=== PATIENT | male | born 1960 | race Caucasian/White ===

== ENCOUNTER 2016-12-05 11:38 | Inpatient (IN) | payer MEDICARE, OTHER ==
[~2016-12-05] VITALS: Ht 165.1 cm; Wt 48.1 kg
[~2016-12-05 11:38] MED LIST: ACET160E5 PO; ACET160S PEG; ACET500L17 PEG; ACET500T68 PEG; ACIDOPHILUS PEG; ACIDOPHILUS100 MG PO; AMOX1TAB61 PO; AMOX400S PO; BISA10SU13 RC; CALC PEG; CALC200T23 PO; CALC500O PEG; CALC500O PO; CALCIUM CARB PEG; CARB100O2 PEG; CEFP200T PEG; CEFP200T PO; CHOL400D2 PEG; CHOL400D2 PO; CLIN300C3 PO; CLON1PAT TD; CLOT15CR TP; CLOT15CR4 TP; CRAN1POW PEG; CRAN250C PEG; CRAN300T PO; DIAZ5SOL2 PEG; DIAZ5TAB4 PEG; DIAZ5TAB4 PO; DOCU-27 PO; DOXA2TAB2 PEG; DOXY100T PO; ECON15CR TP; ENOX30DI SQ; ESCI10TA PEG; ESOM40SU PEG; FLUT100D IH; FLUT16SP NS; FLUT16SP2 NS; FLUT9.9S NS; LACT1CAP PEG; LACT1CAP2 PEG; LACT1CAP2 PO; LEVO500T38 PO; LEVO750T31 PO; LIDO700A4 TP; LOPE2CAP PEG; LOPE2CAP PO; LORA-434 PEG; LORA1TAB PO; LORA5SOL4 PEG; MAGN400O4 PO; MAGN400T22 PEG; METH-37 PEG; METH-37 PO; METR500T PEG; MIRT15TA3 PEG; NEXIUM PEG; OXYC5CAP3 PO; PECTIN PEG; PEG4000S3 PO; PIPE2.255 MC; POLY17PO3 PEG; POLY255P PO; QUET50TA PEG; SIME100L MC; SIME100L PEG; SIME80TA14 PEG; SULF1TAB24 PO; TAMS0.4C2 PO; TAMS0.4C97 PEG; TERB12CR TP; TERB12GE; TERB15CR2 TP; TERB30CR TP; TRAZ100T12 PEG; TRAZ150T55 PEG; VITAMIN A; VITS56.7 TP; ZINC30OI TP; ZIPR20CA2 PEG; ZIPR40CA3 PEG; ZIPR80CA2 PEG; [UNRECOGNIZED DRUG - CODE] PEG; [UNRECOGNIZED DRUG - CODE] PEG; [UNRECOGNIZED DRUG - CODE] PEG; [UNRECOGNIZED DRUG - CODE] PEG; [UNRECOGNIZED DRUG - CODE] PEG; [UNRECOGNIZED DRUG - CODE] PO; [UNRECOGNIZED DRUG - CODE] PO; [UNRECOGNIZED DRUG - CODE] PO; [UNRECOGNIZED DRUG - OTHER]; cranberry PEG; phenylephrine PEG
[2016-12-05] MEDS ORDERED: TERBINAFINE 1% TOPICAL CREAM 30GM TUBE. TP PRN (11:45)
[2016-12-05] MEDS ORDERED: VITS A & D/LANOLIN TOPICAL OINTMENT 56GM TUBE. TP PRN (11:45)
[2016-12-05] MEDS ORDERED: BISACODYL 10 MG SUPP.RECT RC PRN (11:45)
[2016-12-05] MEDS ORDERED: PIPERACILLIN/TAZOBACTAM 2.25 GM VIAL IV SCH (12:00)
[2016-12-05] MEDS ORDERED: SENNOSIDES 8.6 MG TABLET PO PRN (12:45)
[2016-12-05] MEDS ORDERED: NUTRITIONAL SUPPLEMENT PEG SCH (13:00)
[2016-12-05 13:09] VITALS: BP 147/80
[2016-12-05] MEDS: PIPERACILLIN/TAZOBACTAM 4.5 GM in IV NORMAL SALINE 50ML 50 ML IV SCH ×2 (13:47→17:18)
[2016-12-05] MEDS: CALCIUM CARBONATE 500 MG TAB.CHEW PEG SCH ×2 (13:47→21:15)
[2016-12-05] MEDS: ACETAMINOPHEN 650 MG/20.3 ML SOLUTION. PEG SCH ×2 (13:47→21:13)
[2016-12-05] MEDS: ZIPRASIDONE 20 MG CAPSULE. PO SCH ×2 (13:47→21:16)
[2016-12-05] MEDS: DOCUSATE 100 MG/10 ML SOLUTION. PO SCH ×2 (13:48→21:13)
[2016-12-05] MEDS: CARBAMAZEPINE 100 MG/5 ML PO SCH (13:49)
--- NOTE | 2016-12-05 14:18 | HP ---
ADMIT DATE: 12/05/2016 This is the swing bed history and physical Date of admission to swing bed 12/05/2016. REASON FOR ADMISSION TO SWING BED: Continue the antibiotic treatment for multidrug-resistant pseudomonas aeruginosa urinary tract infection. PAST MEDICAL HISTORY: Intellectual disability, chronic small bowel obstructions, chronic aspiration pneumonia, chronic feeding tubes status, chronic n.p.o. status, dysphagia, frequent falls, fall risk, seizure disorder, incontinence, reflux, BPH, anxiety, and depression. PAST SURGICAL HISTORY: Multiple gastrostomy tube placements. Finally, he is on the Carson button, exploratory lap for multiple bowel obstructions and multiple abdominal surgeries. ALLERGIES: None. MEDICATIONS: Reviewed and reconciled for the swing bed status. SOCIAL HISTORY: Father recently . Brother is now his DPOA. Does not smoke, drink alcohol or use drugs. He resides in a senior living with Laramie Mingxieku. REVIEW OF SYSTEMS: The patient states he wants to go home. He has no specific complaints. OBJECTIVE: VITAL SIGNS: Stable, not yet recorded. GENERAL: He is alert. He is in a good mood today. NECK: Supple. LUNGS: Clear. CARDIOVASCULAR: Regular rhythm and rate. ABDOMEN: Soft, nontender. EXTREMITIES: Without edema. PLAN: Continue with IV antibiotics, PT and OT. BRISSA MOREIRA DO DR: MAHNAZ/dominick JOB#: [id number] / [id number]
[2016-12-05 15:14] VITALS: BP 126/69
[2016-12-05 15:29] VITALS: BP 126/69
--- NOTE | 2016-12-05 16:20 | NUR ---
Swing Bed Nursing Note Patient Handbook for [facility] given to patient. Nursing Problem: PT ADMITTED TO SWING BED FOR PT/OT TREATMENT AND CONTINUED ANTIBIOTIC THERAPY FOR UTI.
[2016-12-05 19:44] VITALS: BP 157/82
[2016-12-05] MEDS: ECONAZOLE 1% TP SCH (21:00)
[2016-12-05] MEDS: CARBAMAZEPINE 100 MG/5 ML PEG SCH (21:00)
[2016-12-05] MEDS: PANTOPRAZOLE 40 MG PACKET. PEG SCH (21:15)
[2016-12-05] MEDS: LORAZEPAM 1 MG TABLET. PEG PRN (21:16)
[2016-12-05] MEDS: ZINC OXIDE 20% TOPICAL OINTMENT 28GM TUBE. TP SCH (21:17)
[2016-12-06] MEDS: PIPERACILLIN/TAZOBACTAM 4.5 GM in IV NORMAL SALINE 50ML 50 ML IV SCH ×5 (00:09→23:38)
--- NOTE | 2016-12-06 04:00 | NUR ---
Swing Bed Nursing Note Patient Handbook for [facility] given to patient. Nursing Problem: UTI which is being treated with antibiotic. PT/OT treatment. Cognitive/Behavioral: Patient has MR and is difficult to understand at times. Alert & oriented. Cooperative and follows commands. Pain: No complaints of pain. Respiratory Status: Patient has a coarse cough. Skin: Dry, flaky and oral cavity is very dry. Bowel/Bladder Continence: Patient calls to get help to go to the bathroom. Patient wearing a brief in case of an accident. ADL Functional Status: Patient independently turns self in bed. Moderate assistance x1 helping patient with ADL activities. Peg tube in place for medications and feedings. Patient is strict NPO.
[2016-12-06 05:02] VITALS: BP 154/80
[2016-12-06] MEDS ORDERED: FLUTICASONE 50MCG/NASAL SPRAY 16GM BOTTLE. NS SCH (09:00)
[2016-12-06] MEDS: LIDOCAINE (700MG/PATCH) PATCH. TP SCH (09:00)
[2016-12-06] MEDS ORDERED: CRANBERRY 250 MG PEG SCH (09:00)
[2016-12-06] MEDS: DOCUSATE 100 MG/10 ML SOLUTION. PO SCH ×2 (09:00→20:57)
[2016-12-06] MEDS: POLYETHYLENE GLYCOL 3350 17 GM PACKET. PO SCH (09:00)
[2016-12-06] MEDS: MAGNESIUM OXIDE 400 MG TABLET PEG SCH (09:24)
[2016-12-06] MEDS: ENOXAPARIN 40 MG/0.4 ML DISP.SYRIN. SQ SCH (09:25)
[2016-12-06] MEDS: CARBAMAZEPINE 100 MG/5 ML PO SCH ×2 (09:26→15:05)
[2016-12-06] MEDS: ZIPRASIDONE 20 MG CAPSULE. PO SCH ×3 (09:26→20:58)
[2016-12-06] MEDS: CALCIUM CARBONATE 500 MG TAB.CHEW PEG SCH ×3 (09:26→20:57)
[2016-12-06] MEDS: LACTOBACILLUS ACIDOPH & BULGAR 1 TABLET. PO SCH (09:26)
[2016-12-06] MEDS: SIMETHICONE 80 MG TAB.CHEW PEG SCH (09:26)
[2016-12-06] MEDS: PANTOPRAZOLE 40 MG PACKET. PEG SCH ×2 (09:26→20:57)
[2016-12-06] MEDS: ACETAMINOPHEN 650 MG/20.3 ML SOLUTION. PEG SCH ×3 (09:28→20:57)
[2016-12-06] MEDS: ZINC OXIDE 20% TOPICAL OINTMENT 28GM TUBE. TP SCH ×2 (09:28→20:56)
--- NOTE | 2016-12-06 11:00 | NUR ---
Swing Bed Nursing Note Patient Handbook for [facility] given to patient. Nursing Problem: Pseudomonas UTI which is being treated with IV Zosyn antibiotic. PT/OT treatment for strength training. Cognitive/Behavioral: Pt is sitting up in bed watching a movie, big smile when staff enters room. Pt has MR which makes him difficult to understand at times. Alert & oriented x3 with occasional forgetfulness. Pt is pleasant, cooperative and able to follow commands. Pain: No complaints of pain. Respiratory Status: Patient has a dry, non-productive cough. Pt is on room air. Skin: Dry & flaky but no wounds noted. Bowel/Bladder Continence: Pt with stress incont., wears a brief. LBM=12/06 ADL Functional Status: Pt independently turns self in bed. Moderate assistance x1 helping patient with ADL activities. Ash-orozco tube in place for medications and feedings QID. Patient is strict NPO. Patient reluctant to work with PT/OT today, required explanation/redirection to participate. Patient did participate and then apologize to staff for being difficult.
[2016-12-06 19:25] VITALS: BP 146/86
[2016-12-06] MEDS: LORAZEPAM 1 MG TABLET. PEG PRN (20:57)
[2016-12-06] MEDS: ECONAZOLE 1% TP SCH (20:57)
[2016-12-06] MEDS: DOXAZOSIN MESYLATE 1 MG TABLET PEG SCH (20:57)
[2016-12-06] MEDS: CARBAMAZEPINE 100 MG/5 ML PEG SCH (20:58)
--- NOTE | 2016-12-06 23:15 | NUR ---
Swing Bed Nursing Note Patient Handbook for [facility] given to patient. Nursing Problem: Pseudomonas UTI which is being treated with IV Zosyn antibiotic. PT/OT treatment for strength training. Cognitive/Behavioral: Pt is sitting up in bed watching a movie at change of shift, big smile when staff enters room. Pt has MR which males him difficult to understand at times. Alert & oriented x3 with occasional forgetfulness. Pt is pleasant, cooperative and able to follow commands. Pain: No complaints of pain. Respiratory Status: Patient has a dry, non-productive cough. Pt is on room air. Skin: Dry & flaky but no wounds noted. Bowel/Bladder Continence: Pt with stress incont., wears a brief. LBM=12/06 ADL Functional Status: Pt independently turns self in bed. Moderate assistance x1 helping patient with ADL activities. Ash-orozco tube in place for medications and feedings QID. Patient is strict NPO. Pt had shower tonight.
[2016-12-07] MEDS: PIPERACILLIN/TAZOBACTAM 4.5 GM in IV NORMAL SALINE 50ML 50 ML IV SCH ×3 (05:04→17:53)
[2016-12-07 05:06] VITALS: BP 165/82
[2016-12-07] MEDS: POLYETHYLENE GLYCOL 3350 17 GM PACKET. PO SCH (08:10)
[2016-12-07] MEDS: DOCUSATE 100 MG/10 ML SOLUTION. PO SCH ×2 (08:10→21:05)
[2016-12-07] MEDS: ZINC OXIDE 20% TOPICAL OINTMENT 28GM TUBE. TP SCH ×2 (09:00→21:05)
[2016-12-07] MEDS: PANTOPRAZOLE 40 MG PACKET. PEG SCH ×2 (09:34→21:04)
[2016-12-07] MEDS: LACTOBACILLUS ACIDOPH & BULGAR 1 TABLET. PO SCH (09:34)
[2016-12-07] MEDS: MAGNESIUM OXIDE 400 MG TABLET PEG SCH (09:34)
[2016-12-07] MEDS: CALCIUM CARBONATE 500 MG TAB.CHEW PEG SCH ×3 (09:34→21:04)
[2016-12-07] MEDS: SIMETHICONE 80 MG TAB.CHEW PEG SCH (09:34)
[2016-12-07] MEDS: ACETAMINOPHEN 650 MG/20.3 ML SOLUTION. PEG SCH ×3 (09:35→21:05)
[2016-12-07] MEDS: CARBAMAZEPINE 100 MG/5 ML PEG SCH (09:35)
[2016-12-07] MEDS: LIDOCAINE (700MG/PATCH) PATCH. TP SCH (09:37)
[2016-12-07] MEDS: ZIPRASIDONE 20 MG CAPSULE. PO SCH ×3 (09:37→21:04)
[2016-12-07] MEDS: CARBAMAZEPINE 100 MG/5 ML PO SCH ×2 (09:38→13:58)
[2016-12-07] MEDS: FLUTICASONE 50MCG/NASAL SPRAY 16GM BOTTLE. NS SCH (09:39)
[2016-12-07] MEDS: ENOXAPARIN 40 MG/0.4 ML DISP.SYRIN. SQ SCH (10:00)
--- NOTE | 2016-12-07 12:00 | NUR ---
Swing Bed: Nursing Problem: Pseudomonas UTI which is being treated with IV Zosyn. PT/OT treatment for strength training. Cognitive/Behavioral: Restless, tearful at times. Alert & oriented with occasional forgetfulness. Hx: MR Pain: No complaints of pain. Respiratory Status: Patient has a dry, non-productive cough. Pt is on room air. Skin: Dry. Bowel/Bladder Continence: Pt with stress inconstance, wears a brief. LBM=3/14 ADL Functional Status: Pt independently turns self in bed. Stand by assistance x1 helping patient with ADL activities. Ash-orozco tube in place for medications and feedings QID. Patient is strict NPO.
[2016-12-07] MEDS: LORAZEPAM 1 MG TABLET. PEG PRN (19:28)
[2016-12-07] MEDS: DOXAZOSIN MESYLATE 1 MG TABLET PEG SCH (21:04)
[2016-12-07] MEDS: ECONAZOLE 1% TP SCH (21:06)
[2016-12-08] MEDS ORDERED: IV NORMAL SALINE 250ML 250 ML ONE (04:52)
[2016-12-08 05:11] VITALS: BP 162/84
--- NOTE | 2016-12-08 05:24 | NUR ---
Swing Bed Nursing Note Patient Handbook for [facility] given to patient. Nursing Problem: Pseudomonas UTI which is being treated with IV Zosyn antibiotic. PT/OT treatment for strength training. Cognitive/Behavioral: Pt is been restless, tearful, will not easily complete tasks. Pt has MR which males him difficult to understand at times. Alert & oriented x3 with occasional forgetfulness. Pt has been demanding certain staff to take care of him. Pain: No complaints of pain. Respiratory Status: Patient has a dry, non-productive cough. Pt is on room air. Skin: Dry & flaky but no wounds noted. Bowel/Bladder Continence: Pt with stress incont., wears a brief. LBM=314 ADL Functional Status: Pt independently turns self in bed. Moderate assistance x1 helping patient with ADL activities. Ash-orozco tube in place for medications and feedings QID. Patient is strict NPO.
[2016-12-08] MEDS: PIPERACILLIN/TAZOBACTAM 4.5 GM in IV NORMAL SALINE 50ML 50 ML IV SCH ×6 (05:41→23:43)
[2016-12-08] MEDS: LIDOCAINE (700MG/PATCH) PATCH. TP SCH (09:00)
[2016-12-08] MEDS: DOCUSATE 100 MG/10 ML SOLUTION. PO SCH ×2 (09:00→21:01)
[2016-12-08] MEDS: POLYETHYLENE GLYCOL 3350 17 GM PACKET. PO SCH (09:00)
[2016-12-08] MEDS: ZINC OXIDE 20% TOPICAL OINTMENT 28GM TUBE. TP SCH ×2 (09:00→21:00)
[2016-12-08] MEDS: ENOXAPARIN 40 MG/0.4 ML DISP.SYRIN. SQ SCH (09:17)
[2016-12-08] MEDS: ZIPRASIDONE 20 MG CAPSULE. PO SCH ×3 (09:24→21:01)
[2016-12-08] MEDS: SIMETHICONE 80 MG TAB.CHEW PEG SCH (09:24)
[2016-12-08] MEDS: FLUTICASONE 50MCG/NASAL SPRAY 16GM BOTTLE. NS SCH (09:24)
[2016-12-08] MEDS: CALCIUM CARBONATE 500 MG TAB.CHEW PEG SCH ×3 (09:24→20:59)
[2016-12-08] MEDS: CARBAMAZEPINE 100 MG/5 ML PO SCH ×2 (09:24→13:58)
[2016-12-08] MEDS: PANTOPRAZOLE 40 MG PACKET. PEG SCH ×2 (09:24→20:59)
[2016-12-08] MEDS: LACTOBACILLUS ACIDOPH & BULGAR 1 TABLET. PO SCH (09:24)
[2016-12-08] MEDS: LORAZEPAM 1 MG TABLET. PEG PRN ×2 (09:24→13:59)
[2016-12-08] MEDS: ACETAMINOPHEN 650 MG/20.3 ML SOLUTION. PEG SCH ×3 (09:24→21:01)
[2016-12-08] MEDS: MAGNESIUM OXIDE 400 MG TABLET PEG SCH (09:24)
[2016-12-08] MEDS: METHOCARBAMOL 500 MG TABLET PEG PRN (09:24)
[2016-12-08 11:34] VITALS: BP 132/84
--- NOTE | 2016-12-08 12:18 | NUR ---
Attempted to restart patients IV x 3. Each attempt unsuccessful. Patient unwilling to allow more attempts. Current IV site to right AC is intact, no s/s of infection, flushes well, good blood return. Dated 12/02. Will monitor.
--- NOTE | 2016-12-08 12:20 | NUR ---
Swing Bed Nursing Note Patient Handbook for [facility] given to patient. Nursing Problem: Pseudomonas UTI which is being treated with IV Zosyn antibiotic. PT/OT treatment for strength training. Cognitive/Behavioral: Pt has been restless, tearful, will not easily complete tasks. Pt has MR which makes him difficult to understand at times. Alert & oriented x3 with occasional forgetfulness. Pt states he wants to go home, cooperative with cares with anne redirection. Pain: No complaints of pain. Respiratory Status: Patient has a dry, non-productive cough. Pt is on room air. Skin: Dry & flaky but no wounds noted. Bowel/Bladder Continence: Pt with stress incont., wears a brief. LBM=3/15 ADL Functional Status: Pt independently turns self in bed. Moderate assistance x1 helping patient with ADL activities. Ash-orozco tube in place for medications and feedings QID. Patient is strict NPO. Patient allowed DSP ENGINEER to assist him with showering today. Dressed and sat up in chair. Patient combed his own hair.
[2016-12-08] MEDS: DOXAZOSIN MESYLATE 1 MG TABLET PEG SCH (20:59)
[2016-12-08] MEDS: ECONAZOLE 1% TP SCH (21:00)
[2016-12-08] MEDS: CARBAMAZEPINE 100 MG/5 ML PEG SCH (21:01)
[2016-12-08 21:20] VITALS: BP 147/81
--- NOTE | 2016-12-08 22:30 | NUR ---
Swing Bed Nursing Note Patient Handbook for [facility] given to patient. Nursing Problem: Pseudomonas UTI which is being treated with IV Zosyn antibiotic. PT/OT treatment for strength training. Cognitive/Behavioral: Pt has been calm, and cooperative. Pt has MR which makes him difficult to understand at times, w/ garbled speech. Alert & oriented x3 with occasional forgetfulness. Pt states he wants to go home, cooperative with cares with anne redirection. Pain: No complaints of pain. Respiratory Status: Patient has a dry, non-productive cough. Pt is on room air. Skin: Dry & flaky but no wounds noted. Bowel/Bladder Continence: Pt with stress incont., wears a brief. LBM=3/15 ADL Functional Status: Pt independently turns self in bed. Moderate assistance x1 helping patient with ADL activities. Ash-orozco tube in place for medications and feedings QID. Patient is strict NPO.
[2016-12-09] MEDS: PIPERACILLIN/TAZOBACTAM 4.5 GM in IV NORMAL SALINE 50ML 50 ML IV SCH ×4 (06:12→23:39)
[2016-12-09] MEDS ORDERED: IV NORMAL SALINE 250ML 250 ML ONE (06:20)
[2016-12-09] MEDS: DOCUSATE 100 MG/10 ML SOLUTION. PO SCH ×2 (08:40→20:26)
[2016-12-09] MEDS: LIDOCAINE (700MG/PATCH) PATCH. TP SCH (08:40)
[2016-12-09] MEDS: POLYETHYLENE GLYCOL 3350 17 GM PACKET. PO SCH (08:40)
[2016-12-09] MEDS: FLUTICASONE 50MCG/NASAL SPRAY 16GM BOTTLE. NS SCH (08:40)
[2016-12-09] MEDS: ENOXAPARIN 40 MG/0.4 ML DISP.SYRIN. SQ SCH (08:41)
[2016-12-09] MEDS: ZIPRASIDONE 20 MG CAPSULE. PO SCH ×3 (08:45→20:25)
[2016-12-09] MEDS: CARBAMAZEPINE 100 MG/5 ML PO SCH ×2 (08:45→13:31)
[2016-12-09] MEDS: LORAZEPAM 1 MG TABLET. PEG PRN ×2 (08:45→13:31)
[2016-12-09] MEDS: ZINC OXIDE 20% TOPICAL OINTMENT 28GM TUBE. TP SCH ×2 (08:45→20:27)
[2016-12-09] MEDS: CALCIUM CARBONATE 500 MG TAB.CHEW PEG SCH ×3 (08:45→20:26)
[2016-12-09] MEDS: ACETAMINOPHEN 650 MG/20.3 ML SOLUTION. PEG SCH ×3 (08:45→20:25)
[2016-12-09] MEDS: LACTOBACILLUS ACIDOPH & BULGAR 1 TABLET. PO SCH (08:45)
[2016-12-09] MEDS: PANTOPRAZOLE 40 MG PACKET. PEG SCH ×2 (08:45→20:26)
[2016-12-09] MEDS: SIMETHICONE 80 MG TAB.CHEW PEG SCH (08:45)
[2016-12-09] MEDS: MAGNESIUM OXIDE 400 MG TABLET PEG SCH (08:45)
[2016-12-09] MEDS: METHOCARBAMOL 500 MG TABLET PEG PRN (08:45)
[2016-12-09 10:47] VITALS: BP 154/79
[2016-12-09 19:44] VITALS: BP 126/71
[2016-12-09] MEDS: CARBAMAZEPINE 100 MG/5 ML PEG SCH (20:25)
[2016-12-09] MEDS: DOXAZOSIN MESYLATE 1 MG TABLET PEG SCH (20:26)
[2016-12-09] MEDS: ECONAZOLE 1% TP SCH (20:27)
--- NOTE | 2016-12-09 22:46 | PN ---
DATE: 12/09/2016 SUBJECTIVE: The patient was admitted for inpatient treatment of his urinary tract infection as he grew Pseudomonas aeruginosa. He grew between 50,000 to 100,000 colony forming unit per mL of bacteria identified as Pseudomonas aeruginosa that is sensitive to amikacin, cefepime, ceftazidime and piperacillin/tazobactam as well as tobramycin and ticarcillin. It is resistant to ciprofloxacin and levofloxacin. The patient has been stable throughout his stay here. He is afebrile. His family states that he has moist cough, but does not expectorate any sputum. OBJECTIVE: GENERAL: When I examined him this afternoon, he looked well and was clearly in no apparent respiratory distress. He was pale, but no jaundice, cyanosis, or thyromegaly. No jugular venous distention. No limb edema. VITAL SIGNS: His heart rate was 91, blood pressure 154/79, temperature was 97.5, respiratory rate was 18 and oxygen saturation was 97%. HEAD, EYES, EARS, NOSE AND THROAT: Normocephalic, atraumatic. NECK: Supple. HEART: Normal first and second heart sounds with no gallop, rub or murmur. CHEST: Clear to auscultation. No crepitation or rhonchi. ABDOMEN: Slightly distended, soft, with gastrostomy tube in place. There is no guarding or rigidity. No organomegaly. All hernial orifices intact. Bowel sounds normal. NEUROLOGIC: He is awake, alert, responds appropriately at times. All his cranial nerves are intact. He moves extremities without difficulty. He is able to ambulate without assistance or assistive devices. LABORATORY DATA: Most recent lab work showed white cell count of 3500, hemoglobin 12, hematocrit 36, MCV 86 and platelet count of 304,000. His most recent chemistry showed serum sodium of 132, potassium 4.7, chloride 94, bicarbonate 33, anion gap of 5, BUN 11, creatinine 0.8. PLAN: My plan is to arrange for him to have a chest x-ray, repeat his labs tomorrow and hopefully discharge him back to his [facility] tomorrow as probably by that time by tomorrow he would have received 8 day's worth of IV antibiotic. SHYANNE ELLIS MD DR: APARNA/dominick JOB#: [id number] / [id number]
--- NOTE | 2016-12-10 03:04 | NUR ---
Swing Bed Nursing Note Patient Handbook for [facility] given to patient. Nursing Problem: Pseudomonas UTI which is being treated with IV Zosyn antibiotic. PT/OT treatment for strength training. Cognitive/Behavioral: Pt has been calm, and cooperative. Pt has MR which makes him difficult to understand at times, w/ garbled speech. Alert & oriented x3 with occasional forgetfulness. Pt states he wants to go home, cooperative with cares with anne redirection. Pain: No complaints of pain. Respiratory Status: Patient has a dry, non-productive cough. Pt is on room air. Skin: Dry & flaky but no wounds noted. Bowel/Bladder Continence: Pt with stress incont. and some bowel incontinence. LBM = 3 (loose) ADL Functional Status: Pt independently turns self in bed. Moderate assistance x1 helping patient with ADL activities. Ash-orozco tube in place for medications and feedings QID. Patient is strict NPO.
[2016-12-10] MEDS: PIPERACILLIN/TAZOBACTAM 4.5 GM in IV NORMAL SALINE 50ML 50 ML IV SCH ×2 (05:54→10:44)
[2016-12-10 06:27] LABS: BASO % 1 % (0-3); EOS # 0.1 x10^3/uL (0.0-0.7); EOS % 2 % (0-3); HEMATOCRIT 39.1 % (39.0-53.0); HEMOGLOBIN 12.7 g/dL (13.0-17.5); LYMPH # 1.6 x10^3/uL (1.0-4.8); LYMPH % 39 % (24-48); MEAN CORPUSCULAR HEMOGLOBIN 28 pg (25-35); MEAN CORPUSCULAR HGB CONC 32 g/dL (31-37); MEAN CORPUSCULAR VOLUME 87 fL (79-100); MONO # 0.3 x10^3/uL (0.0-1.1); MONO % 7 % (0-9); NEUT # 2.1 x10^3uL (1.8-7.7); NEUT % 52 % (31-73); PLATELET COUNT 273 x10^3/uL (140-400); RED BLOOD COUNT 4.52 x10^6/uL (4.30-5.70); RED CELL DISTRIBUTION WIDTH 17.1 % (11.5-14.5); WHITE BLOOD COUNT 4.1 x10^3/uL (4.0-11.0)
[2016-12-10 06:41] LABS: ALBUMIN 3.5 g/dL (3.4-5.0); ALBUMIN/GLOBULIN RATIO 0.8 (1.0-1.7); CALCIUM 9.1 mg/dL (8.5-10.1); CREATININE 0.6 mg/dL (0.7-1.3); GFR 138.4; POTASSIUM 4.4 mmol/L (3.5-5.1); TOTAL BILIRUBIN 0.2 mg/dL (0.2-1.0)
--- NOTE | 2016-12-10 07:38 | RAD ---
Portable chest, 12/10/2016: History: Cough and congestion Comparison is made to a study from 11/29/2016. The heart size and pulmonary vascularity are within normal limits. There is a calcified granuloma in the left upper lobe. No acute infiltrates are seen. There is no evidence of pleural fluid. Old healed rib fractures are present bilaterally. Postsurgical changes are noted in the cervical spine. IMPRESSION: No acute cardiopulmonary abnormality is detected.
[2016-12-10] MEDS: MAGNESIUM OXIDE 400 MG TABLET PEG SCH (08:32)
[2016-12-10] MEDS: FLUTICASONE 50MCG/NASAL SPRAY 16GM BOTTLE. NS SCH (08:32)
[2016-12-10] MEDS: SIMETHICONE 80 MG TAB.CHEW PEG SCH (08:32)
[2016-12-10] MEDS: LACTOBACILLUS ACIDOPH & BULGAR 1 TABLET. PO SCH (08:33)
[2016-12-10] MEDS: PANTOPRAZOLE 40 MG PACKET. PEG SCH (08:33)
[2016-12-10] MEDS: CALCIUM CARBONATE 500 MG TAB.CHEW PEG SCH (08:33)
[2016-12-10] MEDS: CARBAMAZEPINE 100 MG/5 ML PO SCH (08:33)
[2016-12-10] MEDS: ZIPRASIDONE 20 MG CAPSULE. PO SCH (08:33)
[2016-12-10] MEDS: LIDOCAINE (700MG/PATCH) PATCH. TP SCH (08:34)
[2016-12-10] MEDS: DOCUSATE 100 MG/10 ML SOLUTION. PO SCH (08:36)
[2016-12-10] MEDS: POLYETHYLENE GLYCOL 3350 17 GM PACKET. PO SCH (08:36)
[2016-12-10] MEDS: ACETAMINOPHEN 650 MG/20.3 ML SOLUTION. PEG SCH (08:36)
[2016-12-10] MEDS: ZINC OXIDE 20% TOPICAL OINTMENT 28GM TUBE. TP SCH (09:00)
[2016-12-10 10:36] VITALS: BP 161/75
[2016-12-10] MEDS: ENOXAPARIN 40 MG/0.4 ML DISP.SYRIN. SQ SCH (10:44)
--- NOTE | 2016-12-10 11:00 | NUR ---
Swing Bed Nursing Note Patient Handbook for [facility] given to patient. Nursing Problem: Swing Bed Nursing Note Nursing Problem: Pseudomonas UTI which is being treated with IV Zosyn antibiotic. PT/OT treatment for strength training. Cognitive/Behavioral: Pt has been restless, will not easily complete tasks. Pt has MR which makes him difficult to understand at times. Alert & oriented x3 with occasional forgetfulness. Pt states he wants to go home, cooperative with cares with anne redirection. Pain: No complaints of pain. Respiratory Status: Patient has a dry, non-productive cough. Pt is on room air. Skin: Dry & flaky but no wounds noted. Bowel/Bladder Continence: Pt with stress incont., wears a brief. LBM=15 ADL Functional Status: Pt independently turns self in bed. Moderate assistance x1 helping patient with ADL activities. Ash-orozco tube in place for medications and feedings QID. Patient is strict NPO. Patient allowed CHANGE LEAD to assist him with showering today. Dressed and sat up in chair. Patient combed his own hair. Addendum: 12/10/16 at 1108 by ROMEO BRENNAN RN correction: Last BM 12/10
--- NOTE | 2016-12-10 11:30 | NUR ---
Notified Dr. Mtz of sodium 135, confirmed d/c today for this pt- no new orders
--- NOTE | 2016-12-10 13:37 | NUR ---
Pt given d/c teaching with MARQUES Hernandez present, pt ambulated with walker off the unit accompanied by MAK Askew Betty and [facility] Para Educator, Blanca, Report called to Christi at [facility] who requested medication list be faxed to [facility], Theresa at [facility] confirmed receipt of updated medication list which indicated that lovenox and zosyn have been discontinued.
--- NOTE | 2016-12-10 21:14 | DS ---
DATE OF DISCHARGE: 12/10/2016 The patient was resting slightly propped up in bed, in no apparent respiratory distress. He was admitted to swing bed to continue inpatient treatment with IV antibiotic for his multidrug resistant Pseudomonas aeruginosa. He was continued on his piperacillin/tazobactam 4.5 mg IV q. 6 hourly and to complete the course of about 8 days. PHYSICAL EXAMINATION: GENERAL: When I saw him today, he looked well and was clearly in no apparent respiratory distress, pale, but no jaundice, cyanosis or thyromegaly. No jugular venous distension. No limb edema. VITAL SIGNS: His heart rate was 88, blood pressure 161/75, temperature was 97.6, respiratory rate 22, and oxygen saturation was 98%. HEAD, EYES, EARS, NOSE AND THROAT: Showed normocephalic, atraumatic. NECK: Supple. HEART: Showed normal first and second heart sounds with no gallop, rub or murmur. CHEST: Clear to auscultation. No crepitation or rhonchi. ABDOMEN: Distended, soft with gastrostomy tube in place. There is no guarding or rigidity. No organomegaly. All hernial orifices intact. Bowel sounds normal. NEUROLOGIC: He has some mild cognitive impairment, but otherwise he is awake, alert, responding appropriately. Cranial nerves intact. He moves extremities without difficulty, ambulates without assistance. His intake over the last 24 hours and output are incompletely recorded. LABORATORY DATA: His lab work this morning showed a white cell count of 4100, hemoglobin 12.7, hematocrit 39, MCV 87, and platelet count 273,000. Serum sodium was 135, potassium 4.4, chloride 98, bicarbonate 30, anion gap of 7, BUN 13, creatinine 0.6, estimated GFR was 138 mL per minute. His glucose was 86, calcium was 9.1, magnesium 2. Total bilirubin, AST, ALT, alkaline phosphatase were normal. His total protein was 8, albumin was 3.5. DISCHARGE MEDICATIONS: [facility] acetaminophen 160 mg, he takes 5 mL, he takes 650 per feeding tube 3 times a day, bisacodyl/Dulcolax suppositories 20 mg rectally daily p.r.n. for constipation, carbamazepine 200 mg per feeding tube twice a day, carbamazepine 300 mg at bedtime, clonidine TTS 1 patch topically once a week, docusate sodium 100 mg capsule per feeding tube b.i.d., doxazosin 2 mg per feeding tube at bedtime, econazole nitrate 15 g applied topically as needed for toenail fungus, Lovenox 30 mg subQ daily, fluticasone propionate for Flonase 2 sprays to each nostril daily, Lidoderm patches 1 patch topically on for 12 hours and off for 12 hours, lorazepam 1 mg 3 times a day, magnesium oxide 400 mg daily, methocarbamol for Robaxin 500 mg per feeding tube 3 times a day, nutritional supplement Nutren 250 mL per feeding tube q.i.d., polyethylene glycol 17 g once a day, Senna-S 4 teaspoons daily p.r.n. for constipation, simethicone 80 mg chewable tablet daily, terbinafine 15 g topically, vitamin A and D, zinc oxide applied topically, ziprasidone 20 mg capsule 3 times a day, acidophilus 1 capsule per feeding tube daily, calcium carbonate 6 mL per feeding tube 3 times a day, cranberry 250 mg per feeding tube daily and Nexium powder 40 mg per feeding tube b.i.d. FINAL DIAGNOSES: Urinary tract infection growing multidrug resistant Pseudomonas aeruginosa requiring treatment with IV antibiotic, chronic abdominal pain, cognitive impairment, a seizure disorder, dysphagia, incontinence of urine, small bowel obstruction, hyponatremia, aspiration pneumonia, benign prostatic hypertrophy. SHYANNE ELLIS MD DR: APARNA/dominick JOB#: [id number] / [id number]
[2016-12-12] MEDS ORDERED: CLONIDINE TTS-1 PATCH TD SCH (09:00)
== END 2016-12-10 13:30 | disposition home or self-care (01) | DRG 388 ==
LOC: 1 SOUTH 11:38
PROVIDERS: ADMIT Family Medicine; ATTEND Family Medicine
DX: K56.60 Unspecified intestinal obstruction (principal); J69.0 Pneumonitis due to inhalation of food and vomit; N39.0 Urinary tract infection, site not specified; E87.1 Hypo-osmolality and hyponatremia; K21.9 Gastro-esophageal reflux disease without esophagitis; G40.909 Epilepsy, unspecified, not intractable, without status epilepticus; F79 Unspecified intellectual disabilities; G89.29 Other chronic pain; N40.0 Benign prostatic hyperplasia without lower urinary tract symptoms; R13.10 Dysphagia, unspecified; R32 Unspecified urinary incontinence; Z16.23 Resistance to quinolones and fluoroquinolones; Z16.24 Resistance to multiple antibiotics; G31.84 Mild cognitive impairment of uncertain or unknown etiology; F32.9 Major depressive disorder, single episode, unspecified; F41.9 Anxiety disorder, unspecified; R29.6 Repeated falls; B96.5 Pseudomonas (aeruginosa) (mallei) (pseudomallei) as the cause of diseases classified elsewhere
CPT/HCPCS: 36415; 71010; 80053; 83735; 85027; J1650; J2543; J7050; 97110; 97530

== ENCOUNTER → 2016-12-16 | Outpatient (CLI) | payer MEDICARE, OTHER ==
[2016-12-10 10:36] VITALS: BP 161/75
--- NOTE | 2016-12-17 08:44 | RAD ---
Abdomen, 2 views, 12/16/2016: History: Generalized abdominal pain Comparison is made to a study from 11/29/2016. There is increased gas in the GI tract extending down through the level of the rectum. A few small scattered air-fluid levels are noted. No free air is evident in the abdomen. There is no evidence of organomegaly or abnormal abdominal calcification. Degenerative changes are evident in the spine. IMPRESSION: Increased gas in the GI tract extending down through the level of the rectum in a pattern suggesting an ileus or atonic colon.
== END | disposition home or self-care (01) ==
LOC: RAD 16:44
PROVIDERS: ATTEND Family Medicine
DX: R10.84 Generalized abdominal pain (principal)
CPT/HCPCS: 74020

== ENCOUNTER 2017-03-18 19:46 | Emergency (ER) | payer MEDICARE, OTHER ==
[~2017-03-18] VITALS: Ht 165.1 cm; Wt 51.8 kg
[~2017-03-18 19:46] MED LIST changes: -BACI3.5O8 OS
[2017-03-18 20:03] VITALS: BP 164/86
[2017-03-18] MEDS ORDERED: BACI3.5O8 OS (20:09)
--- NOTE | 2017-03-18 20:09 | PHYS DOC ---
Past History Past Medical History: Anemia, Anxiety, Constipation, Depression, GERD, Pneumonia, Seizure, UTI, Other Past Surgical History: Other Smoking: Non-smoker Alcohol Use: None Drug Use: None Adult General Chief Complaint Chief Complaint: TOE PROBLEM HPI HPI This is a pleasant 56-year-old male who is in assisted living secondary to significant cognitive or difficulties presents with acute injury to these second toe on his right foot. He was walking in his room attempting to change closed before taking a shower when he stubbed his toe on a device in his room. There is some immediate bleeding coming from the distal portion of the toe and the staff directly apply pressure to stop the wound from stopping bleeding. At this point in time they came in for an evaluation to make sure that there was a laceration that needed to repair. This point patient is walking comfortably using his walker. Patient feels pain is worse with movement ablation of the toe and walking patient was not able to provide a pain level. At this point given injury location x-rays were completed of the toe to ensure that there is no open tuft fracture. Review of Systems Review of Systems Constitutional: Denies fever or chills [] Eyes: Denies change in visual acuity, redness, or eye pain [] HENT: Denies nasal congestion or sore throat [] Respiratory: Denies cough or shortness of breath [] Cardiovascular: No additional information not addressed in HPI [] GI: Denies abdominal pain, nausea, vomiting, bloody stools or diarrhea [] : Denies dysuria or hematuria [] Musculoskeletal: Only complaint is of toe pain. Integument: Denies rash or skin lesions [] Neurologic: Denies headache, focal weakness or sensory changes [] Endocrine: Denies polyuria or polydipsia [] U systems provided by staff accompanying patient. Allergies Allergies Allergies Coded Allergies Type Severity Reaction Last Updated Verified NKMA Allergy Unknown 05/04/16 Yes Physical Exam Physical Exam Constitutional: Well developed, well nourished, no acute distress, non-toxic appearance. [] Cardiovascular:Heart rate regular rhythm, no murmur [] Lungs & Thorax: Bilateral breath sounds clear to auscultation [] Skin: Warm, dry, no erythema, no rash. Impression suffers from onychomycosis significant at the second and fourth toenails. There is an elevation of the toenail itself from the nailbed is still attached with no obvious significant laceration to repair. There is a skin tear along the epionychium. Active bleeding at this time. Extremities: Or numbness noted distal second toe no obvious deformities. No cyanosis, there is significant decreased range of motion at the distal portion of the second toe. Neurologic: Patient able ambulate within normal limits. Psychologic: This patient does have significant cognitive dysfunction but is able to interact appropriately and is nontoxic in appearance. EKG EKG [] Radiology/Procedures Radiology/Procedures [] 3 view x-ray of the right foot taken at 2018 03/18/2017 demonstrates no occult fracture of the second toe does show lifting of the toenail itself which is evidence on physical exam there is no subcutaneous tenderness air or obvious bony deformity and no foreign body noted. X-ray read by Dr. Luz. Course & Med Decision Making Course & Med Decision Making Pertinent Labs and Imaging studies reviewed. (See chart for details) Reviewed vital signs, nursing notes and having a discussion with the caretakers. We will believe it best to leave the toenail intact in place there is no toenail laceration to repair in fact at this point patient would not allow a repair of a laceration in his present state even the fact that the nailbed is intact and the eponychia may still in place we filled felt to do better plan to splint the toenail in place refer the patient to podiatry. Impression: Toenail elevation partial skin tear injury to the eponychia. Disposition: PCP follow-up with podiatry referral for definitive elevation and removal of the toenail if required and treatment of the onychomycosis [] Dragon Disclaimer Dragon Disclaimer This chart was dictated in whole or in part using Voice Recognition software in a busy, high-work load, and often noisy Emergency Department environment. It may contain unintended and wholly unrecognized errors or omissions. Departure Departure: Impression: Primary Impression: Onychomycosis Additional Impression: Injury of toenail of left foot Disposition: HOME, SELF-CARE Condition: IMPROVED Referrals: TOM TRAMMELL MD (PCP) Patient Instructions: Fingernail or Toenail Loss, Wound Care, [id number] Additional Instructions: Please attempt to keep toenails that he take together in order to allow them to heal and the toenail to remain in place. If the toenail needs to be removed we recommended follow to podiatry to the oncyhomycosis noted significant underneath the toenail. His watch for signs of infection return for any questions or concerns or might have. Scripts Bacitracin (BACITRACIN) 3.5 Gm Oint...g. 1 MERRILL OS TID, #3.5 GM Prov: LAWSON LUZ MD 03/18/17 Problem Qualifiers LAWSON LUZ MD Mar 18, 2017 20:09
[2017-03-18] MEDS ORDERED: BACITRACIN ZINC TOPICAL OINT PACKET. TP SCH (21:00)
--- NOTE | 2017-03-19 08:50 | RAD ---
Right FOOT AP LATERAL OBLIQUE Clinical Indication: Right foot, 2nd toe injury, nail lifted and pain Comparison: None. Findings: Slight cortical irregularity dorsal surface of the distal phalanx of the second toe. Overlying deformity of the nail. Incomplete or nondisplaced fracture cannot be excluded. Narrowed appearance of the fifth metatarsal head may be congenital or postsurgical. Mineralization is normal. No bony erosion. There is no soft tissue abnormality. IMPRESSION: Cannot exclude incomplete or nondisplaced fracture along the dorsal surface of the second toe distal phalanx.
== END 2017-03-18 20:43 | disposition home or self-care (01) ==
LOC: ER 19:46
DX: S99.922A Unspecified injury of left foot, initial encounter (principal); B35.1 Tinea unguium; K21.9 Gastro-esophageal reflux disease without esophagitis; Z86.2 Personal history of diseases of the blood and blood-forming organs and certain disorders involving the immune mechanism; Z87.440 Personal history of urinary (tract) infections; W22.8XXA Striking against or struck by other objects, initial encounter; Y93.01 Activity, walking, marching and hiking; Y99.8 Other external cause status; Y92.89 Other specified places as the place of occurrence of the external cause
CPT/HCPCS: 73630; 99284

== ENCOUNTER → 2017-03-18 | Outpatient (CLI) | payer MEDICARE, OTHER ==
[~2017-03-18] MED LIST changes: +BACI3.5O8 OS; +DOCU-109 PO; -DOCU-27 PO; -ESCI10TA PEG; +ESCITALOPRAM OX10 MG PEG; -FLUT16SP NS; +FLUT16SP21 NS; -LEVO500T38 PO; +LEVO500T59 PO; -MAGN400O4 PO; +MAGN400O7 PO; +OXYC5CAP PO; -OXYC5CAP3 PO; +TERB15CR12 TP; -TERB15CR2 TP; +TRAZ-90 PEG; -TRAZ100T12 PEG; +TRAZ150T49 PEG; -TRAZ150T55 PEG
--- NOTE | 2017-03-18 10:37 | RAD ---
Acute abdomen series with chest, 3 views, 03/18/2017: History: Left-sided tenderness and pain Comparison is made to a study from 12/16/2016. There is a moderate amount of gas in large and small bowel in a nonspecific pattern. No free air is seen in the abdomen. There is no evidence of organomegaly. There are mild scattered degenerative changes in the spine. The heart size is normal. There is a calcified granuloma in the left upper lobe. There are mild scattered parenchymal scars. No acute infiltrate is seen. There is no evidence of pleural fluid. IMPRESSION: No acute abdominal abnormality is detected.
== END | disposition home or self-care (01) ==
LOC: RAD 09:56
PROVIDERS: ATTEND Nurse Practitioner Family
DX: R10.814 Left lower quadrant abdominal tenderness (principal); J84.10 Pulmonary fibrosis, unspecified
CPT/HCPCS: 74022

== ENCOUNTER 2018-01-11 17:02 | Emergency (ER) | payer MEDICARE, OTHER ==
[~2018-01-11 17:02] MED LIST changes: +BACI3.5O8 OS; +CARB100O7 PEG; +CARB200O5 PEG; -CHOL400D2 PEG; -CHOL400D2 PO; +CHOL400D6 PEG; +CHOL400D6 PO; -[UNRECOGNIZED DRUG - CODE] PEG; -[UNRECOGNIZED DRUG - CODE] PEG
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
[2018-01-11] MEDS ORDERED: HYDROcodon/APAP 7.5/325MG ORAL 15 ML SOLUTION GT ONE (17:15)
[2018-01-11] MEDS ORDERED: DIPHTH,PERTUSS(ACELL),TET TOX 0.5 ML DISP.SYRIN. VAX IM ONE (17:30)
--- NOTE | 2018-01-11 17:53 | RAD ---
PQRS Compliance Statement: One or more of the following individualized dose reduction techniques were utilized for this examination: 1. Automated exposure control 2. Adjustment of the mA and/or kV according to patient size 3. Use of iterative reconstruction technique CT HEAD AND CERVICAL SPINE WITHOUT CONTRAST History: FALL TODAY Comparison: None. Procedure: Axial images are obtained of the head from the skull base through the vertex without IV contrast. Noncontrast helical CT of the cervical spine was performed. Axial, sagittal, and coronal reconstructions were obtained. Findings: The ventricles and sulci are prominent compatible with cerebral atrophy. No mass-effect, midline shift, hemorrhage or obvious acute infarction is identified. Basilar cisterns are patent. Bone windows demonstrate no significant calvarial abnormality. Minimal left frontal scalp hematoma. The visualized paranasal sinuses are clear. Mastoid air cells are well aerated. There is no evidence of acute fracture or acute malalignment of the cervical spine. There is posterior fusion hardware of C3-C6. There are screws on the left at each level and on the right at each level except C4. There is posterior decompression at the levels of fusion. Multilevel neural foraminal narrowing. Straightening of normal cervical lordosis. No significant spondylolisthesis. There is disc space narrowing and degenerative endplate spurring throughout the cervical spine. Visualized soft tissues of the neck demonstrate no significant abnormalities. The visualized lung apices are clear. IMPRESSION: 1. No acute intracranial abnormality. 2. No acute fracture of the cervical spine. 3. Minimal left frontal scalp hematoma. Electronically signed by: Yadiel Lezama MD (01/11/2018 5:49 PM) [facility]
[2018-01-11 18:35] VITALS: BP 114/65
--- NOTE | 2018-01-11 18:42 | RAD ---
3 view study of the left shoulder Clinical indications: Left shoulder pain after a fall today. FINDINGS: No acute fracture or dislocation or osteolytic process is evident. No AC joint separation is seen. Deformities of the lower left lateral rib cage are seen consistent with rib fractures. IMPRESSION: No acute osseous abnormality of the left shoulder. Left rib cage fractures. Some of these appear subacute. Clinical correlation is recommended. Electronically signed by: Pascual Loja MD (01/11/2018 6:38 PM) [facility]
--- NOTE | 2018-01-12 08:01 | RAD ---
Indication: Fall today. Pain. Technique: Upright portable chest radiograph was obtained. No comparison is available. Findings: There is left basilar opacity. The lungs otherwise are clear. There is no pneumothorax or pleural effusion. Cardiomediastinal silhouette is within normal limits. There is bone demineralization. There is a fracture of the left eighth and ninth ribs, acuity of which is not clear. Please correlate with symptoms and consider dedicated rib imaging if further workup is required. Impression: Left rib fractures, the acuity of which are not clear. Please correlate with symptoms and consider dedicated rib imaging if further workup is required.
[2018-01-12] MEDS ORDERED: Bactrim PEG (17:16)
== END 2018-01-11 18:45 | disposition home or self-care (01) ==
LOC: ER 17:02
DX: S00.03XA Contusion of scalp, initial encounter (principal); S22.42XA Multiple fractures of ribs, left side, initial encounter for closed fracture; M25.512 Pain in left shoulder; F41.9 Anxiety disorder, unspecified; F32.9 Major depressive disorder, single episode, unspecified; K21.9 Gastro-esophageal reflux disease without esophagitis; Z87.440 Personal history of urinary (tract) infections; Z86.2 Personal history of diseases of the blood and blood-forming organs and certain disorders involving the immune mechanism; Y04.0XXA Assault by unarmed brawl or fight, initial encounter; Y93.89 Activity, other specified; Y99.8 Other external cause status; Y92.89 Other specified places as the place of occurrence of the external cause
CPT/HCPCS: 70450; 71045; 72125; 73030; 90471; 90715; 99284-25

== ENCOUNTER 2018-01-12 13:45 | Emergency (ER) | payer MEDICARE, OTHER ==
[~2018-01-12] VITALS: Ht 165.1 cm; Wt 51.8 kg
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
[2018-01-12 14:48] LABS: BASO % 0 % (0-3); EOS % 0 % (0-3); HEMATOCRIT 38.1 % (39.0-53.0); LYMPH # 1.1 x10^3/uL (1.0-4.8); LYMPH % 9 % (24-48); MEAN CORPUSCULAR HEMOGLOBIN 32 pg (25-35); MEAN CORPUSCULAR HGB CONC 34 g/dL (31-37); MEAN CORPUSCULAR VOLUME 93 fL (79-100); MONO # 0.5 x10^3/uL (0.0-1.1); MONO % 4 % (0-9); NEUT % 86 % (31-73); PLATELET COUNT 257 x10^3/uL (140-400); RED BLOOD COUNT 4.12 x10^6/uL (4.30-5.70); RED CELL DISTRIBUTION WIDTH 15.4 % (11.5-14.5); WHITE BLOOD COUNT 11.6 x10^3/uL (4.0-11.0)
[2018-01-12 15:01] LABS: ALBUMIN 3.4 g/dL (3.4-5.0); ALBUMIN/GLOBULIN RATIO 0.8 (1.0-1.7); CALCIUM 9.1 mg/dL (8.5-10.1); CREATININE 0.7 mg/dL (0.7-1.3); GFR 115.4; POTASSIUM 3.8 mmol/L (3.5-5.1); TOTAL BILIRUBIN 0.3 mg/dL (0.2-1.0); TOTAL PROTEIN 7.7 g/dL (6.4-8.2)
[2018-01-12] MEDS ORDERED: LIDOCAINE 2% TOPICAL JELLY 30GM TUBE. TP ONE (15:20)
[2018-01-12] MEDS ORDERED: IV NORMAL SALINE 500ML 500 ML IV ONE (15:45)
--- NOTE | 2018-01-12 15:56 | RAD ---
EXAM: Head CT without contrast. HISTORY: Fall. Confusion. TECHNIQUE: Computed tomographic images of the head were obtained without contrast. *One or more of the following individualized dose reduction techniques were utilized for this examination: 1. Automated exposure control. 2. Adjustment of the mA and/or kV according to patient size. 3. Use of iterative reconstruction technique. COMPARISON: 01/11/2018. FINDINGS: There is no acute or subacute extra-axial or intraparenchymal hemorrhage. There is no mass effect or midline shift. There is no hydrocephalus. There is stable decreased attenuation within the bilateral parietal lobes likely due to areas of chronic infarction. This is superimposed on areas of hypodensity throughout the white matter likely due to chronic small vessel disease. There is a suspected chronic lacunar infarct within the left caudate nucleus. There is cerebral volume loss. The visualized portions of the orbits, paranasal sinuses and mastoid air cells are unremarkable. No suspicious calvarial lesion is seen. There is a minimal left frontal scalp hematoma. IMPRESSION: 1. No acute intracranial finding. 2. Stable encephalomalacia within the parietal lobes likely due to areas of chronic infarction. 3. Chronic small vessel disease. This is advanced for patient age. 3. Minimal left frontal scalp hematoma. Electronically signed by: Sallie Lanier MD (01/12/2018 3:53 PM) [id number]
[2018-01-12 16:00] LABS: AMPHETAMINE/METHAMPHETAMINE NEG (NEG); BARBITURATES NEG (NEG); BENZODIAZEPINES NEG (NEG); CANNABINOIDS NEG (NEG); COCAINE NEG (NEG); METHADONE NEG (NEG); OPIATES NEG (NEG); PHENCYCLIDINE NEG (NEG)
[2018-01-12 16:14] LABS: BILIRUBIN,URINE NEG (NEG); CLARITY,URINE HAZY; COLOR,URINE YELLOW; GLUCOSE,URINE NEG (NEG); NITRITE,URINE POS (NEG); UROBILINOGEN,URINE 0.2 mg/dL (0.2 mg/dL)
[2018-01-12 16:15] LABS: BACTERIA,URINE MOD /HPF (0-FEW); SQUAMOUS EPITHELIAL CELL,UR FEW /LPF
[2018-01-12] MEDS ORDERED: Bactrim PEG (17:16)
[2018-01-12 17:50] VITALS: BP 142/80
[2018-01-13 14:58] LABS: CARBAM 19.3 mcg/mL (4.0-12.0)
== END 2018-01-12 17:51 | disposition home or self-care (01) ==
LOC: ER 13:45
DX: S06.0X0A Concussion without loss of consciousness, initial encounter (principal); N39.0 Urinary tract infection, site not specified; E87.1 Hypo-osmolality and hyponatremia; G31.84 Mild cognitive impairment of uncertain or unknown etiology; F41.9 Anxiety disorder, unspecified; K21.9 Gastro-esophageal reflux disease without esophagitis; Y08.89XA Assault by other specified means, initial encounter; Y93.89 Activity, other specified; Y99.8 Other external cause status; Y92.89 Other specified places as the place of occurrence of the external cause
CPT/HCPCS: 36415; 51701; 70450; 80053; 80156; 80307; 81001; 85025; 87086; 96360; 99285; J7040; G0479

== ENCOUNTER 2018-02-17 10:20 | Inpatient (IN) | payer MEDICARE, OTHER ==
[~2018-02-17] VITALS: Ht 182.9 cm; Wt 54.0 kg
[~2018-02-17 10:20] MED LIST changes: +Bactrim PEG
[2018-02-17] MEDS ORDERED: IOHEXOL 300 MG/ML 75 ML VIAL. IV ONE (10:45)
[2018-02-17] MEDS ORDERED: IOHEXOL 240 MG/ML 50ML VIAL. PO ONE (10:45)
[2018-02-17] MEDS ORDERED: IV NORMAL SALINE 1,000ML 1,000 ML IV SCH (10:45)
--- NOTE | 2018-02-17 10:48 | PHYS DOC ---
Past History Past Medical History: Anxiety, Hypertension, Seizure Past Surgical History: No Surgical History Smoking: Non-smoker Alcohol Use: None Drug Use: None Adult General Chief Complaint Chief Complaint: ABDOMINAL PAIN HPI HPI 57-year-old male with diminished mental capacity presents from a [facility] with possible fever and abdominal pain. The patient was seen by his PCP today in the office they found him to have a fever of 101. He was also complaining of abdominal pain worse on the left. His PCP was concerned and advised the patient go to the ED. I was called and notified by his PCP. The patient has not had a bowel movement at least 5 days. he also complains dysuria and increased urinary frequency. He has a history of bowel obstructions and aspiration pneumonia. He is nothing by mouth and fed by feeding tube. On arrival to the ED, the patient did not have a fever. Review of Systems Review of Systems Constitutional: Denies fever or chills [] Eyes: Denies change in visual acuity, redness, or eye pain [] HENT: Denies nasal congestion or sore throat [] Respiratory: Denies cough or shortness of breath [] Cardiovascular: No additional information not addressed in HPI [] GI: abdominal pain [] : dysuria and increased frequency [] Musculoskeletal: Denies back pain or joint pain [] Integument: Denies rash or skin lesions [] Neurologic: Denies headache, focal weakness or sensory changes [] Endocrine: Denies polyuria or polydipsia [] All other systems were reviewed and found to be within normal limits, except as documented in this note. Current Medications Current Medications Current Medications Medications (Trade) Dose Ordered Sig/Juanito Start Time Stop Time Status Last Admin Dose Admin Iohexol (Omnipaque 240 Mg/ml) 50 ml 1X ONCE 02/17/18 10:45 02/17/18 10:46 Iohexol (Omnipaque 300 Mg/ml) 75 ml 1X ONCE 02/17/18 10:45 02/17/18 10:46 Sodium Chloride 1,000 ml @ 1,000 mls/hr Q1H 02/17/18 10:45 02/17/18 11:44 Allergies Allergies Allergies Coded Allergies Type Severity Reaction Last Updated Verified NKMA Allergy Unknown 05/04/16 Yes Physical Exam Physical Exam Constitutional: Well developed, well nourished, no acute distress, non-toxic appearance. [] HENT: Normocephalic, atraumatic, bilateral external ears normal, oropharynx moist, no oral exudates, nose normal. [] Eyes: PERRLA, EOMI, conjunctiva normal, no discharge. [] Neck: Normal range of motion, no tenderness, supple, no stridor. [] Cardiovascular:Heart rate regular rhythm, no murmur [] Lungs & Thorax: diminished breath sounds in right base [] Abdomen: LLQ abdominal pain, mild distension, hyperactive bowel sounds. [] Skin: Warm, dry, no erythema, no rash. [] Back: No tenderness, no CVA tenderness. [] Extremities: No tenderness, no cyanosis, no clubbing, ROM intact, no edema. [] Neurologic: Alert and oriented X 3, normal motor function, normal sensory function, no focal deficits noted. [] Psychologic: Affect normal, judgement normal, mood normal. [] EKG EKG [] Radiology/Procedures Radiology/Procedures PROCEDURE: CT ABD PELV W/ IV CONTRST ONLY PQRS Compliance Statement: One or more of the following individualized dose reduction techniques were utilized for this examination: 1. Automated exposure control 2. Adjustment of the mA and/or kV according to patient size 3. Use of iterative reconstruction technique CT ABD PELV W/ IV CONTRST ONLY Clinical Indication: ABDOMINAL PAIN, CONCERN FOR SMALL BOWEL OBSTRUCTION, Comparison: CT chest abdomen and pelvis with contrast, May 11, 2016. Technique: Helical CT imaging of the abdomen and pelvis is performed after 75 cc Omnipaque 300 IV contrast. Oral contrast not given. Findings: Exam is limited due to respiratory motion artifact. There are groundglass opacities and peribronchial thickening in the basilar right lower lobe and right middle lobe. There may also be mild groundglass opacities in the left lower lobe. Coronary artery disease. Cardiac size normal. 2 cm hypodensity in segment 6 of the liver. Finding is stable and is probably a hemangioma. Liver otherwise homogeneous. The gallbladder, spleen, pancreas, adrenal glands, abdominal aorta, and kidneys are normal. Gastrostomy tube is in appropriate position. There is no inner balloon in the stomach. Some small bowel loops are fluid-filled. The proximal colon is fluid-filled. Distal colon contains stool. No colon wall thickening is seen. No dilated small bowel loops are seen. No abdominal adenopathy or free fluid. The urinary bladder is moderately distended, otherwise normal. Prominent prostatic urethra appearance can be seen secondary to TURP, correlate to surgical history. No pelvic free fluid. No acute bone abnormality. IMPRESSION: 1. Groundglass opacities and peribronchial thickening in the basilar right lower lobe and right middle lobe, minimal involvement in the left lower lobe. Findings probably infectious/inflammatory. 2. Small bowel loops and proximal colon are fluid-filled. Ileus or nonspecific enteritis are considerations. 3. Urinary bladder is moderately distended. Electronically signed by: Yadiel Lezama MD (02/17/2018 11:53 AM) [id number] Exam: AP portable chest History: Weakness. Comparison: January 11, 2018. Findings: The heart and mediastinal structures are within normal limits for size. Mild interstitial densities are seen at both lung bases; improved aeration left lung base. No pleural effusion or pneumothorax is identified. Impression: 1. Mild interstitial densities at both lung bases. Findings could represent fibrotic change versus developing airspace disease. Electronically signed by: Anurag Lenz MD (02/17/2018 11:45 AM) [facility] [] Course & Med Decision Making Course & Med Decision Making Pertinent Labs and Imaging studies reviewed. (See chart for details) The patient has UTI. He also has chest x-ray and CT results that suggest developing pneumonia in the right lung. CT also shows small bowel loops and proximal colon are fluid-filled. Ileus is suspected. Blood cultures were ordered. I will treat him with azithromycin and Rocephin. I discussed the patient with Dr. Mtz and he has accepted the patient for admission. [] Dragon Disclaimer Dragon Disclaimer This electronic medical record was generated, in whole or in part, using a voice recognition dictation system. Departure Departure: Referrals: TOM TRAMMELL MD (PCP) LEYLA OLIVAS DO February 17, 2018 10:48
[2018-02-17 11:04] LABS: BASO # 0.1 x10^3/uL (0.0-0.2); BASO % 1 % (0-3); EOS % 0 % (0-3); HEMATOCRIT 40.6 % (39.0-53.0); HEMOGLOBIN 13.9 g/dL (13.0-17.5); LYMPH # 0.3 x10^3/uL (1.0-4.8); LYMPH % 2 % (24-48); MEAN CORPUSCULAR HEMOGLOBIN 31 pg (25-35); MEAN CORPUSCULAR HGB CONC 34 g/dL (31-37); MEAN CORPUSCULAR VOLUME 91 fL (79-100); MONO # 0.5 x10^3/uL (0.0-1.1); MONO % 4 % (0-9); NEUT # 11.6 x10^3uL (1.8-7.7); NEUT % 93 % (31-73); PLATELET COUNT 308 x10^3/uL (140-400); RED BLOOD COUNT 4.46 x10^6/uL (4.30-5.70); RED CELL DISTRIBUTION WIDTH 14.9 % (11.5-14.5); WHITE BLOOD COUNT 12.5 x10^3/uL (4.0-11.0)
[2018-02-17 11:13] LABS: ALBUMIN 3.6 g/dL (3.4-5.0); ALBUMIN/GLOBULIN RATIO 0.8 (1.0-1.7); CALCIUM 8.7 mg/dL (8.5-10.1); CREATININE 0.7 mg/dL (0.7-1.3); GFR 115.4; POTASSIUM 4.4 mmol/L (3.5-5.1); TOTAL BILIRUBIN 0.2 mg/dL (0.2-1.0); TOTAL PROTEIN 7.9 g/dL (6.4-8.2)
--- NOTE | 2018-02-17 11:48 | RAD ---
Exam: AP portable chest History: Weakness. Comparison: January 11, 2018. Findings: The heart and mediastinal structures are within normal limits for size. Mild interstitial densities are seen at both lung bases; improved aeration left lung base. No pleural effusion or pneumothorax is identified. Impression: 1. Mild interstitial densities at both lung bases. Findings could represent fibrotic change versus developing airspace disease. Electronically signed by: Anurag Lenz MD (02/17/2018 11:45 AM) [facility]
--- NOTE | 2018-02-17 11:57 | RAD ---
PQRS Compliance Statement: One or more of the following individualized dose reduction techniques were utilized for this examination: 1. Automated exposure control 2. Adjustment of the mA and/or kV according to patient size 3. Use of iterative reconstruction technique CT ABD PELV W/ IV CONTRST ONLY Clinical Indication: ABDOMINAL PAIN, CONCERN FOR SMALL BOWEL OBSTRUCTION, Comparison: CT chest abdomen and pelvis with contrast, May 11, 2016. Technique: Helical CT imaging of the abdomen and pelvis is performed after 75 cc Omnipaque 300 IV contrast. Oral contrast not given. Findings: Exam is limited due to respiratory motion artifact. There are groundglass opacities and peribronchial thickening in the basilar right lower lobe and right middle lobe. There may also be mild groundglass opacities in the left lower lobe. Coronary artery disease. Cardiac size normal. 2 cm hypodensity in segment 6 of the liver. Finding is stable and is probably a hemangioma. Liver otherwise homogeneous. The gallbladder, spleen, pancreas, adrenal glands, abdominal aorta, and kidneys are normal. Gastrostomy tube is in appropriate position. There is no inner balloon in the stomach. Some small bowel loops are fluid-filled. The proximal colon is fluid-filled. Distal colon contains stool. No colon wall thickening is seen. No dilated small bowel loops are seen. No abdominal adenopathy or free fluid. The urinary bladder is moderately distended, otherwise normal. Prominent prostatic urethra appearance can be seen secondary to TURP, correlate to surgical history. No pelvic free fluid. No acute bone abnormality. IMPRESSION: 1. Groundglass opacities and peribronchial thickening in the basilar right lower lobe and right middle lobe, minimal involvement in the left lower lobe. Findings probably infectious/inflammatory. 2. Small bowel loops and proximal colon are fluid-filled. Ileus or nonspecific enteritis are considerations. 3. Urinary bladder is moderately distended. Electronically signed by: Yadiel Lezama MD (02/17/2018 11:53 AM) [id number]
[2018-02-17 12:00] LABS: BACTERIA,URINE MANY /HPF (0-FEW); BILIRUBIN,URINE NEG (NEG); CLARITY,URINE HAZY; COLOR,URINE YELLOW; GLUCOSE,URINE NEG (NEG); NITRITE,URINE POS (NEG); RBC,URINE OCC /HPF (0-2); SQUAMOUS EPITHELIAL CELL,UR MOD /LPF; UROBILINOGEN,URINE 0.2 mg/dL (0.2 mg/dL)
[2018-02-17] MEDS ORDERED: IV NORMAL SALINE 250ML 250 ML ONE (12:24)
[2018-02-17] MEDS ORDERED: AZITHROMYCIN 500 MG VIAL. IV ONE (12:25)
[2018-02-17] MEDS ORDERED: AZITHROMYCIN 500 MG in IV NORMAL SALINE 250ML 250 ML IV ONE (12:30)
[2018-02-17] MEDS ORDERED: cefTRIAXone IV Push 2 GM VIAL. IVP ONE (12:30)
[2018-02-17] MEDS ORDERED: MORPHINE SULFATE 4 MG/ML DISP.SYRIN. IV PRN (12:45)
[2018-02-17] MEDS ORDERED: ONDANSETRON ODT 4 MG TAB.RAPDIS PO PRN (12:45)
[2018-02-17] MEDS ORDERED: ONDANSETRON PF 4 MG/2 ML VIAL. IV PRN (12:45)
[2018-02-17 13:34] VITALS: BP 126/71
[2018-02-17] MEDS ORDERED: MAGN400O7 PEG (14:31)
[2018-02-17] MEDS ORDERED: MONT10TA6 PEG (15:08)
[2018-02-17] MEDS ORDERED: SENN8.8S5 PEG ×2 (15:08)
[2018-02-17] MEDS ORDERED: POLY17PO5 PEG (15:08)
[2018-02-17] MEDS ORDERED: LORA5SOL70 PEG (15:08)
[2018-02-17] MEDS ORDERED: DOCU50LI PEG (15:08)
[2018-02-17] MEDS ORDERED: CLON1PAT9 TD (15:08)
[2018-02-17] MEDS: VANCOMYCIN PER PHARMACY MC PRN (15:31)
[2018-02-17] MEDS: PIPERACILLIN/TAZOBACTAM 3.375 GM in IV NORMAL SALINE 50ML 50 ML IV SCH ×2 (15:34→22:37)
[2018-02-17] MEDS: IV NORMAL SALINE 1,000ML 1,000 ML IV SCH ×2 (15:34→22:38)
--- NOTE | 2018-02-17 15:59 | HP ---
ADMIT DATE: 02/17/2018 HISTORY OF PRESENT ILLNESS: The patient is a 57-year-old male patient who lives in a [facility]p and who was brought to the Emergency Room as a referral from his primary care physician as he was seen in the office and found to be afebrile, was also complaining of abdominal pain, worsened on left side and his primary care physician was concerned and advised the patient to go to the Emergency Department. It transpired that the patient has not had any bowel movement for the last 5 days. He was also complaining of dysuria and decreased urinary frequency. He is known to have recurrent episodes of bowel obstruction and aspiration pneumonia, and he is normally nil by mouth and he gets his nutrition through a feeding tube. He was extensively investigated in the Emergency Room. His temperature was slightly elevated at 99.8. LABORATORY DATA: Showed a white cell count of 12,500. His chemistry demonstrated hyponatremia and hypochloremia. Urinalysis was positive for nitrite and has 11-20 wbc's per high power field and many bacteria, and the patient was admitted with possible urinary tract infection, aspiration pneumonia, and paralytic ileus. PAST MEDICAL HISTORY: Significant for intellectual disability, chronic small-bowel obstruction, chronic aspiration pneumonia, dysphagia, status post gastrostomy tube, frequent falls, seizure disorder, incontinence, gastroesophageal reflux disease, benign prostatic hypertrophy, anxiety, and depression. PAST SURGICAL HISTORY: Significant for multiple gastrostomy tube placements. Finally, he is on a VERO-FENG button, has had exploratory laparotomy, multiple times of bowel obstruction, multiple abdominal surgeries. FAMILY HISTORY: Unremarkable. SOCIAL HISTORY: His father has recently . His brother is now the [facility]. He does not smoke, drink alcohol or use any recreational drugs. He resides in a usp with [facility] [facility]. ALLERGIES: He apparently has no known drug allergies. MEDICATIONS: He is currently on the following medications: methocarbamol 500 mg 3 times a day, Lovenox 30 mg subcutaneously once a day, clonidine TTS 1 patch transdermal weekly, doxazosin mesylate 2 mg per feeding tube at bedtime, Tylenol 650 mg 3 times a day, carbamazepine 200 mg per feeding tube twice a day, carbamazepine 300 mg at bedtime. He is on ziprasidone for Geodon 20 mg per feeding tube 3 times a day, lorazepam 1 mg 3 times a day. He is on Nutren 2.0 250 mL per feeding tube 4 times a day. He is also on bacitracin 3.5 grams ointment applied topically 3 times a day, Flonase 2 sprays to each nostril once a day, magnesium oxide 400 mg per feeding tube daily, simethicone 80 mg per feeding tube 4 times a day, bisacodyl 10 mg suppositories rectally as needed, Colace 150 mg twice a day, polyethylene glycol 17 grams p.o. daily, senna ____ teaspoon p.o. daily p.r.n. for constipation. He is on terbinafine hydrochloride 15 gram cream applied topically 4 times a day for his nails. He is also on Lidoderm patch applied topically once on for 12 hours and off for 12 hours, zinc oxide 30 grams p.o. topically b.i.d. and acidophilus 1 capsule per feeding tube daily. He is also on Nexium powder 40 mg per feeding tube twice a day, and cranberry tablets 250 mg daily. PHYSICAL EXAMINATION: GENERAL: When I examined him this afternoon, he was resting slightly, propped up in bed, in no apparent respiratory distress, slightly pale, no jaundice, cyanosis, or thyromegaly. No jugular venous distension. No limb edema. VITAL SIGNS: His heart rate was 95, blood pressure was 139/75, temperature was 98.9, respiratory rate 20, and oxygen saturation was 97%. HEAD, EYES, EARS, NOSE AND THROAT: Showed normocephalic, atraumatic. NECK: Supple. HEART: Showed normal first and second heart sounds with no gallop, rub or murmur. CHEST: Clear to auscultation. No crepitation or rhonchi. ABDOMEN: Distended with gastrostomy tube in place. Some tenderness mostly in the right lower quadrant. There is no guarding or rigidity and bowel sounds are normal. NEUROLOGIC: He obviously has some mental disability. Otherwise, all his cranial nerves are intact. He moves extremities without difficulty. He actually ambulates without assistance or assistive devices. LABORATORY AND DIAGNOSTIC DATA: His lab work this morning showed a white cell count 12,500, hemoglobin 14, hematocrit 41, MCV 91, and platelet count of 308,000. His chemistry showed a serum sodium of 130, potassium 4.4, chloride 93, bicarbonate 30, anion gap of 7, BUN 16, creatinine was 0.7, estimated GFR was 115 mL per minute. His glucose 94, lactic acid was only 1.1, calcium was 8.7. Total bilirubin, AST, ALT, alkaline phosphatase were normal. Total protein was 7.9, albumin was 3.6. Urinalysis showed the urine was yellow, hazy with a pH of more than 8.5, specific gravity of 1.015. The urine was negative for protein, glucose, and ketones. There was trace of blood, positive for nitrite. There was a small amount of leukocyte esterase, occasional rbc's, 11-20 wbc's, and many bacteria. His CT scan of the abdomen and pelvis with IV contrast only showed that there is ground glass opacities and peribronchial thickening in the basilar right lower lobe, right middle lobe; minimal involvement in the left lower lobe, the finding probably infectious, inflammatory. He has small bowel loops and proximal colon fluid filled ileus or nonspecific enteritis or consideration. His urinary bladder is moderately distended. ASSESSMENT AND PLAN: The patient will be admitted, kept n.p.o., start him on IV fluid. I will switch him to Keppra IV 500 mg twice a day. I will switch his antibiotic for healthcare-associated pneumonia and repeat his lab work tomorrow. SHYANNE ELLIS MD DR: APARNA/dominick JOB#: [id number] / [id number]
[2018-02-17] MEDS ORDERED: VANCOMYCIN 1.25 GM in IV NORMAL SALINE 250ML 250 ML IV ONE (17:00)
[2018-02-17] MEDS: LACTOBACILLUS RHAMNOSUS GG 1 CAPSULE. PO SCH (17:34)
[2018-02-17 19:40] VITALS: BP 137/65
[2018-02-17 23:00] VITALS: BP 118/58
[2018-02-18] MEDS: VANCOMYCIN 1 GM in IV NORMAL SALINE 250ML 250 ML IV SCH ×2 (04:40→17:57)
[2018-02-18 05:30] VITALS: BP 133/71
[2018-02-18 05:47] LABS: HEMATOCRIT 36.4 % (39.0-53.0); HEMOGLOBIN 12.3 g/dL (13.0-17.5); RED BLOOD COUNT 3.88 x10^6/uL (4.30-5.70); RED CELL DISTRIBUTION WIDTH 14.9 % (11.5-14.5); WHITE BLOOD COUNT 4.3 x10^3/uL (4.0-11.0)
[2018-02-18 06:14] LABS: ALBUMIN 2.7 g/dL (3.4-5.0); ALBUMIN/GLOBULIN RATIO 0.7 (1.0-1.7); CREATININE 0.6 mg/dL (0.7-1.3); GFR 137.9; TOTAL BILIRUBIN 0.3 mg/dL (0.2-1.0); TOTAL PROTEIN 6.5 g/dL (6.4-8.2)
[2018-02-18] MEDS: PIPERACILLIN/TAZOBACTAM 3.375 GM in IV NORMAL SALINE 50ML 50 ML IV SCH ×2 (06:32→15:51)
[2018-02-18] MEDS: LACTOBACILLUS RHAMNOSUS GG 1 CAPSULE. PO SCH ×2 (09:00→21:40)
[2018-02-18 11:00] VITALS: BP 158/74
--- NOTE | 2018-02-18 13:50 | RAD ---
KUB (AP supine) INDICATION: Abdominal pain COMPARISON: CT abdomen and pelvis dated 02/17/2018. FINDINGS: No obvious free air. Air-filled loops of small and large bowel in a nonobstructive pattern. Mild colonic stool. Large amount of stool at the rectal vault. No abnormal calcifications. No acute osseous abnormality. IMPRESSION: Air-filled loops of small and large bowel in a nonobstructive pattern. Mild colonic stool. Large amount of stool at the rectal vault. Electronically signed by: Milind Albright MD (02/18/2018 1:47 PM) [facility] [place]
[2018-02-18 15:00] VITALS: BP 152/76
[2018-02-18] MEDS: IV NORMAL SALINE 1,000ML 1,000 ML IV SCH ×2 (15:51→21:00)
[2018-02-18] MEDS ORDERED: TERBINAFINE 1% TOPICAL CREAM 30GM TUBE. TP PRN (16:00)
[2018-02-18] MEDS ORDERED: VITS A & D/LANOLIN TOPICAL OINTMENT 56GM TUBE. TP PRN (16:00)
[2018-02-18] MEDS ORDERED: MAGNESIUM HYDROXIDE 2,400 MG/30 ML ORAL.SUSP. PEG PRN (16:00)
[2018-02-18] MEDS ORDERED: SIMETHICONE 80 MG TAB.CHEW PEG PRN (16:00)
[2018-02-18] MEDS ORDERED: POLYETHYLENE GLYCOL 3350 17 GM PACKET. PEG PRN (16:16)
[2018-02-18] MEDS ORDERED: SENNOSIDES 8.6 MG TABLET PEG PRN (16:45)
[2018-02-18] MEDS: NUTRITIONAL SUPPLEMENT PEG SCH ×2 (17:00→21:00)
[2018-02-18 19:35] VITALS: BP 136/62
[2018-02-18] MEDS ORDERED: NEXIUM 40 MG PEG SCH (21:00)
[2018-02-18] MEDS: DOXAZOSIN MESYLATE 4 MG TABLET PEG SCH (21:35)
[2018-02-18] MEDS: PANTOPRAZOLE 40 MG PACKET. PEG SCH (21:36)
[2018-02-18] MEDS: CALCIUM CARBONATE 500 MG TAB.CHEW PEG SCH (21:38)
[2018-02-18] MEDS: carBAMazepine 200 MG/10 ML ORAL.SUSP PEG SCH (21:38)
[2018-02-18] MEDS: ACETAMINOPHEN 650 MG/20.3 ML SOLUTION. PEG SCH (21:39)
[2018-02-18] MEDS: ZIPRASIDONE 20 MG CAPSULE. PO SCH (21:40)
[2018-02-18] MEDS: MONTELUKAST 10 MG TABLET. PO SCH (21:40)
[2018-02-18] MEDS: ZINC OXIDE 20% TOPICAL OINTMENT 28GM TUBE. TP SCH (21:42)
[2018-02-19] MEDS: PIPERACILLIN/TAZOBACTAM 3.375 GM in IV NORMAL SALINE 50ML 50 ML IV SCH ×4 (00:24→22:32)
[2018-02-19 00:28] VITALS: BP 118/67
[2018-02-19 04:46] LABS: HEMATOCRIT 35.8 % (39.0-53.0); HEMOGLOBIN 12.2 g/dL (13.0-17.5); RED BLOOD COUNT 3.85 x10^6/uL (4.30-5.70); WHITE BLOOD COUNT 2.7 x10^3/uL (4.0-11.0)
[2018-02-19] MEDS: VANCOMYCIN 1 GM in IV NORMAL SALINE 250ML 250 ML IV SCH (04:53)
[2018-02-19 05:06] LABS: CREATININE 0.6 mg/dL (0.7-1.3); GFR 137.9; POTASSIUM 4.1 mmol/L (3.5-5.1)
[2018-02-19 05:55] VITALS: BP 154/76
[2018-02-19] MEDS: IV NORMAL SALINE 1,000ML 1,000 ML IV SCH ×2 (06:33→19:03)
[2018-02-19] MEDS: VANCOMYCIN PER PHARMACY MC PRN (08:11)
[2018-02-19] MEDS: ACETAMINOPHEN 650 MG/20.3 ML SOLUTION. PEG SCH ×3 (08:28→20:45)
[2018-02-19] MEDS: SENNOSIDES 8.6 MG TABLET PEG SCH (08:29)
[2018-02-19] MEDS: CETIRIZINE HCL 10 MG TABLET PO SCH (08:29)
[2018-02-19] MEDS: DOCUSATE 100 MG/10 ML SOLUTION. PEG SCH (08:29)
[2018-02-19] MEDS: CALCIUM CARBONATE 500 MG TAB.CHEW PEG SCH ×3 (08:29→20:43)
[2018-02-19] MEDS: MAGNESIUM OXIDE 400 MG TABLET PEG SCH (08:29)
[2018-02-19] MEDS: PANTOPRAZOLE 40 MG PACKET. PEG SCH ×2 (08:30→20:43)
[2018-02-19] MEDS: ZIPRASIDONE 20 MG CAPSULE. PO SCH ×3 (08:42→20:42)
[2018-02-19] MEDS: carBAMazepine 200 MG/10 ML ORAL.SUSP PEG SCH ×3 (08:42→20:43)
[2018-02-19] MEDS: POLYETHYLENE GLYCOL 3350 17 GM PACKET. PEG SCH (08:55)
[2018-02-19] MEDS: ZINC OXIDE 20% TOPICAL OINTMENT 28GM TUBE. TP SCH ×2 (09:00→20:47)
[2018-02-19] MEDS: NUTRITIONAL SUPPLEMENT PEG SCH ×4 (09:00→20:41)
[2018-02-19] MEDS ORDERED: CRANBERRY 250 MG PEG SCH (09:00)
[2018-02-19] MEDS ORDERED: LORATADINE PEG SCH (09:00)
--- NOTE | 2018-02-19 10:09 | PN ---
DATE: 02/18/2018 SUBJECTIVE: The patient is resting, slightly propped up in bed, no apparent distress. Continued to have productive cough. Denied any nausea, vomiting, no abdominal pain. PHYSICAL EXAMINATION: GENERAL: When I examined him, he looked pale, but no jaundice, cyanosis, or thyromegaly. No jugular venous distension. No limb edema. VITAL SIGNS: Her heart rate was 72, blood pressure 158/74, temperature was 97.9, respiratory rate was 18, and oxygen saturation 100% on room air. HEAD, EYES, EARS, NOSE AND THROAT: Normocephalic, atraumatic. NECK: Supple. HEART: Normal first and second heart sounds. No gallop, rub or murmur. CHEST: Clear to auscultation. No crepitation or rhonchi. ABDOMEN: Distended, soft with a gastrostomy tube in place. There is no tenderness. No guarding or rigidity. No organomegaly. All hernial orifices intact. Bowel sounds normal. NEUROLOGIC: He is awake, alert, responding appropriately at times. All his cranial nerves are intact. He moves extremities without difficulty. He does have mental disability low. His intake was 1586, output was 1575. LABORATORY DATA: His lab work this morning showed his white cell count is down to 4300, hemoglobin 12, hematocrit 36, MCV 94, platelet count 233,000. His chemistry showed sodium is up to 137, potassium 4, chloride 103, bicarbonate 25, anion gap of 9, BUN 11, creatinine 0.6, estimated GFR was 137 mL per minute, his glucose 91, calcium was 8. Total bilirubin, AST, ALT, alkaline phosphatase were normal. Total protein was 6.5, albumin 2.7. Urinalysis showed the urine was yellow, hazy with a pH of 8.5, specific gravity of 1.015. The urine was positive for nitrite. There was 11-20 wbc's, many bacteria. His nasal screen for MRSA by PCR was negative. ASSESSMENT: 1. Urinalysis is probably consistent with urinary tract infection. 2. Bilateral lung infiltrate consistent with healthcare-associated pneumonia. 3. Probably paralytic ileus. PLAN: My plan is to arrange for him to have the KUB and if there is improvement in his bowel distention we will start him back on his . Meanwhile, we will continue the IV fluid, IV antibiotic. Await the result of the culture and sensitivity. Continue with Keppra for now and once we can use his feeding tube we can switch him back to his carbamazepine. SHYANNE ELLIS MD DR: APARNA/dominick JOB#: [id number] / [id number]
[2018-02-19 11:00] VITALS: BP 177/81
[2018-02-19 11:36] VITALS: BP 177/81
[2018-02-19 15:23] VITALS: BP 152/76
[2018-02-19 19:44] VITALS: BP 147/76
[2018-02-19] MEDS: MONTELUKAST 10 MG TABLET. PO SCH (20:45)
[2018-02-19] MEDS: DOXAZOSIN MESYLATE 4 MG TABLET PEG SCH (20:50)
[2018-02-20] MEDS: IV NORMAL SALINE 1,000ML 1,000 ML IV SCH ×2 (05:08→12:42)
[2018-02-20 06:09] VITALS: BP 190/87
[2018-02-20 07:00] VITALS: BP 186/82
[2018-02-20 07:08] LABS: BASO % 1 % (0-3); EOS % 2 % (0-3); HEMATOCRIT 44.2 % (39.0-53.0); LYMPH # 1.3 x10^3/uL (1.0-4.8); LYMPH % 45 % (24-48); MEAN CORPUSCULAR HEMOGLOBIN 32 pg (25-35); MEAN CORPUSCULAR HGB CONC 34 g/dL (31-37); MEAN CORPUSCULAR VOLUME 94 fL (79-100); MONO # 0.2 x10^3/uL (0.0-1.1); MONO % 8 % (0-9); NEUT # 1.3 x10^3uL (1.8-7.7); NEUT % 44 % (31-73); PLATELET COUNT 293 x10^3/uL (140-400); RED BLOOD COUNT 4.72 x10^6/uL (4.30-5.70); RED CELL DISTRIBUTION WIDTH 15.4 % (11.5-14.5); WHITE BLOOD COUNT 2.9 x10^3/uL (4.0-11.0)
[2018-02-20 07:40] LABS: ALBUMIN 3.4 g/dL (3.4-5.0); ALBUMIN/GLOBULIN RATIO 0.7 (1.0-1.7); CREATININE 0.7 mg/dL (0.7-1.3); GFR 115.4; POTASSIUM 4.1 mmol/L (3.5-5.1); TOTAL BILIRUBIN 0.3 mg/dL (0.2-1.0); TOTAL PROTEIN 8.1 g/dL (6.4-8.2)
[2018-02-20] MEDS: NUTRITIONAL SUPPLEMENT PEG SCH ×4 (07:44→21:25)
[2018-02-20] MEDS: PANTOPRAZOLE 40 MG PACKET. PEG SCH ×2 (08:09→21:25)
[2018-02-20] MEDS: CETIRIZINE HCL 10 MG TABLET PO SCH (08:10)
[2018-02-20] MEDS: SENNOSIDES 8.6 MG TABLET PEG SCH (08:10)
[2018-02-20] MEDS: amLODIPine BESYLATE 5 MG TABLET PEG SCH (08:10)
[2018-02-20] MEDS: MAGNESIUM OXIDE 400 MG TABLET PEG SCH (08:10)
[2018-02-20] MEDS: DOCUSATE 100 MG/10 ML SOLUTION. PEG SCH (08:10)
[2018-02-20] MEDS: POLYETHYLENE GLYCOL 3350 17 GM PACKET. PEG SCH (08:11)
[2018-02-20] MEDS: carBAMazepine 200 MG/10 ML ORAL.SUSP PEG SCH ×3 (08:11→21:25)
[2018-02-20] MEDS: CALCIUM CARBONATE 500 MG TAB.CHEW PEG SCH ×3 (08:12→21:26)
[2018-02-20] MEDS: PIPERACILLIN/TAZOBACTAM 3.375 GM in IV NORMAL SALINE 50ML 50 ML IV SCH ×3 (08:13→23:32)
[2018-02-20] MEDS: ZIPRASIDONE 20 MG CAPSULE. PO SCH ×3 (08:14→21:26)
[2018-02-20] MEDS: ACETAMINOPHEN 650 MG/20.3 ML SOLUTION. PEG SCH ×3 (08:14→21:26)
[2018-02-20] MEDS: ZINC OXIDE 20% TOPICAL OINTMENT 28GM TUBE. TP SCH ×2 (08:14→21:00)
[2018-02-20 12:07] VITALS: BP 159/90
[2018-02-20 16:13] VITALS: BP 138/81
[2018-02-20 20:00] VITALS: BP 155/79
[2018-02-20] MEDS: DOXAZOSIN MESYLATE 4 MG TABLET PEG SCH (21:25)
[2018-02-20] MEDS: MONTELUKAST 10 MG TABLET. PO SCH (21:26)
--- NOTE | 2018-02-20 21:39 | PN ---
DATE: 02/19/2018 SUBJECTIVE: The patient is resting slightly propped up in bed, no apparent distress. He denied any complaint. Only complaint has that he wants to go back home. OBJECTIVE: GENERAL: On examining him, he looked well and was clearly in no apparent respiratory distress, slightly pale, but no jaundice, cyanosis, or thyromegaly. No jugular venous distension. No limb edema. VITAL SIGNS: His heart rate was 50, blood pressure was 177/81, temperature was 97.6, respiratory rate was 16, and oxygen saturation was 99%. HEAD, EYES, EARS, NOSE, AND THROAT: Normocephalic, atraumatic. NECK: Supple. HEART: Showed normal first and second heart sounds. No gallop, rub, or murmur. CHEST: Shows central trachea, equal, bilateral chest expansion, air entry, vesicular sounds. I could not appreciate any crepitation or rhonchi. ABDOMEN: Scaphoid, soft, nontender. No tenderness. No guarding or rigidity. No organomegaly and bowel sounds are normal. NEUROLOGIC: He is awake, alert, responding appropriately. All cranial nerves intact. He moves extremities without difficulty. His intake was 1586, output was 1575. LABORATORY DATA: Showed a white cell count down to 2700, hemoglobin 12.2, hematocrit 35.8, MCV 93, and platelet count 241,000. His chemistry showed a serum sodium 138, potassium 4.1, chloride 103, bicarbonate 25, anion gap of 9, BUN 10, creatinine 0.6, estimated GFR was 137 mL per minute. His glucose was 91, calcium was 8, magnesium 2. Urinalysis showed that the urine was positive for nitrite, small amount of leukocyte esterase with 11-20 wbc's and many bacteria. His urine culture showed growth of more than 100,000 colony forming units per mL of Pseudomonas aeruginosa that is sensitive to cefepime, ceftazidime, Cipro, imipenem, meropenem, piperacillin, ticarcillin, and tobramycin. Both blood cultures were negative with no growth after more than 2 days. ASSESSMENT: Urinary tract infection with growth of Pseudomonas aeruginosa, to continue IV piperacillin and tazobactam. His blood cultures are negative, so I discontinued his vancomycin. His white cell count is dropped down to 2700. We will check his labs again tomorrow and decide on further management. SHYANNE ELLIS MD DR: Hany JOB#: [id number] / [id number]
[2018-02-20 23:30] VITALS: BP 149/83
[2018-02-21] MEDS: PIPERACILLIN/TAZOBACTAM 3.375 GM in IV NORMAL SALINE 50ML 50 ML IV SCH ×2 (08:08→14:21)
[2018-02-21] MEDS: carBAMazepine 200 MG/10 ML ORAL.SUSP PEG SCH ×2 (08:34→14:19)
[2018-02-21] MEDS: POLYETHYLENE GLYCOL 3350 17 GM PACKET. PEG SCH (08:35)
[2018-02-21] MEDS: DOCUSATE 100 MG/10 ML SOLUTION. PEG SCH (08:35)
[2018-02-21] MEDS: MAGNESIUM OXIDE 400 MG TABLET PEG SCH (08:35)
[2018-02-21] MEDS: PANTOPRAZOLE 40 MG PACKET. PEG SCH (08:36)
[2018-02-21] MEDS: amLODIPine BESYLATE 5 MG TABLET PEG SCH (08:36)
[2018-02-21] MEDS: SENNOSIDES 8.6 MG TABLET PEG SCH (08:36)
[2018-02-21] MEDS: CALCIUM CARBONATE 500 MG TAB.CHEW PEG SCH ×2 (08:36→14:19)
[2018-02-21] MEDS: ACETAMINOPHEN 650 MG/20.3 ML SOLUTION. PEG SCH ×2 (08:37→14:19)
[2018-02-21] MEDS: CETIRIZINE HCL 10 MG TABLET PO SCH (08:37)
[2018-02-21] MEDS: ZIPRASIDONE 20 MG CAPSULE. PO SCH ×2 (08:37→14:20)
[2018-02-21] MEDS: ZINC OXIDE 20% TOPICAL OINTMENT 28GM TUBE. TP SCH (09:00)
[2018-02-21] MEDS: NUTRITIONAL SUPPLEMENT PEG SCH ×2 (09:00→13:00)
[2018-02-21 11:25] VITALS: BP 178/81
[2018-02-21 15:10] VITALS: BP 147/83
--- NOTE | 2018-02-21 20:40 | PN ---
DATE: 02/20/2018 SUBJECTIVE: The patient is doing very well and in no apparent distress; however, he is restless, agitated. He wants to go back to the shelter. His urine culture has grown Pseudomonas aeruginosa sensitive to cefepime, ceftazidime. We contacted the product safety administrator of this shelter and they adamantly refused to take him with an IV line. As I plan to bring him once a day here to finish the course of treatment and the option available is for him to stay here in the hospital. PHYSICAL EXAMINATION: GENERAL: When I saw him this afternoon, he looked well and was clearly in no apparent respiratory distress, pale. No jaundice, cyanosis, or thyromegaly. No jugular venous distention. No limb edema. VITAL SIGNS: His heart rate was 74, blood pressure was 138/81, temperature was 97.5, respiratory rate was 18, and oxygen saturation was 96%. HEAD, EYES, EARS, NOSE, AND THROAT: Showed normocephalic, atraumatic. NECK: Supple. HEART: Showed normal first and second heart sounds with no gallop, rub, or murmur. CHEST: Clear to auscultation. No crepitation or rhonchi. ABDOMEN: Distended, soft, nontender. NEUROLOGIC: He was awake, alert, responding appropriately. Cranial nerves intact. He moves extremities without difficulty. LABORATORY DATA: His lab work this morning showed a white cell count 2900, hemoglobin 15, hematocrit 44, MCV 94, and platelet count of 293,000. His chemistry showed a serum sodium 140, potassium 4.1, chloride 101, bicarbonate 31, anion gap of 8, BUN 7, creatinine 0.7. Estimated GFR was 150 mL per minute. His glucose was 93, calcium was 9. Total bilirubin, AST, ALT, alkaline phosphatase were normal. Total protein was 8.1 and albumin was 3.4. ASSESSMENT: In summary, this is: 1. Urinary tract infection with growth of Pseudomonas aeruginosa. 2. Bilateral lung infiltrate indicating either scarring of bilateral healthcare-associated pneumonia. 3. Paralytic ileus that has resolved. PLAN: To continue with IV antibiotic in the form of Zosyn. Continue with nutritional support. SHYANNE ELLIS MD DR: APARNA/dominick JOB#: [id number] / [id number]
--- NOTE | 2018-02-21 23:51 | DS ---
DATE OF DISCHARGE: 02/21/2018 HOSPITAL COURSE: The patient is a 57-year-old male patient, resident at [facility], who was admitted originally, he was found to be febrile, complaining of abdominal pain, worse in the left side. In the Emergency Room, he was found to have paralytic ileus. He did also complain of dysuria and was found to have urinary tract infection. He has bilateral pulmonary infiltrate and was admitted with a diagnosis of urinary tract infection, healthcare-associated pneumonia, and paralytic ileus. Initially was kept n.p.o., started on IV fluid, started also on IV antibiotic for healthcare-associated pneumonia. His paralytic ileus resolved. The patient has multiple bowel movements and we did start him on his . His urine culture has grown more than 100,000 colony forming units per mL of Pseudomonas aeruginosa sensitive to piperacillin and cefepime, ceftazidime as well as ticarcillin and tobramycin. His blood cultures remained negative. The patient has been afebrile and we actually attempted to discharge him back to the [facility] with a peripheral IV line to come here daily to get his IV antibiotic. However, the company that runs the [facility] were adamant that they were not take him home even with the ordinary IV line and therefore, a decision was made to discharge him to a swing bed to complete the course of treatment for at least another 5 days. PHYSICAL EXAMINATION: GENERAL: On examining him today, he looked well and was clearly in no apparent respiratory distress. There is no pallor, jaundice, or cyanosis. No lymphadenopathy, no thyromegaly. No jugular venous distension. No lower limb edema. VITAL SIGNS: His heart rate was 78, blood pressure 149/83, temperature was 97.7, respiratory rate was 18, and oxygen saturation was 97% on room air. HEAD, EYES, EARS, NOSE, AND THROAT: Showed normocephalic, atraumatic. NECK: Supple. HEART: Showed normal first and second heart sounds. No gallop, rub, or murmur. CHEST: Clear to auscultation. No crepitation or rhonchi. ABDOMEN: Distended, soft, nontender with gastrostomy tube in place. There is no guarding or rigidity. No organomegaly. All hernial orifices intact. Bowel sounds normal. NEUROLOGIC: He obviously has some mental disability; however, all his cranial nerves are intact. He moves extremities without difficulty. His intake over the last 24 hours was 4226, no output was recorded. His lab work as of yesterday showed a white cell count of 2900, hemoglobin 15, hematocrit 44, MCV 94, platelet count 293,000. His chemistry showed a serum sodium 140, potassium 4.1, chloride 101, bicarbonate 31, anion gap of 8, BUN 7, creatinine 0.7, estimated GFR was 115 mL per minute, his glucose was 93, calcium was 9. Total bilirubin, AST, ALT, alkaline phosphatase were normal. Total protein was 8.1. Albumin was 3.4. His urinalysis showed that was positive for nitrite and small leukocyte esterase with 11-20 wbc's and too many bacteria. His urine culture has grown more than 100,000 colony forming units per mL of Pseudomonas aeruginosa. However, two sets of blood cultures are so far negative. I discontinued his vancomycin, continued piperacillin, tazobactam. FINAL DISCHARGE DIAGNOSES: Paralytic ileus, resolved. Urinary tract infection with growth of more than 100,000 colony forming units per mL of Pseudomonas aeruginosa and healthcare-associated pneumonia. Other medical problems include; 1. Mental disability. 2. Dysphagia. 3. Recurrent episode of bowel obstruction. SHYANNE ELLIS MD DR: APARNA/dominick JOB#: [id number] / [id number]
[2018-02-25] MEDS ORDERED: cloNIDine TTS-1 1 PATCH PATCH TD SCH (09:00)
== END 2018-02-21 16:37 | disposition swing bed (61) | DRG 871 ==
LOC: ER 10:20 → ICU 12:40 → 1 SOUTH 02-19 06:25
PROVIDERS: ADMIT Internal Medicine; ATTEND Internal Medicine
DX: A41.9 Sepsis, unspecified organism (principal); J18.9 Pneumonia, unspecified organism; K56.0 Paralytic ileus; N39.0 Urinary tract infection, site not specified; R13.10 Dysphagia, unspecified; Z93.1 Gastrostomy status; F79 Unspecified intellectual disabilities; G40.909 Epilepsy, unspecified, not intractable, without status epilepticus; K21.9 Gastro-esophageal reflux disease without esophagitis; N40.0 Benign prostatic hyperplasia without lower urinary tract symptoms; I10 Essential (primary) hypertension; Y95 Nosocomial condition; B96.5 Pseudomonas (aeruginosa) (mallei) (pseudomallei) as the cause of diseases classified elsewhere; F32.9 Major depressive disorder, single episode, unspecified; F41.9 Anxiety disorder, unspecified; Z87.01 Personal history of pneumonia (recurrent)
CPT/HCPCS: 36415; 71045; 74018; 74177; 80048; 80053; 80202; 81001; 83605; 83735; 85025; 85027; 87040; 87086; 87186; 87641; 96365; 96375; J0456; J0696; J1953; J2543; J3370; J7050; 99285-25; J7030

== ENCOUNTER 2018-02-21 16:50 | Inpatient (IN) | payer MEDICARE, OTHER ==
[~2018-02-21] VITALS: Ht 175.3 cm; Wt 52.2 kg
[~2018-02-21 16:50] MED LIST changes: +CLON1PAT9 TD; +DOCU50LI PEG; +LORA5SOL70 PEG; +MAGN400O7 PEG; +MONT10TA6 PEG; +POLY17PO5 PEG; +SENN8.8S5 PEG
[2018-02-21] MEDS ORDERED: TERBINAFINE 1% TOPICAL CREAM 30GM TUBE. TP PRN (18:30)
[2018-02-21] MEDS ORDERED: SIMETHICONE 80 MG TAB.CHEW PEG PRN ×2 (18:30→19:30)
[2018-02-21] MEDS ORDERED: SENNOSIDES 8.6 MG TABLET PEG PRN (19:00)
[2018-02-21 19:07] VITALS: BP 155/74
[2018-02-21] MEDS: NUTRITIONAL SUPPLEMENT PEG SCH (20:46)
[2018-02-21] MEDS: DOXAZOSIN MESYLATE 4 MG TABLET PEG SCH (20:47)
[2018-02-21] MEDS: ZIPRASIDONE 20 MG CAPSULE. PO SCH (20:48)
[2018-02-21] MEDS: MONTELUKAST 10 MG TABLET. PO SCH (20:48)
[2018-02-21] MEDS: carBAMazepine 200 MG/10 ML ORAL.SUSP PEG SCH (20:53)
[2018-02-21] MEDS: ACETAMINOPHEN 650 MG/20.3 ML SOLUTION. PEG SCH (20:56)
[2018-02-21] MEDS: ZINC OXIDE 20% TOPICAL OINTMENT 28GM TUBE. TP SCH ×2 (20:57→21:00)
[2018-02-21] MEDS: PIPERACILLIN/TAZOBACTAM 3.375 GM in IV NORMAL SALINE 50ML 50 ML IV SCH (22:05)
[2018-02-22 05:00] VITALS: BP 162/81
[2018-02-22] MEDS: VITS A & D/LANOLIN TOPICAL OINTMENT 56GM TUBE. TP PRN ×2 (05:18→21:29)
[2018-02-22] MEDS: ZINC OXIDE 20% TOPICAL OINTMENT 28GM TUBE. TP SCH ×3 (05:18→21:30)
[2018-02-22] MEDS: PIPERACILLIN/TAZOBACTAM 3.375 GM in IV NORMAL SALINE 50ML 50 ML IV SCH ×3 (06:05→22:25)
[2018-02-22] MEDS: carBAMazepine 200 MG/10 ML ORAL.SUSP PEG SCH ×3 (08:50→21:29)
[2018-02-22] MEDS: DOCUSATE 100 MG/10 ML SOLUTION. PEG SCH (08:52)
[2018-02-22] MEDS: amLODIPine BESYLATE 5 MG TABLET PEG SCH (08:53)
[2018-02-22] MEDS: MAGNESIUM OXIDE 400 MG TABLET PEG SCH (08:53)
[2018-02-22] MEDS: PANTOPRAZOLE 40 MG PACKET. PEG SCH ×2 (08:54→21:28)
[2018-02-22] MEDS: SENNOSIDES 8.6 MG TABLET PEG SCH (08:54)
[2018-02-22] MEDS: ACETAMINOPHEN 650 MG/20.3 ML SOLUTION. PEG SCH ×3 (08:54→21:28)
[2018-02-22] MEDS: ZIPRASIDONE 20 MG CAPSULE. PO SCH ×3 (08:55→21:29)
[2018-02-22] MEDS: CETIRIZINE HCL 10 MG TABLET PEG SCH (08:55)
[2018-02-22] MEDS: POLYETHYLENE GLYCOL 3350 17 GM PACKET. PO SCH (08:57)
[2018-02-22] MEDS ORDERED: POLYETHYLENE GLYCOL 3350 17 GM PACKET. PEG PRN (09:00)
[2018-02-22] MEDS ORDERED: MAGNESIUM HYDROXIDE 2,400 MG/30 ML ORAL.SUSP. PEG PRN (09:00)
[2018-02-22] MEDS: NUTRITIONAL SUPPLEMENT PEG SCH ×4 (09:00→21:31)
[2018-02-22] MEDS ORDERED: MAGNESIUM HYDROXIDE 2,400 MG/30 ML ORAL.SUSP. PEG SCH (09:00)
[2018-02-22 11:11] VITALS: BP 198/119
[2018-02-22] MEDS ORDERED: cloNIDine TTS-1 1 PATCH PATCH TD SCH (12:00)
[2018-02-22] MEDS ORDERED: cloNIDine TTS-2 1 PATCH PATCH TD SCH (12:30)
[2018-02-22] MEDS ORDERED: amLODIPine BESYLATE 5 MG TABLET PO ONE (12:30)
[2018-02-22 20:16] VITALS: BP 158/82
[2018-02-22] MEDS: DOXAZOSIN MESYLATE 4 MG TABLET PEG SCH (21:28)
[2018-02-22] MEDS: MONTELUKAST 10 MG TABLET. PO SCH (21:28)
[2018-02-23] MEDS: PIPERACILLIN/TAZOBACTAM 3.375 GM in IV NORMAL SALINE 50ML 50 ML IV SCH ×3 (05:53→22:10)
[2018-02-23 07:03] LABS: ALBUMIN 3.5 g/dL (3.4-5.0); ALBUMIN/GLOBULIN RATIO 0.8 (1.0-1.7); BASO % 1 % (0-3); CREATININE 0.7 mg/dL (0.7-1.3); EOS # 0.1 x10^3/uL (0.0-0.7); EOS % 2 % (0-3); GFR 115.4; HEMATOCRIT 43.2 % (39.0-53.0); HEMOGLOBIN 14.8 g/dL (13.0-17.5); LYMPH # 1.2 x10^3/uL (1.0-4.8); LYMPH % 31 % (24-48); MEAN CORPUSCULAR HEMOGLOBIN 32 pg (25-35); MEAN CORPUSCULAR HGB CONC 34 g/dL (31-37); MEAN CORPUSCULAR VOLUME 93 fL (79-100); MONO # 0.2 x10^3/uL (0.0-1.1); MONO % 6 % (0-9); NEUT # 2.3 x10^3uL (1.8-7.7); NEUT % 60 % (31-73); PLATELET COUNT 309 x10^3/uL (140-400); POTASSIUM 4.3 mmol/L (3.5-5.1); RED BLOOD COUNT 4.67 x10^6/uL (4.30-5.70); RED CELL DISTRIBUTION WIDTH 14.7 % (11.5-14.5); TOTAL BILIRUBIN 0.3 mg/dL (0.2-1.0); WHITE BLOOD COUNT 3.8 x10^3/uL (4.0-11.0)
[2018-02-23] MEDS: PANTOPRAZOLE 40 MG PACKET. PEG SCH ×2 (07:47→21:08)
[2018-02-23] MEDS: SENNOSIDES 8.6 MG TABLET PEG SCH (07:47)
[2018-02-23] MEDS: MAGNESIUM OXIDE 400 MG TABLET PEG SCH (07:47)
[2018-02-23] MEDS: ACETAMINOPHEN 650 MG/20.3 ML SOLUTION. PEG SCH ×3 (07:47→21:08)
[2018-02-23] MEDS: amLODIPine BESYLATE 5 MG TABLET PEG SCH (07:48)
[2018-02-23] MEDS: carBAMazepine 200 MG/10 ML ORAL.SUSP PEG SCH ×3 (07:48→21:10)
[2018-02-23] MEDS: POLYETHYLENE GLYCOL 3350 17 GM PACKET. PO SCH (07:48)
[2018-02-23] MEDS: CETIRIZINE HCL 10 MG TABLET PEG SCH (07:48)
[2018-02-23] MEDS: DOCUSATE 100 MG/10 ML SOLUTION. PEG SCH (07:49)
[2018-02-23] MEDS: NUTRITIONAL SUPPLEMENT PEG SCH ×4 (07:49→21:00)
[2018-02-23] MEDS: ZIPRASIDONE 20 MG CAPSULE. PO SCH ×3 (07:49→21:08)
[2018-02-23] MEDS: ZINC OXIDE 20% TOPICAL OINTMENT 28GM TUBE. TP SCH ×2 (07:50→21:00)
[2018-02-23 14:46] VITALS: BP 132/72
[2018-02-23 19:10] VITALS: BP 153/82
[2018-02-23] MEDS: MONTELUKAST 10 MG TABLET. PO SCH (21:06)
[2018-02-23] MEDS: DOXAZOSIN MESYLATE 4 MG TABLET PEG SCH (21:10)
[2018-02-24] MEDS: PIPERACILLIN/TAZOBACTAM 3.375 GM in IV NORMAL SALINE 50ML 50 ML IV SCH ×3 (05:44→21:28)
[2018-02-24 05:56] VITALS: BP 162/85
[2018-02-24] MEDS: PANTOPRAZOLE 40 MG PACKET. PEG SCH ×2 (07:19→20:09)
[2018-02-24] MEDS: CETIRIZINE HCL 10 MG TABLET PEG SCH (07:19)
[2018-02-24] MEDS: ZIPRASIDONE 20 MG CAPSULE. PO SCH ×3 (07:19→20:10)
[2018-02-24] MEDS: MAGNESIUM OXIDE 400 MG TABLET PEG SCH (07:19)
[2018-02-24] MEDS: POLYETHYLENE GLYCOL 3350 17 GM PACKET. PO SCH (07:20)
[2018-02-24] MEDS: DOCUSATE 100 MG/10 ML SOLUTION. PEG SCH (07:20)
[2018-02-24] MEDS: carBAMazepine 200 MG/10 ML ORAL.SUSP PEG SCH ×3 (07:20→20:10)
[2018-02-24] MEDS: ACETAMINOPHEN 650 MG/20.3 ML SOLUTION. PEG SCH ×3 (07:21→20:09)
[2018-02-24] MEDS: ZINC OXIDE 20% TOPICAL OINTMENT 28GM TUBE. TP SCH ×2 (07:34→20:10)
[2018-02-24] MEDS: amLODIPine BESYLATE 10 MG TABLET PEG SCH (07:34)
[2018-02-24] MEDS: SENNOSIDES 8.6 MG TABLET PEG SCH (07:34)
[2018-02-24] MEDS: NUTRITIONAL SUPPLEMENT PEG SCH ×4 (07:34→20:10)
[2018-02-24 18:32] VITALS: BP 124/76
[2018-02-24] MEDS: DOXAZOSIN MESYLATE 4 MG TABLET PEG SCH (20:09)
[2018-02-24] MEDS: MONTELUKAST 10 MG TABLET. PO SCH (20:10)
[2018-02-25] MEDS: PIPERACILLIN/TAZOBACTAM 3.375 GM in IV NORMAL SALINE 50ML 50 ML IV SCH ×3 (05:37→22:24)
[2018-02-25 05:59] VITALS: BP 164/87
[2018-02-25] MEDS: carBAMazepine 200 MG/10 ML ORAL.SUSP PEG SCH ×3 (07:56→20:33)
[2018-02-25] MEDS: ACETAMINOPHEN 650 MG/20.3 ML SOLUTION. PEG SCH ×3 (07:57→20:30)
[2018-02-25] MEDS: PANTOPRAZOLE 40 MG PACKET. PEG SCH ×2 (07:57→20:28)
[2018-02-25] MEDS: amLODIPine BESYLATE 10 MG TABLET PEG SCH (07:58)
[2018-02-25] MEDS: CETIRIZINE HCL 10 MG TABLET PEG SCH (07:58)
[2018-02-25] MEDS: MAGNESIUM OXIDE 400 MG TABLET PEG SCH (07:58)
[2018-02-25] MEDS: ZIPRASIDONE 20 MG CAPSULE. PO SCH ×3 (07:59→20:35)
[2018-02-25 08:00] VITALS: BP 150/83
[2018-02-25] MEDS: SENNOSIDES 8.6 MG TABLET PEG SCH (08:02)
[2018-02-25] MEDS: POLYETHYLENE GLYCOL 3350 17 GM PACKET. PO SCH (08:02)
[2018-02-25] MEDS: ZINC OXIDE 20% TOPICAL OINTMENT 28GM TUBE. TP SCH ×2 (08:02→20:31)
[2018-02-25] MEDS: DOCUSATE 100 MG/10 ML SOLUTION. PEG SCH (08:03)
[2018-02-25] MEDS: NUTRITIONAL SUPPLEMENT PEG SCH ×4 (08:03→20:40)
[2018-02-25] MEDS: DOXAZOSIN MESYLATE 4 MG TABLET PEG SCH (20:29)
[2018-02-25] MEDS: MONTELUKAST 10 MG TABLET. PO SCH (20:29)
[2018-02-25 23:30] VITALS: BP 110/66
[2018-02-26] MEDS: PIPERACILLIN/TAZOBACTAM 3.375 GM in IV NORMAL SALINE 50ML 50 ML IV SCH ×2 (05:32→13:22)
[2018-02-26 07:00] LABS: BASO % 1 % (0-3); EOS # 0.1 x10^3/uL (0.0-0.7); EOS % 3 % (0-3); HEMATOCRIT 41.3 % (39.0-53.0); HEMOGLOBIN 14.2 g/dL (13.0-17.5); LYMPH # 1.2 x10^3/uL (1.0-4.8); LYMPH % 29 % (24-48); MEAN CORPUSCULAR HEMOGLOBIN 32 pg (25-35); MEAN CORPUSCULAR HGB CONC 35 g/dL (31-37); MEAN CORPUSCULAR VOLUME 92 fL (79-100); MONO # 0.2 x10^3/uL (0.0-1.1); MONO % 5 % (0-9); NEUT # 2.6 x10^3uL (1.8-7.7); NEUT % 63 % (31-73); PLATELET COUNT 306 x10^3/uL (140-400); RED BLOOD COUNT 4.49 x10^6/uL (4.30-5.70); RED CELL DISTRIBUTION WIDTH 14.9 % (11.5-14.5); WHITE BLOOD COUNT 4.1 x10^3/uL (4.0-11.0)
[2018-02-26 07:11] LABS: ALBUMIN 3.5 g/dL (3.4-5.0); ALBUMIN/GLOBULIN RATIO 0.8 (1.0-1.7); CALCIUM 8.8 mg/dL (8.5-10.1); CREATININE 0.7 mg/dL (0.7-1.3); GFR 115.4; POTASSIUM 4.2 mmol/L (3.5-5.1); TOTAL BILIRUBIN 0.2 mg/dL (0.2-1.0)
[2018-02-26] MEDS: ZIPRASIDONE 20 MG CAPSULE. PO SCH ×2 (08:04→13:21)
[2018-02-26] MEDS: ACETAMINOPHEN 650 MG/20.3 ML SOLUTION. PEG SCH ×2 (08:05→13:21)
[2018-02-26] MEDS: carBAMazepine 200 MG/10 ML ORAL.SUSP PEG SCH ×2 (08:05→12:19)
[2018-02-26] MEDS: CETIRIZINE HCL 10 MG TABLET PEG SCH (08:06)
[2018-02-26] MEDS: MAGNESIUM OXIDE 400 MG TABLET PEG SCH (08:06)
[2018-02-26] MEDS: PANTOPRAZOLE 40 MG PACKET. PEG SCH (08:07)
[2018-02-26 08:12] VITALS: BP 165/85
[2018-02-26] MEDS: amLODIPine BESYLATE 10 MG TABLET PEG SCH (08:12)
[2018-02-26] MEDS: NUTRITIONAL SUPPLEMENT PEG SCH ×2 (09:00→13:00)
[2018-02-26] MEDS: POLYETHYLENE GLYCOL 3350 17 GM PACKET. PO SCH (09:00)
[2018-02-26] MEDS: ZINC OXIDE 20% TOPICAL OINTMENT 28GM TUBE. TP SCH (09:00)
[2018-02-26] MEDS: SENNOSIDES 8.6 MG TABLET PEG SCH (09:00)
[2018-02-26] MEDS: DOCUSATE 100 MG/10 ML SOLUTION. PEG SCH (09:00)
--- NOTE | 2018-02-26 20:29 | DS ---
DATE OF DISCHARGE: 02/26/2018 HOSPITAL COURSE: The patient was admitted originally with fever on 02/17/2018. At that time, the patient was found to have urinary tract infection, bilateral lung infiltrate and also paralytic ileus, initially we kept him n.p.o., started him on IV fluid and switched him to IV Keppra; however, his bowel started working and we put him back on his tube feeds and all his other medications, back on his carbamazepine. His blood cultures were negative; however, his urine culture grew Pseudomonas aeruginosa sensitive to piperacillin and tazobactam. [facility] for IV antibiotic, but the company who owns the prison adamantly refused to take him there with an IV line and therefore the patient was continued further for 5 more days to finish the IV treatment and the patient remained hemodynamically stable, afebrile throughout his stay. His white cell count was normal and a decision was made to discharge him back to prison to continue on his home medications as he finished antibiotic treatment. PHYSICAL EXAMINATION: GENERAL: On examining him today, he looked well and was clearly in no apparent respiratory distress, pale, but no jaundice or cyanosis. No lymphadenopathy, no thyromegaly. No jugular venous distension. No lower limb edema. VITAL SIGNS: His heart rate was 63, blood pressure 110/66, temperature was 97.6, respiratory rate was 16, and oxygen saturation was 95% on room air. HEAD, EYES, EARS, NOSE AND THROAT: Normocephalic, atraumatic. NECK: Supple. HEART: Showed normal first and second heart sounds with no gallop, rub or murmur. CHEST: Clear to auscultation. No crepitation or rhonchi. ABDOMEN: Distended, soft, nontender. No guarding or rigidity. No organomegaly. All hernial orifices intact. Bowel sounds normal. He has a gastrostomy tube in place. NEUROLOGIC: He was awake, alert, responding appropriately. All cranial nerves are intact. He moves extremities without difficulty. His intake over the last 24 hours, intake and output are incompletely recorded. LABORATORY DATA: As of this morning showed a white cell count 4000, hemoglobin 14.2, hematocrit 41.3, MCV 92, and platelet count 206,000 with normal manual differential. His chemistry showed a serum sodium 138, potassium 4.2, chloride 100, bicarbonate 32, anion gap of 6, BUN 18, creatinine 0.7, estimated GFR was 115 mL per minute, his glucose was 87. Calcium was 8.8. Total bilirubin, AST, ALT, alkaline phosphatase were normal. His total protein was 8, albumin was 3.5. DISCHARGE MEDICATIONS: He was discharged home to continue on amlodipine 10 mg once a day, clonidine TTS patch 1 patch weekly. He is on magnesium hydroxide 30 mL p.o. daily p.r.n. for constipation, Protonix 40 mg per feeding tube twice a day, senna 1 tablet once a day, creatinine glycol 17 grams per feeding tube once a day, magnesium oxide 400 mg per feeding tube once a day, cetirizine 10 mg per feeding tube daily, carbamazepine 200 mg per feeding tube twice a day and carbamazepine 300 mg at bedtime, Cardura 2 mg per feeding tube at bedtime, montelukast 10 mg at bedtime, Nutren two 250 mg 4 times a day, ziprasidone 20 mg 3 times a day, zinc oxide applied topically twice a day, simethicone 80 mg per feeding tube as needed and vitamin A and D ointment applied topically 4 times a day, terbinafine one application 4 times a day to his itching. FINAL DISCHARGE DIAGNOSES: 1. Paralytic ileus, resolved. 2. Urinary tract infection with growth of more than 100,000 colony forming units per mL of Pseudomonas aeruginosa. 3. Healthcare-associated pneumonia. 4. Mental disability. 5. Seizure disorder. 6. Dysphagia. 7. Recurrent episode of bowel obstruction. SHYANNE ELLIS MD DR: APARNA/dominick JOB#: [id number] / [id number]
== END 2018-02-26 14:30 | disposition home or self-care (01) | DRG 388 ==
LOC: 1 SOUTH 16:50
PROVIDERS: ADMIT Internal Medicine; ATTEND Internal Medicine
DX: K56.0 Paralytic ileus (principal); J18.9 Pneumonia, unspecified organism; N39.0 Urinary tract infection, site not specified; B96.5 Pseudomonas (aeruginosa) (mallei) (pseudomallei) as the cause of diseases classified elsewhere; Y95 Nosocomial condition; G40.909 Epilepsy, unspecified, not intractable, without status epilepticus; R13.10 Dysphagia, unspecified
CPT/HCPCS: 36415; 80053; 85025; J2543

== ENCOUNTER 2018-03-18 07:34 | Emergency (ER) | payer MEDICARE, OTHER ==
[~2018-03-18] VITALS: Ht 175.3 cm; Wt 54.0 kg
[~2018-03-18 07:34] MED LIST changes: +LORA-254 PEG; +LORA-254 PO; -LORA-434 PEG; -LORA1TAB PO
[2018-03-18] MEDS ORDERED: ONDANSETRON PF 4 MG/2 ML VIAL. IV ONE (08:00)
--- NOTE | 2018-03-18 08:05 | EKG ---
[address] [address] Test Date: 2018-03-18 Test Time: 08:00:23 Pat Name: CLAYTON HERNANDEZ Department: Room: Gender: M Manager Coding: NASRA : 1960 Requested By: ANTHONY THOMAS Order Number: [id number] Reading MD: Tony Stock MD Measurements Intervals [place] Rate: 105 P: 56 SC: 136 QRS: 35 QRSD: 82 T: 69 QT: 298 QTc: 397 Interpretive Statements SINUS TACHYCARDIA Electronically Signed On 03-20-2018 11:43:25 CDT by Tony Stock MD
[2018-03-18] MEDS ORDERED: IV NORMAL SALINE 500ML 500 ML IV ONE (08:15)
[2018-03-18 08:16] LABS: BASO # 0.2 x10^3/uL (0.0-0.2); BASO % 1 % (0-3); EOS % 0 % (0-3); HEMATOCRIT 41.1 % (39.0-53.0); HEMOGLOBIN 14.2 g/dL (13.0-17.5); LYMPH # 0.1 x10^3/uL (1.0-4.8); LYMPH % 1 % (24-48); MEAN CORPUSCULAR HEMOGLOBIN 32 pg (25-35); MEAN CORPUSCULAR HGB CONC 35 g/dL (31-37); MEAN CORPUSCULAR VOLUME 91 fL (79-100); MONO # 0.4 x10^3/uL (0.0-1.1); MONO % 3 % (0-9); NEUT # 15.7 x10^3uL (1.8-7.7); NEUT % 95 % (31-73); PLATELET COUNT 314 x10^3/uL (140-400); RED BLOOD COUNT 4.51 x10^6/uL (4.30-5.70); RED CELL DISTRIBUTION WIDTH 14.9 % (11.5-14.5); WHITE BLOOD COUNT 16.5 x10^3/uL (4.0-11.0)
[2018-03-18 08:30] LABS: ALBUMIN 3.5 g/dL (3.4-5.0); CREATININE 0.7 mg/dL (0.7-1.3); DIRECT BILIRUBIN 0.3 mg/dL (0.0-0.2); GFR 115.4; TOTAL BILIRUBIN 0.8 mg/dL (0.2-1.0); TOTAL PROTEIN 8.1 g/dL (6.4-8.2)
--- NOTE | 2018-03-18 08:52 | PHYS DOC ---
Past History Past Medical History: Anxiety, Depression, Hypertension, Pneumonia, Seizure, UTI Past Surgical History: No Surgical History Smoking: Non-smoker Alcohol Use: None Drug Use: None Adult General Chief Complaint Chief Complaint: NAUSEA/VOMITING/DIARRHEA HPI HPI 57-year-old male presenting the emergency department today with epigastric abdominal pain with nausea and vomiting. This all started this morning when he had a few episodes of nonbilious nonbloody emesis. He described the vomitus is brown. His pain is a mild sharp shooting pain in the epigastrium that is nonradiating and without alleviating factors. Patient has a history of obstruction and has a G-tube. The patient does not take food by mouth. They report that the patient doesn't take food by mouth because of esophageal thickening. Past surgical history: The patient has had cervical surgery, patient is a poor historian he is here with his care provider who is unable to identify exactly his surgical history. She reports he has a history of abdominal surgeries but does not remember what kind. She thinks that he still has his appendix and gallbladder. On examination of the patient he has a midline surgical scar with 2 laparoscopic sites. Review of systems is negative for chest pain fevers or chills. Positive for abdominal pain. Negative for any new rashes. All other review of systems is negative unless otherwise noted in history of present illness. ED course: 57-year-old male presenting to the emergency department today with epigastric abdominal pain with nausea and vomiting for approximately 16 hours. On arrival he is afebrile with a normal blood pressure. Heart rate is mildly elevated 115 on initial triage evaluation. On examination he is well-appearing. Mildly dry mucous membranes. Abdomen is soft nondistended with mildly hypoactive bowel sounds. Nontender to palpation without rebound tenderness or guarding. Negative McBurney's point. Negative Holman sign. No obvious palpable hernia present. Lungs are clear bilaterally on my exam. IV established. Blood work sent. IV saline ordered and administered. Ondansetron administered. CT of the abdomen pelvis ordered along with chest x-ray. Blood work shows leukocytosis. Chemistry panel shows mild hyponatremia. Lipase within normal limits. Troponin negative. Urinalysis suggestive of a urinary tract infection. CT the abdomen pelvis demonstrates bowel obstruction and aspiration pneumonia. Patient is given IV broad-spectrum antibiotics with double coverage for anaerobes along with IV fluids. Patient is placed nothing by mouth an NG tube was placed. IV antibiotics should cover urinary tract infection as well as aspiration pneumonia. We will transfer the patient to [facility] for further evaluation treatment and care. I discussed case with Dr. Whitman our surgeon who agrees with management. He will see the patient upon transfer. Dr. Zamora accepts the patient for admission to [facility] in transfer. Review of Systems Review of Systems SEE ABOVE. Current Medications Current Medications Current Medications Medications (Trade) Dose Ordered Sig/Juanito Start Time Stop Time Status Last Admin Dose Admin Iohexol (Omnipaque 300 Mg/ml) 75 ml 1X ONCE 03/18/18 08:45 03/18/18 08:46 UNV Ondansetron HCl (Zofran) 4 mg 1X ONCE 03/18/18 08:00 03/18/18 08:01 DC 03/18/18 08:22 4 MG Sodium Chloride 500 ml @ 0 mls/hr 1X ONCE 03/18/18 08:15 03/18/18 08:16 DC 03/18/18 08:23 100 MLS/HR Allergies Allergies Allergies Coded Allergies Type Severity Reaction Last Updated Verified No Known Drug Allergies 02/22/18 No Physical Exam Physical Exam SEE ABOVE Constitutional: Well developed, well nourished, no acute distress, non-toxic appearance. [] HENT: Normocephalic, atraumatic, bilateral external ears normal, oropharynx dry , no oral exudates, nose normal. [] Eyes: PERRLA, EOMI, conjunctiva normal, no discharge. [] Neck: Normal range of motion, no tenderness, supple, no stridor. [] Cardiovascular:Heart rate regular rhythm, no murmur [] Lungs & Thorax: Bilateral breath sounds clear to auscultation [] Abdomen: Bowel sounds as above, soft, no tenderness, no masses, no pulsatile masses. Midline surgical scar with 2 laparoscopic surgical scars. Nondistended. As above. Skin: Warm, dry, no erythema, no rash. [] Back: No tenderness, no CVA tenderness. [] Extremities: No tenderness, no cyanosis, no clubbing, ROM intact, no edema. [] Neurologic: Alert and oriented X 3, normal motor function, normal sensory function, no focal deficits noted. [] Psychologic: Affect normal, judgement normal, mood normal. [] Current Patient Data Vital Signs Vital Signs Date Time Temp Pulse Resp B/P (MAP) Pulse Ox O2 Delivery O2 Flow Rate FiO2 03/18/18 08:13 102 20 03/18/18 07:48 97.7 92 Room Air Lab Results Laboratory Tests Test 03/18/18 08:00 White Blood Count 16.5 x10^3/uL (4.0-11.0) H Red Blood Count 4.51 x10^6/uL (4.30-5.70) Hemoglobin 14.2 g/dL (13.0-17.5) Hematocrit 41.1 % (39.0-53.0) Mean Corpuscular Volume 91 fL (79-100) Mean Corpuscular Hemoglobin 32 pg (25-35) Mean Corpuscular Hemoglobin Concent 35 g/dL (31-37) Red Cell Distribution Width 14.9 % (11.5-14.5) H Platelet Count 314 x10^3/uL (140-400) Neutrophils (%) (Auto) 95 % (31-73) H Lymphocytes (%) (Auto) 1 % (24-48) L Monocytes (%) (Auto) 3 % (0-9) Eosinophils (%) (Auto) 0 % (0-3) Basophils (%) (Auto) 1 % (0-3) Neutrophils # (Auto) 15.7 x10^3uL (1.8-7.7) H Lymphocytes # (Auto) 0.1 x10^3/uL (1.0-4.8) L Monocytes # (Auto) 0.4 x10^3/uL (0.0-1.1) Eosinophils # (Auto) 0.0 x10^3/uL (0.0-0.7) Basophils # (Auto) 0.2 x10^3/uL (0.0-0.2) Platelet Estimate Pending Sodium Level 130 mmol/L (136-145) L Potassium Level 4.0 mmol/L (3.5-5.1) Chloride Level 93 mmol/L (98-107) L Carbon Dioxide Level 28 mmol/L (21-32) Anion Gap 9 (6-14) Blood Urea Nitrogen 18 mg/dL (8-26) Creatinine 0.7 mg/dL (0.7-1.3) Estimated GFR (Cockcroft-Gault) 115.4 Glucose Level 102 mg/dL (70-99) H Calcium Level 9.0 mg/dL (8.5-10.1) Total Bilirubin 0.8 mg/dL (0.2-1.0) Direct Bilirubin 0.3 mg/dL (0.0-0.2) H Aspartate Amino Transferase (AST) 24 U/L (15-37) Alanine Aminotransferase (ALT) 31 U/L (16-63) Alkaline Phosphatase 103 U/L (46-116) Troponin I Quantitative < 0.017 ng/mL (0-0.055) Total Protein 8.1 g/dL (6.4-8.2) Albumin 3.5 g/dL (3.4-5.0) Lipase 50 U/L (73-393) L EKG EKG [] Radiology/Procedures Radiology/Procedures [] Course & Med Decision Making Course & Med Decision Making Pertinent Labs and Imaging studies reviewed. (See chart for details) [] Dragon Disclaimer Dragon Disclaimer This electronic medical record was generated, in whole or in part, using a voice recognition dictation system. Departure Departure: Impression: Primary Impression: Abdominal pain Additional Impressions: SBO (small bowel obstruction) Aspiration pneumonia Vomiting Urinary tract infection Disposition: XFER SHT-TRM HOSP Condition: STABLE Referrals: TOM TRAMMELL MD (PCP) Problem Qualifiers ANTHONY THOMAS MD Mar 18, 2018 08:51
[2018-03-18 08:55] LABS: % BANDS 36 % (0-9); % EOS 0 % (0-5); % LYMPHS 2 % (24-48); % MONOS 0 % (0-10); % SEGS 62 % (35-66)
[2018-03-18 08:56] LABS: PLT ESTIMATE ADEQUATE (ADEQUATE); TOXIC GRANULATION MOD
[2018-03-18] MEDS ORDERED: IOHEXOL 300 MG/ML 75 ML VIAL. IV ONE (09:00)
--- NOTE | 2018-03-18 09:37 | RAD ---
Indication:Epigastric pain x 1 day with vomiting TECHNIQUE: CT abdomen and pelvis with IV contrast with multiplanar reformats. COMPARISON: Previous study from 02/17/2018 FINDINGS: Heart is normal in size. Coronary artery calcifications noted. Diffuse bilateral patchy groundglass opacities are seen in the lungs. Stable low attenuating lesion is seen in segment 6 of the liver measuring 2.1 x 1.3 cm most likely a hemangioma. Otherwise, liver is normal in morphology. Spleen is unenlarged. Significant motion artifact is seen in the abdomen limiting optimal evaluation. No radiopaque gallstones. Pancreas is within normal limits. Abdomen glands demonstrate no nodularity. No nephrolithiasis or hydronephrosis. Diffusely distended small bowel loops are seen with air-fluid levels. The represented to small bowel loop measures 3.5 cm which is mildly dilated. No discrete transition point is seen. No pathologically enlarged retroperitoneal or pelvic adenopathy. Urinary bladder is distended without focal lesion. Prostate and seminal vesicles demonstrate no mass lesion. Note made of G-tube. Patulous distal esophagus noted. No suspicious bony lesion. IMPRESSION: 1. Diffusely dilated small bowel loops with air-fluid levels suggests small bowel obstruction without discrete transition point identified. 2. Bilateral lung bases abnormality suggests pneumonia or aspiration. Electronically signed by: Elijah Moreira DO (03/18/2018 9:34 AM) [facility] [place]
[2018-03-18] MEDS ORDERED: IPRATRPIUM/ALBUTEROL 0.5/2.5MG 3 ML NEBU. NEB ONE (09:45)
[2018-03-18] MEDS ORDERED: VANCOMYCIN PER PHARMACY MC PRN (09:45)
[2018-03-18 09:55] LABS: BILIRUBIN,URINE NEG (NEG); CLARITY,URINE HAZY; COLOR,URINE AMBER; GLUCOSE,URINE NEG (NEG); NITRITE,URINE POS (NEG); UROBILINOGEN,URINE 0.2 mg/dL (0.2 mg/dL)
[2018-03-18 09:56] LABS: AMORPHOUS SEDIMENT,UR PRESENT /HPF; BACTERIA,URINE MOD /HPF (0-FEW); RBC,URINE 0 /HPF (0-2)
[2018-03-18] MEDS ORDERED: PIPERACILLIN/TAZOBACTAM 3.375 GM in IV NORMAL SALINE 50ML 50 ML IV ONE (10:00)
[2018-03-18] MEDS ORDERED: CLINDAMYCIN 600MG PREMIX 50 ML IV ONE (10:00)
--- NOTE | 2018-03-18 10:02 | RAD ---
Single view chest 03/18/2018 CLINICAL INDICATION: Hypoxia. COMPARISON: Chest radiograph 02/17/2018, 01/11/2018. FINDINGS: Cardiac and mediastinal silhouettes are unremarkable. There are reticular and nodular opacities in both lung bases in the right perihilar region. No pleural effusion, pneumothorax or focal consolidation. IMPRESSION: Bilateral reticular and nodular opacities, may represent multifocal pneumonia, or aspiration. Electronically signed by: Monico Holder MD (03/18/2018 9:59 AM) [facility]
[2018-03-18] MEDS ORDERED: VANCOMYCIN 1.25 GM in IV NORMAL SALINE 250ML 250 ML IV ONE (10:30)
--- NOTE | 2018-03-18 10:50 | RAD ---
Single view chest 03/18/2018 Clinical indication: NG tube placement. COMPARISON: Same day chest radiograph. FINDINGS: NG tube with distal tip at the GE junction and the proximal side-port overlying the lower esophagus level. Cardiac and mediastinal silhouettes are unremarkable. There are bibasilar and right perihilar reticular and nodular opacities. No pleural effusion or pneumothorax. Multiple gaseous distended loops of bowel beneath the hemidiaphragms. IMPRESSION: 1. NG tube with distal tip at the GE junction. Advancement is recommended. 2. Unchanged patchy pulmonary opacities. 3. Gaseous distended bowel loops, partially visualized. Electronically signed by: Monico Holder MD (03/18/2018 10:46 AM) [facility]
[2018-03-18] MEDS ORDERED: PIPERACILLIN/TAZOBACTAM 3.375 GM VIAL IV ONE (11:02)
[2018-03-18] MEDS ORDERED: IV NORMAL SALINE 50ML 50 ML ONE (11:02)
[2018-03-18 11:10] VITALS: BP 103/61
--- NOTE | 2018-03-18 11:30 | RAD ---
Single view chest 03/18/2018 Clinical indication: NG tube advancement. COMPARISON: Same day chest radiograph. FINDINGS: Advancement of NG tube with distal tip in proximal side-port overlying the left upper quadrant of the abdomen the region of the gastric fundus. Otherwise stable chest. IMPRESSION: Advancement of NG tube, as detailed. Electronically signed by: Monico Holder MD (03/18/2018 11:27 AM) [facility]
[2018-03-18] MEDS ORDERED: VANCOMYCIN 1 GM VIAL. ONE (11:58)
[2018-03-18] MEDS ORDERED: IV NORMAL SALINE 250ML 0 ML ONE (11:58)
== END 2018-03-18 12:45 | disposition short-term general hospital (02) ==
LOC: ER 07:34
DX: K56.699 Other intestinal obstruction unspecified as to partial versus complete obstruction (principal); J69.0 Pneumonitis due to inhalation of food and vomit; N39.0 Urinary tract infection, site not specified; I10 Essential (primary) hypertension; F41.9 Anxiety disorder, unspecified; F32.9 Major depressive disorder, single episode, unspecified
CPT/HCPCS: 36415; 43752; 71045; 74177; 80048; 80076; 81001; 83690; 84484; 85007; 85025; 87040; 87086; 93005; 94640; 96361; 96365; 96366; 96368; 96375; 99285; J2405; J2543; J3370; J3490; J7040; J7050; J7620; P9612; Q9967

== ENCOUNTER 2018-03-26 18:50 | Emergency (ER) | payer MEDICARE, OTHER ==
[~2018-03-26] VITALS: Ht 327.7 cm; Wt 49.9 kg
[~2018-03-26 18:50] MED LIST changes: +TRAZ-86 PEG; -TRAZ-90 PEG
--- NOTE | 2018-03-26 18:54 | ED.ADGEN ---
Past History Past Medical History: Anxiety, Depression, Hypertension, Pneumonia, Seizure, UTI Past Surgical History: Other Smoking: Non-smoker Alcohol Use: None Drug Use: None Adult General Chief Complaint Chief Complaint ".. My stomach hurts... I cough..." HPI HPI Patient is a 57 year old male who presents with above hx and complaints of cough and abdomen pain. Pt. recently admitted [place] and [facility] for pneumonia, aspiration pneumonitis and ileus. Pt. discharged from [facility] 03/22/2018. Pt. has been using his peg for nutrition. Recent increase in cough and fever. Started on Augmentin yesterday. Pt. Resident of [facility]. Pt. primary Dr. Victor. Review of Systems Review of Systems Constitutional: Denies fever or chills [] Eyes: Denies change in visual acuity, redness, or eye pain [] HENT: Denies nasal congestion or sore throat [] Respiratory: Hx of cough and shortness of breath [] Cardiovascular: No additional information not addressed in HPI [] GI: Hx of abdominal pain, nausea, vomiting, bloody stools or diarrhea [] : Denies dysuria or hematuria [] Musculoskeletal: Denies back pain or joint pain [] Integument: Denies rash or skin lesions [] Neurologic: Denies headache, focal weakness or sensory changes [] Endocrine: Denies polyuria or polydipsia [] All other systems were reviewed and found to be within normal limits, except as documented in this note. Family History Family History Not currently available Current Medications Current Medications Current Medications Medications (Trade) Dose Ordered Sig/Juanito Start Time Stop Time Status Last Admin Dose Admin Ceftriaxone Sodium 1 gm/ Sodium Chloride 50 ml @ 100 mls/hr 1X ONCE 03/26/18 20:30 03/26/18 20:59 DC 03/26/18 20:34 100 MLS/HR Ceftriaxone Sodium (Rocephin) 1 gm STK-MED ONCE 03/26/18 20:25 03/26/18 20:26 DC Famotidine (Pepcid) 20 mg 1X ONCE 03/26/18 19:45 03/26/18 19:46 DC 03/26/18 22:12 20 MG Info (Do NOT chart on this entry -- for MONITORING) 1 each PRN DAILY PRN 03/26/18 20:00 03/26/18 22:28 DC Iohexol (Omnipaque 240 Mg/ml) 50 ml STK-MED ONCE 03/26/18 19:53 03/26/18 19:54 DC Iohexol (Omnipaque 300 Mg/ml) 75 ml 1X ONCE 03/26/18 20:00 03/26/18 20:01 DC 03/26/18 21:27 75 ML Lactated Ringer's 1,000 ml @ 1,000 mls/hr Q1H 03/26/18 19:45 03/26/18 20:44 DC 03/26/18 19:45 1,000 MLS/HR Metronidazole 100 ml @ 100 mls/hr 1X ONCE 03/26/18 20:30 03/26/18 21:29 DC 03/26/18 21:05 100 MLS/HR Ondansetron HCl (Zofran Odt) 8 mg 1X ONCE 03/26/18 19:45 03/26/18 19:46 DC 03/26/18 22:12 8 MG Sodium Chloride 50 ml @ As Directed STK-MED ONCE 03/26/18 20:25 03/26/18 20:26 DC See Nursing Allergies Allergies Allergies Coded Allergies Type Severity Reaction Last Updated Verified No Known Drug Allergies 02/22/18 No Physical Exam Physical Exam Constitutional: Moderate acute distress, non-toxic appearance. [] HENT: Normocephalic, atraumatic, bilateral external ears normal, oropharynx moist, no oral exudates, nose normal. [] Eyes: PERRLA, EOMI, conjunctiva normal, no discharge. [] Neck: Normal range of motion, no tenderness, supple, no stridor. [] Cardiovascular: Tachycardia Heart rate regular rhythm, no murmur [] Lungs & Thorax: Bilateral breath sounds equal apex with scattered wheezes and rhonchi on auscultation [] Abdomen: Bowel sounds normal, soft, generalized tenderness, no masses, no pulsatile masses. [] Large scar. Peg. Distended,.Tympanic. Skin: Warm, dry, no erythema, no rash. [] Back: No tenderness, no CVA tenderness. [] Extremities: No tenderness, no cyanosis, no clubbing, ROM intact, no edema. [] Neurologic: Alert and oriented X 3, normal motor function, normal sensory function, no focal deficits noted. [] Psychologic: Affect anxious, , mood normal. [] Current Patient Data Vital Signs Vital Signs Date Time Temp Pulse Resp B/P (MAP) Pulse Ox O2 Delivery O2 Flow Rate FiO2 03/26/18 22:18 82 20 164/92 (116) 99 Room Air 03/26/18 18:53 98.0 Lab Results Laboratory Tests Test 03/26/18 19:41 03/26/18 21:15 White Blood Count 3.8 x10^3/uL (4.0-11.0) L Red Blood Count 3.93 x10^6/uL (4.30-5.70) L Hemoglobin 12.3 g/dL (13.0-17.5) L Hematocrit 36.5 % (39.0-53.0) L Mean Corpuscular Volume 93 fL (79-100) Mean Corpuscular Hemoglobin 31 pg (25-35) Mean Corpuscular Hemoglobin Concent 34 g/dL (31-37) Red Cell Distribution Width 15.2 % (11.5-14.5) H Platelet Count 395 x10^3/uL (140-400) Neutrophils (%) (Auto) 55 % (31-73) Lymphocytes (%) (Auto) 34 % (24-48) Monocytes (%) (Auto) 8 % (0-9) Eosinophils (%) (Auto) 2 % (0-3) Basophils (%) (Auto) 1 % (0-3) Neutrophils # (Auto) 2.1 x10^3uL (1.8-7.7) Lymphocytes # (Auto) 1.3 x10^3/uL (1.0-4.8) Monocytes # (Auto) 0.3 x10^3/uL (0.0-1.1) Eosinophils # (Auto) 0.1 x10^3/uL (0.0-0.7) Basophils # (Auto) 0.0 x10^3/uL (0.0-0.2) Prothrombin Time 10.4 SEC (9.4-11.4) Prothrombin Time INR 1.0 (0.9-1.1) PTT 26 SEC (23-33) Sodium Level 136 mmol/L (136-145) Potassium Level 4.5 mmol/L (3.5-5.1) Chloride Level 101 mmol/L (98-107) Carbon Dioxide Level 32 mmol/L (21-32) Anion Gap 3 (6-14) L Blood Urea Nitrogen 18 mg/dL (8-26) Creatinine 0.7 mg/dL (0.7-1.3) Estimated GFR (Cockcroft-Gault) 115.4 Glucose Level 87 mg/dL (70-99) Calcium Level 9.1 mg/dL (8.5-10.1) Total Bilirubin 0.2 mg/dL (0.2-1.0) Direct Bilirubin 0.1 mg/dL (0.0-0.2) Aspartate Amino Transferase (AST) 21 U/L (15-37) Alanine Aminotransferase (ALT) 32 U/L (16-63) Alkaline Phosphatase 100 U/L (46-116) Creatine Kinase 102 U/L (39-308) Creatine Kinase MB (Mass) 1.6 ng/mL (0.0-3.6) Creatine Kinase MB Relative Index 1.6 % (0-4) Troponin I Quantitative < 0.017 ng/mL (0-0.055) Total Protein 7.5 g/dL (6.4-8.2) Albumin 3.4 g/dL (3.4-5.0) Amylase Level 48 U/L (25-115) Lipase 130 U/L (73-393) Urine Collection Type Unknown Urine Color Yellow Urine Clarity Clear Urine pH 7.5 Urine Specific [place] 1.010 Urine Protein Neg (NEG-TRACE) Urine Glucose (UA) Neg mg/dL (NEG) Urine Ketones (Stick) Neg mg/dL (NEG) Urine Blood Trace (NEG) Urine Nitrite Neg (NEG) Urine Bilirubin Neg (NEG) Urine Urobilinogen Dipstick 0.2 mg/dL (0.2 mg/dL) Urine Leukocyte Esterase Neg (NEG) Urine RBC Occ /HPF (0-2) Urine WBC Occ /HPF (0-4) Urine Squamous Epithelial Cells None /LPF Urine Bacteria 0 /HPF (0-FEW) Urine Opiates Screen Neg (NEG) Urine Methadone Screen Neg (NEG) Urine Barbiturates Neg (NEG) Urine Phencyclidine Screen Neg (NEG) Urine Amphetamine/Methamphetamine Neg (NEG) Urine Benzodiazepines Screen Neg (NEG) Urine Cocaine Screen Neg (NEG) Urine Cannabinoids Screen Neg (NEG) Urine Ethyl Alcohol Neg (NEG) EKG EKG My interpretation of EKG shows a sinus rate at 85 bpm. There are anterior septal changes but no contralateral acute findings.[] Radiology/Procedures Radiology/Procedures My interpretation of abd. film shows ileus[] appears to be distal small bowel. Does have scattered infiltrates on chest portion of acute abdomen. Course & Med Decision Making Course & Med Decision Making Pertinent Labs and Imaging studies reviewed. (See chart for details). Discussed presentation, testing and tx. plan with Dr. Mtz - advised transfer to [facility]- for surgery consult. Admit thru. hospitalist. Dr. Bourgeois will accept pt in transfer- with surgery consult for eval. [] Final Impression Final Impression 1. Abdomen Pain[]- 2. Ileus 3. Anemia 4. Hx. Aspiration Pneumonitis 5. Hx. of Pneumonia 6. Hx. Developmental Disability 7. Hx. Productive Cough- Started on Augmentin 2 days ago. -at [facility] Disclaimer Dragon Disclaimer This electronic medical record was generated, in whole or in part, using a voice recognition dictation system. DALIA DANIELS MD Mar 26, 2018 18:53
[2018-03-26] MEDS ORDERED: IV RINGERS SOLUTION,LACTATED 1,000 ML IV SCH (19:45)
[2018-03-26] MEDS ORDERED: ONDANSETRON ODT 4 MG TAB.RAPDIS PO ONE (19:45)
[2018-03-26] MEDS ORDERED: FAMOTIDINE 20 MG TABLET PO ONE (19:45)
[2018-03-26] MEDS ORDERED: IOHEXOL 240 MG/ML 50ML VIAL. ONE (19:53)
[2018-03-26] MEDS ORDERED: CONTRAST GIVEN MC PRN (20:00)
[2018-03-26] MEDS ORDERED: IOHEXOL 300 MG/ML 75 ML VIAL. IV ONE (20:00)
--- NOTE | 2018-03-26 20:01 | RAD ---
History: Abdominal pain, cough, congestion, recent pneumonia. Comparison: October 21, 2017. Findings: AP supine and upright views of abdomen. Air-fluid levels are seen involving multiple bowel structures, probably colon and small bowel. Ileus or distal bowel obstruction or possible. No pneumoperitoneum is seen. Impression: A diffuse ileus versus distal small bowel obstruction. Electronically signed by: Anurag Lenz MD (03/26/2018 7:58 PM) [id number]
--- NOTE | 2018-03-26 20:03 | RAD ---
Examination: 2 views of the chest HISTORY: History of cough, congestion COMPARISON: 03/18/2018 FINDINGS: The cardiomediastinal silhouette grossly appears unremarkable. Mild patchy airspace opacities identified in the bilateral lungs particularly in the bibasilar lungs likely atelectasis or infiltrates. IMPRESSION: Mild patchy bibasilar lung airspace opacities likely atelectasis or infiltrates. Follow-up to resolution. Electronically signed by: Stanislaw Madrigal MD (03/26/2018 8:00 PM) [facility]
[2018-03-26 20:07] LABS: BASO % 1 % (0-3); EOS # 0.1 x10^3/uL (0.0-0.7); EOS % 2 % (0-3); HEMATOCRIT 36.5 % (39.0-53.0); HEMOGLOBIN 12.3 g/dL (13.0-17.5); LYMPH # 1.3 x10^3/uL (1.0-4.8); LYMPH % 34 % (24-48); MEAN CORPUSCULAR HEMOGLOBIN 31 pg (25-35); MEAN CORPUSCULAR HGB CONC 34 g/dL (31-37); MEAN CORPUSCULAR VOLUME 93 fL (79-100); MONO # 0.3 x10^3/uL (0.0-1.1); MONO % 8 % (0-9); NEUT # 2.1 x10^3uL (1.8-7.7); NEUT % 55 % (31-73); PLATELET COUNT 395 x10^3/uL (140-400); RED BLOOD COUNT 3.93 x10^6/uL (4.30-5.70); RED CELL DISTRIBUTION WIDTH 15.2 % (11.5-14.5); WHITE BLOOD COUNT 3.8 x10^3/uL (4.0-11.0)
[2018-03-26] MEDS ORDERED: IV NORMAL SALINE 50ML 50 ML ONE (20:25)
[2018-03-26] MEDS ORDERED: cefTRIAXone SODIUM 1 GM VIAL IV ONE (20:25)
[2018-03-26 20:46] LABS: ALBUMIN 3.4 g/dL (3.4-5.0); CALCIUM 9.1 mg/dL (8.5-10.1); CREATININE 0.7 mg/dL (0.7-1.3); DIRECT BILIRUBIN 0.1 mg/dL (0.0-0.2); GFR 115.4; POTASSIUM 4.5 mmol/L (3.5-5.1); TOTAL BILIRUBIN 0.2 mg/dL (0.2-1.0); TOTAL PROTEIN 7.5 g/dL (6.4-8.2)
--- NOTE | 2018-03-26 21:11 | EKG ---
[address] [address] Test Date: 2018-03-26 Test Time: 19:14:35 Pat Name: CLAYTON HERNANDEZ Department: Room: Gender: M Food Safety Officer: NASRA : 1960 Requested By: DALIA DANIELS Order Number: [id number] Reading MD: Tony Stock MD Measurements Intervals [place] Rate: 85 P: 49 VT: 152 QRS: 23 QRSD: 86 T: 60 QT: 322 QTc: 383 Interpretive Statements SINUS RHYTHM Electronically Signed On 03-27-2018 13:29:57 CDT by Tony Stock MD
[2018-03-26 21:35] LABS: AMPHETAMINE/METHAMPHETAMINE NEG (NEG); BARBITURATES NEG (NEG); BENZODIAZEPINES NEG (NEG); CANNABINOIDS NEG (NEG); COCAINE NEG (NEG); METHADONE NEG (NEG); OPIATES NEG (NEG); PHENCYCLIDINE NEG (NEG)
[2018-03-26 21:39] LABS: BACTERIA,URINE 0 /HPF (0-FEW); BILIRUBIN,URINE NEG (NEG); CLARITY,URINE CLEAR; COLOR,URINE YELLOW; GLUCOSE,URINE NEG (NEG); NITRITE,URINE NEG (NEG); RBC,URINE OCC /HPF (0-2); UROBILINOGEN,URINE 0.2 mg/dL (0.2 mg/dL); WBC,URINE OCC /HPF (0-4)
--- NOTE | 2018-03-26 21:53 | RAD ---
CT Abdomen and Pelvis With Intravenous Contrast: History: Abdominal pain, history of small bowel obstruction. Comparison: CT abdomen pelvis March 18, 2018. Technique: After administration of oral and intravenous contrast, 75 mL Omnipaque-300, CT of the abdomen and pelvis was performed. Exposure: One or more of the following individualized dose reduction techniques were utilized for this examination: 1. Automated exposure control 2. Adjustment of the mA and/or kV according to patient size 3. Use of iterative reconstruction technique Findings: Images of the lower chest demonstrate numerous suspected nodules and irregular groundglass opacity. There is some interval improvement from previous study. Right hepatic lobe demonstrates nonspecific 2.0 cm low-attenuation lesion which appears denser than simple cyst. Spleen, pancreas, gallbladder, and bilateral adrenal glands unremarkable. Bilateral kidneys enhance symmetrically. Urinary bladder is unremarkable. Gastrostomy tube is present with appropriate location. Following contrast is seen primarily in the proximal half of small bowel. A few loops of small bowel are dilated up to about 4 cm in diameter. There is gas and fluid involving the colon. There is also evidence of a presence of gas involving the ileum. No free air or free fluid is seen in the abdomen or pelvis. A convincing transition point is not identified. Degenerative changes are present spine. Impression: 1. Gas and fluid can be seen involving the colon as well as the distal small bowel. Oral contrast is present in the proximal bowel. Several loops of small bowel are mildly dilated, although a transition point is not identified. Findings could represent diffuse ileus versus a partial small bowel obstruction. 2. There are some interval improvement in airspace disease involving the visualized lungs. Electronically signed by: Anurag Lenz MD (03/26/2018 9:51 PM) [id number]
[2018-03-26 22:18] VITALS: BP 164/92
== END 2018-03-26 22:25 | disposition short-term general hospital (02) ==
LOC: ER 18:50
DX: K56.7 Ileus, unspecified (principal); R05 Cough; D64.9 Anemia, unspecified; F41.9 Anxiety disorder, unspecified; F32.9 Major depressive disorder, single episode, unspecified; I10 Essential (primary) hypertension; Z87.440 Personal history of urinary (tract) infections
CPT/HCPCS: 36415; 43752; 71046; 74021; 74177; 80048; 80076; 80307; 81001; 82150; 82553; 83690; 84484; 85025; 85610; 85730; 87040; 93005; 96361; 96365; 96367; 99285; J0696; J3490; J7120; Q0162; Q9967; G0479

== ENCOUNTER 2018-05-23 12:47 | Emergency (ER) | payer MEDICARE, OTHER ==
[~2018-05-23] VITALS: Ht 175.3 cm; Wt 44.5 kg
[2018-05-23 13:48] LABS: BASO % 1 % (0-3); EOS % 1 % (0-3); HEMOGLOBIN 13.7 g/dL (13.0-17.5); LYMPH # 1.1 x10^3/uL (1.0-4.8); LYMPH % 33 % (24-48); MEAN CORPUSCULAR HEMOGLOBIN 31 pg (25-35); MEAN CORPUSCULAR HGB CONC 33 g/dL (31-37); MEAN CORPUSCULAR VOLUME 92 fL (79-100); MONO # 0.4 x10^3/uL (0.0-1.1); MONO % 10 % (0-9); NEUT # 1.9 x10^3uL (1.8-7.7); NEUT % 55 % (31-73); PLATELET COUNT 345 x10^3/uL (140-400); RED BLOOD COUNT 4.47 x10^6/uL (4.30-5.70); RED CELL DISTRIBUTION WIDTH 15.4 % (11.5-14.5); WHITE BLOOD COUNT 3.5 x10^3/uL (4.0-11.0)
--- NOTE | 2018-05-23 13:58 | EKG ---
[address] [address] Test Date: 2018-05-23 Test Time: 13:56:56 Pat Name: CLAYTON HERNANDEZ Department: Room: Gender: M Shop Helper: : 1960 Requested By: LENCHO HUTTON Order Number: [id number] Reading MD: Tony Stock MD Measurements Intervals [place] Rate: 71 P: 60 UT: 134 QRS: 31 QRSD: 82 T: 59 QT: 348 QTc: 378 Interpretive Statements SINUS RHYTHM Electronically Signed On 05-24-2018 12:27:57 CDT by Tony Stock MD
[2018-05-23 14:07] LABS: ALBUMIN 3.4 g/dL (3.4-5.0); ALBUMIN/GLOBULIN RATIO 0.8 (1.0-1.7); CALCIUM 9.3 mg/dL (8.5-10.1); CREATININE 0.7 mg/dL (0.7-1.3); GFR 115.4; MAGNESIUM 2.2 mg/dL (1.8-2.4); TOTAL BILIRUBIN 0.2 mg/dL (0.2-1.0); TOTAL PROTEIN 7.9 g/dL (6.4-8.2)
--- NOTE | 2018-05-23 14:15 | RAD ---
CT HEAD WO CONTRAST History: Altered level of consciousness, feeding tube replaced 24 hours ago Comparison: January 12, 2018. Technique: Noncontrast CT imaging was performed of the head. Exposure: One or more of the following individualized dose reduction techniques were utilized for this examination: 1. Automated exposure control 2. Adjustment of the mA and/or kV according to patient size 3. Use of iterative reconstruction technique. Findings: There is some motion degradation There are again areas of encephalomalacia with cortical involvement of the frontoparietal lobes bilaterally. No convincing acute intracranial hemorrhage is identified. There is no new midline shift. Ventricular size is stable, within normal limits. Impression: 1. 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 Electronically signed by: Guillaume Leija MD (05/23/2018 2:13 PM) [id number]
--- NOTE | 2018-05-23 14:20 | RAD ---
Examination: CT of the abdomen pelvis with oral contrast HISTORY: History of abdominal pain COMPARISON: 03/26/2018 TECHNIQUE: Axial CT images of the abdomen pelvis were performed with oral contrast. Coronal and sagittal reformats are performed Exposure: One or more of the following individualized dose reduction techniques were utilized for this examination: 1. Automated exposure control 2. Adjustment of the mA and/or kV according to patient size 3. Use of iterative reconstruction technique FINDINGS: There are patchy airspace opacities identified in the right middle lobe, bibasilar lungs. No evidence of free air identified in the abdomen. Evaluation of the solid organs is limited due to lack of IV contrast. There is a 1.7 cm hypodensity identified in the right lobe of the liver which is difficult to characterize without IV contrast similar to prior exam. The visualized spleen, adrenals grossly appears unremarkable. The gallbladder is minimally distended. A PEG tube balloon identified in the distal stomach. The small bowel is nondilated. Contrast is identified in the colon. The visualized appendix grossly appears unremarkable. Urinary bladder is mildly distended. No evidence of intrarenal collecting system calculi or hydronephrosis. Moderate degenerative changes lumbar spine. IMPRESSION: 1. No acute intra-abdominal findings. 2. 1.7 cm hypodensity identified in the right lobe of the liver is similar to prior exam is difficult to characterize. 3. Patchy airspace opacities identified in the bibasilar lungs in the right middle lobe of the lung likely atelectasis or infiltrates similar to prior exam. Electronically signed by: Stanislaw Madrigal MD (05/23/2018 2:17 PM) [id number]
--- NOTE | 2018-05-23 14:20 | RAD ---
PORTABLE CHEST 1V History: altered level of consciousness, G tube replaced yesterday Comparison: March 26, 2018 Findings: Single view of the chest is submitted. There is suspected emphysema. There is no new pleural fluid or pneumothorax. Heart size is stable, within normal limits. There is mild opacity of the right lung base although similar. There is no new infiltrate. Impression: 1. No acute radiographic abnormality is identified. There is suspected emphysema. Electronically signed by: Guillaume Leija MD (05/23/2018 2:17 PM) [id number]
[2018-05-23 14:24] VITALS: BP 152/88
[2018-05-23 14:40] LABS: AMPHETAMINE/METHAMPHETAMINE NEG (NEG); BARBITURATES NEG (NEG); BENZODIAZEPINES POS (NEG); CANNABINOIDS NEG (NEG); COCAINE NEG (NEG); METHADONE NEG (NEG); OPIATES POS (NEG); PHENCYCLIDINE NEG (NEG)
[2018-05-23 14:42] LABS: BILIRUBIN,URINE NEG (NEG); CLARITY,URINE HAZY; COLOR,URINE YELLOW; GLUCOSE,URINE NEG (NEG)
[2018-05-23 14:43] LABS: BACTERIA,URINE MANY /HPF (0-FEW); NITRITE,URINE POS (NEG); RBC,URINE 0 /HPF (0-2); SQUAMOUS EPITHELIAL CELL,UR FEW /LPF; UROBILINOGEN,URINE 0.2 mg/dL (0.2 mg/dL)
[2018-05-23] MEDS ORDERED: CEPH250S2 PEG (15:02)
--- NOTE | 2018-05-23 15:02 | PHYS DOC ---
Past History Past Medical History: Anxiety, Depression, Hypertension, Pneumonia, Seizure, UTI, Other Past Surgical History: Other Smoking: Non-smoker Alcohol Use: None Drug Use: None Adult General Chief Complaint Chief Complaint: confusion HPI HPI Patient is a 57 year old male with history of schizophrenia and acute placement who was discharged from [facility] yesterday brought in by his caregiver because of not acting like his usual. Caregiver states he is usually is, but he ran doesn't want to come to the hospital but today he was quite yet and cooperative and somnolent. Patient complaining of penis and rectum pain to ER but denies any pain to me. Patient is a poor historian and and talks unclear like his usual. She was able to walk with help to emergency room and usually walks with a walker. Review of Systems Review of Systems Unable to obtain Allergies Allergies Allergies Coded Allergies Type Severity Reaction Last Updated Verified No Known Drug Allergies 02/22/18 No Physical Exam Physical Exam Constitutional: No acute distress, non-toxic appearance. [] HENT: Normocephalic, atraumatic, bilateral external ears normal, oropharynx moist, no oral exudates, nose normal. [] Eyes: PERRLA, EOMI, conjunctiva normal, no discharge. [] Neck: Normal range of motion, no tenderness, supple, no stridor. [] Cardiovascular:Heart rate regular rhythm, no murmur [] Lungs & Thorax: Bilateral breath sounds clear to auscultation [] Abdomen: PEG tube in place, Bowel sounds normal, soft, no tenderness, no masses , no pulsatile masses. [] Skin: Warm, dry, no erythema, no rash. [] Back: No tenderness, no CVA tenderness. [] Extremities: No tenderness, no cyanosis, no clubbing, ROM intact, no edema. [] Neurologic: Alert and oriented x1, normal motor function, normal sensory function, no focal deficits noted. [] Current Patient Data Vital Signs Vital Signs Date Time Temp Pulse Resp B/P (MAP) Pulse Ox O2 Delivery O2 Flow Rate FiO2 05/23/18 14:24 76 16 152/88 (109) 99 Room Air 05/23/18 13:01 97.9 Lab Results Laboratory Tests Test 05/23/18 13:31 05/23/18 14:20 White Blood Count 3.5 x10^3/uL (4.0-11.0) L Red Blood Count 4.47 x10^6/uL (4.30-5.70) Hemoglobin 13.7 g/dL (13.0-17.5) Hematocrit 41.0 % (39.0-53.0) Mean Corpuscular Volume 92 fL (79-100) Mean Corpuscular Hemoglobin 31 pg (25-35) Mean Corpuscular Hemoglobin Concent 33 g/dL (31-37) Red Cell Distribution Width 15.4 % (11.5-14.5) H Platelet Count 345 x10^3/uL (140-400) Neutrophils (%) (Auto) 55 % (31-73) Lymphocytes (%) (Auto) 33 % (24-48) Monocytes (%) (Auto) 10 % (0-9) H Eosinophils (%) (Auto) 1 % (0-3) Basophils (%) (Auto) 1 % (0-3) Neutrophils # (Auto) 1.9 x10^3uL (1.8-7.7) Lymphocytes # (Auto) 1.1 x10^3/uL (1.0-4.8) Monocytes # (Auto) 0.4 x10^3/uL (0.0-1.1) Eosinophils # (Auto) 0.0 x10^3/uL (0.0-0.7) Basophils # (Auto) 0.0 x10^3/uL (0.0-0.2) Prothrombin Time 10.4 SEC (9.4-11.4) Prothrombin Time INR 1.0 (0.9-1.1) Sodium Level 138 mmol/L (136-145) Potassium Level 4.0 mmol/L (3.5-5.1) Chloride Level 102 mmol/L (98-107) Carbon Dioxide Level 31 mmol/L (21-32) Anion Gap 5 (6-14) L Blood Urea Nitrogen 22 mg/dL (8-26) Creatinine 0.7 mg/dL (0.7-1.3) Estimated GFR (Cockcroft-Gault) 115.4 BUN/Creatinine Ratio 31 (6-20) H Glucose Level 88 mg/dL (70-99) Lactic Acid Level 0.6 mmol/L (0.4-2.0) Calcium Level 9.3 mg/dL (8.5-10.1) Magnesium Level 2.2 mg/dL (1.8-2.4) Total Bilirubin 0.2 mg/dL (0.2-1.0) Aspartate Amino Transferase (AST) 22 U/L (15-37) Alanine Aminotransferase (ALT) 33 U/L (16-63) Alkaline Phosphatase 95 U/L (46-116) Creatine Kinase 160 U/L (39-308) Creatine Kinase MB (Mass) 4.2 ng/mL (0.0-3.6) H Creatine Kinase MB Relative Index 2.6 % (0-4) Troponin I Quantitative < 0.017 ng/mL (0-0.055) Total Protein 7.9 g/dL (6.4-8.2) Albumin 3.4 g/dL (3.4-5.0) Albumin/Globulin Ratio 0.8 (1.0-1.7) L Lipase 118 U/L (73-393) Urine Collection Type U cath Urine Color Yellow Urine Clarity Hazy Urine pH 6.5 Urine Specific [place] 1.015 Urine Protein Neg (NEG-TRACE) Urine Glucose (UA) Neg mg/dL (NEG) Urine Ketones (Stick) Trace mg/dL (NEG) Urine Blood Neg (NEG) Urine Nitrite Pos (NEG) Urine Bilirubin Neg (NEG) Urine Urobilinogen Dipstick 0.2 mg/dL (0.2 mg/dL) Urine Leukocyte Esterase Neg (NEG) Urine RBC 0 /HPF (0-2) Urine WBC 1-4 /HPF (0-4) Urine Squamous Epithelial Cells Few /LPF Urine Bacteria Many /HPF (0-FEW) Urine Mucus Mod /LPF Urine Opiates Screen Pos (NEG) Urine Methadone Screen Neg (NEG) Urine Barbiturates Neg (NEG) Urine Phencyclidine Screen Neg (NEG) Urine Amphetamine/Methamphetamine Neg (NEG) Urine Benzodiazepines Screen Pos (NEG) Urine Cocaine Screen Neg (NEG) Urine Cannabinoids Screen Neg (NEG) Urine Ethyl Alcohol Neg (NEG) EKG EKG EKG interpreted by me. EKG at 1356 showed normal sinus rhythm at rate of 71, 1 times movement and artifact, no acute ST and T-wave abnormalities Radiology/Procedures Radiology/Procedures [][address] [address] IMAGING REPORT Signed PATIENT: MARYCLAYTON E ACCOUNT: [id number] : 1960 LOCATION: ER AGE: 57 SEX: M EXAM STATUS: REG ER ORD. PHYSICIAN: LENCHO HUTTON MD REASON: altered level of consciousness PROCEDURE: CT ABDOMEN PELVIS WO CONTRAST Examination: CT of the abdomen pelvis with oral contrast HISTORY: History of abdominal pain COMPARISON: 03/26/2018 TECHNIQUE: Axial CT images of the abdomen pelvis were performed with oral contrast. Coronal and sagittal reformats are performed Exposure: One or more of the following individualized dose reduction techniques were utilized for this examination: 1. Automated exposure control 2. Adjustment of the mA and/or kV according to patient size 3. Use of iterative reconstruction technique FINDINGS: There are patchy airspace opacities identified in the right middle lobe, bibasilar lungs. No evidence of free air identified in the abdomen. Evaluation of the solid organs is limited due to lack of IV contrast. There is a 1.7 cm hypodensity identified in the right lobe of the liver which is difficult to characterize without IV contrast similar to prior exam. The visualized spleen, adrenals grossly appears unremarkable. The gallbladder is minimally distended. A PEG tube balloon identified in the distal stomach. The small bowel is nondilated. Contrast is identified in the colon. The visualized appendix grossly appears unremarkable. Urinary bladder is mildly distended. No evidence of intrarenal collecting system calculi or hydronephrosis. Moderate degenerative changes lumbar spine. IMPRESSION: 1. No acute intra-abdominal findings. 2. 1.7 cm hypodensity identified in the right lobe of the liver is similar to prior exam is difficult to characterize. 3. Patchy airspace opacities identified in the bibasilar lungs in the right middle lobe of the lung likely atelectasis or infiltrates similar to prior exam. Electronically signed by: Stanislaw Madrigal MD (05/23/2018 2:17 PM) [id number] DICTATED AND SIGNED BY: STANISLAW MADRIGAL MD DATE: 05/23/18 1409 CC: TOM TRAMMELL MD; LENCHO HUTTON MD ~ [address] [address] IMAGING REPORT Signed PATIENT: CLAYTON HERNANDEZ ACCOUNT: [id number] : 1960 LOCATION: ER AGE: 57 SEX: M EXAM STATUS: REG ER ORD. PHYSICIAN: LENCHO HUTTON MD REASON: altered level of consciousness PROCEDURE: PORTABLE CHEST 1V PORTABLE CHEST 1V History: altered level of consciousness, G tube replaced yesterday Comparison: March 26, 2018 Findings: Single view of the chest is submitted. There is suspected emphysema. There is no new pleural fluid or pneumothorax. Heart size is stable, within normal limits. There is mild opacity of the right lung base although similar. There is no new infiltrate. Impression: 1. No acute radiographic abnormality is identified. There is suspected emphysema. Electronically signed by: Nohemi Leija MD (05/23/2018 2:17 PM) [id number] DICTATED AND SIGNED BY: NOHEMI LEIJA MD DATE: 05/23/18 [id number] CC: TOM TRAMMELL MD; LENCHO HUTTON MD ~ [place] [address] IMAGING REPORT Signed PATIENT: CLAYTON HERNANDEZ ACCOUNT: [id number] : 1960 LOCATION: ER AGE: 57 SEX: M EXAM STATUS: REG ER ORD. PHYSICIAN: LENCHO HUTTON MD REASON: altered level of consciousness PROCEDURE: CT HEAD WO CONTRAST CT HEAD WO CONTRAST History: Altered level of consciousness, feeding tube replaced 24 hours ago Comparison: January 12, 2018. Technique: Noncontrast CT imaging was performed of the head. Exposure: One or more of the following individualized dose reduction techniques were utilized for this examination: 1. Automated exposure control 2. Adjustment of the mA and/or kV according to patient size 3. Use of iterative reconstruction technique. Findings: There is some motion degradation There are again areas of encephalomalacia with cortical involvement of the frontoparietal lobes bilaterally. No convincing acute intracranial hemorrhage is identified. There is no new midline shift. Ventricular size is stable, within normal limits. Impression: 1. 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 Electronically signed by: Nohemi Leija MD (05/23/2018 2:13 PM) [facility] DICTATED AND SIGNED BY: NOHEMI LEIJA MD DATE: 05/23/18 1408 CC: TOM TRAMMELL MD; LENCHO HUTTON MD ~ Course & Med Decision Making Course & Med Decision Making Pertinent Labs and Imaging studies reviewed. (See chart for details) Evaluation of patient in ER showed 57-year-old male patient with history of advanced psychiatric problem and resident of mental long-term brought in by caregiver because of not acting like his normal. Patient was discharged from [facility] yesterday with problems related to his PEG tube. Patient had unremarkable physical exam except for ENT and times one like his usual. Patient did not have an acute finding in his lap. Patient had mild leukopenia that was chronic. UA showed mild UTI and prescription for liquid Keflex was given. The patient was less active because of being at Hospital for couple days and not resting like his usual. Tegretol level result is pending. Dragon Disclaimer Dragon Disclaimer This electronic medical record was generated, in whole or in part, using a voice recognition dictation system. Departure Departure: Impression: Primary Impression: Urinary tract infection Additional Impressions: Somnolence Schizophrenia History of seizure Disposition: 01 HOME, SELF-CARE (at 1458) Condition: STABLE Referrals: TOM TRAMMELL MD (PCP) Patient Instructions: Confusion, Urinary Tract Infection Additional Instructions: Follow-up with your primary care physician in 3-5 days Return to ER if not getting better Scripts Cephalexin (CEPHALEXIN) 250 Mg/5 Ml Susp.recon 10 ML PEG Q6HRS, #200 ML Prov: LENCHO HUTTON MD 05/23/18 Problem Qualifiers LENCHO HUTTON MD May 23, 2018 15:02
[2018-05-24 13:58] LABS: CARBAM 6.5 mcg/mL (4.0-12.0)
== END 2018-05-23 15:13 | disposition home or self-care (01) ==
LOC: ER 12:47
DX: N39.0 Urinary tract infection, site not specified (principal); N48.89 Other specified disorders of penis; R40.0 Somnolence; F20.9 Schizophrenia, unspecified; F41.9 Anxiety disorder, unspecified; F32.9 Major depressive disorder, single episode, unspecified; I10 Essential (primary) hypertension
CPT/HCPCS: 36415; 70450; 71045; 74176; 80053; 80156; 80307; 81001; 82553; 83605; 83690; 83735; 84484; 85025; 85610; 87040; 87086; 87186; 93005; 99285; P9612; G0479

== ENCOUNTER 2018-06-08 12:54 | Inpatient (IN) | payer MEDICARE, OTHER ==
[~2018-06-08] VITALS: Ht 175.3 cm; Wt 50.3 kg
[~2018-06-08 12:54] MED LIST changes: +CEPH250S2 PEG; -LORA5SOL4 PEG; +LORA5SOL43 PEG
[2018-06-08 13:34] VITALS: BP 149/78
[2018-06-08 14:51] LABS: BASO % 0 % (0-3); EOS % 0 % (0-3); HEMATOCRIT 35.9 % (39.0-53.0); HEMOGLOBIN 12.3 g/dL (13.0-17.5); LYMPH # 0.8 x10^3/uL (1.0-4.8); LYMPH % 17 % (24-48); MEAN CORPUSCULAR HEMOGLOBIN 31 pg (25-35); MEAN CORPUSCULAR HGB CONC 34 g/dL (31-37); MEAN CORPUSCULAR VOLUME 90 fL (79-100); MONO # 0.2 x10^3/uL (0.0-1.1); MONO % 4 % (0-9); NEUT # 3.8 x10^3uL (1.8-7.7); NEUT % 78 % (31-73); PLATELET COUNT 324 x10^3/uL (140-400); RED CELL DISTRIBUTION WIDTH 15.5 % (11.5-14.5); WHITE BLOOD COUNT 4.9 x10^3/uL (4.0-11.0)
[2018-06-08 14:59] LABS: ALBUMIN 3.9 g/dL (3.4-5.0); ALBUMIN/GLOBULIN RATIO 0.9 (1.0-1.7); CREATININE 0.6 mg/dL (0.7-1.3); GFR 137.4; POTASSIUM 4.3 mmol/L (3.5-5.1); TOTAL BILIRUBIN 0.3 mg/dL (0.2-1.0); TOTAL PROTEIN 8.2 g/dL (6.4-8.2)
[2018-06-08] MEDS ORDERED: DICL100G18 TP (15:09)
[2018-06-08] MEDS ORDERED: CALC500O PO (15:09)
[2018-06-08 15:25] LABS: BACTERIA,URINE MOD /HPF (0-FEW); BILIRUBIN,URINE NEG (NEG); CLARITY,URINE CLEAR; COLOR,URINE YELLOW; GLUCOSE,URINE NEG (NEG); NITRITE,URINE POS (NEG); RBC,URINE 0 /HPF (0-2); UROBILINOGEN,URINE 0.2 mg/dL (0.2 mg/dL)
[2018-06-08] MEDS: CEFEPIME HCL 1 GM in IV NORMAL SALINE 50ML 50 ML IV SCH (16:27)
[2018-06-08 19:24] VITALS: BP 142/72
[2018-06-08] MEDS ORDERED: IV NORMAL SALINE 1,000ML 500 ML IV SCH (21:00)
[2018-06-08] MEDS ORDERED: IV NORMAL SALINE 1,000ML 1,000 ML IV SCH (21:00)
[2018-06-08] MEDS ORDERED: TERBINAFINE 1% TOPICAL CREAM 30GM TUBE. TP PRN (21:15)
[2018-06-08] MEDS ORDERED: SIMETHICONE 80 MG TAB.CHEW PEG PRN (21:15)
[2018-06-08] MEDS: ZINC OXIDE 20% TOPICAL OINTMENT 28GM TUBE. TP SCH (21:30)
[2018-06-08] MEDS: CALCIUM CARBONATE 500 MG TAB.CHEW PEG SCH (21:30)
[2018-06-08] MEDS: MONTELUKAST 10 MG TABLET. PO SCH (21:56)
[2018-06-08] MEDS: carBAMazepine 200 MG/10 ML ORAL.SUSP PEG SCH (21:56)
[2018-06-08] MEDS: ACETAMINOPHEN 650 MG/20.3 ML SOLUTION. PEG SCH (21:56)
[2018-06-08] MEDS: LANSOPRAZOLE 30 MG TAB.RAP.DR PEG SCH (21:57)
[2018-06-08] MEDS: DOXAZOSIN MESYLATE 1 MG TABLET PEG SCH (21:57)
[2018-06-08] MEDS: ZIPRASIDONE 20 MG CAPSULE. PO SCH (21:58)
[2018-06-09 02:37] VITALS: BP 125/75
[2018-06-09] MEDS: CEFEPIME HCL 1 GM in IV NORMAL SALINE 50ML 50 ML IV SCH ×2 (04:55→17:15)
[2018-06-09 05:07] VITALS: BP 146/82
[2018-06-09 06:56] LABS: BASO % 1 % (0-3); EOS # 0.1 x10^3/uL (0.0-0.7); EOS % 3 % (0-3); HEMATOCRIT 36.8 % (39.0-53.0); HEMOGLOBIN 12.5 g/dL (13.0-17.5); LYMPH % 47 % (24-48); MEAN CORPUSCULAR HEMOGLOBIN 31 pg (25-35); MEAN CORPUSCULAR HGB CONC 34 g/dL (31-37); MEAN CORPUSCULAR VOLUME 91 fL (79-100); MONO # 0.2 x10^3/uL (0.0-1.1); MONO % 8 % (0-9); NEUT % 42 % (31-73); PLATELET COUNT 287 x10^3/uL (140-400); RED BLOOD COUNT 4.05 x10^6/uL (4.30-5.70); RED CELL DISTRIBUTION WIDTH 15.3 % (11.5-14.5); WHITE BLOOD COUNT 2.3 x10^3/uL (4.0-11.0)
[2018-06-09 07:12] LABS: ALBUMIN/GLOBULIN RATIO 0.8 (1.0-1.7); CALCIUM 8.2 mg/dL (8.5-10.1); CREATININE 0.6 mg/dL (0.7-1.3); GFR 137.4; POTASSIUM 4.4 mmol/L (3.5-5.1); TOTAL BILIRUBIN 0.2 mg/dL (0.2-1.0); TOTAL PROTEIN 6.9 g/dL (6.4-8.2)
[2018-06-09] MEDS: CALCIUM CARBONATE 500 MG TAB.CHEW PEG SCH ×3 (08:35→17:15)
[2018-06-09] MEDS: DICLOFENAC SODIUM 1% TOPICAL GEL 100GM TUBE. TP SCH (08:35)
[2018-06-09] MEDS: MAGNESIUM HYDROXIDE 2,400 MG/30 ML ORAL.SUSP. PEG SCH (08:36)
[2018-06-09] MEDS: ACETAMINOPHEN 650 MG/20.3 ML SOLUTION. PEG SCH ×3 (08:36→20:38)
[2018-06-09] MEDS: DOCUSATE 100 MG/10 ML SOLUTION. PEG SCH (08:36)
[2018-06-09] MEDS: MAGNESIUM OXIDE 400 MG TABLET PEG SCH (08:36)
[2018-06-09] MEDS: LANSOPRAZOLE 30 MG TAB.RAP.DR PEG SCH ×2 (08:37→20:38)
[2018-06-09] MEDS: ZIPRASIDONE 20 MG CAPSULE. PO SCH ×3 (08:37→20:38)
[2018-06-09] MEDS: CETIRIZINE 5 MG/5 ML ORAL SOLUTION. PEG SCH (08:37)
[2018-06-09] MEDS: carBAMazepine 200 MG/10 ML ORAL.SUSP PO SCH ×2 (08:45→12:49)
[2018-06-09] MEDS: ZINC OXIDE 20% TOPICAL OINTMENT 28GM TUBE. TP SCH ×2 (09:00→20:39)
[2018-06-09] MEDS ORDERED: cloNIDine TTS-1 1 PATCH PATCH TD SCH (09:00)
[2018-06-09] MEDS ORDERED: NUTRITIONAL SUPPLEMENT PEG SCH (09:00)
[2018-06-09] MEDS ORDERED: POLYETHYLENE GLYCOL 3350 17 GM PACKET. PEG PRN (09:00)
[2018-06-09] MEDS ORDERED: CRANBERRY 250 MG PEG SCH (09:00)
--- NOTE | 2018-06-09 09:38 | PDOC1 ---
History of Present Illness Allergies: Coded Allergies: No Known Drug Allergies (Unverified , 02/22/18) Past Medical History Cardiac: HTN Review of Systems Review Of Systems Fourteen system , review of systems has been reviewed. See HPI for pertinent positives and negative responses, other macdonald all other systems are negative, non pertinent or non contributory Medications Current Medications Cefepime HCl 1 gm/ Sodium Chloride 50 ml @ 100 mls/hr Q12H IV Last administered on 06/09/18 04:55; Start 06/08/18 at 17:00 Sodium Chloride 500 ml @ 1,000 mls/hr Q30M IV Last administered on 06/08/18 21:55; Start 06/08/18 at 21:00; Stop 06/08/18 at 21:31; Status DC Sodium Chloride 1,000 ml @ 150 mls/hr Q6H40M IV Last administered on 22:45; Start 06/08/18 at 21:00; Stop 06/09/18 at 03:40; Status DC Diclofenac Sodium (Voltaren) 1 jaclyn DAILY08 TP Last administered on 06/09/18 08 :35; Start 06/09/18 at 08:00 Docusate Sodium (Colace Solution) 50 mg DAILY PEG Last administered on 08:36; Start 06/09/18 at 09:00 Magnesium Hydroxide (Milk Of Magnesia) 2,400 mg DAILY PEG Last administered on 06/09/18 08:36; Start 06/09/18 at 09:00 Simethicone (Gas-X) 80 mg PRN DAILY PRN PEG GAS / BLOATING; Start 06/08/18 at 21:15 Terbinafine HCl (LamISIL) 1 jaclyn PRN QID PRN TP REDNESS, BURNING, ITCHING SHAE; Start 06/08/18 at 21:15 Acetaminophen (Tylenol Oral Soln) 800 mg TID PEG Last administered on 08:36; Start 06/08/18 at 21:30 Calcium Carbonate/ Glycine (Tums) 500 mg TIDWMEALS PEG Last administered on 08:35; Start 06/08/18 at 21:30 Carbamazepine (TEGretol) 200 mg BIDWBKFT/HERBIE PO Last administered on 9/14/18at 08:45; Start 06/09/18 at 08:00 Carbamazepine (TEGretol) 300 mg HS PEG Last administered on 06/08/18at 21:56; Start 06/08/18 at 21:30 Non-Formulary Medication (Clonidine (Catapres-Tts 1)) 1 each WEEKLY TD ; Start 06/15/18 at 09:00 Doxazosin Mesylate (Cardura) 2 mg HS PEG Last administered on 06/08/18at 21:57; Start 06/08/18 at 21:30 Cetirizine HCl (ZyrTEC) 10 mg DAILY PEG Last administered on 06/09/18at 08:37; Start 06/09/18 at 09:00 Magnesium Oxide (Magnesium Oxide) 400 mg DAILY PEG Last administered on at 08:36; Start 06/09/18 at 09:00 Montelukast Sodium (Singulair) 10 mg QHS PO Last administered on 06/08/18at 21: 56; Start 06/08/18 at 21:30 Non-Formulary Medication (Nutritional Supplement (Nutren 2.0)) 250 ml QID PEG ; Start 06/09/18 at 09:00; Status UNV Polyethylene Glycol (miraLAX) 17 gm PRN DAILY PRN PEG CONSTIPATION; Start 06/09 at 09:00 Zinc Oxide (Zinc Oxide 20% Topical) 1 jaclyn BID TP ; Start 06/08/18 at 21:30 Ziprasidone (Geodon) 20 mg TID PO Last administered on 06/09/18at 08:37; Start 06/08/18 at 21:30 Non-Formulary Medication ([cranberry] ) 250 mg DAILY PEG ; Start 06/09/18 at 09: 00; Status UNV Lansoprazole (Prevacid) 30 mg BID PEG Last administered on 06/09/18at 08:37; Start 06/08/18 at 21:30 Clonidine HCl (Catapres Tts-1) 1 patch WEEKLY TD ; Start 06/09/18 at 09:00 Active Scripts Active Mag-Oxide (Magnesium Oxide) 400 Mg Tablet 400 Mg PEG DAILY LAST DOSE GIVEN: DATE: TODAY TIME: AM NEXT DOSE DUE: DATE: TODAY TIME: PM Reported Calcium Carbonate 500 Mg/5 Ml Oral.susp 600 Mg PO TIDWMEALS Voltaren (Diclofenac Sodium) 100 Gm Gel..gram. 1 Gm TP DAILY08 Miralax (Polyethylene Glycol 3350) 17 Gm Powd.pack 1 Packet PEG DAILY PRN Singulair Tablet (Montelukast Sodium) 10 Mg Tablet 1 Tab PEG HS LAST DOSE GIVEN: DATE: TIME: NEXT DOSE DUE: DATE: TIME: Loratadine 5 Mg/5 Ml Solution 10 Ml PEG DAILY LAST DOSE GIVEN: DATE: TIME: NEXT DOSE DUE: DATE: TIME: Catapres-Tts 1 (Clonidine) 1 Each Patch.tdwk 1 Each TD WEEKLY LAST DOSE GIVEN: DATE: TIME: NEXT DOSE DUE: DATE: TIME: Docusate Sodium 50 Mg/5 Ml Liquid 5 Ml PEG DAILY LAST DOSE GIVEN: DATE: TIME: NEXT DOSE DUE: DATE: TIME: Milk Of Magnesia (Magnesium Hydroxide) 400 Mg/5 Ml Oral.susp 30 Ml PEG DAILY LAST DOSE GIVEN: DATE: TIME: NEXT DOSE DUE: DATE: TIME: Zinc Oxide 30 Gm Oint...g. 30 Gm TP BID LAST DOSE GIVEN: DATE: TODAY TIME: AM NEXT DOSE DUE: DATE: TODAY TIME: PM Terbinafine (Terbinafine Hcl) 15 Gm Cream..g. 15 Gm TP QID PRN LAST DOSE GIVEN: DATE: NOT GIVEN THIS ADMISSION NEXT DOSE DUE: DATE: TODAY TIME: IF NEEDED TIME: IF NEEDED Nutren 2.0 (Nutritional Supplement) 250 Ml Liquid 250 Ml PEG QID LAST DOSE GIVEN: DATE: TODAY TIME: AM NEXT DOSE DUE: DATE: TODAY TIME: AFTERNOON Geodon (Ziprasidone Hcl) 20 Mg Capsule 20 Mg PEG TID LAST DOSE GIVEN: DATE: TODAY TIME: AM NEXT DOSE DUE: DATE: TODAY TIME: AFTERNOON Carbamazepine 100 Mg/5 Ml Oral.susp 15 Ml PEG HS LAST DOSE GIVEN: DATE: YESTER TIME: AT BEDTIME NEXT DOSE DUE: DATE: TODAY TIME: AT BEDTIME Carbamazepine 100 Mg/5 Ml Oral.susp 10 Ml PEG BIDWBK/ LAST DOSE GIVEN: DATE: TODAY TIME: AM NEXT DOSE DUE: DATE: TODAY TIME: PM Acetaminophen 160 Mg/5 Ml Solution 25 Ml PEG TID LAST DOSE GIVEN: DATE: TODAY TIME: AM NEXT DOSE DUE: DATE: TODAY TIME: PM Simethicone 80 Mg Tab.chew 80 Mg PEG DAILY PRN LAST DOSE GIVEN: DATE: TODAY TIME: AM NEXT DOSE DUE: DATE: TOMORROW TIME: AM [nexium powder] 40 Mg PEG BID LAST DOSE GIVEN: DATE: TODAY TIME: AM NEXT DOSE DUE: DATE: TODAY TIME: PM DATE: TODAY TIME: PM Doxazosin Mesylate 2 Mg Tablet 2 Mg PEG HS LAST DOSE GIVEN: DATE: YESTERDAY TIME: AT BEDTIME NEXT DOSE DUE: DATE: TODAY TIME: AT BEDTIME [cranberry] 250 Mg PEG DAILY LAST DOSE GIVEN: DATE: TODAY TIME: AM NEXT DOSE DUE: DATE: TOMORROW TIME: AM Exam Vital Signs Vital Signs Date Time Temp Pulse Resp B/P (MAP) Pulse Ox O2 Delivery O2 Flow Rate FiO2 06/09/18 05:07 97.8 67 18 146/82 (103) 98 Room Air COURSE Allergies Coded Allergies Type Severity Reaction Last Updated Verified No Known Drug Allergies 02/22/18 No Laboratory Tests Test 06/08/18 14:42 06/08/18 14:55 06/08/18 17:00 06/09/18 06:30 White Blood Count 4.9 x10^3/uL (4.0-11.0) 2.3 x10^3/uL (4.0-11.0) Red Blood Count 4.00 x10^6/uL (4.30-5.70) 4.05 x10^6/uL (4.30-5.70) Hemoglobin 12.3 g/dL (13.0-17.5) 12.5 g/dL (13.0-17.5) Hematocrit 35.9 % (39.0-53.0) 36.8 % (39.0-53.0) Mean Corpuscular Volume 90 fL (79-100) 91 fL (79-100) Mean Corpuscular Hemoglobin 31 pg (25-35) 31 pg (25-35) Mean Corpuscular Hemoglobin Concent 34 g/dL (31-37) 34 g/dL (31-37) Red Cell Distribution Width 15.5 % (11.5-14.5) 15.3 % (11.5-14.5) Platelet Count 324 x10^3/uL (140-400) 287 x10^3/uL (140-400) Neutrophils (%) (Auto) 78 % (31-73) 42 % (31-73) Lymphocytes (%) (Auto) 17 % (24-48) 47 % (24-48) Monocytes (%) (Auto) 4 % (0-9) 8 % (0-9) Eosinophils (%) (Auto) 0 % (0-3) 3 % (0-3) Basophils (%) (Auto) 0 % (0-3) 1 % (0-3) Neutrophils # (Auto) 3.8 x10^3uL (1.8-7.7) 1.0 x10^3uL (1.8-7.7) Lymphocytes # (Auto) 0.8 x10^3/uL (1.0-4.8) 1.0 x10^3/uL (1.0-4.8) Monocytes # (Auto) 0.2 x10^3/uL (0.0-1.1) 0.2 x10^3/uL (0.0-1.1) Eosinophils # (Auto) 0.0 x10^3/uL (0.0-0.7) 0.1 x10^3/uL (0.0-0.7) Basophils # (Auto) 0.0 x10^3/uL (0.0-0.2) 0.0 x10^3/uL (0.0-0.2) Sodium Level 126 mmol/L (136-145) 130 mmol/L (136-145) Potassium Level 4.3 mmol/L (3.5-5.1) 4.4 mmol/L (3.5-5.1) Chloride Level 91 mmol/L (98-107) 98 mmol/L (98-107) Carbon Dioxide Level 29 mmol/L (21-32) 29 mmol/L (21-32) Anion Gap 6 (6-14) 3 (6-14) Blood Urea Nitrogen 17 mg/dL (8-26) 11 mg/dL (8-26) Creatinine 0.6 mg/dL (0.7-1.3) 0.6 mg/dL (0.7-1.3) Estimated GFR (Cockcroft-Gault) 137.4 137.4 BUN/Creatinine Ratio 28 (6-20) 18 (6-20) Glucose Level 100 mg/dL (70-99) 100 mg/dL (70-99) Lactic Acid Level 0.4 mmol/L (0.4-2.0) Calcium Level 9.0 mg/dL (8.5-10.1) 8.2 mg/dL (8.5-10.1) Total Bilirubin 0.3 mg/dL (0.2-1.0) 0.2 mg/dL (0.2-1.0) Aspartate Amino Transf (AST/SGOT) 20 U/L (15-37) 15 U/L (15-37) Alanine Aminotransferase (ALT/SGPT) 29 U/L (16-63) 25 U/L (16-63) Alkaline Phosphatase 85 U/L (46-116) 71 U/L (46-116) Total Protein 8.2 g/dL (6.4-8.2) 6.9 g/dL (6.4-8.2) Albumin 3.9 g/dL (3.4-5.0) 3.0 g/dL (3.4-5.0) Albumin/Globulin Ratio 0.9 (1.0-1.7) 0.8 (1.0-1.7) Urine Collection Type U cath Urine Color Yellow Urine Clarity Clear Urine pH 8.5 Urine Specific [place] 1.015 Urine Protein Neg (NEG-TRACE) Urine Glucose (UA) Neg mg/dL (NEG) Urine Ketones (Stick) Neg mg/dL (NEG) Urine Blood Neg (NEG) Urine Nitrite Pos (NEG) Urine Bilirubin Neg (NEG) Urine Urobilinogen Dipstick 0.2 mg/dL (0.2 mg/dL) Urine Leukocyte Esterase Neg (NEG) Urine RBC 0 /HPF (0-2) Urine WBC 1-4 /HPF (0-4) Urine Squamous Epithelial Cells None /LPF Urine Bacteria Mod /HPF (0-FEW) Nasal Screen MRSA (PCR) Negative (Negative) Current Medications Medications (Trade) Dose Ordered Sig/Juanito Route PRN Reason Start Time Stop Time Status Last Admin Dose Admin Cefepime HCl 1 gm/ Sodium Chloride 50 ml @ 100 mls/hr Q12H IV 06/08/18 17:00 06/09/18 04:55 Sodium Chloride 500 ml @ 1,000 mls/hr Q30M IV 06/08/18 21:00 06/08/18 21:31 DC 06/08/18 21:55 Sodium Chloride 1,000 ml @ 150 mls/hr Q6H40M IV 06/08/18 21:00 06/09/18 03:40 DC 06/08/18 22:45 Diclofenac Sodium (Voltaren) 1 jaclyn DAILY08 TP 06/09/18 08:00 06/09/18 08:35 Docusate Sodium (Colace Solution) 50 mg DAILY PEG 06/09/18 09:00 06/09/18 08:36 Magnesium Hydroxide (Milk Of Magnesia) 2,400 mg DAILY PEG 06/09/18 09:00 06/09/18 08:36 Simethicone (Gas-X) 80 mg PRN DAILY PRN PEG GAS / BLOATING 06/08/18 21:15 Terbinafine HCl (LamISIL) 1 jaclyn PRN QID PRN TP REDNESS, BURNING, ITCHING SHAE 06/08/18 21:15 Acetaminophen (Tylenol Oral Soln) 800 mg TID PEG 06/08/18 21:30 06/09/18 08:36 Calcium Carbonate/ Glycine (Tums) 500 mg TIDWMEALS PEG 06/08/18 21:30 06/09/18 08:35 Carbamazepine (TEGretol) 200 mg BIDWBKFT/HERBIE PO 06/09/18 08:00 06/09/18 08:45 Carbamazepine (TEGretol) 300 mg HS PEG 06/08/18 21:30 06/08/18 21:56 Non-Formulary Medication (Clonidine (Catapres-Tts 1)) 1 each WEEKLY TD 06/15/18 09:00 Doxazosin Mesylate (Cardura) 2 mg HS PEG 06/08/18 21:30 06/08/18 21:57 Cetirizine HCl (ZyrTEC) 10 mg DAILY PEG 06/09/18 09:00 06/09/18 08:37 Magnesium Oxide (Magnesium Oxide) 400 mg DAILY PEG 06/09/18 09:00 06/09/18 08:36 Montelukast Sodium (Singulair) 10 mg QHS PO 06/08/18 21:30 06/08/18 21:56 Non-Formulary Medication (Nutritional Supplement (Nutren 2.0)) 250 ml QID PEG 06/09/18 09:00 UNV Polyethylene Glycol (miraLAX) 17 gm PRN DAILY PRN PEG CONSTIPATION 06/09/18 09:00 Zinc Oxide (Zinc Oxide 20% Topical) 1 jaclyn BID TP 06/08/18 21:30 Ziprasidone (Geodon) 20 mg TID PO 06/08/18 21:30 06/09/18 08:37 Non-Formulary Medication ([cranberry] ) 250 mg DAILY PEG 06/09/18 09:00 UNV Lansoprazole (Prevacid) 30 mg BID PEG 06/08/18 21:30 06/09/18 08:37 Clonidine HCl (Catapres Tts-1) 1 patch WEEKLY TD 06/09/18 09:00 I & O 06/09/18 00:00 Intake Total 500 ml Output Total 700 ml Balance -200 ml Orders Procedure Category Date Status Time Admit Orders ADT 06/08/18 Transmitted Nothing By Mouth DIET 06/08/18 Transmitted Dinner Cbc W Autod[employer] LAB 06/08/18 Complete 13:55 Comprehensive LAB 06/08/18 Complete Metabolic Panel 13:55 Lactic Acid LAB 06/08/18 Complete 13:55 Blood Culture VERO 06/08/18 In Process 13:55 Ua W Microscopic LAB 06/08/18 Complete 14:56 Cefepime Hcl PHA 06/08/18 In Process (Maxipime) 17:00 Mrsa By Pcr LAB 06/08/18 Complete 17:05 Cbc W Autodiff LAB 06/09/18 Complete 05:00 Comprehensive LAB 06/09/18 Complete Metabolic Panel 05:00 Admission Screening CONS 06/08/18 Transmitted 16:01 High Risk Dc CONS 06/08/18 Transmitted Readmission 16:01 Iv Normal Saline PHA 06/08/18 Complete 1,000ml (Iv Sodium 21:00 Iv Normal Saline PHA 06/08/18 Complete 1,000ml (Iv Sodium 21:00 Pt. On Electrolyte APARNA 06/08/18 In Process Protocol 21:00 Diclofenac Sodium 1% PHA 06/09/18 In Process Topical (Voltaren) 08:00 Docusate Solution PHA 06/09/18 In Process (Colace Solution) 09:00 Magnesium Hydroxide PHA 06/09/18 In Process (Milk Of Magnesia) 09:00 Simethicone (Gas-X) PHA 06/08/18 In Process 21:15 Terbinafine 1% PHA 06/08/18 In Process Topical (Lamisil) 21:15 Carbamazepine PHA 06/09/18 In Process (Tegretol) 08:00 (Nf) Clonidine PHA 06/15/18 In Process (Catapres-Tts 1) 09:00 Cetirizine (Zyrtec) PHA 06/09/18 In Process 09:00 Magnesium Oxide PHA 06/09/18 In Process (Magnesium Oxide) 09:00 Acetaminophen Oral PHA 06/08/18 In Process Solution (Tylenol Ora 21:30 Calcium Carbonate PHA 06/08/18 In Process (Tums) 21:30 Carbamazepine PHA 06/08/18 In Process (Tegretol) 21:30 Doxazosin Mesylate PHA 06/08/18 In Process (Cardura) 21:30 Montelukast PHA 06/08/18 In Process (Singulair) 21:30 Polyethylene Glycol PHA 06/09/18 In Process 3350 (Miralax) 09:00 Zinc Oxide 20% PHA 06/08/18 In Process Topical (Zinc Oxide 21:30 Ziprasidone (Geodon) PHA 06/08/18 In Process 21:30 Lansoprazole PHA 06/08/18 In Process (Prevacid) 21:30 Clonidine Tts-1 PHA 06/09/18 In Process (Catapres Tts-1) 09:00 Pneumatic Compression APARNA 06/08/18 In Process Device 22:56 Rehab Screening (Pt, REHAB 06/09/[address], [address]) 07:00 Vital Signs Date Time Temp Pulse Resp B/P (MAP) Pulse Ox O2 Delivery O2 Flow Rate FiO2 06/09/18 05:07 97.8 67 18 146/82 (103) 98 Room Air NOHEMI SOUZA DO Jun 09, 2018 09:38
--- NOTE | 2018-06-09 13:55 | PDOC3 ---
Discharge Summary Visit Information Date of Admission: Jun 07, 2018 Date of Discharge: Jun 09, 2018 Admitting Diagnosis: syncope, dehydration, acute kidney injury, elevated LFTs Brief Hospital Course Allergies Allergies Coded Allergies Type Severity Reaction Last Updated Verified No Known Drug Allergies 02/22/18 No Vital Signs Vital Signs Date Time Temp Pulse Resp B/P (MAP) Pulse Ox O2 Delivery O2 Flow Rate FiO2 06/09/18 08:50 Room Air 06/09/18 05:07 97.8 67 18 146/82 (103) 98 Lab Results Laboratory Tests Test 06/08/18 14:42 06/08/18 14:55 06/08/18 17:00 06/09/18 06:30 White Blood Count 4.9 x10^3/uL (4.0-11.0) 2.3 x10^3/uL (4.0-11.0) Red Blood Count 4.00 x10^6/uL (4.30-5.70) 4.05 x10^6/uL (4.30-5.70) Hemoglobin 12.3 g/dL (13.0-17.5) 12.5 g/dL (13.0-17.5) Hematocrit 35.9 % (39.0-53.0) 36.8 % (39.0-53.0) Mean Corpuscular Volume 90 fL (79-100) 91 fL (79-100) Mean Corpuscular Hemoglobin 31 pg (25-35) 31 pg (25-35) Mean Corpuscular Hemoglobin Concent 34 g/dL (31-37) 34 g/dL (31-37) Red Cell Distribution Width 15.5 % (11.5-14.5) 15.3 % (11.5-14.5) Platelet Count 324 x10^3/uL (140-400) 287 x10^3/uL (140-400) Neutrophils (%) (Auto) 78 % (31-73) 42 % (31-73) Lymphocytes (%) (Auto) 17 % (24-48) 47 % (24-48) Monocytes (%) (Auto) 4 % (0-9) 8 % (0-9) Eosinophils (%) (Auto) 0 % (0-3) 3 % (0-3) Basophils (%) (Auto) 0 % (0-3) 1 % (0-3) Neutrophils # (Auto) 3.8 x10^3uL (1.8-7.7) 1.0 x10^3uL (1.8-7.7) Lymphocytes # (Auto) 0.8 x10^3/uL (1.0-4.8) 1.0 x10^3/uL (1.0-4.8) Monocytes # (Auto) 0.2 x10^3/uL (0.0-1.1) 0.2 x10^3/uL (0.0-1.1) Eosinophils # (Auto) 0.0 x10^3/uL (0.0-0.7) 0.1 x10^3/uL (0.0-0.7) Basophils # (Auto) 0.0 x10^3/uL (0.0-0.2) 0.0 x10^3/uL (0.0-0.2) Sodium Level 126 mmol/L (136-145) 130 mmol/L (136-145) Potassium Level 4.3 mmol/L (3.5-5.1) 4.4 mmol/L (3.5-5.1) Chloride Level 91 mmol/L (98-107) 98 mmol/L (98-107) Carbon Dioxide Level 29 mmol/L (21-32) 29 mmol/L (21-32) Anion Gap 6 (6-14) 3 (6-14) Blood Urea Nitrogen 17 mg/dL (8-26) 11 mg/dL (8-26) Creatinine 0.6 mg/dL (0.7-1.3) 0.6 mg/dL (0.7-1.3) Estimated GFR (Cockcroft-Gault) 137.4 137.4 BUN/Creatinine Ratio 28 (6-20) 18 (6-20) Glucose Level 100 mg/dL (70-99) 100 mg/dL (70-99) Lactic Acid Level 0.4 mmol/L (0.4-2.0) Calcium Level 9.0 mg/dL (8.5-10.1) 8.2 mg/dL (8.5-10.1) Total Bilirubin 0.3 mg/dL (0.2-1.0) 0.2 mg/dL (0.2-1.0) Aspartate Amino Transf (AST/SGOT) 20 U/L (15-37) 15 U/L (15-37) Alanine Aminotransferase (ALT/SGPT) 29 U/L (16-63) 25 U/L (16-63) Alkaline Phosphatase 85 U/L (46-116) 71 U/L (46-116) Total Protein 8.2 g/dL (6.4-8.2) 6.9 g/dL (6.4-8.2) Albumin 3.9 g/dL (3.4-5.0) 3.0 g/dL (3.4-5.0) Albumin/Globulin Ratio 0.9 (1.0-1.7) 0.8 (1.0-1.7) Urine Collection Type U cath Urine Color Yellow Urine Clarity Clear Urine pH 8.5 Urine Specific [place] 1.015 Urine Protein Neg (NEG-TRACE) Urine Glucose (UA) Neg mg/dL (NEG) Urine Ketones (Stick) Neg mg/dL (NEG) Urine Blood Neg (NEG) Urine Nitrite Pos (NEG) Urine Bilirubin Neg (NEG) Urine Urobilinogen Dipstick 0.2 mg/dL (0.2 mg/dL) Urine Leukocyte Esterase Neg (NEG) Urine RBC 0 /HPF (0-2) Urine WBC 1-4 /HPF (0-4) Urine Squamous Epithelial Cells None /LPF Urine Bacteria Mod /HPF (0-FEW) Nasal Screen MRSA (PCR) Negative (Negative) Brief Hospital Course Mr. Lombardi is a 58 old [sex] who presented with [ ] Discharge Information Dischare Medications Current Medications Cefepime HCl 1 gm/ Sodium Chloride 50 ml @ 100 mls/hr Q12H IV Last administered on 06/09/18at 04:55; Start 06/08/18 at 17:00 Sodium Chloride 500 ml @ 1,000 mls/hr Q30M IV Last administered on 06/08/18at 21:55; Start 06/08/18 at 21:00; Stop 06/08/18 at 21:31; Status DC Sodium Chloride 1,000 ml @ 150 mls/hr Q6H40M IV Last administered on at 22:45; Start 06/08/18 at 21:00; Stop 06/09/18 at 03:40; Status DC Diclofenac Sodium (Voltaren) 1 jaclyn DAILY08 TP Last administered on 06/09/18 08 :35; Start 06/09/18 at 08:00 Docusate Sodium (Colace Solution) 50 mg DAILY PEG Last administered on 08:36; Start 06/09/18 at 09:00 Magnesium Hydroxide (Milk Of Magnesia) 2,400 mg DAILY PEG Last administered on 06/09/18 08:36; Start 06/09/18 at 09:00 Simethicone (Gas-X) 80 mg PRN DAILY PRN PEG GAS / BLOATING; Start 06/08/18 at 21:15 Terbinafine HCl (LamISIL) 1 jaclyn PRN QID PRN TP REDNESS, BURNING, ITCHING SHAE; Start 06/08/18 at 21:15 Acetaminophen (Tylenol Oral Soln) 800 mg TID PEG Last administered on 08:36; Start 06/08/18 at 21:30 Calcium Carbonate/ Glycine (Tums) 500 mg TIDWMEALS PEG Last administered on 12:49; Start 06/08/18 at 21:30 Carbamazepine (TEGretol) 200 mg BIDWBKFT/HERBIE PO Last administered on 06/09/18 12:49; Start 06/09/18 at 08:00 Carbamazepine (TEGretol) 300 mg HS PEG Last administered on 06/08/18 21:56; Start 06/08/18 at 21:30 Non-Formulary Medication (Clonidine (Catapres-Tts 1)) 1 each WEEKLY TD ; Start 06/15/18 at 09:00 Doxazosin Mesylate (Cardura) 2 mg HS PEG Last administered on 06/08/18 21:57; Start 06/08/18 at 21:30 Cetirizine HCl (ZyrTEC) 10 mg DAILY PEG Last administered on 06/09/18 08:37; Start 06/09/18 at 09:00 Magnesium Oxide (Magnesium Oxide) 400 mg DAILY PEG Last administered on 08:36; Start 06/09/18 at 09:00 Montelukast Sodium (Singulair) 10 mg QHS PO Last administered on 06/08/18 21: 56; Start 06/08/18 at 21:30 Non-Formulary Medication (Nutritional Supplement (Nutren 2.0)) 250 ml QID PEG ; Start 06/09/18 at 09:00; Status UNV Polyethylene Glycol (miraLAX) 17 gm PRN DAILY PRN PEG CONSTIPATION; Start 06/09 at 09:00 Zinc Oxide (Zinc Oxide 20% Topical) 1 jaclyn BID TP ; Start 06/08/18 at 21:30 Ziprasidone (Geodon) 20 mg TID PO Last administered on 06/09/18at 08:37; Start 06/08/18 at 21:30 Non-Formulary Medication ([cranberry] ) 250 mg DAILY PEG ; Start 06/09/18 at 09: 00; Status UNV Lansoprazole (Prevacid) 30 mg BID PEG Last administered on 06/09/18at 08:37; Start 06/08/18 at 21:30 Clonidine HCl (Catapres Tts-1) 1 patch WEEKLY TD ; Start 06/09/18 at 09:00; Stop 06/09/18 at 12:38; Status DC Clonidine HCl (Catapres Tts-1) 1 patch WEEKLY TD ; Start 06/14/18 at 09:00 Active Scripts Active Mag-Oxide (Magnesium Oxide) 400 Mg Tablet 400 Mg PEG DAILY LAST DOSE GIVEN: DATE: TODAY TIME: AM NEXT DOSE DUE: DATE: TODAY TIME: PM Reported Calcium Carbonate 500 Mg/5 Ml Oral.susp 600 Mg PO TIDWMEALS Voltaren (Diclofenac Sodium) 100 Gm Gel..gram. 1 Gm TP DAILY08 Miralax (Polyethylene Glycol 3350) 17 Gm Powd.pack 1 Packet PEG DAILY PRN Singulair Tablet (Montelukast Sodium) 10 Mg Tablet 1 Tab PEG HS LAST DOSE GIVEN: DATE: TIME: NEXT DOSE DUE: DATE: TIME: Loratadine 5 Mg/5 Ml Solution 10 Ml PEG DAILY LAST DOSE GIVEN: DATE: TIME: NEXT DOSE DUE: DATE: TIME: Catapres-Tts 1 (Clonidine) 1 Each Patch.tdwk 1 Each TD WEEKLY LAST DOSE GIVEN: DATE: TIME: NEXT DOSE DUE: DATE: TIME: Docusate Sodium 50 Mg/5 Ml Liquid 5 Ml PEG DAILY LAST DOSE GIVEN: DATE: TIME: NEXT DOSE DUE: DATE: TIME: Milk Of Magnesia (Magnesium Hydroxide) 400 Mg/5 Ml Oral.susp 30 Ml PEG DAILY LAST DOSE GIVEN: DATE: TIME: NEXT DOSE DUE: DATE: TIME: Zinc Oxide 30 Gm Oint...g. 30 Gm TP BID LAST DOSE GIVEN: DATE: TODAY TIME: AM NEXT DOSE DUE: DATE: TODAY TIME: PM Terbinafine (Terbinafine Hcl) 15 Gm Cream..g. 15 Gm TP QID PRN LAST DOSE GIVEN: DATE: NOT GIVEN THIS ADMISSION NEXT DOSE DUE: DATE: TODAY TIME: IF NEEDED TIME: IF NEEDED Nutren 2.0 (Nutritional Supplement) 250 Ml Liquid 250 Ml PEG QID LAST DOSE GIVEN: DATE: TODAY TIME: AM NEXT DOSE DUE: DATE: TODAY TIME: AFTERNOON Geodon (Ziprasidone Hcl) 20 Mg Capsule 20 Mg PEG TID LAST DOSE GIVEN: DATE: TODAY TIME: AM NEXT DOSE DUE: DATE: TODAY TIME: AFTERNOON Carbamazepine 100 Mg/5 Ml Oral.susp 15 Ml PEG HS LAST DOSE GIVEN: DATE: YESTER TIME: AT BEDTIME NEXT DOSE DUE: DATE: TIME: AT BEDTIME Carbamazepine 100 Mg/5 Ml Oral.susp 10 Ml PEG BIDWBK/ LAST DOSE GIVEN: DATE: TODAY TIME: AM NEXT DOSE DUE: DATE: TODAY TIME: PM Acetaminophen 160 Mg/5 Ml Solution 25 Ml PEG TID LAST DOSE GIVEN: DATE: TIME: AM NEXT DOSE DUE: DATE: TODAY TIME: PM Simethicone 80 Mg Tab.chew 80 Mg PEG DAILY PRN LAST DOSE GIVEN: DATE: TODAY TIME: AM NEXT DOSE DUE: DATE: TOMORR TIME: AM [nexium powder] 40 Mg PEG BID LAST DOSE GIVEN: DATE: TIME: AM NEXT DOSE DUE: DATE: TODAY TIME: PM DATE: TODAY TIME: PM Doxazosin Mesylate 2 Mg Tablet 2 Mg PEG HS LAST DOSE GIVEN: DATE: YESTER TIME: AT BEDTIME NEXT DOSE DUE: DATE: TODAY TIME: AT BEDTIME [cranberry] 250 Mg PEG DAILY LAST DOSE GIVEN: DATE: TODAY TIME: AM NEXT DOSE DUE: DATE: TOMORROW TIME: AM NOHEMI SOUZA DO Jun 09, 2018 13:55
[2018-06-09 14:45] VITALS: BP 130/73
[2018-06-09 18:27] VITALS: BP 158/80
[2018-06-09] MEDS: MONTELUKAST 10 MG TABLET. PO SCH (20:38)
[2018-06-09] MEDS: DOXAZOSIN MESYLATE 1 MG TABLET PEG SCH (20:38)
[2018-06-09] MEDS: carBAMazepine 200 MG/10 ML ORAL.SUSP PEG SCH (20:39)
[2018-06-09 21:02] VITALS: BP 155/79
[2018-06-10] MEDS: CEFEPIME HCL 1 GM in IV NORMAL SALINE 50ML 50 ML IV SCH ×2 (04:27→17:21)
[2018-06-10 05:02] VITALS: BP 154/90
[2018-06-10] MEDS: ZINC OXIDE 20% TOPICAL OINTMENT 28GM TUBE. TP SCH ×2 (08:09→20:26)
[2018-06-10] MEDS: DICLOFENAC SODIUM 1% TOPICAL GEL 100GM TUBE. TP SCH (08:09)
[2018-06-10] MEDS: MAGNESIUM OXIDE 400 MG TABLET PEG SCH (08:09)
[2018-06-10] MEDS: CALCIUM CARBONATE 500 MG TAB.CHEW PEG SCH ×3 (08:10→17:21)
[2018-06-10] MEDS: ACETAMINOPHEN 650 MG/20.3 ML SOLUTION. PEG SCH ×3 (08:10→20:26)
[2018-06-10] MEDS: LANSOPRAZOLE 30 MG TAB.RAP.DR PEG SCH ×2 (08:10→20:26)
[2018-06-10] MEDS: MAGNESIUM HYDROXIDE 2,400 MG/30 ML ORAL.SUSP. PEG SCH (08:10)
[2018-06-10] MEDS: CETIRIZINE 5 MG/5 ML ORAL SOLUTION. PEG SCH (08:11)
[2018-06-10] MEDS: carBAMazepine 200 MG/10 ML ORAL.SUSP PO SCH ×2 (08:12→13:07)
[2018-06-10] MEDS: ZIPRASIDONE 20 MG CAPSULE. PO SCH ×3 (08:12→20:26)
[2018-06-10] MEDS: DOCUSATE 100 MG/10 ML SOLUTION. PEG SCH (08:14)
[2018-06-10 09:23] VITALS: BP 150/101
[2018-06-10 15:00] VITALS: BP 153/85
--- NOTE | 2018-06-10 15:44 | PDOC ---
OBJECTIVE: Vital Signs: Vital Signs Date Time Temp Pulse Resp B/P (MAP) Pulse Ox O2 Delivery O2 Flow Rate FiO2 06/10/18 09:23 150/101 (117) 06/10/18 08:15 Room Air 06/10/18 05:02 97.5 61 18 100 I & O Intake and Output 06/10/18 07:00 Intake Total 0 ml Output Total 1050 ml Balance -1050 ml Intake Oral 0 ml Output Urine Total 1050 ml Labs: Laboratory Tests Test 06/08/18 17:00 06/09/18 06:30 Nasal Screen MRSA (PCR) Negative (Negative) White Blood Count 2.3 x10^3/uL (4.0-11.0) Red Blood Count 4.05 x10^6/uL (4.30-5.70) Hemoglobin 12.5 g/dL (13.0-17.5) Hematocrit 36.8 % (39.0-53.0) Mean Corpuscular Volume 91 fL (79-100) Mean Corpuscular Hemoglobin 31 pg (25-35) Mean Corpuscular Hemoglobin Concent 34 g/dL (31-37) Red Cell Distribution Width 15.3 % (11.5-14.5) Platelet Count 287 x10^3/uL (140-400) Neutrophils (%) (Auto) 42 % (31-73) Lymphocytes (%) (Auto) 47 % (24-48) Monocytes (%) (Auto) 8 % (0-9) Eosinophils (%) (Auto) 3 % (0-3) Basophils (%) (Auto) 1 % (0-3) Neutrophils # (Auto) 1.0 x10^3uL (1.8-7.7) Lymphocytes # (Auto) 1.0 x10^3/uL (1.0-4.8) Monocytes # (Auto) 0.2 x10^3/uL (0.0-1.1) Eosinophils # (Auto) 0.1 x10^3/uL (0.0-0.7) Basophils # (Auto) 0.0 x10^3/uL (0.0-0.2) Sodium Level 130 mmol/L (136-145) Potassium Level 4.4 mmol/L (3.5-5.1) Chloride Level 98 mmol/L (98-107) Carbon Dioxide Level 29 mmol/L (21-32) Anion Gap 3 (6-14) Blood Urea Nitrogen 11 mg/dL (8-26) Creatinine 0.6 mg/dL (0.7-1.3) Estimated GFR (Cockcroft-Gault) 137.4 BUN/Creatinine Ratio 18 (6-20) Glucose Level 100 mg/dL (70-99) Calcium Level 8.2 mg/dL (8.5-10.1) Total Bilirubin 0.2 mg/dL (0.2-1.0) Aspartate Amino Transf (AST/SGOT) 15 U/L (15-37) Alanine Aminotransferase (ALT/SGPT) 25 U/L (16-63) Alkaline Phosphatase 71 U/L (46-116) Total Protein 6.9 g/dL (6.4-8.2) Albumin 3.0 g/dL (3.4-5.0) Albumin/Globulin Ratio 0.8 (1.0-1.7) ASSESSMENT: Klebsiella pneumonia urinary tract infection Hypertension: Increase Cardura from 2 mg up to 4 mg at bedtime Hyponatremia: NOHEMI SOUZA DO Jun 10, 2018 15:44
[2018-06-10 19:20] VITALS: BP 142/84
[2018-06-10] MEDS: carBAMazepine 200 MG/10 ML ORAL.SUSP PEG SCH (20:26)
[2018-06-10] MEDS: MONTELUKAST 10 MG TABLET. PO SCH (20:26)
[2018-06-10] MEDS ORDERED: DOXAZOSIN MESYLATE 4 MG TABLET PEG SCH (21:00)
[2018-06-11] MEDS: CEFEPIME HCL 1 GM in IV NORMAL SALINE 50ML 50 ML IV SCH (04:49)
[2018-06-11 05:20] VITALS: BP 139/77
[2018-06-11 06:59] LABS: BASO % 1 % (0-3); EOS # 0.1 x10^3/uL (0.0-0.7); EOS % 2 % (0-3); HEMATOCRIT 39.6 % (39.0-53.0); HEMOGLOBIN 13.3 g/dL (13.0-17.5); LYMPH # 1.1 x10^3/uL (1.0-4.8); LYMPH % 32 % (24-48); MEAN CORPUSCULAR HEMOGLOBIN 31 pg (25-35); MEAN CORPUSCULAR HGB CONC 34 g/dL (31-37); MEAN CORPUSCULAR VOLUME 92 fL (79-100); MONO # 0.2 x10^3/uL (0.0-1.1); MONO % 7 % (0-9); NEUT % 59 % (31-73); PLATELET COUNT 315 x10^3/uL (140-400); RED BLOOD COUNT 4.32 x10^6/uL (4.30-5.70); RED CELL DISTRIBUTION WIDTH 15.2 % (11.5-14.5); WHITE BLOOD COUNT 3.4 x10^3/uL (4.0-11.0)
[2018-06-11 07:10] LABS: CALCIUM 8.6 mg/dL (8.5-10.1); CREATININE 0.7 mg/dL (0.7-1.3); POTASSIUM 4.5 mmol/L (3.5-5.1)
[2018-06-11] MEDS: DOCUSATE 100 MG/10 ML SOLUTION. PEG SCH (08:15)
[2018-06-11] MEDS: DICLOFENAC SODIUM 1% TOPICAL GEL 100GM TUBE. TP SCH (08:16)
[2018-06-11] MEDS: ACETAMINOPHEN 650 MG/20.3 ML SOLUTION. PEG SCH (08:17)
[2018-06-11] MEDS: MAGNESIUM HYDROXIDE 2,400 MG/30 ML ORAL.SUSP. PEG SCH (08:17)
[2018-06-11] MEDS: LANSOPRAZOLE 30 MG TAB.RAP.DR PEG SCH (08:19)
[2018-06-11] MEDS: MAGNESIUM OXIDE 400 MG TABLET PEG SCH (08:19)
[2018-06-11] MEDS: CALCIUM CARBONATE 500 MG TAB.CHEW PEG SCH (08:20)
[2018-06-11] MEDS: ZIPRASIDONE 20 MG CAPSULE. PO SCH (08:20)
[2018-06-11] MEDS: CETIRIZINE 5 MG/5 ML ORAL SOLUTION. PEG SCH (08:21)
[2018-06-11] MEDS: carBAMazepine 200 MG/10 ML ORAL.SUSP PO SCH (08:21)
[2018-06-11] MEDS: ZINC OXIDE 20% TOPICAL OINTMENT 28GM TUBE. TP SCH (08:22)
--- NOTE | 2018-06-11 12:48 | PDOC3 ---
Discharge Summary Visit Information Date of Admission: Jun 07, 2018 Date of Discharge: Jun 09, 2018 Admitting Diagnosis: syncope, dehydration, acute kidney injury, elevated LFTs Brief Hospital Course Allergies Allergies Coded Allergies Type Severity Reaction Last Updated Verified No Known Drug Allergies 02/22/18 No Vital Signs Vital Signs Date Time Temp Pulse Resp B/P (MAP) Pulse Ox O2 Delivery O2 Flow Rate FiO2 06/11/18 08:00 Room Air 06/11/18 05:20 98.1 68 20 139/77 (97) 98 Lab Results Laboratory Tests Test 06/11/18 06:17 White Blood Count 3.4 x10^3/uL (4.0-11.0) Red Blood Count 4.32 x10^6/uL (4.30-5.70) Hemoglobin 13.3 g/dL (13.0-17.5) Hematocrit 39.6 % (39.0-53.0) Mean Corpuscular Volume 92 fL (79-100) Mean Corpuscular Hemoglobin 31 pg (25-35) Mean Corpuscular Hemoglobin Concent 34 g/dL (31-37) Red Cell Distribution Width 15.2 % (11.5-14.5) Platelet Count 315 x10^3/uL (140-400) Neutrophils (%) (Auto) 59 % (31-73) Lymphocytes (%) (Auto) 32 % (24-48) Monocytes (%) (Auto) 7 % (0-9) Eosinophils (%) (Auto) 2 % (0-3) Basophils (%) (Auto) 1 % (0-3) Neutrophils # (Auto) 2.0 x10^3uL (1.8-7.7) Lymphocytes # (Auto) 1.1 x10^3/uL (1.0-4.8) Monocytes # (Auto) 0.2 x10^3/uL (0.0-1.1) Eosinophils # (Auto) 0.1 x10^3/uL (0.0-0.7) Basophils # (Auto) 0.0 x10^3/uL (0.0-0.2) Sodium Level 133 mmol/L (136-145) Potassium Level 4.5 mmol/L (3.5-5.1) Chloride Level 99 mmol/L (98-107) Carbon Dioxide Level 33 mmol/L (21-32) Anion Gap 1 (6-14) Blood Urea Nitrogen 18 mg/dL (8-26) Creatinine 0.7 mg/dL (0.7-1.3) Estimated GFR (Cockcroft-Gault) 115.0 Glucose Level 96 mg/dL (70-99) Calcium Level 8.6 mg/dL (8.5-10.1) Brief Hospital Course Mr. Lombardi is a 58 old [sex] who presented with [ ] Discharge Information Dischare Medications Current Medications Cefepime HCl 1 gm/ Sodium Chloride 50 ml @ 100 mls/hr Q12H IV Last administered on 06/11/18 04:49; Start 06/08/18 at 17:00 Sodium Chloride 500 ml @ 1,000 mls/hr Q30M IV Last administered on 06/08/18at 21:55; Start 06/08/18 at 21:00; Stop 06/08/18 at 21:31; Status DC Sodium Chloride 1,000 ml @ 150 mls/hr Q6H40M IV Last administered on at 22:45; Start 06/08/18 at 21:00; Stop 06/09/18 at 03:40; Status DC Diclofenac Sodium (Voltaren) 1 jaclyn DAILY08 TP Last administered on 06/11/18 08 :16; Start 06/09/18 at 08:00 Docusate Sodium (Colace Solution) 50 mg DAILY PEG Last administered on 08:15; Start 06/09/18 at 09:00 Magnesium Hydroxide (Milk Of Magnesia) 2,400 mg DAILY PEG Last administered on 06/11/18at 08:17; Start 06/09/18 at 09:00 Simethicone (Gas-X) 80 mg PRN DAILY PRN PEG GAS / BLOATING; Start 06/08/18 at 21:15 Terbinafine HCl (LamISIL) 1 jaclyn PRN QID PRN TP REDNESS, BURNING, ITCHING SHAE; Start 06/08/18 at 21:15 Acetaminophen (Tylenol Oral Soln) 800 mg TID PEG Last administered on at 08:17; Start 06/08/18 at 21:30 Calcium Carbonate/ Glycine (Tums) 500 mg TIDWMEALS PEG Last administered on at 08:20; Start 06/08/18 at 21:30 Carbamazepine (TEGretol) 200 mg BIDWBKFT/HERBIE PO Last administered on 06/11/18 08:21; Start 06/09/18 at 08:00 Carbamazepine (TEGretol) 300 mg HS PEG Last administered on 06/10/18 20:26; Start 06/08/18 at 21:30 Non-Formulary Medication (Clonidine (Catapres-Tts 1)) 1 each WEEKLY TD ; Start 06/15/18 at 09:00; Status Cancel Doxazosin Mesylate (Cardura) 2 mg HS PEG Last administered on 06/09/18at 20:38; Start 06/08/18 at 21:30; Stop 06/10/18 at 15:43; Status DC Cetirizine HCl (ZyrTEC) 10 mg DAILY PEG Last administered on 06/11/18 08:21; Start 06/09/18 at 09:00 Magnesium Oxide (Magnesium Oxide) 400 mg DAILY PEG Last administered on 08:19; Start 06/09/18 at 09:00 Montelukast Sodium (Singulair) 10 mg QHS PO Last administered on 06/10/18 20: 26; Start 06/08/18 at 21:30 Non-Formulary Medication (Nutritional Supplement (Nutren 2.0)) 250 ml QID PEG ; Start 06/09/18 at 09:00; Status UNV Polyethylene Glycol (miraLAX) 17 gm PRN DAILY PRN PEG CONSTIPATION; Start 06/09 at 09:00 Zinc Oxide (Zinc Oxide 20% Topical) 1 jaclyn BID TP Last administered on 08:22; Start 06/08/18 at 21:30 Ziprasidone (Geodon) 20 mg TID PO Last administered on 06/11/18 08:20; Start 06/08/18 at 21:30 Non-Formulary Medication ([cranberry] ) 250 mg DAILY PEG ; Start 06/09/18 at 09: 00; Status UNV Lansoprazole (Prevacid) 30 mg BID PEG Last administered on 06/11/18 08:19; Start 06/08/18 at 21:30 Clonidine HCl (Catapres Tts-1) 1 patch WEEKLY TD ; Start 06/09/18 at 09:00; Stop 06/09/18 at 12:38; Status DC Clonidine HCl (Catapres Tts-1) 1 patch WEEKLY TD ; Start 06/14/18 at 09:00 Doxazosin Mesylate (Cardura) 4 mg HS PEG Last administered on 06/10/18at 20:26; Start 06/10/18 at 21:00 Active Scripts Active Mag-Oxide (Magnesium Oxide) 400 Mg Tablet 400 Mg PEG DAILY LAST DOSE GIVEN: DATE: TODAY TIME: AM NEXT DOSE DUE: DATE: TODAY TIME: PM Reported Calcium Carbonate 500 Mg/5 Ml Oral.susp 600 Mg PO TIDWMEALS Voltaren (Diclofenac Sodium) 100 Gm Gel..gram. 1 Gm TP DAILY08 Miralax (Polyethylene Glycol 3350) 17 Gm Powd.pack 1 Packet PEG DAILY PRN Singulair Tablet (Montelukast Sodium) 10 Mg Tablet 1 Tab PEG HS LAST DOSE GIVEN: DATE: TIME: NEXT DOSE DUE: DATE: TIME: Loratadine 5 Mg/5 Ml Solution 10 Ml PEG DAILY LAST DOSE GIVEN: DATE: TIME: NEXT DOSE DUE: DATE: TIME: Catapres-Tts 1 (Clonidine) 1 Each Patch.tdwk 1 Each TD WEEKLY LAST DOSE GIVEN: DATE: TIME: NEXT DOSE DUE: DATE: TIME: Docusate Sodium 50 Mg/5 Ml Liquid 5 Ml PEG DAILY LAST DOSE GIVEN: DATE: TIME: NEXT DOSE DUE: DATE: TIME: Milk Of Magnesia (Magnesium Hydroxide) 400 Mg/5 Ml Oral.susp 30 Ml PEG DAILY LAST DOSE GIVEN: DATE: TIME: NEXT DOSE DUE: DATE: TIME: Zinc Oxide 30 Gm Oint...g. 30 Gm TP BID LAST DOSE GIVEN: DATE: TODAY TIME: AM NEXT DOSE DUE: DATE: TODAY TIME: PM Terbinafine (Terbinafine Hcl) 15 Gm Cream..g. 15 Gm TP QID PRN LAST DOSE GIVEN: DATE: NOT GIVEN THIS ADMISSION NEXT DOSE DUE: DATE: TODAY TIME: IF NEEDED TIME: IF NEEDED Nutren 2.0 (Nutritional Supplement) 250 Ml Liquid 250 Ml PEG QID LAST DOSE GIVEN: DATE: TODAY TIME: AM NEXT DOSE DUE: DATE: TODAY TIME: AFTERNOON Geodon (Ziprasidone Hcl) 20 Mg Capsule 20 Mg PEG TID LAST DOSE GIVEN: DATE: TODAY TIME: AM NEXT DOSE DUE: DATE: TODAY TIME: AFTERNOON Carbamazepine 100 Mg/5 Ml Oral.susp 15 Ml PEG HS LAST DOSE GIVEN: DATE: YESTERDAY TIME: AT BEDTIME NEXT DOSE DUE: DATE: TODAY TIME: AT BEDTIME Carbamazepine 100 Mg/5 Ml Oral.susp 10 Ml PEG BIDWBKFT/HERBIE LAST DOSE GIVEN: DATE: TODAY TIME: AM NEXT DOSE DUE: DATE: TODAY TIME: PM Acetaminophen 160 Mg/5 Ml Solution 25 Ml PEG TID LAST DOSE GIVEN: DATE: TODAY TIME: AM NEXT DOSE DUE: DATE: TODAY TIME: PM Simethicone 80 Mg Tab.chew 80 Mg PEG DAILY PRN LAST DOSE GIVEN: DATE: TODAY TIME: AM NEXT DOSE DUE: DATE: TOMORROW TIME: AM [nexium powder] 40 Mg PEG BID LAST DOSE GIVEN: DATE: TODAY TIME: AM NEXT DOSE DUE: DATE: TODAY TIME: PM DATE: TODAY TIME: PM Doxazosin Mesylate 2 Mg Tablet 2 Mg PEG HS LAST DOSE GIVEN: DATE: YES TIME: AT BEDTIME NEXT DOSE DUE: DATE: TODAY TIME: AT BEDTIME [cranberry] 250 Mg PEG DAILY LAST DOSE GIVEN: DATE: TODAY TIME: AM NEXT DOSE DUE: DATE: TOMORROW TIME: AM Patient Instructions Patient Instuctions 250 mL flushes after each tube feed. Cefpodoxime proxetil 100 per 5 ML's, 10 ML twice a day 10 days NOHEMI SOUZA DO Jun 11, 2018 12:48
[2018-06-14] MEDS ORDERED: cloNIDine TTS-1 1 PATCH PATCH TD SCH (09:00)
[2018-06-15] MEDS ORDERED: CLONIDINE TD SCH (09:00)
== END 2018-06-11 13:30 | DRG 683 ==
LOC: 1 SOUTH 13:09
PROVIDERS: ADMIT Neuromusculoskeletal Medicine & OMM; ATTEND Neuromusculoskeletal Medicine & OMM
DX: N17.9 Acute kidney failure, unspecified (principal); N39.0 Urinary tract infection, site not specified; E87.1 Hypo-osmolality and hyponatremia; B96.1 Klebsiella pneumoniae [K. pneumoniae] as the cause of diseases classified elsewhere; E86.0 Dehydration; I10 Essential (primary) hypertension; Z79.899 Other long term (current) drug therapy
CPT/HCPCS: 36415; 80048; 80053; 81001; 83605; 85025; 87040; 87641; J0692; J7030

== ENCOUNTER 2018-09-09 14:18 | Emergency (ER) | payer MEDICARE, OTHER ==
[~2018-09-09] VITALS: Ht 175.3 cm; Wt 50.3 kg
[~2018-09-09 14:18] MED LIST changes: +DICL100G18 TP; +POLY17PO28 PEG; -POLY17PO3 PEG; -POLY255P PO; +POLY255P11 PO
[2018-09-09 14:34] VITALS: BP 136/73
--- NOTE | 2018-09-09 14:56 | PHYS DOC ---
Past History Past Medical History: Anxiety, Depression, Hypertension, Pneumonia, Seizure, UTI, Other Past Surgical History: Other Smoking: Non-smoker Alcohol Use: None Drug Use: None Adult General Chief Complaint Chief Complaint: NAUSEA/VOMITING/DIARRHEA HPI HPI 58-year-old male who is ill actually challenge presents with his caregiver for concern of aspiration. Patient is nothing by mouth and uses a feeding tube. He snuck a piece of high from the cafeteria and was found that all over his face. They note that he ate it. But since he has not eaten including 4 years they are concerned for aspiration. The patient did vomit one time. He is not complaining of a feeling of globus. He has no fever or chills. Review of Systems Review of Systems Constitutional: Denies fever or chills [] Eyes: Denies change in visual acuity, redness, or eye pain [] HENT: Denies nasal congestion or sore throat [] Respiratory: Denies cough or shortness of breath [] Cardiovascular: No additional information not addressed in HPI [] GI: Denies abdominal pain, nausea, vomiting, bloody stools or diarrhea [] : Denies dysuria or hematuria [] Musculoskeletal: Denies back pain or joint pain [] Integument: Denies rash or skin lesions [] Neurologic: Denies headache, focal weakness or sensory changes [] Endocrine: Denies polyuria or polydipsia [] All other systems were reviewed and found to be within normal limits, except as documented in this note. Allergies Allergies Allergies Coded Allergies Type Severity Reaction Last Updated Verified No Known Drug Allergies 02/22/18 No Physical Exam Physical Exam Constitutional: Well developed, well nourished, no acute distress, non-toxic appearance. [] HENT: Normocephalic, atraumatic, bilateral external ears normal, oropharynx moist, no oral exudates, nose normal. [] Eyes: PERRLA, EOMI, conjunctiva normal, no discharge. [] Neck: Normal range of motion, no tenderness, supple, no stridor. [] Cardiovascular:Heart rate regular rhythm, no murmur [] Lungs & Thorax: Bilateral breath sounds clear to auscultation [] Abdomen: Bowel sounds normal, soft, no tenderness, no masses, no pulsatile masses. [] Skin: Warm, dry, no erythema, no rash. [] Back: No tenderness, no CVA tenderness. [] Extremities: No tenderness, no cyanosis, no clubbing, ROM intact, no edema. [] Neurologic: Alert and oriented X 3, normal motor function, normal sensory function, no focal deficits noted. [] Psychologic: Affect normal, judgement normal, mood normal. [] Current Patient Data Vital Signs Vital Signs Date Time Temp Pulse Resp B/P (MAP) Pulse Ox O2 Delivery O2 Flow Rate FiO2 09/09/18 14:34 97.5 84 20 100 Room Air EKG EKG [] Radiology/Procedures Radiology/Procedures [] Impressions: Chest radiograph 09/09/2018 2:43 PM INDICATION: Aspiration COMPARISON: May 15, 2018 TECHNIQUE: Frontal and lateral views of the chest are provided. FINDINGS: The cardiomediastinal silhouette is within normal limits. There are no pleural effusions. There is no pulmonary vascular congestion. There is no pneumothorax. Bronchiectasis is identified in the medial right lower lobe, likely secondary to chronic scarring from recurrent aspiration pneumonitis. No significant osseous abnormality is identified. IMPRESSION: Bronchiectasis and scarring noted in the medial right lower lobe, likely secondary to recurrent aspiration pneumonitis. No definite airspace consolidation on current examination. Electronically signed by: Diana Steen MD (09/09/2018 2:55 PM) [facility] DICTATED AND SIGNED BY: DIANA STEEN MD DATE: 09/09/18 1454 CC: TOM TRAMMELL MD; LEYLA OLIVAS DO Course & Med Decision Making Course & Med Decision Making Pertinent Labs and Imaging studies reviewed. (See chart for details) The patient's x-ray does not show pneumonia at this time. There is no foreign body seen. The patient is stable for discharge at this time. [] Dragon Disclaimer Dragon Disclaimer This electronic medical record was generated, in whole or in part, using a voice recognition dictation system. Departure Departure: Referrals: TOM TRAMMELL MD (PCP) LEYLA OLIVAS DO Sep 09, 2018 14:56
--- NOTE | 2018-09-09 14:59 | RAD ---
Chest radiograph 09/09/2018 2:43 PM INDICATION: Aspiration COMPARISON: May 15, 2018 TECHNIQUE: Frontal and lateral views of the chest are provided. FINDINGS: The cardiomediastinal silhouette is within normal limits. There are no pleural effusions. There is no pulmonary vascular congestion. There is no pneumothorax. Bronchiectasis is identified in the medial right lower lobe, likely secondary to chronic scarring from recurrent aspiration pneumonitis. No significant osseous abnormality is identified. IMPRESSION: Bronchiectasis and scarring noted in the medial right lower lobe, likely secondary to recurrent aspiration pneumonitis. No definite airspace consolidation on current examination. Electronically signed by: Gretchen Steen MD (09/09/2018 2:55 PM) [facility]
== END 2018-09-09 15:00 | disposition home or self-care (01) ==
LOC: ER 14:18
DX: J98.8 Other specified respiratory disorders (principal); R11.10 Vomiting, unspecified; J47.9 Bronchiectasis, uncomplicated; L90.5 Scar conditions and fibrosis of skin; F41.9 Anxiety disorder, unspecified; I10 Essential (primary) hypertension; Z87.440 Personal history of urinary (tract) infections
CPT/HCPCS: 71046; 99283

== ENCOUNTER 2018-09-28 11:15 | Inpatient (IN) | payer MEDICARE, OTHER ==
[~2018-09-28] VITALS: Ht 172.7 cm; Wt 50.2 kg
[2018-09-28 11:51] LABS: BASO # 0.1 x10^3/uL (0.0-0.2); BASO % 0 % (0-3); EOS % 0 % (0-3); HEMATOCRIT 37.9 % (39.0-53.0); HEMOGLOBIN 12.9 g/dL (13.0-17.5); LYMPH # 0.4 x10^3/uL (1.0-4.8); LYMPH % 2 % (24-48); MEAN CORPUSCULAR HEMOGLOBIN 30 pg (25-35); MEAN CORPUSCULAR HGB CONC 34 g/dL (31-37); MEAN CORPUSCULAR VOLUME 88 fL (79-100); MONO # 0.6 x10^3/uL (0.0-1.1); MONO % 3 % (0-9); NEUT # 18.1 x10^3uL (1.8-7.7); NEUT % 95 % (31-73); PLATELET COUNT 308 x10^3/uL (140-400); RED CELL DISTRIBUTION WIDTH 16.1 % (11.5-14.5); WHITE BLOOD COUNT 19.2 x10^3/uL (4.0-11.0)
[2018-09-28 12:02] LABS: ALBUMIN 3.5 g/dL (3.4-5.0); CALCIUM 8.2 mg/dL (8.5-10.1); CREATININE 0.6 mg/dL (0.7-1.3); DIRECT BILIRUBIN 0.2 mg/dL (0.0-0.2); GFR 137.4; POTASSIUM 4.3 mmol/L (3.5-5.1); TOTAL BILIRUBIN 0.6 mg/dL (0.2-1.0)
[2018-09-28] MEDS ORDERED: VANCOMYCIN PER PHARMACY MC PRN (12:30)
[2018-09-28] MEDS ORDERED: PIP/TAZO PER PHARMACY MC PRN (12:30)
--- NOTE | 2018-09-28 12:36 | PHYS DOC ---
Past History Past Medical History: Anxiety, Depression, Hypertension, Pneumonia, Seizure, UTI, Other Additional Past Medical Histor: Hx of SBO Past Surgical History: Other Past Surgical History multiple abdominal surgeries, multiple bowel obstructions, Peg tub placement. Smoking: Non-smoker Alcohol Use: None Drug Use: None Adult General Chief Complaint Chief Complaint: NAUSEA/VOMITING HPI HPI This is a pleasant 58-year-old male with history of small bowel obstruction and multiple abdominal surgeries in the past presenting to the emergency department today with fever off and on for a few days with vomiting and a cough. His vomitus is nonbilious and nonbloody. The cough is nonproductive. He also has a history of UTIs. Review of systems is negative for headache neck stiffness confusion chest pain shortness of breath. All other review of systems is negative unless otherwise noted in history of present illness. ED course: 58-year-old male presenting the emergency department today with nausea vomiting fever and cough. On arrival here he is afebrile. Blood pressure is normal. Heart rate is normal. Patient is well-appearing on examination with a nontender abdomen. CT abdomen pelvis ordered along with chest x-ray and blood work. Blood work shows a leukocytosis. Chemistry panel shows hyponatremia. Troponin negative. Urinalysis is positive for infection. Chest x-ray shows chronic changes without acute abnormalities. CT the abdomen pelvis shows distended bowel loops and stomach without a clear transition point. Patient has a small obstruction. CT also shows possible pneumonia. We will give the patient IV Rocephin placed the patient nothing by mouth give the patient IV fluids and admit the patient to Dr. Menjivar for further treatment and care. I spoke with Dr. Menjivar who accepts the patient for admission. Review of Systems Review of Systems SEE ABOVE. Current Medications Current Medications Current Medications Medications (Trade) Dose Ordered Sig/Juanito Start Time Stop Time Status Last Admin Dose Admin Piperacillin Sod/ Tazobactam Sod (Zosyn Per Pharmacy) 1 each PRN DAILY PRN 09/28/18 12:30 UNV Vancomycin HCl (Vanco Per Pharmacy) 1 each PRN DAILY PRN 09/28/18 12:30 UNV Allergies Allergies Allergies Coded Allergies Type Severity Reaction Last Updated Verified No Known Drug Allergies 02/22/18 No Physical Exam Physical Exam SEE ABOVE Constitutional: Well developed, well nourished, no acute distress, non-toxic appearance. HENT: Normocephalic, atraumatic, bilateral external ears normal, oropharynx moist, no oral exudates, nose normal. [] Eyes: PERRLA, EOMI, conjunctiva normal, no discharge. [] Neck: Normal range of motion, no tenderness, supple, no stridor. Cardiovascular:Heart rate regular rhythm, no murmur [] Lungs & Thorax: Bilateral breath sounds clear to auscultation Abdomen: Bowel sounds normal, soft, no tenderness, no masses, no pulsatile masses. neg mcburneys point. Not distended. Skin: Warm, dry, no erythema, no rash. [] Back: No tenderness, no CVA tenderness. Extremities: No tenderness, no cyanosis, no clubbing, ROM intact, no edema. Neurologic: Alert and oriented X 3, normal motor function, normal sensory function, no focal deficits noted. [] Psychologic: Affect normal, judgement normal, mood normal. Current Patient Data Vital Signs Vital Signs Date Time Temp Pulse Resp B/P (MAP) Pulse Ox O2 Delivery O2 Flow Rate FiO2 09/28/18 11:33 97.4 85 18 98 Room Air Lab Results Laboratory Tests Test 09/28/18 11:37 White Blood Count 19.2 x10^3/uL (4.0-11.0) H Red Blood Count 4.30 x10^6/uL (4.30-5.70) Hemoglobin 12.9 g/dL (13.0-17.5) L Hematocrit 37.9 % (39.0-53.0) L Mean Corpuscular Volume 88 fL (79-100) Mean Corpuscular Hemoglobin 30 pg (25-35) Mean Corpuscular Hemoglobin Concent 34 g/dL (31-37) Red Cell Distribution Width 16.1 % (11.5-14.5) H Platelet Count 308 x10^3/uL (140-400) Neutrophils (%) (Auto) 95 % (31-73) H Lymphocytes (%) (Auto) 2 % (24-48) L Monocytes (%) (Auto) 3 % (0-9) Eosinophils (%) (Auto) 0 % (0-3) Basophils (%) (Auto) 0 % (0-3) Neutrophils # (Auto) 18.1 x10^3uL (1.8-7.7) H Lymphocytes # (Auto) 0.4 x10^3/uL (1.0-4.8) L Monocytes # (Auto) 0.6 x10^3/uL (0.0-1.1) Eosinophils # (Auto) 0.0 x10^3/uL (0.0-0.7) Basophils # (Auto) 0.1 x10^3/uL (0.0-0.2) Platelet Estimate Pending Sodium Level 121 mmol/L (136-145) L Potassium Level 4.3 mmol/L (3.5-5.1) Chloride Level 85 mmol/L (98-107) L Carbon Dioxide Level 29 mmol/L (21-32) Anion Gap 7 (6-14) Blood Urea Nitrogen 15 mg/dL (8-26) Creatinine 0.6 mg/dL (0.7-1.3) L Estimated GFR (Cockcroft-Gault) 137.4 Glucose Level 103 mg/dL (70-99) H Calcium Level 8.2 mg/dL (8.5-10.1) L Total Bilirubin 0.6 mg/dL (0.2-1.0) Direct Bilirubin 0.2 mg/dL (0.0-0.2) Aspartate Amino Transferase (AST) 22 U/L (15-37) Alanine Aminotransferase (ALT) 28 U/L (16-63) Alkaline Phosphatase 100 U/L (46-116) Troponin I Quantitative < 0.017 ng/mL (0-0.055) Total Protein 8.0 g/dL (6.4-8.2) Albumin 3.5 g/dL (3.4-5.0) Lipase 84 U/L (73-393) EKG EKG [] Radiology/Procedures Radiology/Procedures [] Course & Med Decision Making Course & Med Decision Making Pertinent Labs and Imaging studies reviewed. (See chart for details) [] Dragon Disclaimer Dragon Disclaimer This electronic medical record was generated, in whole or in part, using a voice recognition dictation system. Departure Departure: Impression: Primary Impression: Abdominal pain Additional Impressions: Hyponatremia Vomiting Pneumonia Urinary tract infection Disposition: ADMITTED INPATIENT Admitting Physician: Nain Mtz Condition: STABLE Referrals: TOM TRAMMELL MD (PCP) Problem Qualifiers ANTHONY THOMAS MD Sep 28, 2018 12:36
[2018-09-28] MEDS ORDERED: IOHEXOL 300 MG/ML 75 ML VIAL. IV ONE (12:45)
[2018-09-28 12:55] LABS: BACTERIA,URINE MOD /HPF (0-FEW); BILIRUBIN,URINE NEG (NEG); CLARITY,URINE HAZY; COLOR,URINE YELLOW; GLUCOSE,URINE NEG (NEG); NITRITE,URINE POS (NEG); RBC,URINE 0 /HPF (0-2); SQUAMOUS EPITHELIAL CELL,UR OCC /LPF; UROBILINOGEN,URINE 0.2 mg/dL (0.2 mg/dL)
[2018-09-28] MEDS ORDERED: CONTRAST GIVEN MC PRN (13:00)
[2018-09-28] MEDS ORDERED: PIPERACILLIN/TAZOBACTAM 3.375 GM in IV NORMAL SALINE 50ML 50 ML IV ONE (13:15)
[2018-09-28 13:19] LABS: % BANDS 3 % (0-9); % LYMPHS 2 % (24-48); % MONOS 2 % (0-10); % SEGS 93 % (35-66); PLT ESTIMATE ADEQUATE (ADEQUATE); TOXIC GRANULATION PRESENT
--- NOTE | 2018-09-28 13:26 | RAD ---
Single view of the chest. 09/28/2018 12:56 PM Indication: COUGH WITH FEVER Comparison: Chest radiograph September 09, 2018 Findings: No pneumothorax or pleural effusion is identified. Changes of interstitial lung disease are grossly similar. Heart size is stable. No acute osseous changes are noted in the interim. IMPRESSION: Similar changes of interstitial lung disease. Otherwise stable exam Electronically signed by: Severo Lopez MD (09/28/2018 1:23 PM) [id number]
[2018-09-28] MEDS ORDERED: VANCOMYCIN 1.25 GM in IV NORMAL SALINE 250ML 250 ML IV ONE (13:30)
--- NOTE | 2018-09-28 13:35 | RAD ---
CT ABD PELV W/ IV CONTRST ONLY Indication: ABDOMINAL PAIN, VOMITING, FEVER. 75MLS OMNI 300 IV CONTRAST. PATIENT COULD NOT FOLLOW BREATHING INSTRUCTIONS. Exposure: One or more of the following individualized dose reduction techniques were utilized for this examination: 1. Automated exposure control 2. Adjustment of the mA and/or kV according to patient size 3. Use of iterative reconstruction technique. Comparison: May 15, 2018 Contrast: Intravenous contrast was given. Oral contrast was given. FINDINGS: There is artifactual degradation of the exam, patient had difficulty holding breath. This results in motion degradation. Lower thorax: Hazy or groundglass opacities identified in both visualized lower lungs. Coronary artery calcifications. Liver: Lesion at the posterior right lobe appearance is similar as on a prior contrast CT of March 26, 2018. No increased in size. Spleen: Unremarkable Pancreas: Unremarkable Adrenals: No evidence of mass. Kidneys: No obvious mass. Urinary tracts: No hydronephrosis. Gallbladder: No calcified stone Lymph nodes: No significant enlargement Vessels: Aorta is mildly calcified, no aneurysm identified. GI tract: Small hiatal hernia. The stomach is distended with fluid and air. Percutaneous gastrostomy tube is again identified. There is mild distention of small bowel loops, with mostly fluid, measuring up to about 3.5 cm transverse. The colon contains contrast material. There is a short segment of sigmoid colon with mild wall thickening but that may just be due to the lack of distention of this segment. Stool identified within the colon. Appendix is not clearly visualized. Reproductive organs: Prostate gland is enlarged. There is a TURP defect. Urinary bladder: Moderately distended, measures 13 cm length at the midline. Peritoneum: No evidence of pneumoperitoneum. No free fluid. Abdominal wall:Unremarkable Spine: Degenerative spondylosis. Bones: Degenerative changes at both hips. External Soft Tissue: Very little subcutaneous or intraperitoneal fat in this patient. IMPRESSION: 1. Exam compromised by motion degradation. 2. Distention of stomach and small bowel loops without a clear transition point. Considerations include ileus or a partial small bowel obstruction. 3. Mild groundglass infiltrates in both lung bases, nonspecific but could represent pneumonia. 4. Lesion in the posterior right lobe liver is unchanged. 5. Urinary bladder distention. Electronically signed by: Anurag Alvarez MD (09/28/2018 1:31 PM) [id number]
[2018-09-28] MEDS ORDERED: IV NORMAL SALINE 1,000ML 1,000 ML IV SCH (13:48)
[2018-09-28] MEDS ORDERED: MORPHINE SULFATE 2 MG/ML DISP.SYRIN. IV PRN (14:00)
[2018-09-28] MEDS ORDERED: ONDANSETRON PF 4 MG/2 ML VIAL. IV PRN (14:00)
[2018-09-28] MEDS ORDERED: IV NORMAL SALINE 50ML 50 ML ONE (14:16)
[2018-09-28] MEDS ORDERED: PIPERACILLIN/TAZOBACTAM 3.375 GM VIAL IV ONE (14:16)
[2018-09-28 15:47] VITALS: BP 154/78
[2018-09-28] MEDS: IV NORMAL SALINE 1,000ML 1,000 ML IV SCH (15:56)
[2018-09-28] MEDS ORDERED: MAGN400T3 PO (16:32)
[2018-09-28] MEDS ORDERED: ZINC56.7 TP (16:32)
[2018-09-28] MEDS ORDERED: CLOT15CR4 TP (16:32)
[2018-09-28] MEDS: VANCOMYCIN PER PHARMACY MC PRN (16:51)
[2018-09-28] MEDS: ENOXAPARIN 40 MG/0.4 ML SYRINGE. SQ SCH (17:52)
--- NOTE | 2018-09-28 17:54 | HP ---
ADMIT DATE: 09/28/2018 HISTORY OF PRESENT ILLNESS: The patient is a 58-year-old male patient who is a resident at [facility], who was brought to the Emergency Room with a complaint of recurrent bouts of nausea and vomiting. He was extensively investigated in the Emergency Room, was found to have marked leukocytosis. CT scan of the abdomen and pelvis showed that he has distention of stomach and small bowel loops without a clear transition point. Consideration includes ileus or partial small bowel obstruction. Has mild ground glass infiltrate in both lung bases, nonspecific, but could represent pneumonia and lesion in the posterior right lobe of the liver that is unchanged and urinary bladder distention. He was kept n.p.o. We will connect his gastrostomy tube to intermittent suction. I will start him on Keppra 500 mg IV twice a day. We will continue with IV fluid in the form of normal saline at 100 mL per hour. Continue with IV Zosyn and vancomycin. PAST MEDICAL HISTORY: Significant for intellectual disability, Crohn's, small-bowel obstruction, chronic aspiration pneumonia; dysphagia, status post percutaneous endoscopic gastrostomy tube; seizure disorder, incontinence, benign prostatic hypertrophy, anxiety, and depression. PAST SURGICAL HISTORY: Significant for multiple gastrostomy tube placements. Finally, he is on the VERO-FENG button. Has multiple exploratory laparotomies for multiple bowel obstruction and multiple abdominal surgeries. ALLERGIES: He has no known drug allergies. FAMILY HISTORY: Noncontributory. SOCIAL HISTORY: The patient is a resident at a [facility]. He does not smoke, drink alcohol, or use any recreational drugs. REVIEW OF SYSTEMS: As per history of present illness. MEDICATIONS: He is currently on following medications: He is on loratadine 5 mg per 5 mL, he takes 10 mL per feeding tube daily, clonidine patch for [id number]-3 transdermal weekly, doxazosin mesylate 2 mg at bedtime, diclofenac sodium 1 gram topically daily, acetaminophen 160 mg per 5 mL, he takes 25 mL 3 times a day. He is on carbamazepine for Tegretol 100 mg per 5 mL, he takes 10 mL per feeding tube with breakfast and carbamazepine 100 mg per 5 mL, he takes 15 mL-300 mg at bedtime, ziprasidone for Geodon 20 mg per feeding tube 3 times a day. He is on calcium carbonate 600 mg three times a day with meals, ____ 250 mg per feeding tube 4 times a day, Singulair 10 mg once a day, magnesium oxide 400 mg per feeding tube once a day, simethicone 80 mg per feeding tube daily, Colace 50 mg per 5 mL, he takes 50 mg per feeding tube daily, milk of magnesia 30 mL per feeding tube daily, polyethylene glycol 17 grams 1 packet per feeding tube daily, terbinafine 15 grams cream applied topically 4 times a day to redness and burning and itching. He is on zinc oxide applied topically twice a day, cranberry tablets 250 mg per feeding tube daily, and Nexium powder 40 mg per feeding tube twice a day. PHYSICAL EXAMINATION: GENERAL: On arrival to the Emergency Room, the patient looked well, somewhat pale, no jaundice, cyanosis, or thyromegaly. No jugular venous distension. No lower limb edema. VITAL SIGNS: His heart rate was 85, blood pressure was 126/73, temperature was 97.4, respiratory rate was 18, and oxygen saturation was 98% on room air. HEAD, EYES, EARS, NOSE, AND THROAT: Showed he is normocephalic, atraumatic. NECK: Supple. HEART: Showed normal first and second heart sounds. No gallop, rub, or murmur. CHEST: Showed central trachea, equal bilateral expansion, air entry, vesicular sounds. No crepitation or rhonchi. ABDOMEN: Distended with VERO-FENG button in the epigastric area. There is no tenderness. No guarding or rigidity. No organomegaly. All hernial orifices intact. Bowel sounds hyperactive. NEUROLOGIC: He is awake, alert, responding appropriately. All cranial nerves are intact. EXTREMITIES: He moves extremities without difficulty. LABORATORY DATA AND IMAGING: His lab work on admission showed a white cell count of 19,200, hemoglobin 13, hematocrit 38, MCV 88, and platelet count of 308,000 with normal manual differential. His chemistry showed a serum sodium 121, potassium 4.3, chloride 85, bicarbonate 29, anion gap of 7, BUN 15, creatinine was 0.6, estimated GFR was 137 mL per minute, his glucose 103, calcium was 8.2. Total bilirubin, AST, ALT, alkaline phosphatase were normal. Total protein was 8 and albumin was 3.5. Lipase was 84. His urinalysis showed the urine was yellow, hazy with a pH of 8.5, specific gravity of 1.015. The urine was negative for protein, glucose, ketones. There was a trace of blood, positive for nitrite, and there was trace of leukocyte esterase with 0 rbc, 1-4 wbc's, and moderate amount of bacteria. His chest x-ray showed no pneumothorax, pleural effusion identified. Changes of interstitial lung disease are grossly similar, heart size is stable. No acute osseous changes are noted in the interim. His CT scan of the abdomen and pelvis showed that there is distention of the stomach and small bowel loops without a clear transition point. Consideration includes the ileus or partial small obstruction. Has mild ground glass infiltrates in both lung bases, nonspecific, but could represent pneumonia. Has a lesion on the posterior right lobe of the liver that is unchanged and he has urinary bladder distention. IMPRESSION: In summary, this is a 58-year-old male patient, a resident at [facility] who is coming yet again with another small-bowel obstruction. PLAN: 1. The plan is to keep him n.p.o., his gastrostomy tube to suction. IV fluids, IV vancomycin and Zosyn. We will switch him to Keppra for the time being. I will repeat all his lab works tomorrow. Diagnosis, small bowel obstruction. 2. Hyponatremia. 3. Healthcare-associated pneumonia with bilateral lung infiltrates, urinary tract infection. Other medical problems include hypertension, seizure disorder, dysphagia, multiple episodes of bowel obstruction before. SHYANNE ELLIS MD DR: APARNA/dominick JOB#: [id number] / [id number]
[2018-09-28 19:17] VITALS: BP 136/65
[2018-09-28] MEDS: PIPERACILLIN/TAZOBACTAM 3.375 GM in IV NORMAL SALINE 50ML 50 ML IV SCH (21:50)
[2018-09-28 23:27] VITALS: BP 118/67
[2018-09-29] MEDS: VANCOMYCIN 1 GM in IV NORMAL SALINE 250ML 250 ML IV SCH ×2 (00:32→12:34)
[2018-09-29] MEDS: IV NORMAL SALINE 1,000ML 1,000 ML IV SCH ×4 (01:45→20:43)
[2018-09-29] MEDS: PIPERACILLIN/TAZOBACTAM 3.375 GM in IV NORMAL SALINE 50ML 50 ML IV SCH ×3 (05:34→22:14)
[2018-09-29 05:42] VITALS: BP 147/81
[2018-09-29 06:40] LABS: BASO % 0 % (0-3); EOS % 1 % (0-3); HEMATOCRIT 36.2 % (39.0-53.0); HEMOGLOBIN 12.2 g/dL (13.0-17.5); LYMPH # 0.5 x10^3/uL (1.0-4.8); LYMPH % 10 % (24-48); MEAN CORPUSCULAR HEMOGLOBIN 30 pg (25-35); MEAN CORPUSCULAR HGB CONC 34 g/dL (31-37); MEAN CORPUSCULAR VOLUME 89 fL (79-100); MONO # 0.4 x10^3/uL (0.0-1.1); MONO % 7 % (0-9); NEUT # 4.2 x10^3uL (1.8-7.7); NEUT % 82 % (31-73); PLATELET COUNT 254 x10^3/uL (140-400); RED BLOOD COUNT 4.08 x10^6/uL (4.30-5.70); RED CELL DISTRIBUTION WIDTH 16.3 % (11.5-14.5); WHITE BLOOD COUNT 5.1 x10^3/uL (4.0-11.0)
[2018-09-29 06:43] LABS: CALCIUM 8.2 mg/dL (8.5-10.1); CREATININE 0.6 mg/dL (0.7-1.3); GFR 137.4; MAGNESIUM 2.2 mg/dL (1.8-2.4); POTASSIUM 3.8 mmol/L (3.5-5.1)
[2018-09-29] MEDS ORDERED: HALOPERIDOL LACT 5 MG/ML VIAL. IM ONE (09:30)
[2018-09-29 10:28] VITALS: BP 140/73
--- NOTE | 2018-09-29 14:24 | EKG ---
[address] [address] Test Date: 2018-09-28 Test Time: 11:59:21 Pat Name: CLAYTON HERNANDEZ Department: Room: Gender: M Telephone Surveyor: : 1960 Requested By: ANTHONY THOMAS Order Number: [id number] Reading MD: Measurements Intervals [place] Rate: 78 P: 57 NM: 168 QRS: 36 QRSD: 90 T: 74 QT: 354 QTc: 407 Interpretive Statements SINUS RHYTHM T ABNORMALITY IN HIGH LATERAL LEADS ABNORMAL ECG RI6.01 Unconfirmed report No previous ECG available for comparison
[2018-09-29 14:35] VITALS: BP 165/78
[2018-09-29] MEDS: ENOXAPARIN 40 MG/0.4 ML SYRINGE. SQ SCH (16:23)
--- NOTE | 2018-09-29 16:39 | PN ---
DATE: 09/29/2018 SUBJECTIVE: The patient is resting, slightly propped up in bed, in no apparent distress. He was extremely agitated, restless. He disconnected his gastrostomy tube from suction and pulled his IV fluid, wanting to go home. His brother came and come down, I had a lengthy discussion with him, I am hoping that he will understand. PHYSICAL EXAMINATION: GENERAL: When I examined him, he looked somewhat pale, but no jaundice, cyanosis, or thyromegaly. No jugular venous distension. No limb edema. VITAL SIGNS: His heart rate was 62, blood pressure 140/73, temperature was 97.7, respiratory rate was 18 and oxygen saturation was 96% on room air. HEAD, EYES, EARS, NOSE AND THROAT: Showed normocephalic, atraumatic. NECK: Supple. HEART: Showed normal first and second heart sounds. No gallop, rub or murmur. CHEST: Clear to auscultation. No crepitation or rhonchi. ABDOMEN: Distended, soft, no tenderness. No guarding or rigidity. No organomegaly. His bowel sounds are overactive. NEUROLOGIC: He was awake, alert. All his cranial nerves are intact. He moves extremities without difficulty, has marked trismus, very agitated and kept stating that he wants to go home. LABORATORY WORK: This morning showed that his white cell count has dramatically improved from 19,200 to 5100, hemoglobin 12, hematocrit 36, MCV 89, and platelet count 257,000. Serum sodium has risen from 121 to 124, potassium is 3.8, chloride 91, bicarbonate 27, anion gap of 6, BUN 9, creatinine 0.6, estimated GFR was 137 mL per minute. His glucose was 97, calcium was 8.2 and magnesium was 2.2. ASSESSMENT AND PLAN: 1. Bowel obstruction, diffuse without any transition zone, consistent with paralytic ileus for which he is n.p.o. now. His gastrostomy tube to intermittent suction. 2. Hyponatremia, improving slightly from 121 to 124. Would continue with IV normal saline. 3. Seizures for which he is on IV Keppra 500 mg IV twice a day. 4. He has also a healthcare-associated pneumonia for which he is now on vancomycin and Zosyn. We will repeat his KUB tomorrow and monitor his lab work. I will repeat his BMP tonight to make sure that the potassium does not drift down and thus hypokalemia might aggravate the paralytic ileus and we will repeat the KUB tomorrow together with all his other labs. SHYANNE ELLIS MD DR: APARNA/dominick JOB#: [id number] / [id number]
[2018-09-29 18:29] LABS: CALCIUM 8.1 mg/dL (8.5-10.1); CREATININE 0.6 mg/dL (0.7-1.3); GFR 137.4; POTASSIUM 3.7 mmol/L (3.5-5.1)
[2018-09-29 19:51] VITALS: BP 163/82
[2018-09-29] MEDS: HALOPERIDOL LACT 5 MG/ML VIAL. IVP PRN (20:43)
[2018-09-30 01:05] LABS: VANC TR 10.4 mcg/mL (10.0-20.0)
[2018-09-30] MEDS: VANCOMYCIN 1 GM in IV NORMAL SALINE 250ML 250 ML IV SCH ×3 (01:27→22:00)
[2018-09-30] MEDS: HALOPERIDOL LACT 5 MG/ML VIAL. IVP PRN ×2 (02:40→10:44)
[2018-09-30 04:55] LABS: HEMATOCRIT 37.1 % (39.0-53.0); HEMOGLOBIN 12.4 g/dL (13.0-17.5); RED BLOOD COUNT 4.14 x10^6/uL (4.30-5.70); RED CELL DISTRIBUTION WIDTH 16.3 % (11.5-14.5); WHITE BLOOD COUNT 4.1 x10^3/uL (4.0-11.0)
[2018-09-30 05:01] LABS: ALBUMIN 2.9 g/dL (3.4-5.0); ALBUMIN/GLOBULIN RATIO 0.7 (1.0-1.7); CREATININE 0.6 mg/dL (0.7-1.3); GFR 137.4; POTASSIUM 3.5 mmol/L (3.5-5.1); TOTAL BILIRUBIN 0.4 mg/dL (0.2-1.0); TOTAL PROTEIN 6.8 g/dL (6.4-8.2)
[2018-09-30] MEDS: IV NORMAL SALINE 1,000ML 1,000 ML IV SCH ×2 (05:32→16:07)
[2018-09-30] MEDS: PIPERACILLIN/TAZOBACTAM 3.375 GM in IV NORMAL SALINE 50ML 50 ML IV SCH ×3 (05:32→22:00)
[2018-09-30] MEDS: VANCOMYCIN PER PHARMACY MC PRN (09:25)
[2018-09-30 10:55] VITALS: BP 161/79
[2018-09-30 15:33] VITALS: BP 168/78
[2018-09-30] MEDS: ENOXAPARIN 40 MG/0.4 ML SYRINGE. SQ SCH (17:33)
[2018-09-30 17:58] VITALS: BP 162/79
--- NOTE | 2018-09-30 18:50 | PN ---
DATE: 09/30/2018 SUBJECTIVE: The patient is sitting comfortably in his chair, in no apparent distress. Continued to be restless, agitated, wanting to go home, so far, he has not had any bowel movement and his gastrostomy tube continued to be connected to intermittent suction and there is about 300 mL in the canister. PHYSICAL EXAMINATION: GENERAL: When I examined him; however, he looked well and was clearly in no apparent respiratory distress, pale, but no jaundice, cyanosis, or thyromegaly. No jugular venous distension. No limb edema. VITAL SIGNS: His heart rate was 69, blood pressure was 161/79, temperature was 97.6, respiratory rate was 16, and oxygen saturation was 97%. HEAD, EYES, EARS, NOSE AND THROAT: Showed normocephalic, atraumatic. NECK: Supple. HEART: Showed normal first and second heart sounds. No gallop, rub or murmur. CHEST: Clear to auscultation. No crepitation or rhonchi. ABDOMEN: Scaphoid, soft, nontender. There is no guarding or rigidity. No organomegaly. All hernial orifice intact. Bowel sounds normal. NEUROLOGIC: He was awake, alert. All his cranial nerves are intact. He moves extremities without difficulty, although very unsteady on his feet. His intake over the last 24 hours was 1600, no output was recorded. LABORATORY DATA: As of this morning showed a white cell count 4100, hemoglobin 12.4, hematocrit 37, MCV 90 and platelet count 228,000. His chemistry showed his serum sodium to be 137, potassium 3.5, chloride 101, bicarbonate 23, anion gap of 13, BUN 9, creatinine 0.6, estimated GFR was 137 mL per minute, his glucose was 81, calcium was 8. Total bilirubin, AST, ALT, alkaline phosphatase were normal. Total protein was 6.8, albumin 2.9. His vancomycin trough level was 10.4. Urinalysis was essentially unremarkable and his nasal screen for MRSA with PCR was negative, so far all his cultures are negative. ASSESSMENT: 1. Bowel obstruction, diffuse without any transition zone consistent with paralytic ileus for which he is now n.p.o. His gastrostomy tube to intermittent suction. 2. Hyponatremia improving and in fact is back to normal. His serum sodium today is 137 from 121. 3. Seizure disorder for which he is using IV Keppra 500 mg twice a day. 4. He has also healthcare-associated pneumonia for which he is on vancomycin and Zosyn. 5. Urinary tract infection. 6. Dysphagia for which has gastrostomy tube in place. 7. Cognitive impairment for which he lives in a custodial. PLAN: To await the report of the radiologist for his KUB and if it was felt that the patient's bowel obstruction has resolved we can restart his tube feeding and his other medications. SHYANNE ELLIS MD DR: APARNA/dominick JOB#: [id number] / [id number]
--- NOTE | 2018-09-30 19:06 | RAD ---
Supine single view portable abdomen HISTORY: Abdominal pain. Bowel obstruction. COMPARISON: February 18, 2018. Note that the patient had a CT scan of the abdomen 2 days ago. FINDINGS: The exam is overpenetrated limiting evaluation of portions of the abdomen. There are distended loops of small bowel, nonspecific but compatible with an ileus. Obstruction considered less likely. Cannot exclude free air on this single image. IMPRESSION: Limited exam with suboptimal detail. Bowel gas pattern favors an ileus, more likely than obstruction. Electronically signed by: Anurag Alvarez MD (09/30/2018 7:02 PM) [facility]
[2018-09-30 23:00] VITALS: BP 171/82
[2018-10-01] MEDS: IV NORMAL SALINE 1,000ML 1,000 ML IV SCH ×2 (04:35→13:45)
[2018-10-01 05:25] VITALS: BP 172/81
[2018-10-01] MEDS: PIPERACILLIN/TAZOBACTAM 3.375 GM in IV NORMAL SALINE 50ML 50 ML IV SCH ×2 (05:37→14:00)
[2018-10-01] MEDS: VANCOMYCIN 1 GM in IV NORMAL SALINE 250ML 250 ML IV SCH ×2 (05:38→15:40)
[2018-10-01 07:20] LABS: CALCIUM 8.8 mg/dL (8.5-10.1); CREATININE 0.7 mg/dL (0.7-1.3); MAGNESIUM 2.1 mg/dL (1.8-2.4); POTASSIUM 3.5 mmol/L (3.5-5.1)
[2018-10-01] MEDS: HALOPERIDOL LACT 5 MG/ML VIAL. IVP PRN (08:32)
[2018-10-01 11:00] VITALS: BP 172/81
[2018-10-01] MEDS ORDERED: IOHEXOL 300 MG/ML 75 ML VIAL. IV ONE (12:15)
--- NOTE | 2018-10-01 12:19 | PN ---
DATE: 10/01/2018 SUBJECTIVE: The patient is resting, slightly propped up in bed, in no apparent respiratory distress. He continued to have cough, seemed to be very productive. Bowel sounds are still very sluggish, continued to drain through his gastrostomy tube. His repeat KUB yesterday stated that he has limited exam with suboptimal detailed bowel gas pattern, favors an ileus more likely than obstruction. OBJECTIVE: GENERAL: When I examined him this morning, he looked well and was clearly in no apparent respiratory distress, pale, but no jaundice, cyanosis, or thyromegaly. No jugular venous distention. No limb edema. VITAL SIGNS: His heart rate was 68, blood pressure was 172/81, temperature was 96.8, respiratory rate was 18 and oxygen saturation was 98% on room air. HEAD, EYES, EARS, NOSE AND THROAT: Showed normocephalic, atraumatic. NECK: Supple. HEART: Showed normal first and second sounds. No gallop, rub or murmur. CHEST: Clear to auscultation. No crepitation or rhonchi. ABDOMEN: Distended, soft, nontender. There is no tenderness. No guarding or rigidity. No organomegaly. Bowel sounds are sluggish. NEUROLOGIC: He is awake, alert, responding appropriately. Cranial nerves intact. He moves extremities without difficulty. His intake over the last 24 hours was 3200, output was 1700. LABORATORY DATA: As of this morning, his serum sodium is 137, potassium 3.5, chloride 99, bicarbonate 27, anion gap of 11, BUN 7, creatinine 0.7, estimated GFR was 115 mL per minute, his glucose 84, calcium was 8.8, magnesium was 2.1. Total bilirubin, AST, ALT, alkaline phosphatase were normal. Total protein 6.8, albumin 2.9. His white cell count was 4500, hemoglobin 12.4, hematocrit 37, MCV 90 and platelet count 128,000. ASSESSMENT: 1. Bowel obstruction, diffuse without any transition zone consistent with paralytic ileus for which he is now on n.p.o. His gastrostomy tube continued intermittent suction. 2. Hypernatremia has improved as of this morning. Serum sodium is 137 mEq per liter. 3. Seizure disorder, for which he is now on IV Keppra 500 mg twice a day. 4. He has also healthcare-associated pneumonia for which he is on vancomycin and Zosyn. 5. Urinary tract infection. 6. Dysphagia for which he has a gastrostomy tube in place. 7. Cognitive impairment for which he lives in a long term. PLAN: Repeat his CT scan of the abdomen and pelvis with IV contrast only. If there is improvement, we will be able to start him on tube feed and resume all his medication. Meanwhile, we will continue with IV antibiotic. SHYANNE ELLIS MD DR: APARNA/dominick JOB#: [id number] / [id number]
--- NOTE | 2018-10-01 12:40 | DS ---
DATE OF DISCHARGE: 10/01/2018 HOSPITAL COURSE: The patient is a 58-year-old male patient with cognitive impairment who lives in a half-way and who came yet again with another episode of bowel obstruction versus paralytic ileus. We kept him n.p.o. with gastrostomy tube to intermittent suction. He was also diagnosed with aspiration pneumonia and possible urinary tract infection and was started on IV fluid and IV antibiotic. He is constantly asking to go home despite multitude of attempts to convince him that he needs to stay until his bowel starts moving. This afternoon, his lab work has improved. Actually, his sodium has improved from 121 to 137 and we are in the process of arranging another CT scan to make sure that his bowel started moving. He became extremely angry and pulled his gastrostomy tube with VERO-FENG button, and therefore, decision was made to transfer him to [facility] to consult the gastroenterology team as well as the general surgeon. PHYSICAL EXAMINATION: GENERAL: When I saw him this afternoon, he was resting slightly propped up in bed, in no apparent respiratory distress. He was somewhat pale, but no jaundice, cyanosis or thyromegaly. No jugular venous distention. No limb edema. VITAL SIGNS: His heart rate was 68, blood pressure was 172/81, temperature was 96.8, respiratory rate was 18, and oxygen saturation was 98%. HEAD, EYES, EARS, NOSE, AND THROAT: Showed normocephalic, atraumatic. NECK: Supple. HEART: Showed normal first and second heart sounds with no gallop, rub, or murmur. CHEST: Clear to auscultation. No crepitation or rhonchi. ABDOMEN: Scaphoid, soft. There is no tenderness. No guarding or rigidity. No organomegaly. Bowel sounds are sluggish. NEUROLOGIC: He is awake, alert, responding appropriately. All cranial nerves intact. He moves extremities without difficulty, although he is unsteady on his feet. LABORATORY DATA: His lab work this morning showed white cell count of 4100, hemoglobin 12.4, hematocrit 37, MCV 90, and platelet count 228,000. His serum sodium was 137, potassium 3.5, chloride 99, bicarbonate 27, anion gap of 11, BUN 7, creatinine 0.7, estimated GFR was 115 mL per minute. His glucose was 84 and calcium was 8.8, magnesium 2.1. Total bilirubin, AST, ALT, alkaline phosphatase were normal. Total protein 6.8, albumin 2.9. Urinalysis was unremarkable, although it showed trace of leukocyte esterase, 1-4 wbc's and moderate amount of bacteria. Toxic screen showed that vancomycin trough level was 10.4. His urine culture has grown more than 100,000 colony forming units per mL of gram-negative rods. DISCHARGE MEDICATIONS: He was transferred to [facility] on vancomycin 1 gram IV q.8 hourly, piperacillin and tazobactam 3.375 grams IV q.8 hourly. He is on Keppra 500 mg IV q.12 hourly, normal saline at 100 mL per hour, Lovenox 40 mg subQ once a day, haloperidol 2 mg IV every 6 hours. FINAL DISCHARGE DIAGNOSES: 1. Dislodgement of gastrostomy tube with VERO-FENG button. 2. Bowel obstruction versus paralytic ileus. 3. Dysphagia. 4. Seizure disorder for which he is on Keppra for now. 5. Aspiration pneumonia. 6. Urinary tract infection. 7. Cognitive impairment. SHYANNE ELLIS MD DR: APARNA/dominick JOB#: [id number] / [id number]
[2018-10-01 13:56] LABS: VANC TR 17.4 mcg/mL (10.0-20.0)
[2018-10-01 15:00] VITALS: BP 172/81
[2018-10-01] MEDS: ENOXAPARIN 40 MG/0.4 ML SYRINGE. SQ SCH (17:10)
[2018-10-01 17:37] VITALS: BP 168/84
== END 2018-10-01 20:14 | disposition short-term general hospital (02) | DRG 393 ==
LOC: ER 11:15 → 1 SOUTH 15:24
PROVIDERS: ADMIT Internal Medicine; ATTEND Internal Medicine
DX: K94.23 Gastrostomy malfunction (principal); J69.0 Pneumonitis due to inhalation of food and vomit; E87.0 Hyperosmolality and hypernatremia; K56.609 Unspecified intestinal obstruction, unspecified as to partial versus complete obstruction; E87.1 Hypo-osmolality and hyponatremia; N39.0 Urinary tract infection, site not specified; K50.90 Crohn's disease, unspecified, without complications; K56.0 Paralytic ileus; Y83.3 Surgical operation with formation of external stoma as the cause of abnormal reaction of the patient, or of later complication, without mention of misadventure at the time of the procedure; Y82.8 Other medical devices associated with adverse incidents; R13.10 Dysphagia, unspecified; N40.0 Benign prostatic hyperplasia without lower urinary tract symptoms; G40.909 Epilepsy, unspecified, not intractable, without status epilepticus; F79 Unspecified intellectual disabilities; R32 Unspecified urinary incontinence; F41.9 Anxiety disorder, unspecified; F32.9 Major depressive disorder, single episode, unspecified; I10 Essential (primary) hypertension; Y95 Nosocomial condition
CPT/HCPCS: 36415; 71045; 74018; 74177; 80048; 80053; 80076; 80202; 81001; 83690; 83735; 84484; 85007; 85025; 85027; 87086; 87641; 93005; 96365; 96368; J1630; J1650; J1953; J2543; J3370; J7050; Q9967; 99285-25; J7030

== ENCOUNTER 2018-10-16 09:39 | Emergency (ER) | payer MEDICARE ==
[~2018-10-16 09:39] MED LIST changes: +MAGN400T3 PO; +ZINC56.7 TP
--- NOTE | 2018-10-16 10:12 | RAD ---
Two-view left femur study Clinical indications: Fall today. Left hip pain. FINDINGS: No acute fracture or dislocation or osteolytic process is seen. The left hip joint is unremarkable. IMPRESSION: No acute fracture. Electronically signed by: Pascual Loja MD (10/16/2018 10:08 AM) [facility]
--- NOTE | 2018-10-16 10:15 | RAD ---
2 view study of the left tibia and fibula Clinical indications: Fall today. Pain. FINDINGS: No acute fracture or dislocation or osteolytic process is seen. Mild periosteal reaction of the medial proximal shaft of the tibia is seen. IMPRESSION: No acute fracture. There is mild periosteal reaction of the proximal shaft of the left tibia. This may be seen with a healed stress fracture. Lateral soft tissue swelling of the left ankle region is seen. The mortise ankle joint appears intact and no acute fracture of this area is evident. Electronically signed by: Pascual Loja MD (10/16/2018 10:11 AM) [facility]
--- NOTE | 2018-10-16 10:20 | PHYS DOC ---
Past History Past Medical History: Anxiety, Depression, Hypertension, Pneumonia, Seizure, UTI, Other Additional Past Medical Histor: Hx of SBO Past Surgical History: Other Smoking: Non-smoker Alcohol Use: None Drug Use: None Adult General Chief Complaint Chief Complaint: MECHANICAL FALL HPI HPI Patient is a 58 year old M who presents after a fall this morning. Isac's history is limited due to the fact that he is nonverbal other than basic yes and no. He does not answer with each question even with yes or no. This history comes from EMS who state that he has pain in the left lower extremity. They state that he did ambulate using his walker, which is his baseline, prior to leaving his residence. He did seem to favor the left side however. When asked if he has pain he points towards the left lower extremity. Does not verbalize anything else. Review of Systems Review of Systems Unable to obtain due to patient's inability to verbally communicate Family History Family History No pertinent medical history was reported Current Medications Current Medications Current medications were reviewed Allergies Allergies Allergies Coded Allergies Type Severity Reaction Last Updated Verified No Known Drug Allergies 02/22/18 No Physical Exam Physical Exam Constitutional: Well developed, well nourished, no acute distress, non-toxic appearance. [] HENT: Normocephalic, atraumatic, Eyes: PERRLA, EOMI, conjunctiva normal, no discharge. [] Neck: Normal range of motion, no tenderness, supple, no stridor. [] Cardiovascular:Heart rate regular rhythm, Lungs & Thorax: Bilateral breath sounds clear to auscultation [] Abdomen: Bowel sounds normal, soft, no tenderness, no masses, no pulsatile masses. [] Skin: Warm, dry, no erythema, no rash. [] Back: No tenderness, no CVA tenderness. [] Extremities: no cyanosis, no clubbing, ROM intact, no edema. [] Mild nonfocal pain noted with palpation of the left lower extremity in the thigh and lower leg. Neurologic: Moves all extremities equally. Exam limited to inability to give for verbal feedback or follow commands Psychologic: Exam limited Current Patient Data Vital Signs Vital Signs Date Time Temp Pulse Resp B/P (MAP) Pulse Ox O2 Delivery O2 Flow Rate FiO2 10/16/18 09:59 97.8 78 20 99 Room Air EKG EKG [] Radiology/Procedures Radiology/Procedures X-ray of the left femur and left tibia/fibula showed no acute disease Course & Med Decision Making Course & Med Decision Making Pertinent Labs and Imaging studies reviewed. (See chart for details) [] Dragon Disclaimer Dragon Disclaimer This electronic medical record was generated, in whole or in part, using a voice recognition dictation system. Departure Departure: Impression: Primary Impression: Contusion of left lower limb Disposition: HOME, SELF-CARE Condition: STABLE Referrals: TOM TRAMMELL MD (PCP) Patient Instructions: Quadriceps Contusion Additional Instructions: Isac was seen in the emergency department after a fall. No emergency medical condition was found on history or physical exam. He did have normal x-rays of his left leg. He was found to have symptoms consistent with a bruise or contusion of his leg. He is advised follow up with his primary care doctor in the next 3-5 days for further management. Problem Qualifiers Primary Impression: Contusion of left lower limb Encounter type: initial encounter Qualified Codes: S80.12XA - Contusion of left lower leg, initial encounter FREDDY GONZÁLES MD Oct 16, 2018 10:20
[2018-10-16 10:37] VITALS: BP 143/77
== END 2018-10-16 10:39 | disposition home or self-care (01) ==
LOC: ER 09:39
DX: S80.12XA Contusion of left lower leg, initial encounter (principal); F41.9 Anxiety disorder, unspecified; F32.9 Major depressive disorder, single episode, unspecified; I10 Essential (primary) hypertension; Z87.440 Personal history of urinary (tract) infections; W18.30XA Fall on same level, unspecified, initial encounter; Y93.89 Activity, other specified; Y92.89 Other specified places as the place of occurrence of the external cause; Y99.8 Other external cause status
CPT/HCPCS: 73552; 73590; 99283

== ENCOUNTER 2019-09-05 07:51 | Inpatient (IN) | payer MEDICARE, OTHER ==
[~2019-09-05] VITALS: Ht 172.7 cm; Wt 55.3 kg
[2019-09-05] VITALS (24 sets, daily range): BP systolic 90–188; BP diastolic 46–96
[~2019-09-05 07:51] MED LIST changes: -BISA10SU13 RC; +BISA10SU14 RC; -ECON15CR TP; +ECON15CR10 TP; -MAGN400T3 PO; +MAGN400T5 PO; -MONT10TA6 PEG; +MONT10TA80 PEG; -VITS56.7 TP; +VITS56.72 TP
[2019-09-05] MEDS ORDERED: IV NORMAL SALINE 1,000ML 1,000 ML IV SCH (08:07)
[2019-09-05] MEDS ORDERED: CONTRAST GIVEN MC PRN (08:15)
--- NOTE | 2019-09-05 08:17 | PHYS DOC ---
Past History Past Medical History: Anxiety, Depression, Hypertension, Pneumonia, Seizure, Schizophrenia, UTI, Other Additional Past Medical Histor: Hx of SBO, mental retardation/developmental delay Past Surgical History: Other Smoking: Non-smoker Alcohol Use: None Drug Use: None Adult General Chief Complaint Chief Complaint: NAUSEA/VOMITING/DIARRHEA HPI HPI Patient is a 59-year-old male, with a history of mental impairment, and other health problems, including a history of an esophageal perforation, per verbal report from the staff at his [facility], as well as a Carson button for tube feeds, along with history of prior small bowel obstructions, who presents to the emergency department after having vomited once at his [facility]. According to the caregiver who accompanies the patient, she states that the patient does have a history of sometimes sneaking food in the staff were concerned that he might have done so, although the emesis appeared to be primarily milk, which would be consistent with his recent tube feedings. The patient has not complained of any pain and he only vomited once. They report he has been constipated but has not had any bloody emesis or stools. The patient denies being in any pain, but is not a reliable historian secondary to his mental impairment. There are no other known alleviating or exacerbating factors to his symptoms. Review of Systems Review of Systems Unable to obtain review of systems, secondary to patient's underlying mental impairment. Current Medications Current Medications Current Medications Medications (Trade) Dose Ordered Sig/Juanito Start Time Stop Time Status Last Admin Dose Admin Iohexol (Omnipaque 300 Mg/ml) 75 ml 1X ONCE 09/05/19 08:15 09/05/19 08:16 UNV Sodium Chloride 1,000 ml @ 100 mls/hr Q10H 09/05/19 08:07 09/05/19 18:06 Allergies Allergies Allergies Coded Allergies Type Severity Reaction Last Updated Verified No Known Drug Allergies 02/22/18 No Physical Exam Physical Exam PHYSICAL EXAM: CONSTITUTIONAL: Well developed, well nourished HEAD: normocephalic, atraumatic EENT: PERRL, EOMI. Conjunctivae normal color, sclerae non-icteric; moist mucous membranes. NECK: Supple, non-tender; no meningismus. LUNGS: Lungs CTA, breathing even and unlabored. Normal air movement. HEART: Regular rate and rhythm, no murmur CHEST: No deformity; non-tender ABDOMEN: The abdomen is soft, normal bowel sounds are present, there is no abdominal tenderness to palpation, there is a Carson button in the epigastric area, with a well-healed ventral midline abdominal scar, no masses or bruits. EXTREM: Normal ROM; no deformity, no calf tenderness. Normal pulses palpable in all extremities. There is no pedal edema. SKIN: No rash; no diaphoresis NEURO: Patient is awake, will answer some basic yes and no questions, and follow commands, no focal deficit. BACK: No CVA TTP. EKG EKG Normal sinus rhythm at a rate of 89 beats for minute, normal axis, normal intervals, left ventricular hypertrophy without acute ischemic ST/T changes.[] Repeat EKG, done at 10:10 AM, is unchanged. Radiology/Procedures Radiology/Procedures PROCEDURE: PORTABLE CHEST 1V PORTABLE CHEST 1V History: Possible aspiration. Comparison: September 28, 2018 Findings: Patchy medial bibasilar opacities. Scattered interstitial prominence, unchanged. Left upper lung calcified granuloma. No pneumothorax. Unchanged heart size. No pleural effusion. Impression: 1. Patchy medial bibasilar opacities, may represent atelectasis or consolidations and aspiration is possible. [] PROCEDURE: CT ABD PELV W/ IV CONTRST ONLY Examination: CT ABD PELV W/ IV CONTRST ONLY History: Nausea and vomiting Comparison/Correlation: 01/21/2018 and 09/28/2018 CT abdomen and pelvis exams Findings: Axial images of the abdomen and pelvis were obtained following IV contrast. Sagittal and coronal reformatted images were provided. Mild motion at the lung bases limits evaluation. Minimal discoid atelectasis is noted at the lung bases. At the posterior aspect of the right hepatic lobe, there is a 2 cm diameter low-attenuation lesion which has remained stable. Huong's lobe of the liver noted. G-tube in place. Spleen, pancreas, adrenal glands, and kidneys are normal. The gallbladder fossa is unremarkable. No extraluminal gas. No bowel obstruction. No inflammatory change about the cecum. Moderate diverticulosis of the distal colon noted. Mild prostatomegaly is present with findings of TURP. Urinary bladder is unremarkable. Transitional L5 vertebra is present. Impression: No suspicious inflammatory process involving the abdomen or pelvis. No obstruction. Course & Med Decision Making Course & Med Decision Making Pertinent Labs and Imaging studies reviewed. (See chart for details) []12:10PM: Patient's condition remains stable. He has had no further vomiting. I discussed the case with ANA Tijerina for cardiology, recommended observation and troponin trending. I discussed the case with the hospitalist who will admit the patient for further evaluation. He is not having any clinical signs of pneumonia and his x-ray findings will be managed expectantly. Dragon Disclaimer Dragon Disclaimer This electronic medical record was generated, in whole or in part, using a voice recognition dictation system. Departure Departure: Impression: Primary Impression: Nausea & vomiting Additional Impressions: Elevated troponin Cognitive impairment Disposition: ADMITTED INPATIENT Admitting Physician: Nain Mtz Condition: STABLE Referrals: TOM TRAMMELL MD (PCP) Problem Qualifiers PHILOMENA AWAN MD Sep 05, 2019 08:17
[2019-09-05 08:29] LABS: BASO % 0 % (0-3); EOS # 0.1 x10^3/uL (0.0-0.7); EOS % 1 % (0-3); HEMATOCRIT 41.9 % (39.0-53.0); HEMOGLOBIN 14.2 g/dL (13.0-17.5); LYMPH # 0.9 x10^3/uL (1.0-4.8); LYMPH % 17 % (24-48); MEAN CORPUSCULAR HEMOGLOBIN 31 pg (25-35); MEAN CORPUSCULAR HGB CONC 34 g/dL (31-37); MEAN CORPUSCULAR VOLUME 92 fL (79-100); MONO # 0.4 x10^3/uL (0.0-1.1); MONO % 7 % (0-9); NEUT # 4.1 x10^3uL (1.8-7.7); NEUT % 75 % (31-73); PLATELET COUNT 304 x10^3/uL (140-400); RED BLOOD COUNT 4.55 x10^6/uL (4.30-5.70); RED CELL DISTRIBUTION WIDTH 15.7 % (11.5-14.5); WHITE BLOOD COUNT 5.4 x10^3/uL (4.0-11.0)
[2019-09-05] MEDS ORDERED: IOHEXOL 300 MG/ML 75 ML VIAL. IV ONE (08:30)
[2019-09-05 08:48] LABS: ALBUMIN 3.6 g/dL (3.4-5.0); ALBUMIN/GLOBULIN RATIO 0.8 (1.0-1.7); CREATININE 0.6 mg/dL (0.7-1.3); POTASSIUM 3.9 mmol/L (3.5-5.1); TOTAL BILIRUBIN 0.3 mg/dL (0.2-1.0); TOTAL PROTEIN 8.1 g/dL (6.4-8.2)
--- NOTE | 2019-09-05 09:17 | RAD ---
PORTABLE CHEST 1V History: Possible aspiration. Comparison: September 28, 2018 Findings: Patchy medial bibasilar opacities. Scattered interstitial prominence, unchanged. Left upper lung calcified granuloma. No pneumothorax. Unchanged heart size. No pleural effusion. Impression: 1. Patchy medial bibasilar opacities, may represent atelectasis or consolidations and aspiration is possible. Electronically signed by: Avila Montoya DO (09/05/2019 9:14 AM) [id number]
--- NOTE | 2019-09-05 09:42 | RAD ---
Examination: CT ABD PELV W/ IV CONTRST ONLY History: Nausea and vomiting Comparison/Correlation: 01/21/2018 and 09/28/2018 CT abdomen and pelvis exams Findings: Axial images of the abdomen and pelvis were obtained following IV contrast. Sagittal and coronal reformatted images were provided. Mild motion at the lung bases limits evaluation. Minimal discoid atelectasis is noted at the lung bases. At the posterior aspect of the right hepatic lobe, there is a 2 cm diameter low-attenuation lesion which has remained stable. Huong's lobe of the liver noted. G-tube in place. Spleen, pancreas, adrenal glands, and kidneys are normal. The gallbladder fossa is unremarkable. No extraluminal gas. No bowel obstruction. No inflammatory change about the cecum. Moderate diverticulosis of the distal colon noted. Mild prostatomegaly is present with findings of TURP. Urinary bladder is unremarkable. Transitional L5 vertebra is present. Impression: No suspicious inflammatory process involving the abdomen or pelvis. No obstruction. PQRS Compliance Statement: One or more of the following individualized dose reduction techniques were utilized for this examination: 1. Automated exposure control 2. Adjustment of the mA and/or kV according to patient size 3. Use of iterative reconstruction technique Electronically signed by: Hao Bryson MD (09/05/2019 9:39 AM) [facility]
[2019-09-05 09:50] LABS: BILIRUBIN,URINE NEG (NEG); CLARITY,URINE CLEAR; COLOR,URINE YELLOW; GLUCOSE,URINE NEG (NEG)
[2019-09-05 09:51] LABS: NITRITE,URINE NEG (NEG); UROBILINOGEN,URINE 0.2 mg/dL (0.2 mg/dL)
[2019-09-05 09:53] LABS: BACTERIA,URINE 0 /HPF (0-FEW); SQUAMOUS EPITHELIAL CELL,UR FEW /LPF; WBC,URINE OCC /HPF (0-4)
--- NOTE | 2019-09-05 13:00 | NUR ---
NURSING NOTE ADMIT PT ADMIT FROM ED VIA EMS TO ROOM 124 WITH DX OF CHEST PAIN, ELEVATED TROP, AND NAUSEA/VOMITING AT 1258. PT SETTLED IN ROOM. JER GRIMES.
--- NOTE | 2019-09-05 13:01 | NUR ---
NURSING NOTE CONSULT CARDIOLOGY CONSULT CALLED FOR ELEVATED TROP AND CHEST PAIN. JER GRIMES.
[2019-09-05 13:31] LABS: CARBAM 8.8 mcg/mL (4.0-12.0)
[2019-09-05] MEDS ORDERED: [UNRECOGNIZED DRUG - CODE] TP (13:34)
[2019-09-05] MEDS ORDERED: ACID1CAP PO (13:34)
[2019-09-05] MEDS ORDERED: RANI75TA89 PO (13:34)
[2019-09-05] MEDS ORDERED: FAMO40OR4 PO (13:34)
[2019-09-05] MEDS ORDERED: BISA10SU4 RC (13:34)
[2019-09-05] MEDS ORDERED: METH57CR17 TP (13:34)
[2019-09-05] MEDS ORDERED: TERB15CR12 TP (13:34)
--- NOTE | 2019-09-05 13:53 | EKG ---
[address] [address] Test Date: 2019-09-05 Test Time: 10:10:08 Pat Name: CLAYTON HERNANDEZ Department: Room: 124 A Gender: M Fibreglass Laminator: : 1960 Requested By: PHILOMENA AWAN Order Number: [id number] Reading MD: Tony Stock MD Measurements Intervals [place] Rate: 88 P: 54 VA: 160 QRS: -6 QRSD: 84 T: 75 QT: 328 QTc: 400 Interpretive Statements SINUS RHYTHM Electronically Signed On 09-06-2019 16:28:24 PUBLIC INFORMATION COORDINATOR by Tony Stock MD
--- NOTE | 2019-09-05 14:53 | NUR ---
NURSING NOTE FLU SHOT CONTACTED [facility] PT NEEDS FLU SHOT. FLU SHOT ORDERED. JER GRIMES.
--- NOTE | 2019-09-05 16:56 | NUR ---
NURSING NOTE FEEDINGS PT EATS AT 0800, 1100, 1400, 1700, 2100. PT BROTHER IS GOING TO LEAD FABRICATOR FEEDINGS FROM [facility] AND BRING THEM TO THE HOSPITAL. JER GRIMES.
--- NOTE | 2019-09-05 17:51 | HP ---
ADMIT DATE: 09/05/2019 HISTORY OF PRESENT ILLNESS: The patient is a 59-year-old male patient, a resident at [facility], who was brought to the Emergency Room after having vomited once at his [facility] according to the caregivers who accompanied the patient. The patient does have a history of sometimes sneaking food and the staff are concerned that he might have done so, although the emesis appeared to be primarily milk which would be consistent with his recent tube feeding. The patient has not complained of any pain and he only vomited once. They reported that he has been constipated, but has not had any bloody emesis or stools. He denies any bleeding, any pain, but he is not a reliable historian secondary to his mental impairment. He was evaluated in the Emergency Room. His EKG showed that he was in sinus rhythm at a rate of 89 beats per minute with normal axis, normal intervals, left ventricular hypertrophy without acute ST changes. His chest x-ray showed the patient has patchy medial bibasilar opacities, scattered interstitial prominence, unchanged. His left upper lung calcified granuloma. No pneumothorax, unchanged heart size, no pleural effusion. Had a CT scan of the abdomen, which showed no suspicious inflammatory process involving the abdomen and pelvis, no obstruction. His lab work showed that his white cell count was normal at 5400 with normal platelets. His chemistry showed that he has mild hyponatremia with a serum sodium 130; however, his first set of cardiac enzymes showed troponin to be elevated at 0.106. Urinalysis was unremarkable and toxic screen showed carbamazepine level was 8.8 mcg/mL within normal therapeutic range of 4-12 and therefore, the patient was admitted to do 2 more sets of cardiac enzymes to consult the cardiology team and we have basically reconciled all his medication and continued on his tube feeds through the Ash-Gomez button. PAST MEDICAL HISTORY: Significant for intellectual disability, Crohn's disease, recurrent episode of small-bowel obstruction, chronic aspiration pneumonia, dysphagia, status post percutaneous endoscopic gastrostomy tube, seizure disorder, incontinence, benign prostatic hypertrophy, anxiety and depression. PAST SURGICAL HISTORY: Significant for multiple gastrostomy tube placements. Finally, he has a Ash-Gomez button, has multiple exploratory laparotomies for multiple bowel obstructions, multiple abdominal surgeries. ALLERGIES: He has no known drug allergies. FAMILY HISTORY: Noncontributory. SOCIAL HISTORY: The patient is a resident at [facility]. He does not smoke, drink alcohol or use any recreational drugs. MEDICATIONS: He is currently on following medications: He is on loratadine 5 mg per 5 mL, he takes 2 mg per feeding tube daily, clonidine, Catapres TTS 1 applied topically once a week and doxazosin mesylate 2 mg per feeding tube at bedtime for enlarged prostate. Diclofenac sodium for Voltaren 2 grams apply topically daily. BenGay greaseless cream applied topically twice a day, Tylenol 650 mg 3 times a day, carbamazepine 1000 mg per feeding tube twice a day with breakfast and lunch and oxcarbazepine 300 mg at bedtime. He is on ziprasidone 40 mg per feeding tube 3 times a day, and magnesium oxide 400 mg twice a day, montelukast 10 mg at bedtime. He is on Nutren 2.0 250 mL per feeding tube 4 times a day, simethicone 80 mg per feeding tube daily, bisacodyl 10 mg suppository rectally daily p.r.n. for constipation, Colace 50 mg 5 mL, he takes 5 mL per feeding tube daily, magnesium hydroxide 30 mL per feeding tube daily, polyethylene glycol 17 grams daily, famotidine 40 mg daily, ranitidine 75 mg daily. He is on acidophilus probiotic 2 capsules once a day. He is on terbinafine cream applied topically 4 times a day to his itching. He is on cranberry 250 mg per feeding tube once a day, Nexium powder 40 mg per feeding tube daily. REVIEW OF SYSTEMS: Unobtainable. PHYSICAL EXAMINATION: GENERAL: On arrival, he looked well and was clearly in no apparent respiratory distress. No pallor, jaundice, cyanosis or thyromegaly. No jugular venous distention. No limb edema. VITAL SIGNS: His heart rate was 83, blood pressure was high, on arrival was 152/92, temperature was 98, respiratory rate was 16, and oxygen saturation was 96%. HEAD, EYES, EARS, NOSE AND THROAT: Showed normocephalic, atraumatic. NECK: Supple. HEART: Showed normal first and second heart sounds. No gallop or murmur. CHEST: Clear to auscultation. No crepitation or rhonchi. ABDOMEN: Slightly distended, soft with Ash-Gomez button in place. There is no tenderness. No guarding or rigidity. No organomegaly. All hernial orifice intact. Bowel sounds normal. NEUROLOGIC: He is awake, alert, responding appropriately. All cranial nerves intact. EXTREMITIES: He moves extremities without difficulty, ambulates without assistance or assistive devices. LABORATORY DATA: On arrival, his white cell count was 5400, hemoglobin 14, hematocrit 42, MCV 92, and platelet count of 304,000. His chemistry showed a serum sodium 130, potassium 3.9, chloride 93, bicarbonate 29, anion gap of 8, BUN 15, creatinine 0.6, estimated GFR was 137 mL per minute, his glucose was 107, calcium was 9. Total bilirubin, AST, ALT, alkaline phosphatase were normal. First set troponin was less than 0.106. Total protein was 8.1, albumin was 3.6. Lipase was 83. His urinalysis was essentially unremarkable and there was only 6-10 rbc's, negative for wbc's and no bacteria. His toxic screen showed that the carbamazepine trough level was 8.8 mcg/mL with normal range of 4-12. ASSESSMENT AND PLAN: The patient will be admitted. We will do 2 more sets of cardiac enzyme. We will check his fasting lipid profile tomorrow and also consult the cardiology. Meanwhile, we will continue all his medication as before. SHYANNE ELLIS MD DR: APARNA/dominick JOB#: [id number] / [id number]
[2019-09-05] MEDS ORDERED: BISACODYL 10 MG SUPP.RECT RC PRN (18:15)
[2019-09-05] MEDS ORDERED: TERBINAFINE 1% TOPICAL CREAM 30GM TUBE. TP PRN (18:15)
[2019-09-05] MEDS ORDERED: SIMETHICONE 80 MG TAB.CHEW PEG PRN (18:15)
[2019-09-05] MEDS ORDERED: TERBINAFINE 1% TOPICAL CREAM 30GM TUBE. TP SCH (18:15)
[2019-09-05] MEDS ORDERED: VITS A & D/LANOLIN TOPICAL OINTMENT 42GM TUBE. TP PRN (18:15)
[2019-09-05] MEDS ORDERED: POLYETHYLENE GLYCOL 3350 17 GM PACKET. PEG PRN (18:15)
[2019-09-05] MEDS ORDERED: ADENOSINE 6 MG/2 ML VIAL IV ONE ×5 (18:19→19:00)
[2019-09-05] MEDS ORDERED: dilTIAZem VIAL 125 MG in IV DEXTROSE 5% 100 ML IV PRN ×2 (18:45→19:00)
[2019-09-05] MEDS ORDERED: dilTIAZem 25 MG/5 ML VIAL IVP ONE (19:00)
--- NOTE | 2019-09-05 19:21 | NUR ---
NURSING NOTE CHANGE IN HEART RATE: AT 1818 PT HEART RATE WAS ELEVATED UP TO 180'S. THIS NURSE WENT IN TO PT ROOM TO ASSESS PT. PT WAS ASYMPTOMATIC AND SITTING UP RESTING IN THE BED COMFORTABLY AND CONFIRMED TACHYCARDIA BY MANUAL RADIAL PALPATION. PT WAS INSTRUCTED TO BEAR DOWN AND TO TRY COUGHING WITH NO CHANGES. IT OPERATIONS MANAGER NOTIFIED OF SITUATION AND ON HER WAY FROM ED.ED ALSO NOTIFIED OF SITUATION AND MAY NEED EMERGENT ASSISTANCE WILL KEEP UPDATED. PT VITALS OBTAINED 1818 121/84 PULSE WAS RECORDED AT 150. PT HEART RATE WAS BETWEEN 150'S-200'S AND TOO FAST TO DIFFERENTIATE IF IRREGULAR AT THIS TIME. NORMAL SALINE STARTED WHILE DR ELLIS WAS CALLED, ICU NURSE JACQUE OBTAINED ORDERS. PT HOOKED UP TO DEFIBRILLATION PADS TO MONITOR ON CRASH CART. VITALS OBTAINED 1820 177/90 PULSE 163. PT IN STABLE SVT VS AFIB. IT OPERATIONS MANAGER AT BEDSIDE WITH 4 RN'S ALSO. PT INSTRUCTED THAT MEDICATION WILL MAKE HIM 'FEEL FUNNY' AND COACHED ON BREATHING TECHNIQUES. ADENOSINE 6MG GIVEN AT 182 RAPID PUSH FOLLOWED WITH 20CC NS. PT HEART RATE PAUSED AND RESTARTED BACK TO 160'S-200'S. ADENOSINE 12MG GIVEN AT 1827 RAPID PUSH FOLLOWED BY 20CC NS FLUSH. PT PAUSED THEN RESTARTED AND WAS 120S THEN BACK UP TO 160S. DR ELLIS NOTIFIED AND ORDER TO TRANSFER TO ICU WHEN STABALIZED. ORDER ALSO OBTAINED FOR DILTIAZEM BOLUS 20MG. DILTIAZEM GIVEN AT 1833 BY ICU NURSE IVP OVER 5 MINUTES. VITALS OBTAINED 156/74 PULSE 111. EKG ORDERED. DILTIAZEM DRIP STARTED BY ICU NURSE AT 5 MG/ HR DUE TO DROP IN BP 170 DOWN TO 130'S. VITALS AT 1841 BLOOD PRESSURE 136/65 PULSE 88. EKG OBTAINED AT 1847. PT WAS TRANSFERRED TO ICU. REPORT GIVEN TO KELL ICU NURSE. FAMILY WAS INITIALLY CALLED BY Randal RIOS TO CONFIRM CODE STATUS AND NOTIFICATION OF PATIENT CHANGE IN STATUS. FAMILY ARRIVED WHEN PATIENT GOING TO ICU. PT RESTING IN BED COMFORTABLY WITH CARDIZEM DRIP RUNNING. JACQUE RODRIGUEZ BACK FEEDER [employer] LAYUP LINE CMSRN SC- AND CORNELIO RIOS RN BSN
[2019-09-05] MEDS ORDERED: ASPIRIN 325 MG TABLET FT ONE (19:30)
[2019-09-05] MEDS: DOXAZOSIN MESYLATE 1 MG TABLET PEG SCH (20:27)
[2019-09-05] MEDS: ZIPRASIDONE 40 MG CAPSULE. PEG SCH (20:27)
[2019-09-05] MEDS: MONTELUKAST 10 MG TABLET. PO SCH (20:27)
[2019-09-05] MEDS: carBAMazepine 200 MG/10 ML ORAL.SUSP PO SCH (20:28)
[2019-09-05] MEDS: MAGNESIUM OXIDE 400 MG TABLET PEG SCH (20:28)
[2019-09-05] MEDS ORDERED: NUTRITIONAL SUPPLEMENT PEG SCH (21:00)
[2019-09-05] MEDS ORDERED: ACETAMINOPHEN PEG SCH (21:00)
[2019-09-06] VITALS (35 sets, daily range): BP systolic 90–205; BP diastolic 50–77
--- NOTE | 2019-09-06 01:52 | EKG ---
[address] [address] Test Date: 2019-09-05 Test Time: 19:47:13 Pat Name: CLAYTON HERNANDEZ Department: Room: ICU02 1 Gender: M Monogram Technician: ROSE : 1960 Requested By: PHILOMENA AWAN Order Number: [id number] Reading MD: Tony Stock MD Measurements Intervals [place] Rate: 96 P: FL: QRS: 17 QRSD: 76 T: 70 QT: 350 QTc: 443 Interpretive Statements ATRIAL FIBRILLATION WITH CONTROLLED RESPONSE Electronically Signed On 09-06-2019 16:28:04 DENTAL TECHNICIAN APPRENTICE by Tony Stock MD
--- NOTE | 2019-09-06 06:00 | NUR ---
Shift Note: Pt continues to be in afib, HR is controlled on cardizem drip, cardizem was titrated as follows 1934 increased to 10mg/hr d/t HR maintaining in 140s 6 decreased to 5mg/hr d/t HR in the 70s and BP 105/46 0025 increased to 10mg/hr d/t HR in the 120s and BP 121/63 0300 decreased to 5mg/hr d/t HR in the 60s, pt started have increased number of pauses at this time as well. Since this time the pts HR has been well managed and BP is tolerating the drip (to note the patient's catapress patch was removed at 2230 d/t a drop in BP while on the cardizem drip, this may need replacing when patient is off the drip). Rodriguez is to dependent drainage and draining clear yellow urine, pt has had no further c/o chest pain once heart rate was WNL. Pt has not slept much throughout the night.
[2019-09-06 06:20] LABS: HEMOGLOBIN 15.2 g/dL (13.0-17.5); RED BLOOD COUNT 4.82 x10^6/uL (4.30-5.70); RED CELL DISTRIBUTION WIDTH 15.3 % (11.5-14.5); WHITE BLOOD COUNT 5.7 x10^3/uL (4.0-11.0)
[2019-09-06 06:58] LABS: CALCIUM 8.9 mg/dL (8.5-10.1); CREATININE 0.5 mg/dL (0.7-1.3); POTASSIUM 3.9 mmol/L (3.5-5.1)
[2019-09-06] MEDS ORDERED: FLU VAX QS 2019-20 (36MOS+)/PF 0.5 ML SYRINGE. VAX IM ONE (09:00)
[2019-09-06] MEDS ORDERED: CRANBERRY 250 MG PEG SCH (09:00)
--- NOTE | 2019-09-06 09:09 | PDOC2 ---
CARDIAC CONSULT DATE OF CONSULT Date Of Consult DATE: 09/06/19 TIME: 09:01 REASON FOR CONSULT Reason for Consult Chest pain, elevated troponin REFERRING PHYSICIAN Referring Physician Dr. Mtz SOURCE Source: Chart review, Patient HPI History of Present Illness This is a 59 yo male who presented from [facility] secondary to vomiting. Troponin checked and was mildly elevated, which prompted this consult. Patient has extensive GI history including multiple abdominal surgeries secondary to bowel obstruction and dysphagia with multiple g-tube placements. Most recent was a week ago. Staff at facility reports that he had episode of vomiting following his feeding. Emesis was reportedly milky, consistent with tube feedings. Patient has complained of right lower quadrant pain since admission to the unit. This is most pronounced following feeding. Last night following feeding, patient c/o right lower quadrant pain then went into AFIB with RVR. Rate in the 190 range an d it was unclear as to whether it was AFIB or SVT. Adenosine was initially administered without response. IV Cardizem bolus was administered and rate sowed enough to see that this was AFIB with RVR. Cardizem gtt was initiate. Although patient is a poor historian, he denies any chest pain, palpitations, dizziness, diaphoresis, or SOA. Continues to c/o RLQ pain. No previous h/o CAD of AFIB. PAST MEDICAL HISTORY Past Medical History intellectual disability, CP Cardiovascular: HTN Pulmonary: Pneumonia (chronic aspiration PNA) CENTRAL NERVOUS SYSTEM: Seizure GI: Constipation (ileus ), GERD, Other (dysphagia s/p G tube placement, Crohn's Disease) Heme/Onc: Anemia NOS Psych: Anxiety, Depression Musculoskeletal: Other (DDD) PAST SURGICAL HISTORY Past Surgical History: Other (Cervical spine fusion, G-tube placement, Ash-Gomez button, multiple abdominal surgeries related to bowel obstructions ) FAMILY HISTORY Family History: Family History Unknown SOCIAL HISTORY Smoke: No ALCOHOL: none Drugs: None [facility]: [facility] CURRENT MEDICATIONS Current Medications Current Medications Sodium Chloride 1,000 ml @ 100 mls/hr Q10H IV Last administered on 09/05/19at 08:27; Start 09/05/19 at 08:07; Stop 09/05/19 at 18:06; Status DC Iohexol (Omnipaque 300 Mg/ml) 75 ml 1X ONCE IV Last administered on 09/05/19at 08:42; Start 09/05/19 at 08:30; Stop 09/05/19 at 08:32; Status DC Info (Do NOT chart on this entry -- for MONITORING) 1 each PRN DAILY PRN MC SEE COMMENTS; Start 09/05/19 at 08:15; Stop 09/07/19 at 08:14 Influenza Virus Vaccine Quadrival (Afluria Quad 2019-20 (3yr Up) Syringe) 0.5 ml ONCE ONCE VAX IM ; Start 09/06/19 at 09:00; Stop 09/06/19 at 09:01 Bisacodyl (Dulcolax Supp) 10 mg PRN DAILY PRN RC SECOND CHOICE CONSTIPATION; S tart 09/05/19 at 18:15 Clonidine HCl (Catapres Tts-1) 1 patch WEEKLY TD ; Start 09/12/19 at 09:00 Diclofenac Sodium (Voltaren) 2 adriano DAILY08 TP ; Start 09/06/19 at 08:00 Docusate Sodium (Colace Solution) 50 mg DAILY PEG ; Start 09/06/19 at 09:00 Magnesium Hydroxide (Milk Of Magnesia) 2,400 mg DAILY PEG ; Start 09/06/19 at 09:00 Magnesium Oxide (Magnesium Oxide) 400 mg BID PEG Last administered on 09/05/19at 20:28; Start 09/05/19 at 21:00 Montelukast Sodium (Singulair) 10 mg HS PO Last administered on 09/05/19at 20:27; Start 09/05/19 at 21:00 Polyethylene Glycol (miraLAX) 17 gm PRN DAILY PRN PEG FIRST CHOICE CONSTIPATION; Start 09/05/19 at 18:15 Simethicone (Gas-X) 80 mg PRN DAILY PRN PEG GAS / BLOATING; Start 09/05/19 at 18:15 Terbinafine HCl (LamISIL) 1 adriano PRN BID TP ; Start 09/05/19 at 18:15; Stop 09/05/19 at 18:26; Status DC Terbinafine HCl (LamISIL) 1 adriano PRN QID PRN TP REDNESS, BURNING, ITCHING SHAE; Start 09/05/19 at 18:15 Ziprasidone (Geodon) 40 mg TID PEG Last administered on 09/05/19at 20:27; Start 09/05/19 at 21:00 Non-Formulary Medication (Acetaminophen ) 25 ml TID PEG ; Start 09/05/19 at 21:00; Stop 09/06/19 at 07:07; Status DC Lactobacillus Rhamnosus (Culturelle) 2 cap DAILY PO ; Start 09/06/19 at 09:00 Calcium Carbonate/ Glycine (Tums) 500 mg TIDWMEALS PO ; Start 09/06/19 at 08:00 Carbamazepine (TEGretol) 200 mg BIDWBKFT/HERBIE PEG ; Start 09/06/19 at 08:00 Carbamazepine (TEGretol) 300 mg QHS PO Last administered on 09/05/19at 20:28; Start 09/05/19 at 21:00 Doxazosin Mesylate (Cardura) 2 mg QHS PEG Last administered on 09/05/19at 20:27; Start 09/05/19 at 21:00 Famotidine (Pepcid) 40 mg DAILY16 PEG ; Start 09/06/19 at 16:00 Cetirizine HCl (ZyrTEC ORAL SOLN) 10 mg DAILY PEG ; Start 09/06/19 at 09:00 Multi-Ingredient Ointment (Analgesic [place]) 1 adriano PRN BID PRN TP MUSCLE PAIN; Start 09/05/19 at 18:15 Non-Formulary Medication (Nutritional Supplement (Nutren 2.0)) 250 ml QID PEG ; Start 09/05/19 at 21:00; Stop 09/05/19 at 18:06; Status DC Vitamin A/Vitamin D (Vitamin A & D Ointment) 1 adriano PRN DAILY PRN TP SKIN PROTECTION; Start 09/05/19 at 18:15 Non-Formulary Medication ([cranberry] ) 250 mg DAILY PEG ; Start 09/06/19 at 09:00; Stop 09/05/19 at 18:22; Status DC Adenosine (Adenocard) 6 mg STK-MED ONCE IV ; Start 09/05/19 at 18:19; Stop 09/05/19 at 18:19; Status DC Adenosine (Adenocard) 6 mg STK-MED ONCE IV ; Start 09/05/19 at 18:19; Stop 09/05/19 at 18:20; Status DC Adenosine (Adenocard) 6 mg STK-MED ONCE IV ; Start 09/05/19 at 18:25; Stop 09/05/19 at 18:26; Status DC Diltiazem HCl 125 mg/Dextrose 125 ml @ 5 mls/hr CONT PRN IV SEE I/O RECORD; Start 09/05/19 at 18:45; Stop 09/05/19 at 19:05; Status DC Adenosine (Adenocard) 6 mg 1X ONCE IV Last administered on 09/05/19at 18:45; Start 09/05/19 at 19:00; Stop 09/05/19 at 19:10; Status DC Adenosine (Adenocard) 12 mg 1X ONCE IV Last administered on 09/05/19at 19:00; Start 09/05/19 at 19:00; Stop 09/05/19 at 19:08; Status DC Diltiazem HCl (Cardizem Iv Push) 20 mg 1X ONCE IVP Last administered on 09/05/19at 19:00; Start 09/05/19 at 19:00; Stop 09/05/19 at 19:05; Status DC Diltiazem HCl 125 mg/Dextrose 125 ml @ 5 mls/hr CONT PRN IV SEE I/O RECORD Last administered on 09/05/19at 19:10; Start 09/05/19 at 19:00 Aspirin (Matthew Aspirin) 325 mg 1X ONCE FT Last administered on 09/05/19at 20:27; Start 09/05/19 at 19:30; Stop 09/05/19 at 19:32; Status DC Acetaminophen (Tylenol Oral Soln) 650 mg TID PEG ; Start 09/06/19 at 09:00 Active Scripts Active Reported Vitamin A and D (Vitamins A and D) 113 Gm Oint...g. 113 Gm TP PRN DAILY PRN [place] Greaseless Cream (Methyl Salicylate/Menthol) 57 Gm Cream..g. 1 Adriano TP PRN BID 10 Days Terbinafine (Terbinafine Hcl) 15 Gm Cream..g. 1 Adriano TP PRN BID 14 Days Zantac 75 (Ranitidine Hcl) 75 Mg Tablet 1 Tab PO PRN DAILY 30 Days Famotidine 40 Mg/5 Ml Oral.susp 40 Mg PO DAILY16 Acidophilus Probiotic Capsule (Acidophilus/Pectin, [place]) 1 Each Capsule 2 Cap PO DAILY 30 Days Bisacodyl 10 Mg Supp.rect 10 Mg RC PRN DAILY PRN Magnesium Oxide 400 Mg Tablet 1 Tab PO BID Calcium Carbonate 500 Mg/5 Ml Oral.susp 600 Mg PO TIDWMEALS Voltaren (Diclofenac Sodium) 100 Gm Gel..gram. 2 Gm TP DAILY08 Miralax (Polyethylene Glycol 3350) 17 Gm Powd.pack 1 Packet PEG DAILY PRN Singulair Tablet (Montelukast Sodium) 10 Mg Tablet 1 Tab PEG HS LAST DOSE GIVEN: DATE: TIME: NEXT DOSE DUE: DATE: TIME: Loratadine 5 Mg/5 Ml Solution 10 Ml PEG DAILY LAST DOSE GIVEN: DATE: TIME: NEXT DOSE DUE: DATE: TIME: Catapres-Tts 1 (Clonidine) 1 Each Patch.tdwk 1 Each TD WEEKLY LAST DOSE GIVEN: DATE: TIME: NEXT DOSE DUE: DATE: TIME: Docusate Sodium 50 Mg/5 Ml Liquid 5 Ml PEG DAILY LAST DOSE GIVEN: DATE: TIME: NEXT DOSE DUE: DATE: TIME: Milk Of Magnesia (Magnesium Hydroxide) 400 Mg/5 Ml Oral.susp 30 Ml PEG DAILY LAST DOSE GIVEN: DATE: TIME: NEXT DOSE DUE: DATE: TIME: Terbinafine (Terbinafine Hcl) 15 Gm Cream..g. 15 Gm TP QID PRN LAST DOSE GIVEN: DATE: NOT GIVEN THIS ADMISSION NEXT DOSE DUE: DATE: TODAY TIME: IF NEEDED TIME: IF NEEDED Nutren 2.0 (Nutritional Supplement) 250 Ml Liquid 250 Ml PEG QID LAST DOSE GIVEN: DATE: TODAY TIME: AM NEXT DOSE DUE: DATE: TODAY TIME: AFTERNOON Geodon (Ziprasidone Hcl) 20 Mg Capsule 40 Mg PEG TID LAST DOSE GIVEN: DATE: TIME: AM NEXT DOSE DUE: DATE: TODAY TIME: AFTERNOON Carbamazepine 100 Mg/5 Ml Oral.susp 15 Ml PEG HS LAST DOSE GIVEN: DATE: YESTER TIME: AT BEDTIME NEXT DOSE DUE: DATE: TODAY TIME: AT BEDTIME Carbamazepine 100 Mg/5 Ml Oral.susp 10 Ml PEG BIDWBK/HERBIE LAST DOSE GIVEN: DATE: TODAY TIME: AM NEXT DOSE DUE: DATE: TODAY TIME: PM Acetaminophen 160 Mg/5 Ml Solution 25 Ml PEG TID LAST DOSE GIVEN: DATE: TODAY TIME: AM NEXT DOSE DUE: DATE: TODAY TIME: PM Simethicone 80 Mg Tab.chew 80 Mg PEG DAILY PRN LAST DOSE GIVEN: DATE: TODAY TIME: AM NEXT DOSE DUE: DATE: TOMORROW TIME: AM [nexium powder] 40 Mg PEG DAILY LAST DOSE GIVEN: DATE: TODAY TIME: AM NEXT DOSE DUE: DATE: TODAY TIME: PM DATE: TODAY TIME: PM Doxazosin Mesylate 2 Mg Tablet 2 Mg PEG HS LAST DOSE GIVEN: DATE: YESTERDAY TIME: AT BEDTIME NEXT DOSE DUE: DATE: TODAY TIME: AT BEDTIME [cranberry] 250 Mg PEG DAILY LAST DOSE GIVEN: DATE: TODAY TIME: AM NEXT DOSE DUE: DATE: TOMORROW TIME: AM ALLERGIES Allergies: Coded Allergies: No Known Drug Allergies (Unverified , 02/22/18) ROS Review of Systems 14 point ROS conducted with pertinent positives noted above in HPI PHYSICAL EXAM General: Alert, Cooperative, No acute distress, Other (alert to person and place) HEENT: Atraumatic, Mucous membr. moist/pink Lungs: Clear to auscultation, Other (diminished ) Heart: Other (AFIB ) Abdomen: Soft, No tenderness Extremities: No edema, Normal pulses Skin: No breakdown Neuro: Sensation intact Psych/Mental Status: Other (calm, cooperative) MUSCULOSKELETAL: Osteoarthritic changes both hands VITALS Vital Signs Vital Signs Date Time Temp Pulse Resp B/P (MAP) Pulse Ox O2 Delivery O2 Flow Rate FiO2 09/06/19 08:12 90 15 120/72 (88) 95 Room Air 09/06/19 04:00 97.3 LABS LABS Laboratory Tests Test 09/05/19 08:14 09/05/19 09:16 09/05/19 10:03 09/05/19 15:20 White Blood Count 5.4 x10^3/uL (4.0-11.0) Red Blood Count 4.55 x10^6/uL (4.30-5.70) Hemoglobin 14.2 g/dL (13.0-17.5) Hematocrit 41.9 % (39.0-53.0) Mean Corpuscular Volume 92 fL (79-100) Mean Corpuscular Hemoglobin 31 pg (25-35) Mean Corpuscular Hemoglobin Concent 34 g/dL (31-37) Red Cell Distribution Width 15.7 % (11.5-14.5) Platelet Count 304 x10^3/uL (140-400) Neutrophils (%) (Auto) 75 % (31-73) Lymphocytes (%) (Auto) 17 % (24-48) Monocytes (%) (Auto) 7 % (0-9) Eosinophils (%) (Auto) 1 % (0-3) Basophils (%) (Auto) 0 % (0-3) Neutrophils # (Auto) 4.1 x10^3uL (1.8-7.7) Lymphocytes # (Auto) 0.9 x10^3/uL (1.0-4.8) Monocytes # (Auto) 0.4 x10^3/uL (0.0-1.1) Eosinophils # (Auto) 0.1 x10^3/uL (0.0-0.7) Basophils # (Auto) 0.0 x10^3/uL (0.0-0.2) Sodium Level 130 mmol/L (136-145) Potassium Level 3.9 mmol/L (3.5-5.1) Chloride Level 93 mmol/L (98-107) Carbon Dioxide Level 29 mmol/L (21-32) Anion Gap 8 (6-14) Blood Urea Nitrogen 15 mg/dL (8-26) Creatinine 0.6 mg/dL (0.7-1.3) Estimated GFR (Cockcroft-Gault) 137.0 BUN/Creatinine Ratio 25 (6-20) Glucose Level 107 mg/dL (70-99) Calcium Level 9.0 mg/dL (8.5-10.1) Total Bilirubin 0.3 mg/dL (0.2-1.0) Aspartate Amino Transf (AST/SGOT) 24 U/L (15-37) Alanine Aminotransferase (ALT/SGPT) 42 U/L (16-63) Alkaline Phosphatase 101 U/L (46-116) Troponin I Quantitative 0.106 ng/mL (0-0.055) 0.108 ng/mL (0-0.055) 0.070 ng/mL (0-0.055) Total Protein 8.1 g/dL (6.4-8.2) Albumin 3.6 g/dL (3.4-5.0) Albumin/Globulin Ratio 0.8 (1.0-1.7) Lipase 83 U/L (73-393) Carbamazepine (Tegretol) Level 8.8 mcg/mL (4.0-12.0) Carbamazepine Last Dose Date 09/05/19 Carbamazepine Last Dose Time 0807 Urine Collection Type Unknown Urine Color Yellow Urine Clarity Clear Urine pH 8.5 Urine Specific [place] 1.010 Urine Protein Neg (NEG-TRACE) Urine Glucose (UA) Neg mg/dL (NEG) Urine Ketones (Stick) Neg mg/dL (NEG) Urine Blood Trace (NEG) Urine Nitrite Neg (NEG) Urine Bilirubin Neg (NEG) Urine Urobilinogen Dipstick 0.2 mg/dL (0.2 mg/dL) Urine Leukocyte Esterase Neg (NEG) Urine RBC 6-10 /HPF (0-2) Urine WBC Occ /HPF (0-4) Urine Squamous Epithelial Cells Few /LPF Urine Transitional Epithelial Cells Occ /LPF Urine Bacteria 0 /HPF (0-FEW) Test 09/05/19 18:45 09/06/19 05:35 Troponin I Quantitative 0.058 ng/mL (0-0.055) White Blood Count 5.7 x10^3/uL (4.0-11.0) Red Blood Count 4.82 x10^6/uL (4.30-5.70) Hemoglobin 15.2 g/dL (13.0-17.5) Hematocrit 45.0 % (39.0-53.0) Mean Corpuscular Volume 93 fL (79-100) Mean Corpuscular Hemoglobin 32 pg (25-35) Mean Corpuscular Hemoglobin Concent 34 g/dL (31-37) Red Cell Distribution Width 15.3 % (11.5-14.5) Platelet Count 309 x10^3/uL (140-400) Sodium Level 134 mmol/L (136-145) Potassium Level 3.9 mmol/L (3.5-5.1) Chloride Level 100 mmol/L (98-107) Carbon Dioxide Level 26 mmol/L (21-32) Anion Gap 8 (6-14) Blood Urea Nitrogen 14 mg/dL (8-26) Creatinine 0.5 mg/dL (0.7-1.3) Estimated GFR (Cockcroft-Gault) 169.0 Glucose Level 97 mg/dL (70-99) Calcium Level 8.9 mg/dL (8.5-10.1) Magnesium Level 2.2 mg/dL (1.8-2.4) ASSESSMENT/PLAN Assessment/Plan 1. Vomiting, abdominal pain s/p tube feeding 2. AFIB with RVR; present in NSR, but went into AFIB with RVR overnight. No known h/o AFIB. Rate now controlled on Cardizem gtt. Remains in AFIB 3. Dysphagia with h/o multiple g-tube placements. Most recent last week. 4. Recurrent aspiration PNA 5. Mild troponin elevation; peak 0.109. Most probably type II, demand ischemia. CP free 6. H/o recurrent bowel obstructions/ileus 7. Intellectual disability, cerebral palsy. Recommendations Lipids, TSH Start metoprolol per G-tube for rate control and titrate off Cardizem gtt Add ASA for stroke prevention. Probable poor candidate for OAC Consider Echo to asses LV systolic function Supportive care MARTINEZ MILLS APRN Sep 06, 2019 09:09
[2019-09-06] MEDS: CETIRIZINE 5 MG/5 ML ORAL SOLUTION. PEG SCH (09:22)
[2019-09-06] MEDS: MAGNESIUM OXIDE 400 MG TABLET PEG SCH ×2 (09:22→20:50)
[2019-09-06] MEDS: ACETAMINOPHEN 650 MG/20.3 ML SOLUTION. PEG SCH ×3 (09:22→20:51)
[2019-09-06] MEDS: CALCIUM CARBONATE 500 MG TAB.CHEW PO SCH ×3 (09:22→17:46)
[2019-09-06] MEDS: MAGNESIUM HYDROXIDE 2,400 MG/30 ML ORAL.SUSP. PEG SCH (09:22)
[2019-09-06] MEDS: LACTOBACILLUS RHAMNOSUS GG 1 CAPSULE. PO SCH (09:22)
[2019-09-06] MEDS: carBAMazepine 200 MG/10 ML ORAL.SUSP PEG SCH ×2 (09:22→12:12)
[2019-09-06] MEDS: ZIPRASIDONE 40 MG CAPSULE. PEG SCH ×3 (09:23→20:51)
[2019-09-06] MEDS: DICLOFENAC SODIUM 1% TOPICAL GEL 100GM TUBE. TP SCH (09:24)
[2019-09-06] MEDS: DOCUSATE 100 MG/10 ML SOLUTION. PEG SCH (09:58)
[2019-09-06] MEDS: METOPROLOL TART IMMED RELEASE 25 MG TABLET PO SCH ×4 (12:11→21:39)
[2019-09-06] MEDS: FAMOTIDINE 20 MG TABLET PEG SCH (16:38)
[2019-09-06] MEDS ORDERED: IV NORMAL SALINE 500ML 500 ML IV ONE (17:15)
[2019-09-06] MEDS ORDERED: AMIODARONE 150 MG in IV DEXTROSE 5% 100 ML IVP ONE (17:30)
--- NOTE | 2019-09-06 18:43 | NUR ---
Patient continues to be in AFIB. Per Dr. Stock's request patient was given a 500ml of 9% NS bolus followed by a 150 mg Amiodarone bolus. Per Dr. Stock request if patient did not convert back to NSR another 150 mg Amiodarone bolus was stated to be given but after the first dose of Amiodarone the patients become hypotensive. Blood pressure reading at 1830 was 85/45 with a Heart rate of 101. A 250ml bolus of 9% NS was given and then vitals were rechecked at 1840 Blood pressure was 96/52 with a heart rate of 78. The 1800 dose of Metoprolol was also held due to hypotensive state.
[2019-09-06] MEDS: ATORVASTATIN CALCIUM 20 MG TABLET PO SCH (20:51)
[2019-09-06] MEDS: MONTELUKAST 10 MG TABLET. PO SCH (20:51)
[2019-09-06] MEDS: DOXAZOSIN MESYLATE 1 MG TABLET PEG SCH (20:51)
[2019-09-06] MEDS: carBAMazepine 200 MG/10 ML ORAL.SUSP PO SCH (20:51)
--- NOTE | 2019-09-06 21:49 | NUR ---
Change in pt condition note: Pt's HR was elevating into the 140s/150s (1800 metoprolol held d/t low BP). Administered the 0000 Metoprolol early. Pt converted to NSR at 2149 shortly after medication was administered. Will continue to monitor.
--- NOTE | 2019-09-06 22:29 | PN ---
DATE: 09/06/2019 SUBJECTIVE: The patient is resting, slightly propped up in bed, in no apparent distress. He continued to complain of lower abdominal pain. He apparently went into atrial fibrillation with rapid ventricular response and treated initially with adenosine without any response. We gave him a bolus of Cardizem and started him on Cardizem drip and he continued to be in AFib, but his heart rate is slightly better controlled. PHYSICAL EXAMINATION: GENERAL: When I saw him this afternoon, he looked pale, no jaundice, cyanosis or thyromegaly. No jugular venous distension. No limb edema. VITAL SIGNS: His heart rate was 104, blood pressure was 130/63, his temperature was 97.3 and respiratory rate was 15 and oxygen saturation was 97%. HEAD, EYES, EARS, NOSE AND THROAT: Showed normocephalic, atraumatic. NECK: Supple. HEART: Showed normal first and second heart sounds. No gallop or murmur. CHEST: Shows central trachea, equal bilateral expansion, air entry, vesicular sounds with crepitation, more on the right side and posteriorly. I could not appreciate any rhonchi. ABDOMEN: Distended, soft, mild tenderness in the suprapubic area. NEUROLOGIC: All his cranial nerves are intact. He moves extremities without difficulty. He is able to ambulate, although he is unsteady on his gait. He has urine retention requiring indwelling Rodriguez catheter. His intake over the last 24 hours was 1075, output was 3250. LABORATORY DATA: As of this morning, his white cell count was 5700, hemoglobin 15, hematocrit 45, MCV 93, and platelet count 309,000. His chemistry showed serum sodium 134, potassium 3.9, chloride 100, bicarbonate 26, anion gap of 8, BUN 14, creatinine 0.5, estimated GFR was 69 mL per minute. His glucose was 97, calcium was 8.9, magnesium 2.2. He has 3 sets of cardiac enzymes that are trending down. The troponin peaked at 0.108. Urinalysis was essentially unremarkable and tox screen showed a carbamazepine level at 8.8 mcg/mL, which is well within therapeutic range. ASSESSMENT: He was brought from the assisted as he had an emesis after he had his tube feed. The patient has not complained of any pain and only vomited once. They reported he has been constipated, has not had any bloody emesis or stools. His EKG showed that he was in sinus rhythm on admission and his first set of cardiac enzyme was slightly elevated and therefore, the patient was admitted, has had 2 more sets of cardiac enzymes and apparently yesterday, he went into atrial fibrillation with rapid ventricular response that required Cardizem drip. He was seen this morning by the Cardiology team and was started on metoprolol and his Cardizem drip was discontinued. He has multiple other medical problems including: A. Intellectual disability. B. Crohn's disease. C. Recurrent episodes of small bowel obstruction. D. Chronic aspiration pneumonia. E. Dysphagia. F. Status post percutaneous endoscopic gastrostomy tube placement. G. He has seizure disorder. H. Benign prostatic hypertrophy with bladder outlet obstruction. PLAN: To continue with current plan and management. SHYANNE ELLIS MD DR: APARNA/dominick JOB#: [id number] / [id number]
[2019-09-07] VITALS (14 sets, daily range): BP systolic 100–174; BP diastolic 53–102
[2019-09-07] MEDS: METOPROLOL TART IMMED RELEASE 25 MG TABLET PO SCH ×4 (05:40→23:29)
[2019-09-07 06:11] LABS: HEMATOCRIT 40.6 % (39.0-53.0); HEMOGLOBIN 13.7 g/dL (13.0-17.5); RED BLOOD COUNT 4.32 x10^6/uL (4.30-5.70); RED CELL DISTRIBUTION WIDTH 15.4 % (11.5-14.5); WHITE BLOOD COUNT 5.8 x10^3/uL (4.0-11.0)
[2019-09-07 06:17] LABS: CALCIUM 8.6 mg/dL (8.5-10.1); CREATININE 0.7 mg/dL (0.7-1.3); GFR 114.6; MAGNESIUM 2.3 mg/dL (1.8-2.4); POTASSIUM 4.4 mmol/L (3.5-5.1)
[2019-09-07] MEDS: DOCUSATE 100 MG/10 ML SOLUTION. PEG SCH (07:30)
[2019-09-07] MEDS: LACTOBACILLUS RHAMNOSUS GG 1 CAPSULE. PO SCH (07:31)
[2019-09-07] MEDS: CETIRIZINE 5 MG/5 ML ORAL SOLUTION. PEG SCH (07:31)
[2019-09-07] MEDS: CALCIUM CARBONATE 500 MG TAB.CHEW PO SCH ×3 (07:31→17:00)
[2019-09-07] MEDS: ACETAMINOPHEN 650 MG/20.3 ML SOLUTION. PEG SCH ×3 (07:31→19:43)
[2019-09-07] MEDS: MAGNESIUM HYDROXIDE 2,400 MG/30 ML ORAL.SUSP. PEG SCH (07:31)
[2019-09-07] MEDS: ZIPRASIDONE 40 MG CAPSULE. PEG SCH ×3 (07:31→19:42)
[2019-09-07] MEDS: ASPIRIN ENTERIC COATED 81 MG TABLET.DR. PO SCH (07:31)
[2019-09-07] MEDS: carBAMazepine 200 MG/10 ML ORAL.SUSP PEG SCH ×2 (07:32→12:02)
[2019-09-07] MEDS: MAGNESIUM OXIDE 400 MG TABLET PEG SCH ×2 (07:33→19:43)
[2019-09-07] MEDS: DICLOFENAC SODIUM 1% TOPICAL GEL 100GM TUBE. TP SCH (08:00)
[2019-09-07] MEDS ORDERED: MAGNESIUM CITRATE 296 ML SOLUTION. PEG ONE (08:30)
--- NOTE | 2019-09-07 08:49 | NUR ---
Pt did convert to NSR last night and has staying in NSR. When feeding, feedings would back up and pt coughing. PT did have a soft BM this am, pt still having abd pain and shoulder pain. PT up to chair. PT partially able to verbalize understanding of poc. katy RANDLE
[2019-09-07] MEDS ORDERED: LIDOCAINE (700MG/PATCH) PATCH. TD SCH (09:00)
--- NOTE | 2019-09-07 09:18 | PN ---
DATE: 09/07/2019 ATTENDING PHYSICIAN: Dr. Nain Mtz. CHIEF COMPLAINT: Vomiting. SUBJECTIVE: The patient is alert, no further vomiting, very nonspecific complaints. He has complained of pain in the left shoulder and mild irritation on palpation of his mid abdomen. OBJECTIVE FINDINGS: VITAL SIGNS: His cardiac enzymes have leveled, all 4 sets showed trending downwards, last one was 0.58, blood pressure is 120/62. He has since converted to sinus rhythm, heart rate is down to 82 and sinus. HEENT: Head is without trauma. Pupils are reactive. Sclerae nonicteric. Oropharynx clear. NECK: Supple, no bruits. LUNGS: Otherwise clear. CARDIOVASCULAR: Showed regular heart tones. No obvious gallops. Peripheral pulses are palpable and full. ABDOMEN: Minimal guarding on deep palpation in the mid epigastric area. The button PEG site is clean. He has diminished bowel sounds. EXTREMITIES: Show no cyanosis or edema. NEUROLOGIC: The patient is alert. Speech is garbled. He has intellectual challenge. ASSESSMENT: 1. The 59-year-old gentleman from care home who came in with nonspecific vomiting. 2. Recurrent bowel obstruction, improved. 3. History of a feeding tube. 4. Atrial fibrillation with rapid ventricular rate, converted. 5. Slight elevation of cardiac enzymes trending downwards. 6. Multiple other medical issues. 7. Schizoaffective disorder. PLAN: 1. Diet as tolerated. 2. He remains a bit constipated. I have ordered some magnesium citrate to be administered through the feeding tube. 3. Lidoderm patch for topical relief of his left shoulder pain. 4. Continue home meds. 5. ____ cardiology. I do not think any further workup is necessary at this time. 6. Discharge planning for tomorrow. RAMIRO CABRERA MD DR: SHANTAL/dominick JOB#: [id number] / [id number]
--- NOTE | 2019-09-07 10:51 | CARD ---
MR#: [id number] Date of Study: 09/07/2019 Ordering Physician: SHYANNE ELLIS, Referring Physician: SHYANNE ELLIS Tech: Lidia Anders RDCS APPROVED REPORT EXAM: Two-dimensional and M-mode echocardiogram with Doppler and color Doppler. Other Information Quality : Fair Rhythm : NSRTechnically limited study due to body habitus. INDICATION Atrial Fibrillation 2D DIMENSIONS RVDd2.1 (2.9-3.5cm)Left Atrium(2D)2.6 (1.6-4.0cm) IVSd0.9 (0.7-1.1cm)Aortic Root(2D)2.9 (2.0-3.7cm) LVDd4.5 (3.9-5.9cm)PWd0.8 (0.7-1.1cm) LVDs3.3 (2.5-4.0cm)FS (%) 26.7 % SV48.8 mlLVEF(%)52.3 (>50%) Aortic Valve AoV Peak Bhupinder.99.5cm/sAoV VTI18.5cm AO Peak GR.4.0mmHgAO Mean GR.2mmHg SCARLETT (VTI)2.54cm2 Mitral Valve MV E Aprvyanf58.6cm/sMV DECEL [id number] MV A Bpftgbtl63.0cm/sE/A Ratio2.4 LEFT VENTRICLE The left ventricle is normal size. There is normal left ventricular wall thickness. Left ventricle sy stolic function is mildly reduced. The Ejection Fraction is 45%. There is mild global hypokinesis. Ti ssue Doppler imaging reveals moderate left ventricular diastolic dysfunction. RIGHT VENTRICLE The right ventricle is normal size. The right ventricular systolic function is normal. ATRIA The left atrium size is normal. The right atrium size is normal. The interatrial septum is intact wit h no evidence for an atrial septal defect or patent foramen ovale as noted on 2-D or Doppler imaging. AORTIC VALVE The aortic valve is not well visualized but appears to be functioning normally by Doppler interrogati on. Doppler and Color Flow revealed no significant aortic regurgitation. There is no significant aort ic valvular stenosis. MITRAL VALVE The mitral valve is calcified but opens well. There is no evidence of mitral valve prolapse. There is no mitral valve stenosis. Doppler and Color-flow revealed trace mitral regurgitation. TRICUSPID VALVE The tricuspid valve is normal in structure and function. Doppler and Color Flow revealed no tricuspid valve regurgitation noted. There is no tricuspid valve stenosis. PULMONIC VALVE The pulmonic valve is not well visualized. GREAT VESSELS The aortic root is normal in size. The ascending aorta is not well seen. The IVC was not visualized. PERICARDIAL EFFUSION There is no evidence of significant pericardial effusion. Critical Notification Critical Value: No <Conclusion> Left ventricle systolic function is mildly reduced. The Ejection Fraction is 45%. There is mild global hypokinesis. Technically difficult study Signed by : Tony Stock, Electronically Approved : 09/07/2019 10:50:43
--- NOTE | 2019-09-07 12:15 | RAD ---
CHEST PA LATERAL History: Cough. Comparison: September 05, 2019 Findings: Patchy right medial basilar opacity. Left basilar linear atelectasis. Mild interstitial prominence, unchanged. No pleural effusion. Unchanged heart size. No pneumothorax. Postop changes cervical spine. Left upper lung calcified granuloma. Impression: 1. Patchy right medial basilar opacity, unchanged. 2. Diffuse interstitial thickening, unchanged. Electronically signed by: Avila Montoya DO (09/07/2019 12:12 PM) [id number]
--- NOTE | 2019-09-07 14:38 | NUR ---
PT still having lower abd pain that with radiation through to the back. He also reports a headache. Tylenol given and pt has had 3 very soft bm's today after mag citrate. No hard stool noted in rectal vault at this time. Tomás RANDLE
[2019-09-07] MEDS: FAMOTIDINE 20 MG TABLET PEG SCH (16:00)
--- NOTE | 2019-09-07 17:33 | NUR ---
Pt transferred to [facility] to room 107 at 1400. Pt complaining of abdominal pain, previous nurse giving mag citrate for constipation. Pt has had 4 BMs that are now soft liquid. At 1645 patient asking for tube feeding, states his abdominal pain is better. Feeding given. WCTM.
[2019-09-07] MEDS: carBAMazepine 200 MG/10 ML ORAL.SUSP PO SCH (19:42)
[2019-09-07] MEDS: METHYL SALICYLATE/MENTHOL TOPICAL OINTMENT 57GM TUBE. TP PRN ×2 (19:42→23:00)
[2019-09-07] MEDS: DOXAZOSIN MESYLATE 1 MG TABLET PEG SCH (19:43)
[2019-09-07] MEDS: MONTELUKAST 10 MG TABLET. PO SCH (19:43)
[2019-09-07] MEDS: ATORVASTATIN CALCIUM 20 MG TABLET PO SCH (19:43)
[2019-09-08] MEDS: METHYL SALICYLATE/MENTHOL TOPICAL OINTMENT 57GM TUBE. TP PRN ×2 (04:00→07:59)
[2019-09-08 05:10] VITALS: BP 168/84
[2019-09-08] MEDS: METOPROLOL TART IMMED RELEASE 25 MG TABLET PO SCH (05:13)
--- NOTE | 2019-09-08 06:04 | NUR ---
Patient complained of leg pain off and on through out night. Muscle rub applied.
[2019-09-08] MEDS: MAGNESIUM HYDROXIDE 2,400 MG/30 ML ORAL.SUSP. PEG SCH (07:58)
[2019-09-08] MEDS: DOCUSATE 100 MG/10 ML SOLUTION. PEG SCH (07:59)
[2019-09-08] MEDS: ACETAMINOPHEN 650 MG/20.3 ML SOLUTION. PEG SCH (07:59)
[2019-09-08] MEDS: DICLOFENAC SODIUM 1% TOPICAL GEL 100GM TUBE. TP SCH (07:59)
[2019-09-08 08:00] VITALS: BP 171/86
[2019-09-08] MEDS: ASPIRIN ENTERIC COATED 81 MG TABLET.DR. PO SCH (08:01)
[2019-09-08] MEDS: CALCIUM CARBONATE 500 MG TAB.CHEW PO SCH (08:01)
[2019-09-08] MEDS: LACTOBACILLUS RHAMNOSUS GG 1 CAPSULE. PO SCH (08:01)
[2019-09-08] MEDS: MAGNESIUM OXIDE 400 MG TABLET PEG SCH (08:01)
[2019-09-08] MEDS: CETIRIZINE 5 MG/5 ML ORAL SOLUTION. PEG SCH (08:02)
[2019-09-08] MEDS: carBAMazepine 200 MG/10 ML ORAL.SUSP PEG SCH (08:03)
[2019-09-08] MEDS: ZIPRASIDONE 40 MG CAPSULE. PEG SCH (08:03)
--- NOTE | 2019-09-08 12:24 | NUR ---
Discharge Note: [facility] Discharge instructions and discharge home medications reviewed with Patient and a copy given. All questions have been answered and understanding verbalized. The following instructions and handouts were given: Take medications as prescribed, follow up with Primary Care Provider in 7-10 days or sooner if needed. Discontinued lines and drains: IV discontinued, direct pressure applied, no complications noted. Catheter tip intact. Patient discharged to home.
--- NOTE | 2019-09-08 18:06 | DS ---
DATE OF DISCHARGE: 09/08/2019 ATTENDING PHYSICIAN: Dr. Mtz. FINAL DISCHARGE DIAGNOSES: 1. Nausea due to constipation. 2. Chronic partial small-bowel obstruction. 3. Multiple abdominal surgeries. 4. Presence of a feeding tube. 5. Crohn's disease. 6. Intellectual disability with living situation in a [facility]. 7. Recurrent episodes of small-bowel obstruction. 8. Dysphagia. 9. Atrial fibrillation, rapid ventricular rate, converted. 10. Seizure disorder, stable. 11. Benign prostatic hypertrophy. 12. Anxiety with depression. HISTORY AND PHYSICAL: The patient is a 59-year-old gentleman with severe developmental delay and intellectual disability. He lives in a [facility]. He was admitted with GI symptoms of nausea, weakness. He also has atrial fibrillation, rapid ventricular rate. He was admitted for treatment and evaluation. PHYSICAL EXAMINATION: Please see the dictated note. PERTINENT LABORATORY AND X-RAY STUDIES: On admission, his abdominal and pelvis CT showed no suspicion for inflammatory disease involving the pelvis or abdomen. Large amount of stool identified. No obvious obstruction identified. His admission hemoglobin was 14.2 g/dL with a white count of 5400. Followup CBCs were within normal range. Sodium was 134, repeated with hydration up to 138 mEq/L, potassium 4.4 mEq, creatinine 0.7 mg/dL. Cholesterol was 265. His TSH was normal. Urinalysis showed trace blood, otherwise clear. Carbamazepine level was sent down and is pending at this time. COURSE IN THE HOSPITAL: The patient was admitted to the unit. Serial enzymes were negative for coronary ischemia. Cardiology consultation was entertained, their recommendation on the chart. Several doses of beta blockers were administered to slow the heart rate down. He did well and he was transferred out of the ICU. Diet was advanced through his tube feedings through his feeding tube. Physical therapy saw him. He was able to ambulate with 1:1 assistance and the help of a walker, he is definitely weightbearing. On the fourth hospital day, the patient's vital signs were stable, his nausea resolved, no further vomiting and he was ready for discharge. At this time, he will go home with no changes on his medication. He will continue his bisacodyl daily, carbamazepine in the form of liquid dosages, clonidine TTS 3 patch weekly, Voltaren gel as needed, docusate daily, doxazosin 2 mg per PEG for his prostate, Pepcid daily, milk of magnesia, MiraLax 17 g daily, terbinafine topical cream, Geodon 20 mg daily. For now, I took the liberty of holding his calcium, cranberry supplement, loratadine, magnesium oxide, BenGay, ranitidine, he already is on Pepcid, simethicone, vitamin A and D. His prognosis is guarded. He was discharged then from our hospital in stable condition with explicit instructions and followup care. RAMIRO CABRERA MD DR: SHANTAL/dominick JOB#: [id number] / [id number] TOM Gill MD, AHMED MD
[2019-09-12] MEDS ORDERED: cloNIDine TTS-1 1 PATCH PATCH TD SCH (09:00)
== END 2019-09-08 12:26 | disposition home or self-care (01) | DRG 389 ==
LOC: ER 07:51 → 1 SOUTH 12:15 → OBSVTOIN 19:00 → ICU 20:03 → 1 SOUTH 09-07 13:42
PROVIDERS: ADMIT Internal Medicine; ATTEND Internal Medicine
DX: K56.600 Partial intestinal obstruction, unspecified as to cause (principal); K50.90 Crohn's disease, unspecified, without complications; I47.1 Supraventricular tachycardia; E87.1 Hypo-osmolality and hyponatremia; E86.0 Dehydration; K59.09 Other constipation; F25.9 Schizoaffective disorder, unspecified; G40.909 Epilepsy, unspecified, not intractable, without status epilepticus; K21.9 Gastro-esophageal reflux disease without esophagitis; I48.91 Unspecified atrial fibrillation; R13.10 Dysphagia, unspecified; G80.9 Cerebral palsy, unspecified; Z98.1 Arthrodesis status; F41.8 Other specified anxiety disorders; I11.9 Hypertensive heart disease without heart failure; Z87.01 Personal history of pneumonia (recurrent)
CPT/HCPCS: 36415; 51702; 71045; 71046; 74177; 80048; 80053; 80061; 80156; 81001; 83690; 83735; 84443; 84484; 85025; 85027; 90471; 90686; 93005; 93306; 96360; 96361; G0378; G0379; J0153; J0282; J3490; J7040; Q9967; 97110; 97116; 99285-25; J7030

== ENCOUNTER → 2019-09-13 | Outpatient (CLI) | payer MEDICARE, OTHER ==
[2019-09-08 08:00] VITALS: BP 171/86
[~2019-09-13] MED LIST changes: +ACID1CAP PO; +BISA10SU4 RC; +FAMO40OR4 PO; +METH57CR17 TP; +RANI75TA89 PO; +[UNRECOGNIZED DRUG - CODE] TP
--- NOTE | 2019-09-13 16:34 | RAD ---
EXAM: 2 VIEW ABDOMEN WITH ONE VIEW CHEST. HISTORY: Abdominal pain. COMPARISON: None. FINDINGS: A frontal view of the chest and supine/upright views of the abdomen are obtained. Linear opacities in the bases indicate atelectasis or atypical infiltrates. There are calcified granulomas in the left upper lobe. There is no pneumothorax or pleural effusion. The heart is not enlarged. There are atherosclerotic calcifications of the aorta. The right coracoclavicular ligament is partially ossified. Surgical clips project in the epigastrium. There is no pneumoperitoneum. There are no distended small bowel loops or significant air-fluid levels. There is gas distally. IMPRESSION: 1. Bibasilar atelectasis versus atypical infiltrates. 2. No evidence of obstruction. Electronically signed by: Eduardo Smalls MD (09/13/2019 4:31 PM) [facility]
== END | disposition home or self-care (01) ==
LOC: DXRAD 10:29
PROVIDERS: ATTEND Physician Assistant
DX: I70.0 Atherosclerosis of aorta (principal); J84.10 Pulmonary fibrosis, unspecified; K59.01 Slow transit constipation
CPT/HCPCS: 74022

== ENCOUNTER 2019-09-14 18:59 | Emergency (ER) | payer MEDICARE, OTHER ==
[~2019-09-14] VITALS: Ht 172.7 cm; Wt 50.0 kg
[2019-09-14 19:26] VITALS: BP 142/81
--- NOTE | 2019-09-14 20:03 | PHYS DOC ---
Past History Past Medical History: Anxiety, Depression, Hypertension, Pneumonia, Seizure, Schizophrenia, UTI, Other Additional Past Medical Histor: Hx of SBO, mental retardation/developmental delay Past Surgical History: Other Smoking: Non-smoker Alcohol Use: None Drug Use: None Adult General Chief Complaint Chief Complaint: HYPERTENSION HPI HPI 59-year-old male presents with his caretakers for hypertension. The patient has diminished mental capacity. He was recently admitted for pneumonia, hypertension, and urinary retention. The discharge instructions stated that she return to emergency room elevated blood pressure. The patient had one episode of vomiting today and the next couple of hours afterwards, his blood pressure was around 180/100. They were concerned and decided to bring him in. By the time he arrived in the emergency room his blood pressure was 140s over 80s. Caretakers were just concerned what they should be worried about him with the shouldn't. The patient was just seen by his primary care physician yesterday and had no medication changes. The patient is only complaining of some irritation he urinates which could be due to catheter he had while he was admitted. Patient has been acting normally. He has not had any other significant complaints. Continues to have a cough and nasal congestion. No fever at the care facility. Review of Systems Review of Systems Constitutional: Hypertension. Denies fever or chills [] Eyes: Denies change in visual acuity, redness, or eye pain [] HENT: Denies nasal congestion or sore throat [] Respiratory: Denies cough or shortness of breath [] Cardiovascular: No additional information not addressed in HPI [] GI: Denies abdominal pain, nausea, vomiting, bloody stools or diarrhea [] : Dysuria [] Musculoskeletal: Denies back pain or joint pain [] Integument: Denies rash or skin lesions [] Neurologic: Denies headache, focal weakness or sensory changes [] Endocrine: Denies polyuria or polydipsia [] All other systems were reviewed and found to be within normal limits, except as documented in this note. Allergies Allergies Allergies Coded Allergies Type Severity Reaction Last Updated Verified No Known Drug Allergies 02/22/18 No Physical Exam Physical Exam Constitutional: Well developed, well nourished, no acute distress, non-toxic appearance. [] HENT: Normocephalic, atraumatic, bilateral external ears normal, oropharynx moist, no oral exudates, nose normal. [] Eyes: PERRLA, EOMI, conjunctiva normal, no discharge. [] Neck: Normal range of motion, no tenderness, supple, no stridor. [] Cardiovascular:Heart rate regular rhythm, no murmur [] Lungs & Thorax: Bilateral breath sounds clear to auscultation [] Abdomen: Bowel sounds normal, soft, no tenderness, no masses, no pulsatile masses. [] Skin: Warm, dry, no erythema, no rash. [] Back: No tenderness, no CVA tenderness. [] Extremities: No tenderness, no cyanosis, no clubbing, ROM intact, no edema. [] Neurologic: Alert and oriented X 3, normal motor function, normal sensory fun ction, no focal deficits noted. [] Psychologic: Affect normal, judgement normal, mood normal. [] Current Patient Data Vital Signs Vital Signs Date Time Temp Pulse Resp B/P (MAP) Pulse Ox O2 Delivery O2 Flow Rate FiO2 09/14/19 19:26 97.6 86 96 09/14/19 19:25 18 142/81 (101) EKG EKG [] Radiology/Procedures Radiology/Procedures [] Course & Med Decision Making Course & Med Decision Making Pertinent Labs and Imaging studies reviewed. (See chart for details) Based on the patient's history and physical exam, I do not believe further workup is warranted. He has had a thorough workup recently. He is also been seen by his primary care physician within the last 24 hours. His blood pressure is within a normal range while in the ED. I discussed hypertension with the patient's caregivers and they're greatly reassured. He is stable for discharge at this time. [] Dragon Disclaimer Dragon Disclaimer This electronic medical record was generated, in whole or in part, using a voice recognition dictation system. Departure Departure: Impression: Primary Impression: Hypertension Disposition: 01 HOME, SELF-CARE Condition: STABLE Referrals: [facility] (PCP) Patient Instructions: Hypertension, [id number] Additional Instructions: If the patient has a blood pressure greater than 180/100 for more than 24 hours this would be concerning. If his blood pressure is 200/110, he should be seen that day by his primary care physician or the emergency room. If the patient's blood pressure is around 180/100 and he is symptomatic such as change in mental status, persistent headache, fever, or other signs of illness, the patient should be seen by healthcare provider or the emergency room. Problem Qualifiers Primary Impression: Hypertension Hypertension type: unspecified Qualified Codes: I10 - Essential (primary) hypertension LEYLA OLIVAS DO Sep 14, 2019 20:03
== END 2019-09-14 20:06 | disposition home or self-care (01) ==
LOC: ER 18:59
DX: I10 Essential (primary) hypertension (principal); R30.0 Dysuria; F41.9 Anxiety disorder, unspecified; F32.9 Major depressive disorder, single episode, unspecified; F20.9 Schizophrenia, unspecified; Z87.440 Personal history of urinary (tract) infections
CPT/HCPCS: 99284

== ENCOUNTER 2019-09-19 17:55 | Emergency (ER) | payer MEDICARE, OTHER ==
[~2019-09-19] VITALS: Ht 172.7 cm; Wt 50.0 kg
[2019-09-19] MEDS ORDERED: IV NORMAL SALINE 1,000ML 1,000 ML IV ONE (18:15)
[2019-09-19] MEDS ORDERED: ONDANSETRON PF 4 MG/2 ML VIAL. IVP ONE (18:15)
[2019-09-19] MEDS ORDERED: LIDOCAINE 2% TOPICAL JELLY 5GM TUBE. TP ONE ×2 (18:51→19:45)
--- NOTE | 2019-09-19 19:09 | PHYS DOC ---
Past History Past Medical History: Anxiety, Depression, Hypertension, Pneumonia, Seizure, Schizophrenia, UTI, Other Additional Past Medical Histor: Hx of SBO, mental retardation/developmental delay, SVT, urinary retention Past Surgical History: Other Smoking: Non-smoker Alcohol Use: None Drug Use: None Adult General Chief Complaint Chief Complaint: NAUSEA/VOMITING/DIARRHEA HPI HPI 59-year-old male with diminished mental capacity presents with his silicator from his [facility]. The patient had 2 episodes of vomiting today after his PEG tube feeding. Has also started to have more of a cough today and they're concerned for repeat aspiration. Finally, the patient has been having urinary retention. His current caregiver is not sure if he's had complete retention for the last 1-2 days or just decreased output. His chart does not have urination noted. Caregiver is concerned about this as the patient has had urinary retenti on problems in the past. He has not been reported to have a fever. He does complain of general abdominal pain. Review of Systems Review of Systems Constitutional: Denies fever or chills [] Eyes: Denies change in visual acuity, redness, or eye pain [] HENT: Denies nasal congestion or sore throat [] Respiratory: Denies cough or shortness of breath [] Cardiovascular: No additional information not addressed in HPI [] GI: Generalized abdominal pain, nausea, vomiting. Denies bloody stools or diarrhea [] : Urinary retention [] Musculoskeletal: Denies back pain or joint pain [] Integument: Denies rash or skin lesions [] Neurologic: Denies headache, focal weakness or sensory changes [] Endocrine: Denies polyuria or polydipsia [] All other systems were reviewed and found to be within normal limits, except as documented in this note. Current Medications Current Medications Current Medications Medications (Trade) Dose Ordered Sig/Juanito Start Time Stop Time Status Last Admin Dose Admin Lidocaine HCl (Xylocaine 2% Topical 5gm Tube) 5 jaclyn STK-MED ONCE 09/19/19 18:51 09/19/19 18:51 DC Ondansetron HCl (Zofran) 4 mg 1X ONCE 09/19/19 18:15 09/19/19 18:16 DC Sodium Chloride 1,000 ml @ 1,000 mls/hr 1X ONCE 09/19/19 18:15 09/19/19 19:14 Allergies Allergies Allergies Coded Allergies Type Severity Reaction Last Updated Verified No Known Drug Allergies 02/22/18 No Physical Exam Physical Exam Constitutional: Well developed, thin, no acute distress, non-toxic appearance. [] HENT: Normocephalic, atraumatic, bilateral external ears normal, oropharynx moist, no oral exudates, nose normal. [] Eyes: PERRLA, EOMI, conjunctiva normal, no discharge. [] Neck: Normal range of motion, no tenderness, supple, no stridor. [] Cardiovascular:Heart rate regular rhythm, no murmur [] Lungs & Thorax: Bilateral breath sounds clear to auscultation [] Abdomen: Bowel sounds normal, soft, gerneral tenderness, no masses, no pulsatile masses. PEG tube button in place with no abnormalities.[] Skin: Warm, dry, no erythema, no rash. [] Back: No tenderness, no CVA tenderness. [] Extremities: No tenderness, no cyanosis, no clubbing, ROM intact, no edema. [] Neurologic: Alert and oriented X 3, normal motor function, normal sensory function, no focal deficits noted. [] Psychologic: Affect normal, judgement normal, mood normal. [] Current Patient Data Vital Signs Vital Signs Date Time Temp Pulse Resp B/P (MAP) Pulse Ox O2 Delivery O2 Flow Rate FiO2 09/19/19 18:22 98.2 92 16 95 Room Air EKG EKG [] Radiology/Procedures Radiology/Procedures [] Course & Med Decision Making Course & Med Decision Making Pertinent Labs and Imaging studies reviewed. (See chart for details) We went and placed a Rodriguez catheter in the patient. He had immediate urine that is dark in color. His labs are pending. I will do a chest x-ray and a KUB to evaluate his lungs as well as his general abdomen and PEG tube. She x-ray was negative for pneumonia. His PEG tube is in place according to CT of the abdomen and pelvis. Since the patient's been able to keep down any liquids or solids, I'm concerned about his hydration status. He also likely needs a GI consult to further discuss his feeding regimen. I spoke with Dr. Mtz and he has accepted the patient for transfer and admission to [facility]. The patient will go by ambulance. [] Dragon Disclaimer Dragon Disclaimer This electronic medical record was generated, in whole or in part, using a voice recognition dictation system. Departure Departure: Impression: Primary Impression: Nausea vomiting and diarrhea Additional Impression: Urinary retention Disposition: [facility] Admitting Physician: Nain Mtz Condition: STABLE Referrals: [facility] (PCP) Problem Qualifiers LEYLA OLIVAS DO Sep 19, 2019 19:09
[2019-09-19 19:39] LABS: BASO # 0.1 x10^3/uL (0.0-0.2); BASO % 0 % (0-3); EOS % 0 % (0-3); HEMATOCRIT 42.3 % (39.0-53.0); HEMOGLOBIN 14.3 g/dL (13.0-17.5); LYMPH # 0.6 x10^3/uL (1.0-4.8); LYMPH % 4 % (24-48); MEAN CORPUSCULAR HEMOGLOBIN 31 pg (25-35); MEAN CORPUSCULAR HGB CONC 34 g/dL (31-37); MEAN CORPUSCULAR VOLUME 93 fL (79-100); MONO # 0.7 x10^3/uL (0.0-1.1); MONO % 4 % (0-9); NEUT # 13.6 x10^3uL (1.8-7.7); NEUT % 91 % (31-73); PLATELET COUNT 322 x10^3/uL (140-400); RED BLOOD COUNT 4.56 x10^6/uL (4.30-5.70); RED CELL DISTRIBUTION WIDTH 15.8 % (11.5-14.5); WHITE BLOOD COUNT 14.9 x10^3/uL (4.0-11.0)
[2019-09-19 19:50] LABS: CALCIUM 9.4 mg/dL (8.5-10.1); CREATININE 0.8 mg/dL (0.7-1.3); GFR 98.3; POTASSIUM 4.1 mmol/L (3.5-5.1)
[2019-09-19 19:52] LABS: AMORPHOUS SEDIMENT,UR PRESENT /HPF; BACTERIA,URINE 0 /HPF (0-FEW); BILIRUBIN,URINE NEG (NEG); CLARITY,URINE HAZY; COLOR,URINE AMBER; GLUCOSE,URINE NEG (NEG); HYALINE CASTS, URINE OCC /HPF; NITRITE,URINE NEG (NEG); SQUAMOUS EPITHELIAL CELL,UR OCC /LPF; UROBILINOGEN,URINE 0.2 mg/dL (0.2 mg/dL)
[2019-09-19 19:56] LABS: ALBUMIN 3.9 g/dL (3.4-5.0); TOTAL BILIRUBIN 0.5 mg/dL (0.2-1.0)
[2019-09-19] MEDS ORDERED: IOHEXOL 300 MG/ML 75 ML VIAL. IV ONE (21:30)
[2019-09-19] MEDS ORDERED: CONTRAST GIVEN MC PRN (21:30)
--- NOTE | 2019-09-19 21:45 | RAD ---
CHEST AP ONLY Clinical Indication: Vomiting and nausea. Abdominal pain and congestion. Comparison: 09/07/2019 two-view chest x-ray exam, 09/05/2019 CT abdomen and pelvis with contrast. Findings: Frontal view of the chest was obtained. Supine frontal view of the abdomen was obtained. The cardiomediastinal silhouette is normal. Minimal linear left basilar discoid atelectasis is present. There is no pneumothorax. No pleural effusion is appreciated. No acute bone abnormality. Bowel gas pattern is unremarkable. No suspicious abdominal calcifications. Osteopenia noted. IMPRESSION: No suspicious infiltrate. Minimal linear discoid atelectasis. No bowel obstruction. Electronically signed by: Hao Bryson MD (09/19/2019 9:42 PM) [facility]
--- NOTE | 2019-09-19 22:01 | RAD ---
Examination: KUB History: Vomiting and nausea Comparison/Correlation: 09/30/2018 from the abdomen. Findings: Frontal view of the abdomen was obtained with the patient supine. Bowel gas pattern is unremarkable. No suspicious abdominal calcifications. Osteopenia evident. Impression: No obstruction. Electronically signed by: Hao Bryson MD (09/19/2019 9:58 PM) [facility]
--- NOTE | 2019-09-19 22:12 | RAD ---
Examination: CT ABD PELV W/ IV CONTRST ONLY History: Nausea and vomiting. Bowel resection. Comparison/Correlation: 09/05/2019 CT abdomen and pelvis with contrast Findings: Axial images of the abdomen and pelvis were obtained following IV contrast. Sagittal and coronal reformatted images were provided. Motion limits evaluation of the lower lung linn. Right coronary arterial calcifications present. Bibasilar discoid atelectasis is noted. Possibility of infiltrate is not excluded on this exam limited due to motion. At the right hepatic lobe posterior segment, with a 1.6 cm diameter hypoenhancing lesion which has remained stable. Spleen, pancreas, adrenal glands, and kidneys are normal. Gallbladder fossa is unremarkable. G-tube is present at the pyloric region. Moderate quantity of stool in the colon noted. No extraluminal gas. Circumferential wall thickening of the stomach is noted. Stomach is decompressed. No bowel obstruction. Moderate quantity of stool within the colon. Rodriguez catheter is present in the urinary bladder. Circumferential wall thickening of the urinary bladder is noted. Minimal gas in the urinary bladder. No surrounding inflammatory findings. No enlarged abdominal or pelvic lymph nodes. No ascites or pelvic free fluid. Sacralization of L5 noted. Impression: No change in low attenuation lesion at the right hepatic posterior segment. Mild bibasilar atelectasis or infiltrate. Circumferential wall thickening of the stomach which may represent contractures present. No surrounding inflammation. PQRS Compliance Statement: One or more of the following individualized dose reduction techniques were utilized for this examination: 1. Automated exposure control 2. Adjustment of the mA and/or kV according to patient size 3. Use of iterative reconstruction technique Electronically signed by: Hao Bryson MD (09/19/2019 10:09 PM) [facility]
[2019-09-19 23:55] VITALS: BP 165/87
--- NOTE | 2019-09-21 11:37 | EKG ---
[address] [address] Test Date: 2019-09-19 Test Time: 19:16:49 Pat Name: CLAYTON HERNANDEZ Department: Room: Gender: M [employer]: : [id number] Requested By: LEYLA OLIVAS Order Number: [id number] Reading MD: Measurements Intervals [place] Rate: 96 P: 4 CA: 162 QRS: 0 QRSD: 86 T: 80 QT: 326 QTc: 413 Interpretive Statements SINUS RHYTHM LEFTWARD AXIS T ABNORMALITY IN HIGH LATERAL LEADS ABNORMAL ECG RI6.01 No previous ECG available for comparison
== END 2019-09-20 00:05 | disposition short-term general hospital (02) ==
LOC: ER 17:55
DX: R11.2 Nausea with vomiting, unspecified (principal); R19.7 Diarrhea, unspecified; R33.9 Retention of urine, unspecified; R10.84 Generalized abdominal pain; I10 Essential (primary) hypertension; F20.9 Schizophrenia, unspecified; Z87.440 Personal history of urinary (tract) infections
CPT/HCPCS: 36415; 51702; 71045; 74018; 74177; 80053; 81001; 85025; 96361; 96374; 99285; J2405; Q9967; J7030

== ENCOUNTER 2019-09-28 17:28 | Emergency (ER) | payer MEDICARE, OTHER ==
[~2019-09-28] VITALS: Ht 172.7 cm; Wt 50.0 kg
[~2019-09-28 17:28] MED LIST changes: -ECON15CR10 TP; +ECON15CR8 TP; +TRAZ-125 PEG; -TRAZ-86 PEG
[2019-09-28] MEDS ORDERED: IV RINGERS SOLUTION,LACTATED 1,000 ML IV SCH (17:48)
--- NOTE | 2019-09-28 17:48 | PHYS DOC ---
Past History Past Medical History: Anxiety, Depression, GERD, Hypertension, Pneumonia, Seizure, Schizophrenia, UTI, Other Additional Past Medical Histor: Hx of SBO, mental retardation/developmental de lay, SVT, urinary retention Past Surgical History: Other Past Surgical History SB resection, Feeding Gastric port Smoking: Non-smoker Alcohol Use: None Drug Use: None Adult General Chief Complaint Chief Complaint: ABDOMINAL PAIN " He is in a intermediate.. and been vomiting.. and runing a fever..." " We are concerned.. because he had Small bowel obstruct ion before..." (excavator operator) [facility] Patient is a 59 year old male who presents with above hx and complaints of generalized abdomen pain, fever and nausea and vomiting. Patient currently lives in a intermediate. No specific ill contacts no recent travel. Does have an extensive medical history with developmental and intellectual mental disabilities. Has had significant medical history with small bowel obstruction requiring surgery. Has had problems with aspiration and is fed by gastric port. He has history of schizoaffective disorder. Patient currently vomiting. There has been no changes in medications. Has had periodically small bowel ileus and history of prior urinary retention. 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 Review of Systems Review of Systems History by manager inventory Constitutional: History of fever or chills [] Eyes: Denies change in visual acuity, redness, or eye pain [] HENT: Denies nasal congestion or sore throat [] Respiratory: Denies cough or shortness of breath [] Cardiovascular: No additional information not addressed in [facility] [] GI: Complaints of abdominal pain, nausea, vomiting. Denies bloody stools or diarrhea [] : Denies dysuria or hematuria [] Musculoskeletal: Denies back pain or joint pain [] Integument: Denies rash or skin lesions [] Neurologic: Denies headache, focal weakness or sensory changes [] Endocrine: Denies polyuria or polydipsia [] All other systems were reviewed and found to be within normal limits, except as documented in this note. Family History Family History Not currently available Current Medications Current Medications See nursing for home meds Allergies Allergies Allergies Coded Allergies Type Severity Reaction Last Updated Verified No Known Drug Allergies 02/22/18 No Physical Exam Physical Exam Constitutional: in acute distress, non-toxic appearance. [] HENT: Normocephalic, atraumatic, bilateral external ears normal, oropharynx moist, no oral exudates, nose normal. [] Eyes: PERRLA, EOMI, conjunctiva normal, no discharge. [] Neck: Normal range of motion, no tenderness, supple, no stridor. [] Cardiovascular -tachycardia Heart rate regular rhythm, no murmur [] Lungs & Thorax: Bilateral breath sounds equal apexes with basilar crackles bilaterally on auscultation [] Abdomen: Bowel sounds hyperactive,, soft, diffuse tenderness, no masses, no pulsatile masses. [] Very distended bladder. Generalized rebound Skin: Warm, dry, no erythema, no rash. Skin breakdown sacral area Back: No tenderness, no CVA tenderness. [] Extremities: No tenderness, no cyanosis, no clubbing, ROM intact, no edema. [] Neurologic: Alert , moves extremities on request has distal sensory, no new focal deficits noted from his baseline per manager inventory Psychologic: Affect anxious, judgement impaired, mood, crying and tearful] EKG EKG My interpretation EKG shows a sinus rhythm at 123 bpm. Left leyva axis. Strain pattern. No findings acute STEMI with contralateral changes.[] Radiology/Procedures Radiology/Procedures [[place] [address] IMAGING REPORT Signed PATIENT: CLAYTON HERNANDEZ ACCOUNT: [id number] : 1960 LOCATION: ER AGE: 59 SEX: M EXAM STATUS: REG ER ORD. PHYSICIAN: DALIA DANIELS MD REASON: pain PROCEDURE: ACUTE ABDOMEN SERIES Acute abdominal series with PA chest: Reason for examination: Pain. Comparison is made to previous study dated 09/13/2019. The heart size is normal. Mediastinum is unchanged. Lung linn show some patchy and linear infiltrates/atelectasis in the left lung base. There is also some linear density consistent with atelectasis at the right lung base. No acute bony abnormalities are seen. There is no gross organomegaly. Psoas muscles are symmetric. Bowel gas pattern is nonspecific with diffuse small intestinal air with some dilatation distally. Minimal colonic air is seen. This may reflect early changes of small bowel obstruction. No abnormal calcifications are seen. No acute bony abnormalities are seen. IMPRESSION: Atelectasis/infiltrate at the left lung base. Linear atelectasis at the right lung base. Diffuse air-filled small bowel with some dilatation distally and with minimal colonic air apparent. This may reflect early changes of small bowel obstruction. Recommend clinical correlation and follow-up. Electronically signed by: Idania Raymond MD (09/28/2019 6:43 PM) [facility] DICTATED AND SIGNED BY: IDANIA RAYMOND MD DATE: 09/28/191842 CC: DALIA DANIELS MD; NIC BUTLER PAC ~ ][address] [address] IMAGING REPORT Signed PATIENT: CLAYTON HERNANDEZ ACCOUNT: [id number] : 1960 LOCATION: ER AGE: 59 SEX: M EXAM STATUS: REG ER ORD. PHYSICIAN: DALIA DANIELS MD REASON: ABDOMINAL PAIN, NAUSEA VOMITING, FEVER; PEG TUBE PROCEDURE: CT ABD PELV W/ORAL&IV CONTRAST CT SCAN OF THE ABDOMEN AND PELVIS WITH IV CONTRAST. History: Abdominal pain nausea and vomiting and fever and PEG tube Comparison: September 19, 2019. Procedure: Contiguous axial images of the abdomen and pelvis were performed after the administration of 75 cc of Isovue 370 IV contrast. Oral contrast: Yes. Findings: There is patchy opacities in the lung bases. There is a gastric feeding tube. There is respiratory motion. The appendix is normal. Liver: There is a 1.2 x 1.7 centimeter hypoattenuating lesion posteriorly liver with mild peripheral puddling suggesting a hemangioma. Spleen: Unremarkable Pancreas: Unremarkable Adrenal Glands: Unremarkable Kidneys: Unremarkable There is no mass or lymphadenopathy. There is no free air. There is no free fluid. The urinary bladder appears normal. Impression: Basilar pulmonary infiltrates are seen previously and could be atypical pneumonia. PQRS Compliance Statement: One or more of the following individualized dose reduction techniques were utilized for this examination: 1. Automated exposure control 2. Adjustment of the mA and/or kV according to patient size 3. Use of iterative reconstruction technique Electronically signed by: Bharti Panchal III, MD (09/28/2019 10:24 PM) [facility] DICTATED AND SIGNED BY: BHARTI PANCHAL III, MD DATE: 09/28/197 CC: DALIA DANIELS MD; NIC BUTLER PAC ~ Course & Med Decision Making Course & Med Decision Making Pertinent Labs and Imaging studies reviewed. (See chart for details) Discussed presentation, testing and tx plan with Dr Mtz. Transfer to [facility], in event functional ileus does not resolve and need for surgical intervention. Impression: 1, Abdomen pain with fever 2. Acute urinary retention 3. Ileus-suspect functional 4. Atypical bibasilar pneumonia versus basilar atelectasis 5. Schizoaffective disorder 6. Intellectual disabilities 7. Dehydration 8. Leukocytosis 16.5 with 94 neutrophils 82 segs 9. Anemia hemoglobin 12.7 10. Decubitus ulcer [] Dragon Disclaimer Dragon Disclaimer This electronic medical record was generated, in whole or in part, using a voice recognition dictation system. Departure Departure: Disposition: 01 HOME/RESIDENCE PRIOR TO ADM Condition: STABLE Referrals: NIC BUTLER PAC (PCP) Dragon Disclaimer This chart was dictated in whole or in part using Voice Recognition software in a busy, high-work load, and often noisy Emergency Department environment. It may contain unintended and wholly unrecognized errors or omissions. DALIA DANIELS MD Sep 28, 2019 17:48
[2019-09-28] MEDS ORDERED: FAMOTIDINE 20 MG/2 ML VIAL IVP ONE (18:00)
[2019-09-28] MEDS ORDERED: ONDANSETRON PF 4 MG/2 ML VIAL. IVP ONE (18:00)
[2019-09-28] MEDS ORDERED: KETOROLAC 30 MG/ML VIAL. IVP ONE (18:00)
--- NOTE | 2019-09-28 18:46 | RAD ---
Acute abdominal series with PA chest: Reason for examination: Pain. Comparison is made to previous study dated 09/13/2019. The heart size is normal. Mediastinum is unchanged. Lung linn show some patchy and linear infiltrates/atelectasis in the left lung base. There is also some linear density consistent with atelectasis at the right lung base. No acute bony abnormalities are seen. There is no gross organomegaly. Psoas muscles are symmetric. Bowel gas pattern is nonspecific with diffuse small intestinal air with some dilatation distally. Minimal colonic air is seen. This may reflect early changes of small bowel obstruction. No abnormal calcifications are seen. No acute bony abnormalities are seen. IMPRESSION: Atelectasis/infiltrate at the left lung base. Linear atelectasis at the right lung base. Diffuse air-filled small bowel with some dilatation distally and with minimal colonic air apparent. This may reflect early changes of small bowel obstruction. Recommend clinical correlation and follow-up. Electronically signed by: Idania Cerarto MD (09/28/2019 6:43 PM) [facility]
[2019-09-28 19:17] LABS: BASO % 0 % (0-3); EOS % 0 % (0-3); HEMATOCRIT 38.6 % (39.0-53.0); HEMOGLOBIN 12.7 g/dL (13.0-17.5); LYMPH # 0.4 x10^3/uL (1.0-4.8); LYMPH % 2 % (24-48); MEAN CORPUSCULAR HEMOGLOBIN 31 pg (25-35); MEAN CORPUSCULAR HGB CONC 33 g/dL (31-37); MEAN CORPUSCULAR VOLUME 94 fL (79-100); MONO # 0.6 x10^3/uL (0.0-1.1); MONO % 4 % (0-9); NEUT # 15.5 x10^3uL (1.8-7.7); NEUT % 94 % (31-73); PLATELET COUNT 269 x10^3/uL (140-400); RED BLOOD COUNT 4.13 x10^6/uL (4.30-5.70); RED CELL DISTRIBUTION WIDTH 15.4 % (11.5-14.5); WHITE BLOOD COUNT 16.5 x10^3/uL (4.0-11.0)
[2019-09-28] MEDS ORDERED: IOHEXOL 240 MG/ML 50ML VIAL. ONE (19:58)
[2019-09-28] MEDS ORDERED: IOHEXOL 300 MG/ML 75 ML VIAL. IV ONE (20:00)
[2019-09-28] MEDS ORDERED: IOHEXOL 240 MG/ML 50ML VIAL. PO ONE (20:00)
[2019-09-28 20:09] LABS: CALCIUM 8.6 mg/dL (8.5-10.1); CREATININE 0.7 mg/dL (0.7-1.3); GFR 114.6; POTASSIUM 4.1 mmol/L (3.5-5.1)
[2019-09-28] MEDS ORDERED: cefTRIAXone SODIUM 1 GM VIAL ONE (20:15)
[2019-09-28] MEDS ORDERED: IV NORMAL SALINE 50ML 50 ML ONE (20:15)
[2019-09-28 20:18] LABS: ALBUMIN 3.3 g/dL (3.4-5.0); DIRECT BILIRUBIN 0.1 mg/dL (0.0-0.2); TOTAL BILIRUBIN 0.3 mg/dL (0.2-1.0); TOTAL PROTEIN 7.3 g/dL (6.4-8.2)
[2019-09-28 21:30] LABS: BARBITURATES NEG (NEG); BENZODIAZEPINES NEG (NEG); CANNABINOIDS NEG (NEG); COCAINE NEG (NEG); METHADONE NEG (NEG); OPIATES NEG (NEG); PHENCYCLIDINE NEG (NEG)
[2019-09-28 21:35] LABS: AMPHETAMINE/METHAMPHETAMINE NEG (NEG)
[2019-09-28 21:35] LABS: INFLUENZA A PATIENT NEGATIVE (NEGATIVE); INFLUENZA B PATIENT NEGATIVE (NEGATIVE)
[2019-09-28 21:47] LABS: BACTERIA,URINE 0 /HPF (0-FEW); BILIRUBIN,URINE NEG (NEG); CLARITY,URINE HAZY; COLOR,URINE YELLOW; GLUCOSE,URINE NEG (NEG); NITRITE,URINE NEG (NEG); RBC,URINE 0 /HPF (0-2); SQUAMOUS EPITHELIAL CELL,UR OCC /LPF; UROBILINOGEN,URINE 0.2 mg/dL (0.2 mg/dL); WBC,URINE 0 /HPF (0-4)
[2019-09-28 21:55] LABS: % BANDS 9 % (0-9); % LYMPHS 6 % (24-48); % MONOS 3 % (0-10); % SEGS 82 % (35-66); PLT ESTIMATE ADEQUATE (ADEQUATE)
[2019-09-28 21:57] LABS: TOXIC GRANULATION SLIGHT
--- NOTE | 2019-09-28 22:27 | RAD ---
CT SCAN OF THE ABDOMEN AND PELVIS WITH IV CONTRAST. History: Abdominal pain nausea and vomiting and fever and PEG tube Comparison: September 19, 2019. Procedure: Contiguous axial images of the abdomen and pelvis were performed after the administration of 75 cc of Isovue 370 IV contrast. Oral contrast: Yes. Findings: There is patchy opacities in the lung bases. There is a gastric feeding tube. There is respiratory motion. The appendix is normal. Liver: There is a 1.2 x 1.7 centimeter hypoattenuating lesion posteriorly liver with mild peripheral puddling suggesting a hemangioma. Spleen: Unremarkable Pancreas: Unremarkable Adrenal Glands: Unremarkable Kidneys: Unremarkable There is no mass or lymphadenopathy. There is no free air. There is no free fluid. The urinary bladder appears normal. Impression: Basilar pulmonary infiltrates are seen previously and could be atypical pneumonia. PQRS Compliance Statement: One or more of the following individualized dose reduction techniques were utilized for this examination: 1. Automated exposure control 2. Adjustment of the mA and/or kV according to patient size 3. Use of iterative reconstruction technique Electronically signed by: Alexey Montalvo III, MD (09/28/2019 10:24 PM) [facility]
[2019-09-28 23:47] VITALS: BP 123/87
--- NOTE | 2019-09-29 01:14 | EKG ---
[address] [address] Test Date: 2019-09-28 Test Time: 18:37:55 Pat Name: CLAYTON HERNANDEZ Department: Room: Gender: M Side Splitter: : 1960 Requested By: DALIA DANIELS Order Number: [id number] Reading MD: Measurements Intervals [place] Rate: 123 P: 62 WV: 158 QRS: -7 QRSD: 84 T: 90 QT: 288 QTc: 417 Interpretive Statements SINUS TACHYCARDIA LEFTWARD AXIS ST & T ABNORMALITY, CONSIDER ANTEROLATERAL ISCHEMIA OR LEFT VENTRICULAR STRAIN ABNORMAL ECG RI6.01 No previous ECG available for comparison
== END 2019-09-29 00:27 | disposition short-term general hospital (02) ==
LOC: ER 17:28
DX: K56.7 Ileus, unspecified (principal); R33.8 Other retention of urine; F25.9 Schizoaffective disorder, unspecified; F79 Unspecified intellectual disabilities; E86.0 Dehydration; D72.829 Elevated white blood cell count, unspecified; D64.9 Anemia, unspecified; L89.90 Pressure ulcer of unspecified site, unspecified stage; F41.9 Anxiety disorder, unspecified; F32.9 Major depressive disorder, single episode, unspecified; K21.9 Gastro-esophageal reflux disease without esophagitis; I10 Essential (primary) hypertension; Z87.440 Personal history of urinary (tract) infections
CPT/HCPCS: 36415; 51702; 74022; 74177; 80048; 80076; 80307; 81001; 82150; 82550; 83605; 83690; 84484; 85007; 85025; 85610; 85730; 87040; 87205; 87804; 93005; 96365; 96375; 99285; J0696; J1885; J2405; J3490; J7120; Q9966; Q9967

== ENCOUNTER 2019-11-30 05:46 | Inpatient (IN) | payer MEDICARE, OTHER ==
[~2019-11-30] VITALS: Ht 172.7 cm; Wt 52.0 kg
[2019-11-30] VITALS (24 sets, daily range): BP systolic 100–127; BP diastolic 55–94
[2019-11-30] MEDS ORDERED: IV NORMAL SALINE 1,000ML 1,000 ML IV ONE (06:15)
--- NOTE | 2019-11-30 06:17 | PHYS DOC ---
Past History Past Medical History: A-Fib, Anxiety, Depression, GERD, Hypertension, Pneumonia, Seizure, Schizophrenia, UTI, Other Additional Past Medical Histor: Hx of SBO, mental retardation/developmental delay, SVT, urinary retention Past Medical History Limited secondary to baseline cognitive delay. Past Surgical History: Other Additional Past Surgical Histo: PEG tube Past Surgical History Limited secondary to baseline cognitive delay. Smoking: Non-smoker Alcohol Use: None Drug Use: None Social History Limited secondary to baseline cognitive delay. Adult General Chief Complaint Chief Complaint: ABDOMINAL PAIN HPI HPI Patient is a 59 year old male with past medical history of multiple abdominal surgeries, small bowel obstruction, developmental delay who presents with nausea and severe abdominal pain that began approximately 0400 this morning. Patient presents with facility caregiver who is able to assist exam and obtainment of history. Per report, the patient was feeling well yesterday and did have a bowel movement WAS loose. Caregiver received a call at 0400 this morning patient was appearance of nausea with some dry heaving without true emesis. The initial decision was made to allow some time to see if symptoms would radha. At approximately 0430 patient had continued nausea with dry heaving increasing increasingly worse abdominal pain. Patient describes abdominal pain as a severe colicky pain localized to the lower left and right abdominal quadrants. Nothing makes the pain worse or better and there is no radiation of pain. He is still feeling nausea without episode of emesis. Also experiencing some chest pain that is poorly localized and not well characterized. Caregiver has provided care patient for the last 5 years. She says that on his last episodes of small bowel obstruction he was having bowel movements however they were loose and watery as they are today. Patient caregiver denied any similar illness, fevers, or chills. History of present illness limited secondary to baseline cognitive delay. Review of Systems Review of Systems Constitutional: Denies fever or chills Respiratory: Denies cough or shortness of breath Cardiovascular: Reports chest pain. Denies palpitations or dizziness. GI: Reports abdominal pain and nausea. Denies emesis. : Reports urinary hesitation and dysuria. Integument: Denies rash or skin lesions Neurologic: Denies headache, focal weakness or sensory changes Review of systems limited secondary to baseline cognitive delay. Current Medications Current Medications Current Medications Medications (Trade) Dose Ordered Sig/Juanito Start Time Stop Time Status Last Admin Dose Admin Famotidine (Pepcid Vial) 20 mg 1X ONCE 11/30/19 06:15 11/30/19 06:16 UNV Fentanyl Citrate (Fentanyl 2ml Vial) 50 mcg 1X ONCE 11/30/19 06:15 11/30/19 06:16 UNV Ondansetron HCl (Zofran) 4 mg 1X ONCE 11/30/19 06:15 11/30/19 06:16 UNV Sodium Chloride 1,000 ml @ 1,000 mls/hr 1X ONCE 11/30/19 06:15 11/30/19 07:14 UNV Allergies Allergies Allergies Coded Allergies Type Severity Reaction Last Updated Verified No Known Drug Allergies 02/22/18 No Physical Exam Physical Exam Constitutional: Well nourished, no acute distress, non-toxic appearance. Conversational and joking during exam HENT: Normocephalic, atraumatic, oropharynx moist, no oral exudates, nose normal. Eyes: Conjunctiva normal, no discharge Cardiovascular: Heart rate with irregular rhythm and tachycardic rate Lungs & Thorax: Bilateral breath sounds clear to auscultation, no wheezing Abdomen: Abdomen soft with bowel sounds present. Multiple previous abdominal surgical scars present. Voluntary guarding present. Tenderness most localized to left lower quadrant and right lower quadrant to palpation. Mild rebound tenderness Skin: Warm, dry, no erythema, no rash Neurologic: Alert and oriented, slow to respond, baseline cognitive delay, no focal deficits noted Psychologic: Affect flat, mood normal Current Patient Data Vital Signs Vital Signs Date Time Temp Pulse Resp B/P (MAP) Pulse Ox O2 Delivery O2 Flow Rate FiO2 11/30/19 05:46 98.2 61 20 145/117 (126) 92 Room Air EKG EKG 0646: Irregularly irregular rhythm with rate ranging from 100-150. No P waves present. Normal axis. No ST segment elevation or depression. [] Radiology/Procedures Radiology/Procedures PROCEDURE: CT ABD PELV W/ IV CONTRST ONLY CT abdomen pelvis with contrast. HISTORY: Abdominal pain, nausea and vomiting, history of small bowel obstruction CT scan the abdomen pelvis was done using 75 mL Omnipaque 300 contrast. Comparison is made with a study from September 28. There are bilateral infiltrates. There is been worsening compared to the study of September 28 especially in the left upper lobe and lingula. The pattern suggests an acute pneumonia. There is peribronchial thickening. Esophagus is mildly dilated. There is a gastrostomy tube. Chronic aspiration can have this pattern. There is a low-density focus in the posterior liver without change from the prior study, likely a hemangioma. Spleen and adrenal glands are normal. Pancreas is normal. There is no mass or hydronephrosis in the kidneys. There is no bowel obstruction. Bladder is very distended. There is no ascites. There is a midline anterior abdominal wall hernia without change from the old study. IMPRESSION: 1. Distended bladder. 2. Worsening bibasilar infiltrates especially in the lingula and left upper lobe. 3. No bowel obstruction. PQRS Compliance Statement: One or more of the following individualized dose reduction techniques were utilized for this examination: 1. Automated exposure control 2. Adjustment of the mA and/or kV according to patient size 3. Use of iterative reconstruction technique Electronically signed by: Horace Smith MD (11/30/2019 7:19 AM) [id number] Course & Med Decision Making Course & Med Decision Making Pertinent Labs and Imaging studies reviewed. (See chart for details) Patient is a pleasant 59-year-old male with past medical history of developmental delay as well as small bowel obstructions. Per report of his caregiver he began experiencing nausea, dry heaving, abdominal pain localized to lower abdomen approximately 0400 this morning. Symptoms are reportedly consistent with previous episodes of small bowel obstruction. On arrival, patient is nontoxic in appearance and in no acute distress. He is conversational and making jokes during exam. Abdomen is soft with tenderness to palpation and some mild rebound tenderness. Patient states that he is nauseous, however has not vomited since symptoms began. Bowel movements have been present over the last couple days however they have been loose. Vital signs are stable and patient is afebrile. Given patient's symptoms as well as past medical history, we'll obtain CT imaging of abdomen as well as basic labs and cardiac evaluation given his mention of poorly described chest pain. We'll manage patient's symptoms with antiemetics, analgesics, and IV fluids. Initial EKG shows an irregular rhythm with a rate 140s to 150s consistent for afib RVR. Cardizem bolus and gtt initiated with interval improvement of rate. Labs obtained and posted to chart. WBC slightly elevated. Troponin WNL. Lactic acid WNL. CT abd/pelvis with signs of acute pneumonia and significant urine retention. BCX pending. Empiric antibiotics given. Rodriguez cath placed. Patient requiring admission for further evaluation and treatment. Discussed with Dr. Mtz (hospitalist) who is in agreement with admission. Discussed findings and plan with patient and director television, who acknowledge understanding and agreement. Dragon Disclaimer Dragon Disclaimer This electronic medical record was generated, in whole or in part, using a voice recognition dictation system. Departure Departure: Impression: Primary Impression: Atrial fibrillation with RVR Additional Impressions: Pneumonia Urinary retention Disposition: ADMITTED INPATIENT Admitting Physician: Nain Mtz Condition: GUARDED Referrals: NIC BUTLER PAC (PCP) Critical Care Time Critical care time was 30 minutes which includes time at bedside, spent in discussion of patient's care with specialists and/or family members, with interpretation of laboratory and/or radiological studies and is exclusive of procedures. Problem Qualifiers Additional Impressions: Pneumonia Pneumonia type: due to unspecified organism Laterality: left Lung location: unspecified part of lung Qualified Codes: J18.9 - Pneumonia, unspecified organism BIRGIT GARRISON DO Nov 30, 2019 06:17
[2019-11-30] MEDS ORDERED: ONDANSETRON PF 4 MG/2 ML VIAL. IVP ONE (06:30)
[2019-11-30] MEDS ORDERED: IOHEXOL 300 MG/ML 75 ML VIAL. IV ONE (06:30)
[2019-11-30] MEDS ORDERED: FAMOTIDINE 20 MG/2 ML VIAL IVP ONE (06:30)
[2019-11-30 06:42] LABS: BASO % 0 % (0-3); EOS % 0 % (0-3); HEMATOCRIT 42.9 % (39.0-53.0); HEMOGLOBIN 14.3 g/dL (13.0-17.5); LYMPH # 0.3 x10^3/uL (1.0-4.8); LYMPH % 2 % (24-48); MEAN CORPUSCULAR HEMOGLOBIN 32 pg (25-35); MEAN CORPUSCULAR HGB CONC 33 g/dL (31-37); MEAN CORPUSCULAR VOLUME 95 fL (79-100); MONO # 0.5 x10^3/uL (0.0-1.1); MONO % 4 % (0-9); NEUT # 12.3 x10^3uL (1.8-7.7); NEUT % 94 % (31-73); PLATELET COUNT 255 x10^3/uL (140-400); RED BLOOD COUNT 4.53 x10^6/uL (4.30-5.70); WHITE BLOOD COUNT 13.2 x10^3/uL (4.0-11.0)
[2019-11-30] MEDS ORDERED: CONTRAST GIVEN MC PRN (06:45)
[2019-11-30 06:53] LABS: CALCIUM 9.1 mg/dL (8.5-10.1); CREATININE 0.7 mg/dL (0.7-1.3); GFR 114.6
[2019-11-30 07:16] LABS: ALBUMIN 3.7 g/dL (3.4-5.0); TOTAL BILIRUBIN 0.6 mg/dL (0.2-1.0); TOTAL PROTEIN 7.4 g/dL (6.4-8.2)
[2019-11-30] MEDS ORDERED: IV NORMAL SALINE 100ML 100 ML ONE (07:16)
--- NOTE | 2019-11-30 07:21 | RAD ---
CT abdomen pelvis with contrast. HISTORY: Abdominal pain, nausea and vomiting, history of small bowel obstruction CT scan the abdomen pelvis was done using 75 mL Omnipaque 300 contrast. Comparison is made with a study from September 28. There are bilateral infiltrates. There is been worsening compared to the study of September 28 especially in the left upper lobe and lingula. The pattern suggests an acute pneumonia. There is peribronchial thickening. Esophagus is mildly dilated. There is a gastrostomy tube. Chronic aspiration can have this pattern. There is a low-density focus in the posterior liver without change from the prior study, likely a hemangioma. Spleen and adrenal glands are normal. Pancreas is normal. There is no mass or hydronephrosis in the kidneys. There is no bowel obstruction. Bladder is very distended. There is no ascites. There is a midline anterior abdominal wall hernia without change from the old study. IMPRESSION: 1. Distended bladder. 2. Worsening bibasilar infiltrates especially in the lingula and left upper lobe. 3. No bowel obstruction. PQRS Compliance Statement: One or more of the following individualized dose reduction techniques were utilized for this examination: 1. Automated exposure control 2. Adjustment of the mA and/or kV according to patient size 3. Use of iterative reconstruction technique Electronically signed by: Horace Smith MD (11/30/2019 7:19 AM) [id number]
[2019-11-30] MEDS ORDERED: dilTIAZem 25 MG/5 ML VIAL IVP ONE (07:30)
[2019-11-30] MEDS ORDERED: dilTIAZem VIAL 125 MG in IV NORMAL SALINE 100ML 100 ML IV ONE (07:30)
[2019-11-30] MEDS ORDERED: PIPERACILLIN/TAZOBACTAM 4.5 GM in IV NORMAL SALINE 50ML 50 ML IV ONE (07:45)
[2019-11-30] MEDS ORDERED: ASPIRIN RECTAL 300 MG SUPP. PR ONE (07:45)
[2019-11-30 08:10] LABS: BACTERIA,URINE 0 /HPF (0-FEW); BILIRUBIN,URINE NEG (NEG); CLARITY,URINE CLEAR; COLOR,URINE YELLOW; GLUCOSE,URINE NEG (NEG); NITRITE,URINE NEG (NEG); SQUAMOUS EPITHELIAL CELL,UR FEW /LPF; UROBILINOGEN,URINE 0.2 mg/dL (0.2 mg/dL)
[2019-11-30] MEDS ORDERED: ONDANSETRON PF 4 MG/2 ML VIAL. IV PRN ×2 (08:15→09:00)
[2019-11-30] MEDS ORDERED: dilTIAZem VIAL 125 MG in IV NORMAL SALINE 100ML 100 ML IV PRN (09:00)
[2019-11-30] MEDS: IV NORMAL SALINE 1,000ML 1,000 ML IV SCH ×2 (09:08→20:14)
[2019-11-30] MEDS ORDERED: MAGN400T44 PO (11:12)
[2019-11-30] MEDS ORDERED: MUPI15CR8 TP (11:12)
[2019-11-30] MEDS ORDERED: ESOM40CA PO (11:12)
[2019-11-30] MEDS ORDERED: POLY17PO5 PO (11:12)
[2019-11-30] MEDS ORDERED: LORA5SOL43 PO (11:12)
[2019-11-30] MEDS ORDERED: ACET160S PO (11:12)
[2019-11-30] MEDS ORDERED: MONT10TA80 PO (11:12)
--- NOTE | 2019-11-30 12:01 | NUR ---
Pt admitted to ICU bed 4 per ED. Pt is lethargic and not wanting to get out of bed. He reports that his tummy and butt hurts. He is able to verbalize understanding of admission to ICU. He on cardizem gtt at 5 mg and is now bumped up to 10 mg. He does have a mccartney for urinary retention. His facility did bring his taylor tube that they want to make sure we do not throw away. They also brought feeding for a few days. Will wait till abd pain resolves to feed. Will continue to monitor. Tomás RANDLE
[2019-11-30] MEDS: KETOROLAC 30 MG/ML VIAL. IV PRN ×2 (12:02→20:14)
[2019-11-30] MEDS ORDERED: levoFLOXacin PER PHARMACY 1 EACH. MC PRN (12:15)
--- NOTE | 2019-11-30 13:30 | HP ---
ADMIT DATE: 11/30/2019 HISTORY OF PRESENT ILLNESS: The patient is a 59-year-old male patient, a resident at [facility], who was brought to the Emergency Room with complaint of severe abdominal pain, recurrent bouts of nausea and dry heaving without emesis. An attempt initially was to keep him there but symptoms worsened. The patient continued to have dry heaves increasingly worse and worsening abdominal pain. He describes abdominal pain as severe colicky localized to the left and right abdominal lower quadrant. He did also complain of chest pain that is poorly localized and is not well characterized and therefore, the patient was brought to the Emergency Room where he was evaluated and was found to be in atrial fibrillation with rapid ventricular response. CT scan of the abdomen and pelvis showed that the patient has distended bladder and worsening bibasilar infiltrates, especially in the lingula and left upper lobe, but no evidence of bowel obstruction. The patient was admitted to ICU. He was started on Cardizem drip to control the heart rate and also IV antibiotic in the form of Zosyn and Levaquin. PAST MEDICAL HISTORY: Significant for intellectual disability, Crohn's disease, recurrent episodes of small-bowel obstruction, chronic aspiration pneumonia, dysphagia, status post percutaneous endoscopic gastrostomy tube, seizure disorder, incontinence, benign prostatic hypertrophy and urinary retention, anxiety and depression. PAST SURGICAL HISTORY: Significant for multiple gastrostomy tube placements. Finally, he has Ash-Gomez button, has multiple exploratory laparotomies for multiple bowel obstruction, multiple abdominal surgeries. ALLERGIES: He has no known drug allergies. FAMILY HISTORY: Noncontributory. SOCIAL HISTORY: The patient is a resident at [facility]. He does not smoke, drink alcohol or use any recreational drugs. MEDICATIONS: He is currently on following medications: He is on loratadine 5 mg per 5 mL through the PEG tube daily, clonidine, Catapres TTS 1 transdermal weekly. He is on doxazosin mesylate 4 mg per feeding tube daily, diclofenac sodium 2 grams apply topically daily, acetaminophen 160 mg per 5 mL, he takes 20 mL per feeding tube every 6 hours, carbamazepine 100 mg per 5 mL, he takes 10 mL twice a day with breakfast and lunch. He takes 15 mL, that is, 300 mg at bedtime. He is on ziprasidone 40 mg twice a day. He is also on Nutren 250 mL per feeding tube 4 times a day. He is on Singulair 10 mg at bedtime, magnesium oxide 400 mg twice a day, bisacodyl 10 mg suppository daily p.r.n. for constipation, Colace 50 mg per 5 mL, he takes 5 mL per feeding tube daily. He is on milk of magnesia 30 mL per feeding tube daily. He is on polyethylene glycol 17 grams daily, famotidine 40 mg p.o. daily, and Nexium 40 mg twice a day. He is on Bactroban cream applied topically 3 times a day. PHYSICAL EXAMINATION: GENERAL: On arrival to the Emergency Room, the patient was slightly tachypneic, but there was no pallor, jaundice, cyanosis or thyromegaly. No jugular venous distention. No lower limb edema. VITAL SIGNS: His heart rate was 163, irregularly irregular, blood pressure was 104/84, temperature was 98.3, respiratory rate 22, and oxygen saturation was 93% on room air. HEAD, EYES, EARS, NOSE AND THROAT: Showed normocephalic, atraumatic. NECK: Supple. HEART: Showed normal first and second heart sounds. No gallop or murmur. CHEST: Shows central trachea, equal bilateral expansion, air entry, vesicular sounds with crepitation mostly in the left side posteriorly. I could not appreciate any rhonchi. ABDOMEN: Distended, soft with some mild tenderness in both right and left lower quadrant. There is no guarding or rigidity. No organomegaly. All hernial orifice intact. Bowel sounds are actually hyperactive. NEUROLOGIC: He is awake, alert, responding appropriately. All cranial nerves intact. EXTREMITIES: He moves extremities without difficulty. LABORATORY DIAGNOSTIC DATA: His lab work on arrival to the Emergency Room showed a white cell count of 13,200, hemoglobin 14, hematocrit 42, MCV 95, and platelet count 255,000. His serum sodium was 134, potassium 4, chloride 96, bicarbonate 28, anion gap of 10, BUN 15, creatinine 0.7, estimated GFR was 114 mL per minute. His glucose was 97. Lactic acid was 1.3, calcium was 9.1. Total bilirubin, AST, ALT, alkaline phosphatase were normal. His troponin was 0.046. Total protein was 7.4, albumin 3.7. Lipase was 67. His prothrombin time, INR and aPTT are all normal. Urinalysis showed the urine was yellow, clear with a pH of 8.5, specific gravity 1.015. The urine, otherwise essentially negative. While in the Emergency Room, he has had a CT scan of the abdomen and pelvis, which basically showed he has marked distended bladder and indwelling catheter was placed and about 800 mL of urine were drained, has worsening bibasilar infiltrates, especially in the lingula and left upper lobe. No bowel obstruction. PLAN: My plan is to keep him n.p.o. for the time being, continue with IV antibiotic. Continue with Cardizem drip. I will also switch him to IV Keppra for his seizure disorder and add Lovenox and await evaluation by the turbine operator. SHYANNE ELLIS MD DR: APARNA/dominick JOB#: [id number] / [id number]
--- NOTE | 2019-11-30 13:34 | EKG ---
[address] [address] Test Date: 2019-11-30 Test Time: 06:46:25 Pat Name: CLAYTON HERNANDEZ Department: Room: [id number] 1 Gender: M Floor Layer Helper: : [id number] Requested By: BIRGIT GARRISON Order Number: [id number] Reading MD: Measurements Intervals [place] Rate: 154 P: MT: QRS: -8 QRSD: 80 T: 90 QT: 318 QTc: 513 Interpretive Statements IRREGULAR RHYTHM, NO P-WAVE FOUND LEFTWARD AXIS ST & T ABNORMALITY, CONSIDER HIGH LATERAL ISCHEMIA OR LEFT VENTRICULAR STRAIN ABNORMAL ECG RI6.01 No previous ECG available for comparison
--- NOTE | 2019-11-30 14:54 | PDOC2 ---
CONSULT Date of Admission DATE: 11/30/19 TIME: 14:43 Reason for Consult: Atrial fibrillation Referring Physician: Dr. Mtz Chief Complaint Abdominal pain Source: Chart review, Patient Problem List Problems Medical Problems: (1) Atrial fibrillation with RVR Status: Acute (2) Pneumonia Status: Acute (3) Urinary retention Status: Acute History of Present Illness 59-year-old male with history of paroxysmal atrial fibrillation, intellectual disability, resident at a skilled nursing was brought to ED was brought to ED for severe abdominal pain and nausea and was diagnosed with urinary retention. He was also found to have atrial fibrillation with rapid ventricular response prompting cardiology consultation. Patient is a poor historian but denied any chest pain or syncope. Past Medical History Intellectual disability Paroxysmal atrial fibrillation Crohn's disease Benign prostatic hypertrophy Small bowl obstruction Aspiration pneumonia Anxiety/depression Seizure disorder Past Surgical History Multiple gastrostomy tube placement Exploratory laparotomy Family History Not contributory Social History Patient is a nonsmoker and a nondrinker Current Medications Current Medications Ondansetron HCl (Zofran) 4 mg 1X ONCE IVP Last administered on 11/30/19at 06:40; Start 11/30/19 at 06:30; Stop 11/30/19 at 06:31; Status DC Famotidine (Pepcid Vial) 20 mg 1X ONCE IVP Last administered on 11/30/19at 06:40; Start 11/30/19 at 06:30; Stop 11/30/19 at 06:31; Status DC Sodium Chloride 1,000 ml @ 1,000 mls/hr 1X ONCE IV Last administered on 11/30/19at 06:40; Start 11/30/19 at 06:15; Stop 11/30/19 at 07:14; Status DC Fentanyl Citrate (Fentanyl 2ml Vial) 50 mcg 1X ONCE IV Last administered on 11/30/19at 06:41; Start 11/30/19 at 06:30; Stop 11/30/19 at 06:31; Status DC Iohexol (Omnipaque 300 Mg/ml) 75 ml 1X ONCE IV Last administered on 11/30/19at 06:51; Start 11/30/19 at 06:30; Stop 11/30/19 at 06:31; Status DC Info (Do NOT chart on this entry -- for MONITORING) 1 each PRN DAILY PRN MC SEE COMMENTS; Start 11/30/19 at 06:45; Stop 12/02/19 at 06:44 Sodium Chloride 100 ml @ As Directed STK-MED ONCE .ROUTE ; Start 11/30/19 at 07:16; Stop 11/30/19 at 07:17; Status DC Diltiazem HCl (Cardizem) 125 mg STK-MED ONCE IV ; Start 11/30/19 at 07:17; Stop 11/30/19 at 07:17; Status DC Diltiazem HCl (Cardizem Iv Push) 20 mg 1X ONCE IVP Last administered on 11/30/19at 07:23; Start 11/30/19 at 07:30; Stop 11/30/19 at 07:31; Status DC Diltiazem HCl 125 mg/Sodium Chloride 125 ml @ 5 mls/hr 1X ONCE IV Last administered on 11/30/19at 07:24; Start 11/30/19 at 07:30; Stop 11/30/19 at 09:05; Status DC Piperacillin Sod/ Tazobactam Sod 4.5 gm/Sodium Chloride 50 ml @ 100 mls/hr 1X ONCE IV Last administered on 11/30/19at 09:26; Start 11/30/19 at 07:45; Stop 11/30/19 at 08:14; Status DC Levofloxacin/ Dextrose 150 ml @ 100 mls/hr 1X ONCE IV Last administered on 11/30/19at 09:26; Start 11/30/19 at 07:45; Stop 11/30/19 at 09:14; Status DC Aspirin (Aspirin Rectal Supp) 300 mg 1X ONCE VA ; Start 11/30/19 at 07:45; Stop 11/30/19 at 07:46; Status DC Ondansetron HCl (Zofran) 4 mg PRN Q4HRS PRN IV NAUSEA/VOMITING; Start 11/30/19 at 08:15; Stop 11/30/19 at 09:10; Status DC Fentanyl Citrate (Fentanyl 2ml Vial) 50 mcg Q2HR PRN IV PAIN Last administered on 11/30/19at 13:48; Start 11/30/19 at 08:15; Stop 12/03/19 at 13:00 Sodium Chloride 1,000 ml @ 100 mls/hr Q10H IV Last administered on 11/30/19at 09:08; Start 11/30/19 at 09:30 Ketorolac Tromethamine (Toradol 30mg Vial) 30 mg PRN Q6HRS PRN IV PAIN Last administered on 11/30/19at 12:02; Start 11/30/19 at 09:00; Stop 12/05/19 at 08:59 Ondansetron HCl (Zofran) 4 mg PRN Q8HRS PRN IV NAUSEA/VOMITING; Start 11/30/19 at 09:00 Diltiazem HCl 125 mg/Sodium Chloride 125 ml @ 5 mls/hr CONT PRN IV SEE I/O RECORD; Start 11/30/19 at 09:00 Piperacillin Sod/ Tazobactam Sod 4.5 gm/Sodium Chloride 50 ml @ 100 mls/hr Q6HRS IV ; Start 11/30/19 at 18:00 Levofloxacin/ Dextrose (Levaquin Per Pharmacy) 1 each PRN DAILY PRN MC SEE COMMENTS; Start 11/30/19 at 12:15 Levofloxacin/ Dextrose 150 ml @ 100 mls/hr Q24H IV ; Start 12/01/19 at 09:00 Levetiracetam 500 mg/Sodium Chloride 100 ml @ 400 mls/hr Q12HR IV ; Start 11/30/19 at 15:00 Enoxaparin Sodium (Lovenox 60mg Syringe) 50 mg Q12HR SQ ; Start 11/30/19 at 15:00 Active Scripts Active Reported Acetaminophen 160 Mg/5 Ml Solution 20 Ml PO Q6HRS PRN Miralax (Polyethylene Glycol 3350) 17 Gm Powd.pack 1 Packet PO DAILY PRN 2 Days dissolve in water Nexium Capsule (Esomeprazole Magnesium) 40 Mg Capsule.dr 1 Cap PO BID Mupirocin (Mupirocin Calcium) 15 Gm Cream..g. 1 Adriano TP TID 10 Days Montelukast Sodium Tablet (Montelukast Sodium) 10 Mg Tablet 10 Mg PO HS Magnesium Oxide 400 Mg Tablet 1 Tab PO BID 30 Days Loratadine 5 Mg/5 Ml Solution 5 Ml PO DAILY 30 Days Famotidine 40 Mg/5 Ml Oral.susp 40 Mg PO DAILY16 Bisacodyl 10 Mg Supp.rect 10 Mg RC PRN DAILY PRN Voltaren (Diclofenac Sodium) 100 Gm Gel..gram. 2 Gm TP DAILY08 Miralax (Polyethylene Glycol 3350) 17 Gm Powd.pack 1 Packet PEG DAILY PRN Catapres-Tts 1 (Clonidine) 1 Each Patch.tdwk 1 Each TD WEEKLY LAST DOSE GIVEN: DATE: TIME: NEXT DOSE DUE: DATE: TIME: Docusate Sodium 50 Mg/5 Ml Liquid 5 Ml PEG DAILY LAST DOSE GIVEN: DATE: TIME: NEXT DOSE DUE: DATE: TIME: Milk Of Magnesia (Magnesium Hydroxide) 400 Mg/5 Ml Oral.susp 30 Ml PEG DAILY LAST DOSE GIVEN: DATE: TIME: NEXT DOSE DUE: DATE: TIME: Nutren 2.0 (Nutritional Supplement) 250 Ml Liquid 250 Ml PEG QID LAST DOSE GIVEN: DATE: TODAY TIME: AM NEXT DOSE DUE: DATE: TODAY TIME: AFTERNOON Geodon (Ziprasidone Hcl) 20 Mg Capsule 40 Mg PEG BID LAST DOSE GIVEN: DATE: TODAY TIME: AM NEXT DOSE DUE: DATE: TODAY TIME: AFTERNOON Carbamazepine 100 Mg/5 Ml Oral.susp 15 Ml PEG HS LAST DOSE GIVEN: DATE: YESTERDAY TIME: AT BEDTIME NEXT DOSE DUE: DATE: TODAY TIME: AT BEDTIME Carbamazepine 100 Mg/5 Ml Oral.susp 10 Ml PEG BIDW LAST DOSE GIVEN: DATE: TODAY TIME: AM NEXT DOSE DUE: DATE: TODAY TIME: PM Doxazosin Mesylate 2 Mg Tablet 4 Mg PEG HS LAST DOSE GIVEN: DATE: YESTERDAY TIME: AT BEDTIME NEXT DOSE DUE: DATE: TODAY TIME: AT BEDTIME Allergies: Coded Allergies: No Known Drug Allergies (Unverified , 02/22/18) Review of System Full ROS Cannot be obtained due to intellectual disability General: No acute distress HEENT: Atraumatic Lungs: Clear to auscultation Heart: Other (tachycardic and irregular) Abdomen: Other (distended with mild lower quadrant tenderness) Extremities: No edema VITALS Vital Signs Date Time Temp Pulse Resp B/P (MAP) Pulse Ox O2 Delivery O2 Flow Rate FiO2 11/30/19 13:48 Room Air 11/30/19 11:43 108 18 108/55 (72) 93 11/30/19 08:30 98.3 Labs Laboratory Tests Test 11/30/19 06:15 11/30/19 06:30 11/30/19 07:27 11/30/19 11:19 White Blood Count 13.2 x10^3/uL (4.0-11.0) Red Blood Count 4.53 x10^6/uL (4.30-5.70) Hemoglobin 14.3 g/dL (13.0-17.5) Hematocrit 42.9 % (39.0-53.0) Mean Corpuscular Volume 95 fL (79-100) Mean Corpuscular Hemoglobin 32 pg (25-35) Mean Corpuscular Hemoglobin Concent 33 g/dL (31-37) Red Cell Distribution Width 15.0 % (11.5-14.5) Platelet Count 255 x10^3/uL (140-400) Neutrophils (%) (Auto) 94 % (31-73) Lymphocytes (%) (Auto) 2 % (24-48) Monocytes (%) (Auto) 4 % (0-9) Eosinophils (%) (Auto) 0 % (0-3) Basophils (%) (Auto) 0 % (0-3) Neutrophils # (Auto) 12.3 x10^3uL (1.8-7.7) Lymphocytes # (Auto) 0.3 x10^3/uL (1.0-4.8) Monocytes # (Auto) 0.5 x10^3/uL (0.0-1.1) Eosinophils # (Auto) 0.0 x10^3/uL (0.0-0.7) Basophils # (Auto) 0.0 x10^3/uL (0.0-0.2) Prothrombin Time 9.6 SEC (9.4-11.4) Prothromb Time International Ratio 0.9 (0.9-1.1) Activated Partial Thromboplast Time 23 SEC (23-33) Sodium Level 134 mmol/L (136-145) Potassium Level 4.0 mmol/L (3.5-5.1) Chloride Level 96 mmol/L (98-107) Carbon Dioxide Level 28 mmol/L (21-32) Anion Gap 10 (6-14) Blood Urea Nitrogen 15 mg/dL (8-26) Creatinine 0.7 mg/dL (0.7-1.3) Estimated GFR (Cockcroft-Gault) 114.6 BUN/Creatinine Ratio 21 (6-20) Glucose Level 97 mg/dL (70-99) Calcium Level 9.1 mg/dL (8.5-10.1) Total Bilirubin 0.6 mg/dL (0.2-1.0) Aspartate Amino Transf (AST/SGOT) 24 U/L (15-37) Alanine Aminotransferase (ALT/SGPT) 37 U/L (16-63) Alkaline Phosphatase 85 U/L (46-116) Creatine Kinase 154 U/L (39-308) Creatine Kinase MB (Mass) 1.7 ng/mL (0.0-3.6) Creatine Kinase MB Relative Index 1.1 % (0-4) Troponin I Quantitative 0.046 ng/mL (0-0.055) 0.186 ng/mL (0-0.055) Total Protein 7.4 g/dL (6.4-8.2) Albumin 3.7 g/dL (3.4-5.0) Albumin/Globulin Ratio 1.0 (1.0-1.7) Lipase 67 U/L (73-393) Lactic Acid Level 1.3 mmol/L (0.4-2.0) Urine Collection Type Unknown Urine Color Yellow Urine Clarity Clear Urine pH 8.5 Urine Specific [place] 1.015 Urine Protein Neg (NEG-TRACE) Urine Glucose (UA) Neg mg/dL (NEG) Urine Ketones (Stick) Neg mg/dL (NEG) Urine Blood Neg (NEG) Urine Nitrite Neg (NEG) Urine Bilirubin Neg (NEG) Urine Urobilinogen Dipstick 0.2 mg/dL (0.2 mg/dL) Urine Leukocyte Esterase Neg (NEG) Urine RBC 3-5 /HPF (0-2) Urine WBC 1-4 /HPF (0-4) Urine Squamous Epithelial Cells Few /LPF Urine Bacteria 0 /HPF (0-FEW) Test 11/30/19 14:10 Troponin I Quantitative 0.172 ng/mL (0-0.055) Assessment/Plan 1. Atrial fibrillation with rapid ventricular response. Patient has known history of PAF. Heart rate better controlled with Cardizem infusion but still in 120's with borderline blood pressure. We will use digoxin for better rate control. Recent 2-D echo in August 2019 showed EF 45%. He is a poor candidate for long-term anticoagulation. Continue aspirin. 2. Slightly elevated troponin level, most probably type 2/demand ischemia related to rapid ventricular response. Doubt ACS. We will pursue conservative management considering his comorbidities. 3. Urinary retention and possible pneumonia: Per IM 4. Seizure disorder: Continue current medical regimen Thank you for your consultation KATIE DAUGHERTY MD Nov 30, 2019 14:54
[2019-11-30] MEDS ORDERED: DIGOXIN IV 500 MCG/2 ML AMPUL. IV ONE (16:00)
[2019-11-30] MEDS: ENOXAPARIN ** NOTE DOSE ** SYRINGE SQ SCH ×2 (16:10→20:15)
[2019-11-30] MEDS: PIPERACILLIN/TAZOBACTAM 4.5 GM in IV NORMAL SALINE 50ML 50 ML IV SCH ×2 (18:05→23:59)
[2019-12-01] VITALS (21 sets, daily range): BP systolic 97–175; BP diastolic 60–88
--- NOTE | 2019-12-01 02:30 | NUR ---
Pt converted from A.fib/A.Flutter to NSR at 0230. Pt awake in bed watching TV, with call light in hand. VSS.
[2019-12-01] MEDS: IV NORMAL SALINE 1,000ML 1,000 ML IV SCH ×3 (05:30→21:00)
[2019-12-01] MEDS: KETOROLAC 30 MG/ML VIAL. IV PRN ×2 (05:55→11:59)
[2019-12-01] MEDS: PIPERACILLIN/TAZOBACTAM 4.5 GM in IV NORMAL SALINE 50ML 50 ML IV SCH ×3 (05:55→17:53)
[2019-12-01 06:37] LABS: BASO # 0.1 x10^3/uL (0.0-0.2); BASO % 1 % (0-3); EOS % 0 % (0-3); HEMATOCRIT 36.2 % (39.0-53.0); HEMOGLOBIN 11.9 g/dL (13.0-17.5); LYMPH % 9 % (24-48); MEAN CORPUSCULAR HEMOGLOBIN 32 pg (25-35); MEAN CORPUSCULAR HGB CONC 33 g/dL (31-37); MEAN CORPUSCULAR VOLUME 97 fL (79-100); MONO # 0.6 x10^3/uL (0.0-1.1); MONO % 5 % (0-9); NEUT # 9.9 x10^3uL (1.8-7.7); NEUT % 86 % (31-73); PLATELET COUNT 208 x10^3/uL (140-400); RED BLOOD COUNT 3.74 x10^6/uL (4.30-5.70); RED CELL DISTRIBUTION WIDTH 14.8 % (11.5-14.5); WHITE BLOOD COUNT 11.6 x10^3/uL (4.0-11.0)
[2019-12-01 06:53] LABS: DIG 0.7 ng/dL (0.9-2.0)
[2019-12-01 07:07] LABS: ALBUMIN 2.5 g/dL (3.4-5.0); ALBUMIN/GLOBULIN RATIO 0.7 (1.0-1.7); CALCIUM 7.8 mg/dL (8.5-10.1); CREATININE 0.6 mg/dL (0.7-1.3); POTASSIUM 4.1 mmol/L (3.5-5.1); TOTAL BILIRUBIN 0.5 mg/dL (0.2-1.0); TOTAL PROTEIN 6.3 g/dL (6.4-8.2)
[2019-12-01] MEDS: dilTIAZem HCL 30 MG TABLET PO SCH ×3 (07:54→21:30)
[2019-12-01] MEDS: ASPIRIN 81 MG TAB.CHEW PO SCH (07:59)
[2019-12-01] MEDS: ENOXAPARIN ** NOTE DOSE ** SYRINGE SQ SCH (08:00)
--- NOTE | 2019-12-01 10:37 | PN ---
DATE: 12/01/2019 SUBJECTIVE: The patient is resting slightly propped up in bed, in no apparent distress, awake, alert. He is now on short acting Cardizem and he has converted to sinus rhythm. In fact, his heart rate is now 76; however, he continues to complain of abdominal pain and headache. PHYSICAL EXAMINATION: GENERAL: When I examined him, he looked well and was clearly in no apparent respiratory distress, pale, but no jaundice, cyanosis or thyromegaly. No jugular venous distention. No lower limb edema. VITAL SIGNS: His heart rate was 76, blood pressure was 134/70, temperature 97.4, respiratory rate was 16 and oxygen saturation was 96% on room air. HEAD, EYES, EARS, NOSE AND THROAT: Showed normocephalic, atraumatic. NECK: Supple. HEART: Showed normal first and second heart sounds. No gallop or murmurs. CHEST: Clear to auscultation. He did have crepitation mostly in the left side posteriorly. I could not appreciate any rhonchi. ABDOMEN: Distended, soft. There is no tenderness. No guarding or rigidity. No organomegaly. All hernial orifices intact. Bowel sounds normal. He has Ash-Gomez button in place. NEUROLOGIC: He is awake, alert, responding appropriately. All cranial nerves are intact. He moves extremities without difficulty. His intake over the last 24 hours and output are incompletely recorded. LABORATORY DATA: Her lab work this morning showed his white cell count to be down to 11,600, hemoglobin 11.9, hematocrit 36, MCV 97 and platelet count 208,000. Serum sodium was 136, potassium 4.1, chloride 105, bicarbonate 21, anion gap of 10, BUN 17, creatinine 0.6, estimated GFR was 137 mL per minute. His glucose was 88, calcium was 7.8. Total bilirubin, AST, ALT, alkaline phosphatase were normal. His total protein was 6.3, albumin 2.5. ASSESSMENT: 1. Atrial fibrillation with rapid ventricular response, treated with Cardizem drip. He is now on short acting Cardizem and has converted to sinus rhythm. He is not considered a candidate for long-term anticoagulation. He is on aspirin. 2. Aspiration pneumonia with infiltrates bilaterally, worse more in the lingula and left upper lobe. 3. Urinary retention due to benign prostatic hypertrophy and bladder outlet obstruction. He has an indwelling Rodriguez catheter. 4. Seizure disorder, for which he is on Keppra 500 mg IV twice a day. 5. He has dysphagia for which he has Ash-Gomez button. Unfortunately, the patient continues to complain of abdominal pain. There is no evidence of bowel obstruction. PLAN: My plan is to check his CT scan of the head and also repeat KUB and decide on further management accordingly. SHYANNE ELLIS MD DR: APARNA/dominick JOB#: [id number] / [id number]
--- NOTE | 2019-12-01 11:28 | RAD ---
CT Head without contrast Indication: New onset headache Date of service:12/01/2019 9:56 AM. Comparison: CT head without contrast from 05/23/2018. Technique: Contiguous helical images are obtained from foramen magnum, to the vertex without IV contrast . Findings: Areas of encephalomalacia with cortical involvement redemonstrated in both frontoparietal regions without interval change since previous study. The ventricles and sulci are normal for the patient's age. No mass , midline shift , hemorrhage or acute infarct is present. Bone windows are normal without calvarial abnormality. The visualized orbits, paranasal sinuses and mastoid air cells are clear . Impression: No acute intracranial process detected. 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 Automated exposure control 2. Adjustment of the mA and/or kV according to patient size 3. Use of iterative reconstruction technique End impression Exam performed: X-ray abdomen KUB. Clinical Indication: Abdominal pain Date of Service: 11/30/2016 Comparison: CT abdomen and pelvis from 11/30/2019 FINDINGS: Supine radiograph of the abdomen and pelvis is obtained. Mild gaseous prominence of the small and large bowel loops is seen throughout, perhaps mild ileus. No evidence of obstruction seen Definite pathologic calcification or organomegaly is not identified. The visualized osseous structures appear unremarkable. Impression: 1. Nonspecific mildly prominent gas-filled bowel loops. Electronically signed by: Lilia Ruff MD (12/01/2019 11:26 AM) [id number]
[2019-12-02] MEDS: PIPERACILLIN/TAZOBACTAM 4.5 GM in IV NORMAL SALINE 50ML 50 ML IV SCH ×4 (00:10→18:28)
[2019-12-02 04:50] VITALS: BP 192/98
[2019-12-02] MEDS: dilTIAZem HCL 30 MG TABLET PO SCH ×3 (05:29→21:14)
[2019-12-02] MEDS ORDERED: cloNIDine TTS-1 1 PATCH PATCH TD ONE (05:45)
--- NOTE | 2019-12-02 06:33 | NUR ---
Pt's BP is elevated, md notified, and meds given. Call light at bedside. Will continue to monitor.
[2019-12-02 06:47] LABS: HEMOGLOBIN 12.1 g/dL (13.0-17.5); RED BLOOD COUNT 3.76 x10^6/uL (4.30-5.70); RED CELL DISTRIBUTION WIDTH 14.5 % (11.5-14.5); WHITE BLOOD COUNT 9.3 x10^3/uL (4.0-11.0)
[2019-12-02 07:00] LABS: C REACTIVE PROTEIN 143.6 mg/L (0-3.3); CALCIUM 8.2 mg/dL (8.5-10.1); CREATININE 0.6 mg/dL (0.7-1.3); POTASSIUM 3.5 mmol/L (3.5-5.1)
[2019-12-02] MEDS: ASPIRIN 81 MG TAB.CHEW PO SCH (10:02)
[2019-12-02] MEDS: ENOXAPARIN 40 MG/0.4 ML SYRINGE. SQ SCH (10:02)
[2019-12-02] MEDS: IV NORMAL SALINE 1,000ML 1,000 ML IV SCH ×2 (11:02→21:13)
[2019-12-02 11:54] VITALS: BP 182/91
--- NOTE | 2019-12-02 13:04 | PN ---
DATE: 12/02/2019 SUBJECTIVE: The patient is resting slightly propped up in bed, in no apparent distress. He claimed that he has bowel movement. Denied any nausea, vomiting, continued to have some abdominal discomfort. PHYSICAL EXAMINATION: GENERAL: When I examined him, he looked well and was clearly in no apparent respiratory distress. No pallor, jaundice, cyanosis or thyromegaly. No jugular venous distention. No lower limb edema. VITAL SIGNS: His heart rate was 78, blood pressure was 192/98, temperature was 98.5, respiratory rate 20, and oxygen saturation was 96%. HEAD, EYES, EARS, NOSE AND THROAT: Showed normocephalic, atraumatic. NECK: Supple. HEART: Showed normal first and second heart sounds. No gallop or murmur. CHEST: Shows central trachea, equal bilateral air entry, expansion with crepitation mostly in the left side posteriorly. I could not appreciate any rhonchi. ABDOMEN: Distended, soft, nontender. There is no guarding or rigidity. No organomegaly. All hernial orifice intact. Bowel sounds normal. NEUROLOGIC: He is awake, alert, responding appropriately. All cranial nerves are intact. He moves extremities without difficulty. His intake over the last 24 hours was 3830, output was 1600. LABORATORY DATA: As of this morning showed a white cell count 9300, hemoglobin 12, hematocrit 36, MCV 96, and platelet count 223,000. His chemistry showed a serum sodium 137, potassium 3.5, chloride 102, bicarbonate 24, anion gap of 11, BUN 9, creatinine was 0.6, estimated GFR was 137 mL per minute. His glucose was 90, calcium was 8.2 and his C-reactive protein was high at 143 mg/dL. His total protein was 6.3, albumin was 2.5. His prothrombin time, INR and APTT are normal. Urinalysis was mostly unremarkable. ASSESSMENT: 1. Atrial fibrillation with rapid ventricular response, resolved. He was initially treated with Cardizem drip as well as digoxin. He is now on Cardizem 60 mg 3 times a day and he is now in sinus rhythm. He is not considered a candidate for long-term anticoagulation. He is on aspirin. 2. Aspiration pneumonia with infiltrates bilaterally, worse in the lingula and left upper lobe for which he is on IV antibiotic in the form of Zosyn and Levaquin. 3. Urinary retention due to benign prostatic hypertrophy with bladder outlet obstruction for which he has an indwelling Rodriguez catheter. 4. Seizure disorder for which he is on Keppra 500 mg IV twice a day. 5. He has dysphagia for which he has Ash-Gomez button. My plan is to start his tube feeds today and if he has tolerated that very well, we can restart all his medications. SHYANNE ELLIS MD DR: APARNA/dominick JOB#: [id number] / [id number]
[2019-12-02 15:50] VITALS: BP 183/84
[2019-12-02] MEDS ORDERED: cloNIDine TTS-1 1 PATCH PATCH TD SCH (17:00)
[2019-12-02 19:36] VITALS: BP 177/84
[2019-12-02] MEDS: KETOROLAC 30 MG/ML VIAL. IV PRN (21:15)
[2019-12-02 22:43] VITALS: BP 172/75
[2019-12-03] VITALS (13 sets, daily range): BP systolic 122–187; BP diastolic 61–89
[2019-12-03] MEDS: PIPERACILLIN/TAZOBACTAM 4.5 GM in IV NORMAL SALINE 50ML 50 ML IV SCH ×5 (00:12→23:57)
--- NOTE | 2019-12-03 06:00 | NUR ---
PO Cardizem crushed and given with HS feeding via Garrett button, pt tolerated fair. Pt in NSR during all of shift, had recent episode of Afib w/ RVR about 2 days ago. Pt up most of night watching TV with call light in hand. Did c/o both abd pain and a headache once each during shift, PRN Toradol and Fentanyl given with improvement. BP slightly improved with patch. Rodriguez still in place and draining yellow urine. Pt did have a large BM yesterday.
[2019-12-03 06:34] LABS: CALCIUM 8.4 mg/dL (8.5-10.1); CREATININE 0.7 mg/dL (0.7-1.3); GFR 114.6; POTASSIUM 3.7 mmol/L (3.5-5.1)
[2019-12-03] MEDS: IV NORMAL SALINE 1,000ML 1,000 ML IV SCH (07:30)
--- NOTE | 2019-12-03 07:53 | PDOC ---
CARDIO Progress Notes Date & Time Date of Service DATE: 12/03/19 TIME: 07:43 Time of Evaluation 07:43 Subjective Notes No chest pain, palpitations, dizziness, diaphoresis, or nausea/vomiting. Vitals Vitals Vital Signs Date Time Temp Pulse Resp B/P (MAP) Pulse Ox O2 Delivery O2 Flow Rate FiO2 12/03/19 05:32 98.1 76 20 157/89 (111) 94 Room Air Weight Weight [ ] Input and Output I.O. Intake and Output 12/03/19 07:00 Intake Total 1561 ml Output Total 3551 ml Balance -1990 ml Intake Oral 0 ml IV Total 1211 ml Tube Feeding 250 ml Other 100 ml Output Urine Total 3550 ml Stool Total 1 ml Laboratory Labs Laboratory Tests Test 12/02/19 06:26 12/03/19 05:59 White Blood Count 9.3 x10^3/uL (4.0-11.0) Red Blood Count 3.76 x10^6/uL (4.30-5.70) Hemoglobin 12.1 g/dL (13.0-17.5) Hematocrit 36.0 % (39.0-53.0) Mean Corpuscular Volume 96 fL (79-100) Mean Corpuscular Hemoglobin 32 pg (25-35) Mean Corpuscular Hemoglobin Concent 34 g/dL (31-37) Red Cell Distribution Width 14.5 % (11.5-14.5) Platelet Count 223 x10^3/uL (140-400) Erythrocyte Sedimentation Rate 67 (0-15) Sodium Level 137 mmol/L (136-145) 138 mmol/L (136-145) Potassium Level 3.5 mmol/L (3.5-5.1) 3.7 mmol/L (3.5-5.1) Chloride Level 102 mmol/L (98-107) 102 mmol/L (98-107) Carbon Dioxide Level 24 mmol/L (21-32) 27 mmol/L (21-32) Anion Gap 11 (6-14) 9 (6-14) Blood Urea Nitrogen 9 mg/dL (8-26) 12 mg/dL (8-26) Creatinine 0.6 mg/dL (0.7-1.3) 0.7 mg/dL (0.7-1.3) Estimated GFR (Cockcroft-Gault) 137.0 114.6 Glucose Level 90 mg/dL (70-99) 105 mg/dL (70-99) Calcium Level 8.2 mg/dL (8.5-10.1) 8.4 mg/dL (8.5-10.1) C-Reactive Protein 143.6 mg/L (0-3.3) Microbiology Micro Microbiology 11/30/19 Blood Culture - Preliminary, Resulted NO GROWTH AFTER 2 DAYS... Physical Exams HEENT: Neck Supple W Full Motion Chest: Symmetric Lungs: Clear to Auscultation, Other (diminished bases ) Heart: RRR Abdomen: Soft N/T Extremities: No Edema Neurology: alert, follow commands Plan Plan 1. PAFIB with RVR; converted back to SR 11/30 and has been maintaining. 2. Mild troponin elevation; peak 0.186. Most probably type II, demand ischemia. Conservative management considering his comorbidities. 3. Chronic systolic HF with cardiomyopthy; Echo 08/2019 with LVEF 45%. Clinically compensated 4. Hypertension; mildly elevated 5. Aspiration PNA, recurrent 6. Dysphagia with h/o multiple g-tube placements. 7. BPH, urinary retention 8. H/o recurrent bowel obstructions/ileus 9. Seizure disorder: 10. Intellectual disability, cerebral palsy. . Recommendations Continue Cardizem for rate control ASA for stroke prophylaxis. Poor candidate for long-term OAC. Given recurrent episodes of AFIB with RVR, will start amiodarone for rhythm maintenance Will start 24hr IV loading protocol followed by 200mg q day. Supportive care MARTINEZ MILLS APRN Dec 03, 2019 07:53
--- NOTE | 2019-12-03 08:30 | NUR ---
Patient transfered to ICU 5, this nurse spoke with Lilliana GUTIERREZ with cardiology states she spoke with Dr Cruz and plan is to start patient on a Amiodarone gtt per 24 hour routine protocol. Plan is to then start on Amiodarone 200mg daily in AM and stop gtt, then stop Norvasc and continue clonidine patch and cardizem. Report given to Val in ICU.
[2019-12-03] MEDS ORDERED: AMIODARONE 450 MG in IV DEXTROSE 5% 250 ML IV ONE (09:00)
[2019-12-03] MEDS ORDERED: amLODIPine BESYLATE 5 MG TABLET PO SCH (09:00)
[2019-12-03] MEDS ORDERED: AMIODARONE 150 MG in IV DEXTROSE 5% 100 ML IVP ONE (09:00)
[2019-12-03] MEDS: ENOXAPARIN 40 MG/0.4 ML SYRINGE. SQ SCH (09:15)
[2019-12-03] MEDS: dilTIAZem HCL 30 MG TABLET PO SCH ×3 (09:25→20:06)
[2019-12-03] MEDS: ASPIRIN 81 MG TAB.CHEW PO SCH (09:25)
[2019-12-03] MEDS ORDERED: BISACODYL 10 MG SUPP.RECT RC PRN (11:15)
[2019-12-03] MEDS ORDERED: POLYETHYLENE GLYCOL 3350 17 GM PACKET. PEG PRN (11:15)
[2019-12-03] MEDS ORDERED: cloNIDine TTS-1 1 PATCH PATCH TD SCH (12:00)
--- NOTE | 2019-12-03 12:35 | PN ---
DATE: 12/03/2019 SUBJECTIVE: The patient noted is resting slightly propped up in bed and in no apparent distress. He apparently had a bowel movement yesterday and also this morning and he continued to be in atrial fibrillation with rapid ventricular response and apparently a decision was made to start him on amiodarone. Given the recurrence of episode of atrial fibrillation with RVR and he was started on amiodarone drip, will be switched to oral tomorrow. He continued to be on Cardizem 60 mg 3 times a day. He was started also on his Nutren, and so far has tolerated it. There is no episode of nausea and vomiting. OBJECTIVE: GENERAL: When I saw him this morning, he looked well and was clearly in no apparent respiratory distress. No pallor, jaundice, cyanosis or thyromegaly. No jugular venous distention or limb edema. VITAL SIGNS: His heart rate was 72, blood pressure was 132/70, temperature 98.1, respiratory rate was 20, and oxygen saturation was 94% on room air. HEAD, EYES, EARS, NOSE AND THROAT: Showed normocephalic, atraumatic. NECK: Supple. CARDIAC: Normal first and second heart sounds. No gallop or murmur. CHEST: Clear to auscultation. No crepitation or rhonchi. ABDOMEN: Distended, soft, nontender with Ash-Gomez button in the epigastric area. There is no tenderness. No guarding or rigidity. No organomegaly. All hernial orifice intact. Bowel sounds normal. NEUROLOGIC: He is awake, alert, responding appropriately. All cranial nerves are intact. He moves extremities without difficulty. LABORATORY DATA: As of yesterday showed a white cell count 9300, hemoglobin 12, hematocrit 36, MCV 96, and platelet count 223,000. His chemistry this morning showed a serum sodium 138, potassium 3.7, chloride 102, bicarbonate 27, anion gap of 9, BUN 12, creatinine 0.7, estimated GFR was 114 mL per minute, his glucose 105, calcium was 8.4. C-reactive protein was 143 mg/dL and sedimentation rate was 67 mm per hour. ASSESSMENT: 1. Atrial fibrillation with rapid ventricular response, now on amiodarone drip and Cardizem and currently in sinus rhythm, is not considered a candidate for long-term anticoagulation. He is on aspirin. 2. Aspiration pneumonia with infiltrate bilaterally, worse in the lingula and left upper lobe, for which he continues to be on IV antibiotic in the form of Zosyn and Levaquin. 3. Urinary retention due to benign prostatic hypertrophy with bladder outlet obstruction for which he is on indwelling Rodriguez catheter. 4. Seizure disorder for which he is on Keppra 500 mg IV twice a day. 5. He has dysphagia for which he has Ash-Gomez button. PLAN: Plan is to obviously restart his tube feeding gradually. He is now on amiodarone IV and tomorrow will be switched to oral amiodarone. So far, his blood cultures showed no growth after 3 days. We will continue today and if he is tolerating his diet and was able to switch him to oral antibiotic and eventually discharge him back to care home. SHYANNE ELLIS MD DR: APARNA/dominick JOB#: [id number] / [id number]
[2019-12-03] MEDS ORDERED: NUTRITIONAL SUPPLEMENT PEG SCH (13:00)
[2019-12-03] MEDS: carBAMazepine 200 MG/10 ML ORAL.SUSP PO SCH ×2 (13:06→20:05)
[2019-12-03] MEDS: ACETAMINOPHEN 650 MG/20.3 ML SOLUTION. PO PRN (20:05)
[2019-12-03] MEDS: DOXAZOSIN MESYLATE 4 MG TABLET PO SCH (20:06)
[2019-12-03] MEDS: ZIPRASIDONE 40 MG CAPSULE. PO SCH (20:06)
[2019-12-03] MEDS: MONTELUKAST 10 MG TABLET. PO SCH (20:07)
[2019-12-03] MEDS: MAGNESIUM OXIDE 400 MG TABLET PO SCH (20:07)
[2019-12-04] VITALS (19 sets, daily range): BP systolic 116–170; BP diastolic 57–89
[2019-12-04] MEDS: PIPERACILLIN/TAZOBACTAM 4.5 GM in IV NORMAL SALINE 50ML 50 ML IV SCH (05:40)
[2019-12-04] MEDS: KETOROLAC 30 MG/ML VIAL. IV PRN (05:51)
[2019-12-04 06:31] LABS: HEMATOCRIT 36.1 % (39.0-53.0); HEMOGLOBIN 12.3 g/dL (13.0-17.5); RED BLOOD COUNT 3.79 x10^6/uL (4.30-5.70); RED CELL DISTRIBUTION WIDTH 14.2 % (11.5-14.5); WHITE BLOOD COUNT 5.4 x10^3/uL (4.0-11.0)
--- NOTE | 2019-12-04 06:37 | NUR ---
Pt tolerated HS tube feeding well. Denied any abdominal pain throughout night, slept comfortably. Pt awoke this AM c/o CLARKE and mild abd discomfort, PRN toradol given. Pt now states, "I'm ok... when do I get my milk?" in reference to his next tube feeding. Rodriguez removed per protocol. Pt has since voided x1 and had small BM. Now sitting up in bed watching TV, denies c/o.
[2019-12-04 06:45] LABS: ALBUMIN 2.4 g/dL (3.4-5.0); ALBUMIN/GLOBULIN RATIO 0.6 (1.0-1.7); CALCIUM 8.5 mg/dL (8.5-10.1); CREATININE 0.6 mg/dL (0.7-1.3); POTASSIUM 3.7 mmol/L (3.5-5.1); TOTAL BILIRUBIN 0.3 mg/dL (0.2-1.0); TOTAL PROTEIN 6.6 g/dL (6.4-8.2)
--- NOTE | 2019-12-04 08:18 | PDOC ---
CARDIO Progress Notes Date & Time Date of Service DATE: 12/04/19 TIME: 08:15 Time of Evaluation 08:15 Subjective Notes No chest pain, dizziness, diaphoresis, palpitations, or, nausea/vomiting Vitals Vitals Vital Signs Date Time Temp Pulse Resp B/P (MAP) Pulse Ox O2 Delivery O2 Flow Rate FiO2 12/04/19 06:34 50 17 165/78 (107) 95 Room Air 12/04/19 04:17 97.4 Weight Weight [ ] Input and Output I.O. Intake and Output 12/04/19 07:00 Intake Total 1852 ml Output Total 2200 ml Balance -348 ml IV Total 1552 ml Tube Feeding 300 ml Output Urine Total 2200 ml # Voids 1 # Bowel Movements 1 Laboratory Labs Laboratory Tests Test 12/03/19 05:59 12/04/19 05:40 Sodium Level 138 mmol/L (136-145) 138 mmol/L (136-145) Potassium Level 3.7 mmol/L (3.5-5.1) 3.7 mmol/L (3.5-5.1) Chloride Level 102 mmol/L (98-107) 103 mmol/L (98-107) Carbon Dioxide Level 27 mmol/L (21-32) 26 mmol/L (21-32) Anion Gap 9 (6-14) 9 (6-14) Blood Urea Nitrogen 12 mg/dL (8-26) 8 mg/dL (8-26) Creatinine 0.7 mg/dL (0.7-1.3) 0.6 mg/dL (0.7-1.3) Estimated GFR (Cockcroft-Gault) 114.6 137.0 Glucose Level 105 mg/dL (70-99) 96 mg/dL (70-99) Calcium Level 8.4 mg/dL (8.5-10.1) 8.5 mg/dL (8.5-10.1) White Blood Count 5.4 x10^3/uL (4.0-11.0) Red Blood Count 3.79 x10^6/uL (4.30-5.70) Hemoglobin 12.3 g/dL (13.0-17.5) Hematocrit 36.1 % (39.0-53.0) Mean Corpuscular Volume 95 fL (79-100) Mean Corpuscular Hemoglobin 32 pg (25-35) Mean Corpuscular Hemoglobin Concent 34 g/dL (31-37) Red Cell Distribution Width 14.2 % (11.5-14.5) Platelet Count 244 x10^3/uL (140-400) BUN/Creatinine Ratio 13 (6-20) Total Bilirubin 0.3 mg/dL (0.2-1.0) Aspartate Amino Transf (AST/SGOT) 15 U/L (15-37) Alanine Aminotransferase (ALT/SGPT) 31 U/L (16-63) Alkaline Phosphatase 62 U/L (46-116) Total Protein 6.6 g/dL (6.4-8.2) Albumin 2.4 g/dL (3.4-5.0) Albumin/Globulin Ratio 0.6 (1.0-1.7) Microbiology Micro Microbiology 11/30/19 Blood Culture - Preliminary, Resulted NO GROWTH AFTER 4 DAYS... Physical Exams HEENT: Neck Supple W Full Motion Chest: Symmetric Lungs: Clear to Auscultation, Other (diminished bases ) Heart: RRR (SR/SB) Abdomen: Soft N/T Extremities: No Edema Neurology: alert, follow commands Assessment Assessment 1. PAFIB with RVR; converted back to SR 11/30 and has been maintaining. Has been bradycardic in the upper 40's this morning while away 2. Mild troponin elevation; peak 0.186. Most probably type II, demand ischemia. Conservative management considering his comorbidities. 3. Chronic systolic HF with cardiomyopthy; Echo 08/2019 with LVEF 45%. Clinically compensated 4. Hypertension; better controlled 5. Aspiration PNA, recurrent 6. Dysphagia with h/o multiple g-tube placements. 7. BPH, urinary retention 8. H/o recurrent bowel obstructions/ileus 9. Seizure disorder: 10. Intellectual disability, cerebral palsy. . Recommendations Will decrease Cardizem due to bradycardia Start oral Amiodarone 200ng per day ASA for stroke prophylaxis. Poor candidate for long-term OAC. Supportive care MARTINEZ MILLS APRN Dec 04, 2019 08:18
[2019-12-04] MEDS ORDERED: AMIODARONE HCL 200 MG TABLET PO SCH ×2 (09:00)
[2019-12-04] MEDS: dilTIAZem HCL 30 MG TABLET PO SCH ×3 (09:00→21:17)
[2019-12-04] MEDS: MAGNESIUM HYDROXIDE 2,400 MG/30 ML ORAL.SUSP. PEG SCH (10:02)
[2019-12-04] MEDS: MAGNESIUM OXIDE 400 MG TABLET PO SCH ×2 (10:02→21:16)
[2019-12-04] MEDS: ASPIRIN 81 MG TAB.CHEW PO SCH (10:03)
[2019-12-04] MEDS: DOCUSATE 100 MG/10 ML SOLUTION. PEG SCH (10:06)
[2019-12-04] MEDS: carBAMazepine 200 MG/10 ML ORAL.SUSP PO SCH ×3 (10:07→21:16)
[2019-12-04] MEDS: DICLOFENAC SODIUM 1% TOPICAL GEL 100GM TUBE. TP SCH ×2 (10:07→16:52)
--- NOTE | 2019-12-04 11:03 | NUR ---
[facility] called to check on patient status. [facility]
[2019-12-04] MEDS: ENOXAPARIN 40 MG/0.4 ML SYRINGE. SQ SCH (11:28)
[2019-12-04] MEDS: hydrALAZINE 25 MG TABLET PO SCH ×3 (11:28→21:17)
[2019-12-04] MEDS: ZIPRASIDONE 40 MG CAPSULE. PO SCH ×2 (11:28→21:17)
--- NOTE | 2019-12-04 11:57 | PN ---
DATE: 12/04/2019 SUBJECTIVE: The patient is resting, slightly propped up in bed, in no apparent distress, awake, alert, continued to complain of some discomfort in his abdomen, but he is tolerating his tube feeding without any difficulty, tolerating also his medication. We did discontinue his Keppra, as he is now tolerating his carbamazepine. His blood cultures are negative, which showed no growth after 4 days. He apparently was started on amiodarone drip; however he is bradycardic, and unfortunately, his blood pressure is high and all his medication can cause bradycardia including Cardizem, amiodarone and clonidine and there is also interaction between Cardizem and ziprasidone, so we will probably discontinue the Cardizem. I added hydralazine 25 mg 3 times a day. I discontinued his Zosyn and Levaquin and switched him to oral Augmentin. We will consult Physical and Occupational Therapy and if he remains stable tomorrow, [facility] PHYSICAL EXAMINATION: GENERAL: When I saw him today, he looked well and was clearly in no apparent respiratory distress. No pallor, jaundice, cyanosis or thyromegaly. No jugular venous distention. No limb edema. VITAL SIGNS: Her heart rate was 52, blood pressure was 179/77, temperature 97.4, respiratory rate was 17 and oxygen saturation was 95% on room air. HEAD, EYES, EARS, NOSE AND THROAT: Showed normocephalic, atraumatic. NECK: Supple. CARDIAC: Normal first and second heart sounds. No gallop or murmur. CHEST: Shows central trachea, equal bilateral expansion, air entry, vesicular sounds with crepitation mostly in the left side posteriorly. ABDOMEN: Distended, soft with a Ash-Gomez button in the epigastric area. There is no tenderness. No guarding or rigidity. No organomegaly. All hernial orifice intact. Bowel sounds normal. NEUROLOGIC: He is awake, alert, responding appropriately. All cranial nerves are intact. He moves extremities without difficulty. His intake over the last 24 hours was 1560, output was 3551. LABORATORY DATA: As of this morning, his white cell count was 5400, hemoglobin 12, hematocrit 36, MCV 95, and platelet count 244,000. His chemistry showed a serum sodium 138, potassium 3.7, chloride 103, bicarbonate 26, anion gap of 9, BUN 8, creatinine 0.6, estimated GFR was 137 mL per minute, his glucose 96, calcium was 8.5. Total bilirubin, AST, ALT, alkaline phosphatase were normal. Total protein 6.6, albumin 2.4. ASSESSMENT: 1. Atrial fibrillation with rapid ventricular response, now on amiodarone and Cardizem as well as clonidine. He is now in sinus bradycardia and his amiodarone and Cardizem were both held. 2. Hypertension for which he is on clonidine and Cardizem; however, both can cause bradycardia, so I added hydralazine 25 mg 3 times a day. Apparently, there is interaction between Cardizem and ziprasidone and we may have to discontinue Cardizem altogether. 3. Aspiration pneumonia with bilateral infiltrates, worse in the lingula and left upper lobe; however, his blood culture has showed no growth after 4 days and therefore, I discontinued his IV Zosyn and Levaquin. We will start him on Augmentin. 4. Urinary retention due to benign prostatic hypertrophy with bladder outlet obstruction for which he is on either indwelling Rodriguez catheter. 5. Seizure disorder. He was on Keppra which was discontinued. He is now back on his carbamazepine. 6. He has dysphagia for which he has a Ash-Gomez button. He is on Nutren 250 four times a day. PLAN: Plan is to discontinue Zosyn and Levaquin, discontinue the Cardizem and add hydralazine to control his blood pressure. We will continue with physical and occupational therapy and hopefully, if he remained stable, he can be [facility]. SHYANNE ELLIS MD DR: APARNA/dominick JOB#: [id number] / [id number]
--- NOTE | 2019-12-04 17:59 | NUR ---
PT WAS UP IN CHAIR TODAY. PLACE ORDER FOR PT/OT. DC IVF. PROGRESSING TOWARDS GOALS.
[2019-12-04] MEDS: AMOXICILLIN/K CLAV 875/125MG TABLET. PO SCH (21:16)
[2019-12-04] MEDS: DOXAZOSIN MESYLATE 4 MG TABLET PO SCH (21:16)
[2019-12-04] MEDS: MONTELUKAST 10 MG TABLET. PO SCH (21:16)
[2019-12-05] VITALS (13 sets, daily range): BP systolic 116–193; BP diastolic 53–96
--- NOTE | 2019-12-05 05:06 | NUR ---
PATIENT BLADDER SCANNED, GREATER THAN 1000 MLS. PALACIO CATHETER PLACED PER ORDERS. RESTING THROUGH THE NIGHT.
[2019-12-05] MEDS: DOCUSATE 100 MG/10 ML SOLUTION. PEG SCH (07:28)
[2019-12-05] MEDS: MAGNESIUM HYDROXIDE 2,400 MG/30 ML ORAL.SUSP. PEG SCH (07:28)
[2019-12-05] MEDS: ASPIRIN 81 MG TAB.CHEW PO SCH (07:36)
[2019-12-05] MEDS: carBAMazepine 200 MG/10 ML ORAL.SUSP PO SCH ×3 (07:36→20:30)
[2019-12-05] MEDS: MAGNESIUM OXIDE 400 MG TABLET PO SCH ×2 (07:37→20:31)
[2019-12-05] MEDS: hydrALAZINE 25 MG TABLET PO SCH ×3 (07:37→20:32)
[2019-12-05] MEDS: AMOXICILLIN/K CLAV 875/125MG TABLET. PO SCH ×2 (07:37→20:30)
[2019-12-05] MEDS: ZIPRASIDONE 40 MG CAPSULE. PO SCH ×2 (07:37→20:30)
[2019-12-05] MEDS: ENOXAPARIN 40 MG/0.4 ML SYRINGE. SQ SCH (07:38)
[2019-12-05] MEDS: DICLOFENAC SODIUM 1% TOPICAL GEL 100GM TUBE. TP SCH (09:11)
--- NOTE | 2019-12-05 09:30 | NUR ---
PT up to chair today. Pt is able to verbalize understanding of poc. In report was told AMIO was dc due to interaction, however, Amio and cardizem are still on Emar. Dr. Mtz progress note says interaction was with cardizem and that was dc. Dr Mtz was called for clarification and he said he was verbally told the cardizem had an interaction, however, when ran in [employer] main interaction is between amio and Geodon. Smith want's clarification with cardiology which med to give. Held medications until Cardiology arrives. Tomás RANDLE
[2019-12-05] MEDS: dilTIAZem HCL 30 MG TABLET PO SCH ×2 (12:09→20:31)
[2019-12-05] MEDS ORDERED: dilTIAZem HCL 30 MG TABLET PO ONE (15:15)
[2019-12-05] MEDS: DIGOXIN 125 MCG TABLET PO SCH (17:34)
[2019-12-05] MEDS: ACETAMINOPHEN 650 MG/20.3 ML SOLUTION. PO PRN ×2 (17:35→20:30)
--- NOTE | 2019-12-05 18:27 | NUR ---
Spoke with Preethi at [facility] to make aware that pt will be dc tomorrow. She verbalized understanding and said to call her when he is discharged and they will come pick him up. Please keep extension and send with pt for karis-orozco. Luz RANDLE
[2019-12-05] MEDS: MONTELUKAST 10 MG TABLET. PO SCH (20:31)
[2019-12-05] MEDS: DOXAZOSIN MESYLATE 4 MG TABLET PO SCH (20:31)
--- NOTE | 2019-12-05 21:30 | PN ---
DATE: 12/05/2019 SUBJECTIVE: The patient is resting, slightly propped up in bed, in no apparent respiratory distress. He is tolerating his tube feeds without any problem. He is afebrile. His white cell count is down to 5400 from 13,000. His heart rate is much better controlled. Unfortunately, there is interaction between the amiodarone and Geodon, so we have increased his Cardizem to 60 mg 3 times a day, added hydralazine to control the blood pressure and Proscar for his enlarged prostate. PHYSICAL EXAMINATION: GENERAL: When I examined him this afternoon, he looked well and was clearly in no apparent distress. No pallor, jaundice, cyanosis or thyromegaly. No jugular venous distention. No limb edema. VITAL SIGNS: His heart rate was 88, blood pressure was 149/85, temperature was 98, respiratory rate was 20, and oxygen saturation was 96%. HEAD, EYES, EARS, NOSE AND THROAT: Normocephalic and atraumatic. NECK: Supple. CARDIAC: Normal first and second heart sounds. No gallop or murmur. CHEST: Shows central trachea, equal bilateral expansion, air entry, vesicular sounds. Very few crepitations mostly in the left side, I could not appreciate any rhonchi. ABDOMEN: Distended, soft, nontender. No guarding or rigidity. No organomegaly. All hernial orifice intact. Bowel sounds normal, has Ash-Gomez button in the epigastric area. He has an indwelling Rodriguez catheter. NEUROLOGIC: He was awake, alert, responding appropriately. All cranial nerves are intact. He moves extremities without difficulty. He apparently managed to walk with a walker with physical therapy. His intake was 1850, output was 2200. LABORATORY DATA: As of this morning, his white cell count was 5400, hemoglobin 12, hematocrit 36, MCV 95, and platelet count 244,000. Serum sodium was 138, potassium 3.7, chloride 103, bicarbonate 26, anion gap of 9, BUN 8, creatinine 0.6, estimated GFR was 137 mL per minute. His glucose was 96, calcium was 8.5. Total bilirubin, AST, ALT, alkaline phosphatase were normal. Total protein was 6.6, albumin was 2.4. His prothrombin time, INR and aPTT are normal. Urinalysis essentially unremarkable. ASSESSMENT: 1. Atrial fibrillation with rapid ventricular response, now and was treated with amiodarone and Cardizem as well as clonidine. Yesterday, he was in sinus bradycardia on both amiodarone and Cardizem were put on hold. It transpired that the amiodarone interacts with ziprasidone and therefore amiodarone was discontinued. We have increased his Cardizem to 60 mg 3 times a day as his blood pressure continued to be poorly controlled. I added hydralazine 25 mg two times a day. 2. Aspiration pneumonia with bilateral infiltrates, worse in the lingula and left upper lobe; however, his blood cultures are negative after 4 days. I discontinued his IV Zosyn and Levaquin. He is now on Augmentin. He continued to be febrile. His white cell count was only 5400. 3. Urinary retention due to benign prostatic hypertrophy with bladder outlet obstruction. He has an indwelling Rodriguez catheter. He is on Cardura 4 mg and we added Proscar 5 mg. 4. Seizure disorder for which he was on Keppra, it was discontinued, he is now back on his carbamazepine. 5. Dysphagia for which he has Ash-Gomez button, is now on Nutren ____ 4 times a day. PLAN: My plan is to continue with Cardizem at 60 mg 3 times a day. Continue with added hydralazine and Proscar. Continue with physical and occupational therapy and hopefully discharge him back to skilled nursing. SHYANNE ELLIS MD DR: APARNA/dominick JOB#: [id number] / [id number]
--- NOTE | 2019-12-05 23:03 | PDOC ---
SUBJECTIVE Subjective: No new events overnight. Amiodarone stopped due to interaction with psych meds. OBJECTIVE Vital Signs/I&O Vital Signs Date Time Temp Pulse Resp B/P (MAP) Pulse Ox O2 Delivery O2 Flow Rate FiO2 12/05/19 20:32 76 190/88 12/05/19 20:19 97.7 15 96 Room Air I & O 12/04/19 12/04/19 12/05/19 15:00 23:00 07:00 Intake Total 1000 ml Output Total 500 ml 1200 ml 675 ml Balance -500 ml -200 ml -675 ml Physical Exam Constitutional: Emaciated, non-verbal HENT: Normocephalic, atraumatic, bilateral external ears normal, oropharynx moist, no oral exudates, nose normal. Eyes: PER, EOMI, conjunctiva normal, no discharge. Neck: Normal range of motion, no tenderness, supple, no stridor. Cardiovascular: JVP not elevated. No carotid bruit. Nor precordial pulsations or heaves. S1 N,S2N. No murmurs. No rubs or clicks. Thorax and Lungs: Normal respiration. Normal chest expansion. Normal to percuss. Equal breath sounds. No crackles. No wheeze. Abdomen: Bowel sounds normal, soft, no tenderness, no masses, no pulsatile masses. Skin: Warm, dry, no erythema, no rash. Back: No tenderness, no CVA tenderness. Extremities: Intact distal pulses, no tenderness, no cyanosis, no clubbing, ROM intact, no edema. Neurologic: Psychologic: labile mood. abnormal affect Lab reviewed MEDICATIONS Medications Current Medications Medications (Trade) Dose Ordered Sig/Juanito Route PRN Reason Start Time Stop Time Status Last Admin Dose Admin Diltiazem HCl (Cardizem) 60 mg TID PO 12/05/19 21:00 12/05/19 20:31 Diltiazem HCl (Cardizem) 30 mg 1X ONCE PO 12/05/19 15:15 12/05/19 15:16 DC 12/05/19 15:36 Digoxin (Lanoxin) 125 mcg DAILY PO 12/05/19 17:00 12/05/19 17:34 PLAN Plan 1. Atrial fibrillation - Plan for diltiazem and digoxin. Defer anticoagulation. Ok to DC back tomorrow if HR better controlled. Thanks LISA ARZO MD Dec 05, 2019 23:03
[2019-12-06] MEDS: KETOROLAC 30 MG/ML VIAL. IVP PRN ×3 (00:18→13:42)
[2019-12-06 04:30] VITALS: BP 175/92
--- NOTE | 2019-12-06 05:53 | NUR ---
Pt awake frequently through the night. Reports he is thinking about getting to go home. C/o intermittent CLARKE and abd pain. PRN toradol administered with much relief. Pt irritable with lab draw this AM. When first approached by medicaid biller, pt yelled "get the f-ck out!" and raised his middle finger at her. Pt then joined by this RN and agreed to have labs drawn after some encouragement.
[2019-12-06 06:36] LABS: CALCIUM 8.7 mg/dL (8.5-10.1); CREATININE 0.6 mg/dL (0.7-1.3); POTASSIUM 3.8 mmol/L (3.5-5.1)
[2019-12-06 08:42] VITALS: BP 173/88
[2019-12-06] MEDS: DOCUSATE 100 MG/10 ML SOLUTION. PEG SCH (09:00)
[2019-12-06] MEDS: ENOXAPARIN 40 MG/0.4 ML SYRINGE. SQ SCH (09:14)
[2019-12-06] MEDS: FINASTERIDE 5 MG TABLET PO SCH (09:15)
[2019-12-06] MEDS: MAGNESIUM OXIDE 400 MG TABLET PO SCH ×2 (09:15→20:32)
[2019-12-06] MEDS: ASPIRIN 81 MG TAB.CHEW PO SCH (09:15)
[2019-12-06] MEDS: AMOXICILLIN/K CLAV 875/125MG TABLET. PO SCH ×2 (09:15→20:32)
[2019-12-06] MEDS: MAGNESIUM HYDROXIDE 2,400 MG/30 ML ORAL.SUSP. PEG SCH (09:15)
[2019-12-06] MEDS: DIGOXIN 125 MCG TABLET PO SCH (09:15)
[2019-12-06] MEDS: dilTIAZem HCL 30 MG TABLET PO SCH ×3 (09:17→20:32)
[2019-12-06] MEDS: ZIPRASIDONE 40 MG CAPSULE. PO SCH ×2 (09:17→20:33)
[2019-12-06] MEDS: hydrALAZINE 25 MG TABLET PO SCH ×3 (09:17→20:33)
[2019-12-06] MEDS: carBAMazepine 200 MG/10 ML ORAL.SUSP PO SCH ×3 (09:18→20:34)
[2019-12-06] MEDS: ACETAMINOPHEN 650 MG/20.3 ML SOLUTION. PO PRN ×2 (09:21→20:33)
[2019-12-06 11:31] VITALS: BP 152/82
[2019-12-06 12:43] VITALS: BP 105/46
[2019-12-06] MEDS ORDERED: FINA5TAB4 PO (13:41)
[2019-12-06] MEDS ORDERED: DIGO125T17 PO (13:41)
[2019-12-06] MEDS ORDERED: DILT60TA3 PO (13:41)
[2019-12-06] MEDS ORDERED: HYDR-2868 PO (13:42)
[2019-12-06] MEDS ORDERED: AMOX1TAB61 PO (13:42)
--- NOTE | 2019-12-06 15:14 | NUR ---
Pt has enlarged prostate gland and continues to retain urine without catheter. Pt has had multiple bladder trials and still continues to retain. His home residence, [facility], refused to take pt because he has mccartney catheter. Staff explained to [facility] that he would just need this catheter in place until he had an appointment with the Urologist for further evaluation. Nia, at [facility] expressed concern about the care of the catheter and stated, "We have no nurses or medical staff here and we don't take pts who have catheters." Ronda Abreu, [employer], aware of situation. [facility] agreed to accept pt. Notified pt's brother, Christ Lombardi of situation. Pt is to be discharged to [facility] tomorrow at 1015.
[2019-12-06 16:00] VITALS: BP 119/53
--- NOTE | 2019-12-06 17:42 | DISCH ---
DISCHARGE ORDERS DISCHARGE DATE: Dec 06, 2019 FINAL DIAGNOSIS Atrial Fibrillation with RVR Aspiration pneumonia BPH with bladder outlet obstruction requiring Indwelling mccartney catheter Seizure disorder CONDITION AT DISCHARGE: Stable SNF STAY <30 DAYS: Yes ORDERS Discharge Orders Discharge to [] SNU Certification [] Admit to: [] Labs: [] Diet: see below Activity: see below PT: [] OT: [] Other: [] FSBS: [] Oxygen: [] POST DISCHARGE ORDERS Activity Instructions for Disc: Activity as tolerated Weight Bearing Status after Di: As tolerated Diet after Discharge: CHECKS AFTER DISCHARGE Checks after discharge: Check your Temp as needed DISCHARGE MEDICATION ORDERS Scheduled Carbamazepine (Carbamazepine), 10 ML PEG BIDWBKFT/HERBIE, (Reported) Carbamazepine (Carbamazepine), 15 ML PEG HS, (Reported) Clonidine (Catapres-Tts 1), 1 EACH TD WEEKLY, (Reported) Diclofenac Sodium (Voltaren), 2 GM TP DAILY08, (Reported) Docusate Sodium (Docusate Sodium), 5 ML PEG DAILY, (Reported) Doxazosin Mesylate (Doxazosin Mesylate), 4 MG PEG HS, (Reported) Esomeprazole Magnesium (Nexium Capsule), 1 CAP PO BID, (Reported) Famotidine (Famotidine), 40 MG PO DAILY16, (Reported) Loratadine (Loratadine), 5 ML PO DAILY, (Reported) Magnesium Hydroxide (Milk Of Magnesia), 30 ML PEG DAILY, (Reported) Magnesium Oxide (Magnesium Oxide), 1 TAB PO BID, (Reported) Montelukast Sodium (Montelukast Sodium Tablet ), 10 MG PO HS, (Reported) Mupirocin Calcium (Mupirocin), 1 MERRILL TP TID, (Reported) Nutritional Supplement (Nutren 2.0), 250 ML PEG QID, (Reported) Ziprasidone Hcl (Geodon), 40 MG PEG BID, (Reported) Scheduled PRN Acetaminophen (Acetaminophen), 20 ML PO Q6HRS PRN for pain', (Reported) Bisacodyl (Bisacodyl), 10 MG RC PRN DAILY PRN for CONSTIPATION, (Reported) Polyethylene Glycol 3350 (Miralax), 1 PACKET PEG DAILY PRN for CONSTIPATION, (Reported) Polyethylene Glycol 3350 (Miralax), 1 PACKET PO DAILY PRN for CONSTIPATION, (Reported) Discontinued Medications Terbinafine Hcl (Terbinafine), 1 MERRILL TP PRN BID, (Reported) FOLLOW-UP Follow up with: Primary Care Provider or sooner if needed. DC TO SNF: PT/OT EVAL AND TREAT TREATMENT/EQUIPMENT ORDERS Adaptive Equipment Issued: None, SHYANNE Morocho MD Dec 06, 2019 17:42
--- NOTE | 2019-12-06 17:48 | DS ---
DATE OF DISCHARGE: HOSPITAL COURSE: The patient is a 59-year-old male patient who was admitted to the Emergency Room with complaint of severe abdominal pain, recurrent bouts of nausea, vomiting, and dry heaving without emesis. On arrival to the Emergency Room, he was found to be in atrial fibrillation with rapid ventricular response. He has also aspiration pneumonia and was found to have marked distended urinary bladder due to urinary retention as he has benign prostatic hypertrophy with bladder outlet obstruction requiring indwelling Rodriguez catheter. He was admitted, started on IV antibiotic and also Cardizem drip, then he was switched to oral Cardizem. Unfortunately, his heart rate continued to be elevated, so he was switched to amiodarone, but there was a strong interaction between amiodarone and ziprasidone, and therefore, a decision was made to discontinue amiodarone, increase Cardizem to 60 mg, and add digoxin. His blood pressure was well controlled. Also, we started him on hydralazine as an attempt to remove Rodriguez catheter has failed. I did add finasteride to his Cardura and the patient will be discharged with indwelling Rodriguez catheter and he needs to be evaluated by a urologist for his enlarged prostate. PHYSICAL EXAMINATION: GENERAL: When I saw him today, he looked well and was clearly in no apparent respiratory distress. No pallor, jaundice, cyanosis, or thyromegaly. No jugular venous distention. No lower limb edema. VITAL SIGNS: His heart rate was 80, blood pressure was 175/92, temperature was 98, respiratory rate was 22, and oxygen saturation was 95% on room air. HEAD, EYES, EARS, NOSE, AND THROAT: Showed normocephalic, atraumatic. NECK: Supple. HEART: Showed normal first and second heart sounds. No gallop, rub, or murmur. CHEST: Showed central trachea, equal bilateral expansion air entry, vesicular breath sounds with crepitation mostly in the left side posteriorly. ABDOMEN: Slightly distended, soft, nontender with a Ash-Gomez button in the epigastric area. No guarding or rigidity. No organomegaly. All hernial orifices intact. Bowel sounds normal. NEUROLOGIC: He was awake, alert, responding appropriately. All cranial nerves are intact. He moves all extremities without difficulty. LABORATORY DATA: His lab work this morning showed a white cell count 5400, hemoglobin 12, hematocrit 36, MCV 95, and platelet count 244,000. His chemistry showed a serum sodium 138, potassium 3.8, chloride 101, bicarbonate 28, anion gap of 9, BUN 12, creatinine 0.6, estimated GFR was 137 mL per minute. His glucose was 94, calcium was 8.7. TSH was normal. His prothrombin time, INR, and aPTT were normal. Urinalysis was unremarkable and toxic screen was negative. His blood cultures showed no growth after 5 days. DISCHARGE MEDICATIONS: [facility] Augmentin 875 mg twice a day for 7 more days, digoxin 125 mcg once a day, diltiazem 60 mg 3 times a day, finasteride 5 mg daily, and hydralazine 25 mg 3 times a day. Should continue also on acetaminophen 650 mg per feeding tube every 6 hours, bisacodyl 10 mg suppository rectally daily p.r.n. for constipation, carbamazepine 100 mg per 5 mL, he takes 200 mg twice a day and 300 mg at bedtime, clonidine TTS 1 patch transdermal weekly, diclofenac sodium 2 g apply topically daily for pain, docusate sodium 50 mg per 5 mL, he takes 50 mg per feeding tube once a day, doxazosin 4 mg per feeding tube daily at bedtime, Nexium 40 mg once a day, famotidine 40 mg once a day, loratadine 5 mg daily, magnesium oxide for milk of magnesia 30 mL p.o. daily p.r.n. for constipation, magnesium oxide 400 mg twice a day, Singulair 10 mg once a day, mupirocin cream apply topically 3 times a day, nutritional supplement for Nutren 2.0, he takes ____ per feeding tube 4 times a day, polyethylene glycol 17 g daily, and ziprasidone for Geodon 40 mg per feeding tube twice a day. FINAL DISCHARGE DIAGNOSES: 1. Atrial fibrillation with rapid ventricular response, much better controlled now with diltiazem and digoxin. He is not a candidate for anticoagulation. 2. Aspiration pneumonia with bilateral infiltrates, worse in the lingula and left upper lobe, resolving. His blood cultures are negative and he is afebrile, hemodynamically stable. He is now on Augmentin 875 mg twice a day for 7 more days. 3. Urinary retention due to benign prostatic hypertrophy with bladder outlet obstruction. He has an indwelling Rodriguez catheter and a trial without the catheter has failed, so the [facility] Rodriguez [facility]. He is now on Cardura and we added Proscar 5 mg once a day. 4. Seizure disorder for which he was on Keppra. That was discontinued. He is now back on his carbamazepine. 5. Dysphagia for which he has a Ash-Gomez button. He is now on Nutren ____ 3 times a day. SHYANNE ELLIS MD DR: APARNA/dominick JOB#: [id number] / [id number]
[2019-12-06 20:14] VITALS: BP 167/85
[2019-12-06] MEDS: MONTELUKAST 10 MG TABLET. PO SCH (20:33)
[2019-12-06] MEDS: DOXAZOSIN MESYLATE 4 MG TABLET PO SCH (20:33)
[2019-12-07 00:07] VITALS: BP 131/63
[2019-12-07 06:00] VITALS: BP 165/99
[2019-12-07] MEDS: KETOROLAC 30 MG/ML VIAL. IVP PRN (06:07)
[2019-12-07] MEDS: AMOXICILLIN/K CLAV 875/125MG TABLET. PO SCH (08:05)
[2019-12-07] MEDS: carBAMazepine 200 MG/10 ML ORAL.SUSP PO SCH (08:05)
[2019-12-07] MEDS: FINASTERIDE 5 MG TABLET PO SCH (08:05)
[2019-12-07] MEDS: ASPIRIN 81 MG TAB.CHEW PO SCH (08:05)
[2019-12-07] MEDS: DIGOXIN 125 MCG TABLET PO SCH (08:05)
[2019-12-07] MEDS: MAGNESIUM OXIDE 400 MG TABLET PO SCH (08:06)
[2019-12-07] MEDS: dilTIAZem HCL 30 MG TABLET PO SCH (08:06)
[2019-12-07] MEDS: hydrALAZINE 25 MG TABLET PO SCH (08:06)
[2019-12-07] MEDS: ZIPRASIDONE 40 MG CAPSULE. PO SCH (08:06)
[2019-12-07] MEDS: DOCUSATE 100 MG/10 ML SOLUTION. PEG SCH (08:07)
[2019-12-07] MEDS: MAGNESIUM HYDROXIDE 2,400 MG/30 ML ORAL.SUSP. PEG SCH (08:07)
[2019-12-07] MEDS: DICLOFENAC SODIUM 1% TOPICAL GEL 100GM TUBE. TP SCH (08:08)
[2019-12-07] MEDS: ENOXAPARIN 40 MG/0.4 ML SYRINGE. SQ SCH (08:09)
[2019-12-07 09:35] VITALS: BP 147/71
--- NOTE | 2019-12-07 09:42 | NUR ---
Called [facility] for report and received charge nurse voice mail. Left a message for her to call back for report. Luz RANDLE
--- NOTE | 2019-12-07 10:18 | NUR ---
nurse sent me to talk to environmental control administrator at [facility]. He is requesting all patient vitals and progress notes before pt willl be accepted. Tomás RANDLE
--- NOTE | 2019-12-07 12:42 | NUR ---
[facility] picked up whit. Still need to give report will call again. PT left via [facility] via [facility] van. Tomás RANDLE
--- NOTE | 2019-12-07 13:36 | NUR ---
Report called to Adalgisa RANDLE. Verbalized understanding of poc and discharge instructions. Tomás RN
--- NOTE | 2019-12-07 13:45 | DS ---
DATE OF DISCHARGE: HOSPITAL COURSE: The patient is a 59-year-old male patient, a resident at [facility], who was admitted originally through the Emergency Room complaining of severe abdominal pain, recurrent bouts of nausea and dry heaving. He was extensively investigated and was found to be in atrial fibrillation with rapid ventricular response. He was also found to have aspiration pneumonia and urine retention. His bladder was markedly distended. He had an indwelling Rodriguez catheter and he was basically admitted to ICU, started on IV antibiotic, IV fluid and we held his tube feedings and also we started him on a Cardizem drip and he was seen in consultation by the Cardiology team and initially amiodarone was started as a drip and then orally; however, transpired that there is severe interaction between amiodarone and ziprasidone; therefore, the amiodarone was discontinued. We increased Cardizem to 60 mg 3 times a day as well as started him on digoxin. He is hypertensive, so we did add hydralazine 25 mg 3 times a day and added finasteride to Cardura for his benign prostatic hypertrophy, and once stabilized, a decision was made to discharge him to a senior living facility as the [facility] refused to take him while he has an indwelling Rodriguez catheter. I also contacted the Urology group at [facility] and they will contact his brother to make an appointment at his convenience for him to be seen by urologist. PHYSICAL EXAMINATION: GENERAL: When I saw him today, he looked well and was clearly in no apparent respiratory distress. No pallor, jaundice, cyanosis or thyromegaly. No jugular venous distention or limb edema. VITAL SIGNS: His heart rate was 87, blood pressure was 147/71, temperature was 97.8, respiratory rate was 16, and oxygen saturation was 98% on room air. HEAD, EYES, EARS, NOSE AND THROAT: Showed normocephalic, atraumatic. NECK: Supple. HEART: Showed normal first and second heart sounds. No gallop, murmurs. CHEST: Clear to auscultation. No crepitation or rhonchi. ABDOMEN: Distended, soft with the Ash-Gomez button in the epigastric area. There is no guarding or rigidity. No organomegaly. All hernial orifices intact. Bowel sounds normal. He has an indwelling Rodriguez catheter. NEUROLOGIC: He has intellectual disability; however, all his cranial nerves are intact. He moves extremities without difficulty. He ambulates with a walker with standby assist. His intake over the last 24 hours was 500, output was 3500. LABORATORY DATA: His most recent white cell count was 5400, hemoglobin 12, hematocrit 36, MCV 95, and platelet count 244,000. Serum sodium was 138, potassium 3.8, chloride 101, bicarbonate 28, anion gap of 9, BUN 12, creatinine 0.6, estimated GFR was 137 mL per minute. His glucose was 94, calcium was 8.7. TSH was normal at 2.072. His prothrombin time, INR and aPTT normal. Urinalysis was essentially unremarkable and toxic screen showed digoxin level to be 0.7. DISCHARGE MEDICATIONS: He was discharged to [facility] to continue on Augmentin 875 mg twice a day for 7 more days, digoxin 125 mcg once a day, diltiazem 60 mg per feeding tube 3 times a day, finasteride 5 mg once a day, hydralazine 25 mg 3 times a day. He should continue on Tylenol 650 mg per feeding tube every 6 hours, bisacodyl 10 mg suppository rectally daily p.r.n. for constipation. He is on carbamazepine 100 mg per 5 mL, 10 mL per feeding tube twice a day and 15 mL at bedtime. Clonidine for Catapres TTS patch 1 applied topically once a week. He is on Voltaren gel 2 grams topically daily, Colace 5 mg per feeding tube daily, doxazosin for Cardura 4 mg per feeding tube at bedtime for enlarged prostate. He is on Nexium 40 mg twice a day and loratadine 5 mg once a day, magnesium oxide 400 mg twice a day, montelukast 10 mg at bedtime. He is on Nutren 250 mg 4 times a day, polyethylene glycol 17 grams daily and ziprasidone for Geodon 40 mg twice a day. FINAL DISCHARGE DIAGNOSES: 1. Atrial fibrillation with rapid ventricular response, much better controlled now with diltiazem and digoxin. He is not a candidate for anticoagulation. 2. Aspiration pneumonia with bilateral infiltrates, worse in the lingula and left upper lobe, resolving. His blood cultures are negative. He is afebrile, hemodynamically stable. He is now on Augmentin 875 mg twice a day for 7 more days. 3. Urinary retention due to benign prostatic hypertrophy with bladder outlet obstruction. He has an indwelling Rodriguez catheter and a trial without the catheter has failed, so the patient will be discharged back to [facility] to continue with an indwelling Rodriguez catheter. He is now on Cardura and we added Proscar and appointment was made for him to be seen by Urology team at [facility] for seizure disorder for which he is now back to his carbamazepine. 4. Dysphagia, for which he has a Ash-Gomez button, back on Nutren. SHYANNE ELLIS MD DR: APARNA/dominick JOB#: [id number] / [id number]
[2019-12-09] MEDS ORDERED: cloNIDine TTS-1 1 PATCH PATCH TD SCH (09:00)
== END 2019-12-07 13:00 | DRG 871 ==
LOC: ER 05:46 → ICU 08:13 → 1 SOUTH 12-01 17:59 → ICU 12-03 08:36
PROVIDERS: ADMIT Internal Medicine; ATTEND Internal Medicine
DX: A41.9 Sepsis, unspecified organism (principal); J69.0 Pneumonitis due to inhalation of food and vomit; N13.8 Other obstructive and reflux uropathy; K50.90 Crohn's disease, unspecified, without complications; I50.22 Chronic systolic (congestive) heart failure; K56.609 Unspecified intestinal obstruction, unspecified as to partial versus complete obstruction; N40.1 Benign prostatic hyperplasia with lower urinary tract symptoms; I48.0 Paroxysmal atrial fibrillation; R33.8 Other retention of urine; F20.9 Schizophrenia, unspecified; F79 Unspecified intellectual disabilities; G40.909 Epilepsy, unspecified, not intractable, without status epilepticus; G80.9 Cerebral palsy, unspecified; I11.0 Hypertensive heart disease with heart failure; R13.10 Dysphagia, unspecified; F32.9 Major depressive disorder, single episode, unspecified; F41.9 Anxiety disorder, unspecified; K21.9 Gastro-esophageal reflux disease without esophagitis; Z87.440 Personal history of urinary (tract) infections; Z79.82 Long term (current) use of aspirin; Z79.899 Other long term (current) drug therapy
CPT/HCPCS: 36415; 51702; 70450; 74018; 74177; 80048; 80053; 80162; 81001; 82553; 83605; 83690; 84443; 84484; 85025; 85027; 85610; 85651; 85730; 86140; 87040; 93005; 96361; 96365; 96375; 96376; J0282; J1160; J1650; J1885; J1953; J1956; J2405; J2543; J3010; J3490; Q9967; 97116; 97530; 97535; 99291-25; J7030

== ENCOUNTER 2020-03-11 18:00 | Emergency (ER) | payer MEDICARE, OTHER ==
[~2020-03-11] VITALS: Ht 172.7 cm; Wt 54.1 kg
[~2020-03-11 18:00] MED LIST changes: +ACET160S PO; +CLOT15CR23 TP; -CLOT15CR4 TP; +DIGO125T17 PO; +DILT60TA3 PO; +ESOM40CA PO; +FINA5TAB4 PO; +HYDR-2868 PO; +LORA5SOL43 PO; +MAGN400T44 PO; +MONT10TA80 PO; +MUPI15CR8 TP; +POLY17PO5 PO; -ZINC56.7 TP; +ZINC56.713 TP
[2020-03-11] MEDS ORDERED: IV NORMAL SALINE 1,000ML 1,000 ML IV SCH (18:12)
--- NOTE | 2020-03-11 18:24 | EKG ---
[address] [address] Test Date: 2020-03-11 Test Time: 18:19:00 Pat Name: CLAYTON HERNANDEZ Department: Room: Gender: M Machine Technician: : 1960 Requested By: KHOA CHARLES Order Number: [id number] Reading MD: Measurements Intervals Celina Rate: 124 P: -10 DC: 124 QRS: 29 QRSD: 82 T: 97 QT: 284 QTc: 412 Interpretive Statements SINUS TACHYCARDIA LEFT ATRIAL ABNORMALITY LVH WITH REPOLARIZATION ABNORMALITY ABNORMAL ECG RI6.02 No previous ECG available for comparison
--- NOTE | 2020-03-11 18:31 | PHYS DOC ---
Past History Past Medical History: A-Fib, Anxiety, Depression, GERD, Hypertension, Pneumonia, Seizure, Schizophrenia, UTI, Other Additional Past Medical Histor: Hx of SBO, mental retardation/developmental delay, SVT, urinary retention Past Surgical History: Other Additional Past Surgical Histo: PEG tube Smoking: Non-smoker Alcohol Use: None Drug Use: None General Adult EDM: Chief Complaint: NAUSEA/VOMITING/DIARRHEA HPI: HPI: Patient is a 59 year old male who presents for evaluation via EMS of recurrent nausea and vomiting as well as abdominal pain for 2 weeks. Patient is a resident at the [facility]. They are concerned that he had "stool in his vomit". He is also had recent reported dark stools. Patient has been worked up for this condition recently and had unremarkable x-rays. Patient is complaining of some mild diffuse abdominal discomfort. Patient is not a good historian and has a history of mental retardation. Patient is otherwise not toxic appearing and has stable vital signs. Review of Systems: Review of Systems: Constitutional: Denies fever or chills Eyes: Denies change in visual acuity HENT: Denies nasal congestion or sore throat Respiratory: Denies cough or shortness of breath Cardiovascular: Denies chest pain or edema GI: Denies abdominal pain, nausea, vomiting, bloody stools or diarrhea : Denies dysuria Musculoskeletal: Denies back pain or joint pain Integument: Denies rash Neurologic: Denies headache, focal weakness or sensory changes Endocrine: Denies polyuria or polydipsia Lymphatic: Denies swollen glands Psychiatric: Denies depression or anxiety Heart Score: Risk Factors: Risk Factors: DM, Current or recent (<one month) smoker, HTN, HLP, family history of CAD, obesity. Risk Scores: Score 0 - 3: 2.5% MACE over next 6 weeks - Discharge Home Score 4 - 6: 20.3% MACE over next 6 weeks - Admit for Clinical Observation Score 7 - 10: 72.7% MACE over next 6 weeks - Early Invasive Strategies Current Medications: Current Meds: Current Medications Medications (Trade) Dose Ordered Sig/Juanito Start Time Stop Time Status Last Admin Dose Admin Sodium Chloride 1,000 ml @ 1,000 mls/hr Q1H 03/11/20 18:12 03/11/20 19:11 Allergies: Allergies: Allergies Coded Allergies Type Severity Reaction Last Updated Verified No Known Drug Allergies 02/22/18 No Physical Exam: PE: Constitutional: Well developed, well nourished, mild distress, non-toxic appearance. [] HENT: Normocephalic, atraumatic, bilateral external ears normal, oropharynx moist, no oral exudates, nose normal. [] Eyes: PERRL, EOMI, conjunctiva normal, no discharge. [] Neck: Normal range of motion, no tenderness, supple, no stridor. [] Cardiovascular:Heart rate regular rhythm, no murmur [] Lungs & Thorax: Bilateral breath sounds clear to auscultation [] Abdomen: Bowel sounds diminised, distended, mild diffuse tenderness, no pulsatile masses. [] Skin: Warm, dry, no erythema, no rash. [] Back: No tenderness. [] Extremities: No tenderness, no cyanosis, ROM intact, no edema. [] Neurologic: Alert and oriented, normal motor function, normal sensory function, no focal deficits noted. [] Psychologic: anxious affect, judgement abnormal, mood abnormal. [] Current Patient Data: Labs: UA: neg Laboratory Tests Test 03/11/20 18:15 White Blood Count 10.9 x10^3/uL Red Blood Count 4.26 x10^6/uL Hemoglobin 13.5 g/dL Hematocrit 39.9 % Mean Corpuscular Volume 94 fL Mean Corpuscular Hemoglobin 32 pg Mean Corpuscular Hemoglobin Concent 34 g/dL Red Cell Distribution Width 15.0 % Platelet Count 297 x10^3/uL Neutrophils (%) (Auto) 81 % Lymphocytes (%) (Auto) 11 % Monocytes (%) (Auto) 7 % Eosinophils (%) (Auto) 0 % Basophils (%) (Auto) 0 % Neutrophils # (Auto) 8.9 x10^3uL Lymphocytes # (Auto) 1.2 x10^3/uL Monocytes # (Auto) 0.7 x10^3/uL Eosinophils # (Auto) 0.0 x10^3/uL Basophils # (Auto) 0.0 x10^3/uL Sodium Level 139 mmol/L Potassium Level 4.2 mmol/L Chloride Level 99 mmol/L Carbon Dioxide Level 33 mmol/L Anion Gap 7 Blood Urea Nitrogen 28 mg/dL Creatinine 0.9 mg/dL Estimated GFR (Cockcroft-Gault) 85.8 BUN/Creatinine Ratio 31 Glucose Level 129 mg/dL Calcium Level 9.1 mg/dL Total Bilirubin 0.2 mg/dL Aspartate Amino Transf (AST/SGOT) 16 U/L Alanine Aminotransferase (ALT/SGPT) 27 U/L Alkaline Phosphatase 86 U/L Troponin I Quantitative < 0.017 ng/mL Total Protein 6.9 g/dL Albumin 3.4 g/dL Albumin/Globulin Ratio 1.0 Lipase 82 U/L Current Medications Medications (Trade) Dose Ordered Sig/Juanito Route PRN Reason Start Time Stop Time Status Last Admin Dose Admin Sodium Chloride 1,000 ml @ 1,000 mls/hr Q1H IV 03/11/20 18:12 03/11/20 19:11 DC 03/11/20 18:41 Fentanyl Citrate (Fentanyl 2ml Vial) 50 mcg 1X ONCE IVP 03/11/20 19:15 03/11/20 19:18 DC Iohexol (Omnipaque 300 Mg/ml) 75 ml 1X ONCE IV 03/11/20 19:30 03/11/20 19:31 UNV EKG: EKG: EKG read at 1830 p.m. showed sinus tachycardia rate 124, nonspecific ST segment changes, LVH, not STEMI [] Radiology/Procedures: Radiology/Procedures: [place] [address] IMAGING REPORT Signed PATIENT: CLAYTON HERNANDEZ ACCOUNT: [id number] : 1960 LOCATION: ER AGE: 59 SEX: M EXAM STATUS: REG ER ORD. PHYSICIAN: KHOA CHARLES DO REASON: Cough, congestion, short of air PROCEDURE: PORTABLE CHEST 1V EXAM: Chest, single view. HISTORY: Cough and congestion. COMPARISON: 09/19/2019 FINDINGS: A frontal view of the chest is obtained. There is stable suspected chronic interstitial changes. There may be superimposed lower lobe atelectasis. There is no consolidation, pleural effusion or pneumothorax. The heart is normal in size. IMPRESSION: No acute pulmonary finding. Electronically signed by: Sallie Cruz MD (03/11/2020 6:31 PM) [facility] DICTATED AND SIGNED BY: SALLIE CRUZ MD DATE: 03/11/20 1831 CC: KHOA CHARLES DO; [facility] PAC ~ [] Impressions: [place] [address] IMAGING REPORT Signed PATIENT: CLAYTON HERNANDEZ ACCOUNT: [id number] : 1960 LOCATION: ER AGE: 59 SEX: M EXAM STATUS: REG ER ORD. PHYSICIAN: KHOA CHARLES DO REASON: Abd pain, n/v/d. Omni 300 75cc PROCEDURE: CT ABD PELV W/ IV CONTRST ONLY CT scan abdomen and pelvis with contrast 03/11/2020 CLINICAL HISTORY: Abdominal pain with nausea and vomiting. TECHNIQUE: After the use administration 75 cc of Omnipaque 300 only, contiguous, 5 mm axial sections were obtained through the abdomen and pelvis. One or more of the following individualized dose reduction techniques were utilized for this study: 1. Automated exposure control. 2. Adjustment of the mA and/or kV according to patient size. 3. Use of iterative reconstruction technique. FINDINGS: Comparison study is dated 11/30/2019. Images through the lung bases demonstrate perihilar infiltrates bilaterally. Linear bands of dependent subsegmental atelectasis are seen bilaterally. There is mild cardiomegaly. Diffuse wall thickening of the distal thoracic esophagus is noted. This could reflect esophagitis. The spleen, pancreas, adrenal glands and kidneys are within normal limits. A 1.8 cm somewhat oval-shaped low-attenuation structure is seen involving the right lobe of the liver which likely reflects a hemangioma. This is unchanged. The gallbladder is contracted. Air and stool are seen throughout the colon. A gastrostomy tube is again noted in place. No free fluid or free air is seen within the abdomen. There is no evidence of bowel obstruction. Images through the pelvis demonstrate marked distention of the urinary bladder. Calcifications are seen within the pelvis consistent with phleboliths. No free fluid is seen. Degenerative changes are seen involving the lower thoracic and throughout the lumbar spine along with both hips. IMPRESSION: 1. Diffuse wall thickening of the distal thoracic esophagus is seen which could reflect esophagitis. 2. Distention of the urinary bladder of uncertain etiology. 3. No additional acute abnormality is seen. Electronically signed by: Martin Steinberg MD (03/11/2020 8:23 PM) [id number] DICTATED AND SIGNED BY: MARTIN STEINBERG MD DATE: 03/11/202022 CC: KHOA CHARLES DO; [facility] PAC ~ Course & Med Decision Making: Course & Med Decision Making Pertinent Labs and Imaging studies reviewed. (See chart for details) [] Dragon Disclaimer: Dragon Disclaimer: This electronic medical record was generated, in whole or in part, using a voice recognition dictation system. 1953 stable, feeling somewhat better at this time. With nursing arcgis developer present I did a rectal exam. Stool is normal brown in color and was sent for guaiac. No evidence of fistula etc. 2033 stable, case discussed with Dr. Gupta the hospitalist at length. CAT scan results are stable as is blood work results. There is no criteria for emergency admission at this time. He will talk to Dr. Mtz tomorrow about getting outpatient endoscopy as soon as possible. G-tube site is clear and not showing any redness or drainage. Awaiting urinalysis results before final disposition decision 2112 stable, urinalysis essentially clear. Patient stable to go back to the [facility] and they will set up an outpatient endoscopy with Dr. Mtz to order. Departure Departure: Impression: Primary Impression: Esophagitis Additional Impressions: Nausea and vomiting Qualified Codes: R11.2 - Nausea with vomiting, unspecified Generalized abdominal pain Disposition: HOME/RESIDENCE PRIOR TO ADM Condition: STABLE Referrals: [facility] PAC (PCP) SHYANNE MTZ MD Patient Instructions: Esophagitis, Nausea and Vomiting Additional Instructions: Drink plenty fluids, rest, take nausea medication as directed, patient will likely need outpatient endoscopy but that would be set up by Dr. Mtz during normal hours Scripts Prochlorperazine Maleate (Compazine) 10 Mg Tablet 1 TAB PO Q6HRS for nausea and vomiting for 7 Days, #28 TAB 0 Refills Prov: KHOA CHARLES DO 03/11/20 Justification of Admission: Justification of Admission: Justification of Admission Dx: N/A KHOA CHARLES DO Mar 11, 2020 18:31
--- NOTE | 2020-03-11 18:34 | RAD ---
EXAM: Chest, single view. HISTORY: Cough and congestion. COMPARISON: 09/19/2019 FINDINGS: A frontal view of the chest is obtained. There is stable suspected chronic interstitial changes. There may be superimposed lower lobe atelectasis. There is no consolidation, pleural effusion or pneumothorax. The heart is normal in size. IMPRESSION: No acute pulmonary finding. Electronically signed by: Sallie Lanier MD (03/11/2020 6:31 PM) [facility]
[2020-03-11 18:39] LABS: BASO % 0 % (0-3); EOS % 0 % (0-3); HEMATOCRIT 39.9 % (39.0-53.0); HEMOGLOBIN 13.5 g/dL (13.0-17.5); LYMPH # 1.2 x10^3/uL (1.0-4.8); LYMPH % 11 % (24-48); MEAN CORPUSCULAR HEMOGLOBIN 32 pg (25-35); MEAN CORPUSCULAR HGB CONC 34 g/dL (31-37); MEAN CORPUSCULAR VOLUME 94 fL (79-100); MONO # 0.7 x10^3/uL (0.0-1.1); MONO % 7 % (0-9); NEUT # 8.9 x10^3uL (1.8-7.7); NEUT % 81 % (31-73); PLATELET COUNT 297 x10^3/uL (140-400); RED BLOOD COUNT 4.26 x10^6/uL (4.30-5.70); WHITE BLOOD COUNT 10.9 x10^3/uL (4.0-11.0)
[2020-03-11 18:48] LABS: CALCIUM 9.1 mg/dL (8.5-10.1); CREATININE 0.9 mg/dL (0.7-1.3); GFR 85.8; POTASSIUM 4.2 mmol/L (3.5-5.1)
[2020-03-11 18:54] LABS: ALBUMIN 3.4 g/dL (3.4-5.0); TOTAL BILIRUBIN 0.2 mg/dL (0.2-1.0); TOTAL PROTEIN 6.9 g/dL (6.4-8.2)
[2020-03-11] MEDS ORDERED: IOHEXOL 300 MG/ML 75 ML VIAL. IV ONE (20:00)
[2020-03-11 20:12] LABS: FECAL OB PT NEGATIVE (NEG)
--- NOTE | 2020-03-11 20:26 | RAD ---
CT scan abdomen and pelvis with contrast 03/11/2020 CLINICAL HISTORY: Abdominal pain with nausea and vomiting. TECHNIQUE: After the use administration 75 cc of Omnipaque 300 only, contiguous, 5 mm axial sections were obtained through the abdomen and pelvis. One or more of the following individualized dose reduction techniques were utilized for this study: 1. Automated exposure control. 2. Adjustment of the mA and/or kV according to patient size. 3. Use of iterative reconstruction technique. FINDINGS: Comparison study is dated 11/30/2019. Images through the lung bases demonstrate perihilar infiltrates bilaterally. Linear bands of dependent subsegmental atelectasis are seen bilaterally. There is mild cardiomegaly. Diffuse wall thickening of the distal thoracic esophagus is noted. This could reflect esophagitis. The spleen, pancreas, adrenal glands and kidneys are within normal limits. A 1.8 cm somewhat oval-shaped low-attenuation structure is seen involving the right lobe of the liver which likely reflects a hemangioma. This is unchanged. The gallbladder is contracted. Air and stool are seen throughout the colon. A gastrostomy tube is again noted in place. No free fluid or free air is seen within the abdomen. There is no evidence of bowel obstruction. Images through the pelvis demonstrate marked distention of the urinary bladder. Calcifications are seen within the pelvis consistent with phleboliths. No free fluid is seen. Degenerative changes are seen involving the lower thoracic and throughout the lumbar spine along with both hips. IMPRESSION: 1. Diffuse wall thickening of the distal thoracic esophagus is seen which could reflect esophagitis. 2. Distention of the urinary bladder of uncertain etiology. 3. No additional acute abnormality is seen. Electronically signed by: Viktor Steinberg MD (03/11/2020 8:23 PM) [id number]
[2020-03-11] MEDS ORDERED: hydrALAZINE 20 MG/ML VIAL. IV ONE (20:45)
[2020-03-11 21:00] VITALS: BP 158/66
[2020-03-11 21:01] LABS: AMORPHOUS SEDIMENT,UR PRESENT /HPF; BACTERIA,URINE 0 /HPF (0-FEW); BILIRUBIN,URINE NEG (NEG); CLARITY,URINE CLOUDY; COLOR,URINE YELLOW; GLUCOSE,URINE NEG (NEG); NITRITE,URINE NEG (NEG); RBC,URINE 0 /HPF (0-2); SQUAMOUS EPITHELIAL CELL,UR OCC /LPF; UROBILINOGEN,URINE 0.2 mg/dL (0.2 mg/dL); WBC,URINE 0 /HPF (0-4)
[2020-03-11] MEDS ORDERED: PROC10TA57 PO (21:19)
[2020-03-11] MEDS ORDERED: METOCLOPRAMIDE HCL 10 MG/2 ML VIAL. IVP ONE (22:15)
== END 2020-03-11 22:37 | disposition home or self-care (01) ==
LOC: ER 18:00
DX: K20.9 Esophagitis, unspecified (principal); R11.2 Nausea with vomiting, unspecified; I48.91 Unspecified atrial fibrillation; K21.9 Gastro-esophageal reflux disease without esophagitis; I10 Essential (primary) hypertension; F20.9 Schizophrenia, unspecified; Z87.440 Personal history of urinary (tract) infections
CPT/HCPCS: 36415; 71045; 74177; 80053; 81001; 82274; 83690; 84484; 85025; 86850; 86900; 86901; 93005; 96361; 96374; 96375; 96376; 99285; J0360; J2765; J3010; Q9967; J7030

== ENCOUNTER 2020-05-18 17:40 | Emergency (ER) | payer MEDICARE, OTHER ==
[~2020-05-18] VITALS: Ht 172.7 cm; Wt 54.1 kg
[~2020-05-18 17:40] MED LIST changes: +PROC10TA57 PO
--- NOTE | 2020-05-18 17:58 | PHYS DOC ---
Past History Past Medical History: A-Fib, Anxiety, Depression, GERD, Hypertension, Pneumonia, Seizure, Schizophrenia, UTI, Other Additional Past Medical Histor: Hx of SBO, mental retardation/developmental delay, SVT, urinary retention Past Surgical History: Other Additional Past Surgical Histo: PEG tube Smoking: Non-smoker Alcohol Use: None Drug Use: None General Adult EDM: Chief Complaint: GTUBE REPLACEMENT/MALFUNCTION HPI: HPI: "Nope".." Nope"..." I don't why I am here... that nurse said my G..tubie.. thing not working..." Patient is a 59 year old male who presents with [facility] with obstructed G tube. Patient has had G-tube placement for a number of years. Reportedly G-tube had become obstructed and nurses unable to feed patient. Sent to the emergency department to see if tube could be declogged or replaced. After patient arrived use of Coca-Cola irrigation of G- tube dislodged obstruction of the G-tube. G-tube now taking fluids without problems. No surrounding erythema no subcu infiltration at site. No pain. Mr. Lombardi is well-known to the emergency department with multiple ED evaluations and admissions. Has an extensive Past medical history with diagnoses of pneumonia, sepsis, esophagitis, chronic A. fib, urinary retention, cerebral palsy, cognitive impairment, generalized muscle weakness and deconditioning, gait disorder, Crohn's intermittent episodes of aspiration pneumonia, dysphasia, anxiety, depression, communication deficits, malnutrition, affective disorder, poor impulse control, intermittent explosive behavior disorder, epilepsy, chronic pain, GERD, intestinal adhesions intestinal bands periodic episodes of small bowel obstructions, chronic constipation, enlarged prostate with urinary retention, fusion of spine and lumbar sacral area and multiple other medical issues. Has had multiple gastrostomy tube placements. Currently has a [place] button gastric tube. Has had multiple exploratory laparotomies of abdomen for multiple bowel obstructions. Patient does not smoke drink alcohol or use any recreational drugs. Patient at times is emotionally liable and difficult to redirect. Patient has no other current complaints. We have reestablished flow through the gastric tube will return to [facility] [place]. Recommend follow-up with GI and primary care. Return if any concerns. Review of Systems: Review of Systems: Constitutional: Denies fever or chills Eyes: Denies change in visual acuity HENT: Denies nasal congestion or sore throat Respiratory: Denies cough or shortness of breath Cardiovascular: Denies chest pain or edema GI: Denies abdominal pain, nausea, vomiting, bloody stools or diarrhea . History of obstructed G-tube or button tube. : Denies dysuria Musculoskeletal: Has chronic back pain or joint pain Integument: Denies rash Neurologic: Denies headache, focal weakness or sensory changes. Has history of chronic CP deficits Endocrine: Denies polyuria or polydipsia Lymphatic: Denies swollen glands Psychiatric: Has chronic depression or anxiety Heart Score: Risk Factors: Risk Factors: DM, Current or recent (<one month) smoker, HTN, HLP, family history of CAD, obesity. Risk Scores: Score 0 - 3: 2.5% MACE over next 6 weeks - Discharge Home Score 4 - 6: 20.3% MACE over next 6 weeks - Admit for Clinical Observation Score 7 - 10: 72.7% MACE over next 6 weeks - Early Invasive Strategies Family History: Family History: Noncontributory to presentation Current Medications: Current Meds: See [facility] for med Allergies: Allergies: Allergies Coded Allergies Type Severity Reaction Last Updated Verified No Known Drug Allergies 02/22/18 No Physical Exam: PE: Constitutional: , no acute distress, non-toxic appearance. [] Initially argumentative, refused to have vitals taken, said no to any activity initially but was eventually coaxed to be more cooperative HENT: Normocephalic, atraumatic, bilateral external ears normal, oropharynx dry, no oral exudates, nose normal. [] Eyes: PERRLA, EOMI, conjunctiva normal, no discharge. [] Neck: Normal range of motion, no tenderness, supple, no stridor. [] Cardiovascular. Irregular heart rate regular rhythm, no murmur [. Slightly to the left Lungs & Thorax: Bilateral breath sounds equal at apex on auscultation [] some posterior crackles. Abdomen: Bowel sounds normal, soft, no tenderness, no masses, no pulsatile masses. Multiple old surgery scars. Button G-tube-was cleared with Coca-[employer]a irrigations Skin: Warm, dry, no erythema, no rash. Poor turgor Back: No tenderness, no CVA tenderness. Kyphosis and scoliosis Extremities: No tenderness, no cyanosis, no clubbing, ROM intact, no edema. Arthritic changes contractions Neurologic: Alert and oriented X 3, patient will move all extremities on request, does have distal sensory, no obvious new focal deficits noted. [] Psychologic: Affect anxious initially argumentative but eventually was coaxed to allow l evaluation and to clear his G-tube with Coca-Cola, judgement limited but aware of the events and can be reasoned with, mood normal. for this pt. Current Patient Data: Vital Signs: Vital Signs Date Time Temp Pulse Resp B/P (MAP) Pulse Ox O2 Delivery O2 Flow Rate FiO2 05/18/20 17:46 158/66 (96) EKG: EKG: [] Radiology/Procedures: Radiology/Procedures: [] Course & Med Decision Making: Course & Med Decision Making Pertinent Labs and Imaging studies reviewed. (See chart for details) [id number] with coke cola. Pt.G- Tube now patient. Patient follow-up primary care. Patient return if any concerns. Patient to have G-tube flushed after feedings. Follow-up with GI. If concern that balloon is becoming deflated or there is increasing obstruction schedule outpatient follow-up with GI. Return if any concerns. Note patient had no contact with any other patients while in the emergency de partment. Was transferred back to [facility] [place]. Impression: 1. Blocked G -tube- cleared [] Dragon Disclaimer: Dragon Disclaimer: This electronic medical record was generated, in whole or in part, using a voice recognition dictation system. Departure Departure: Disposition: 01 HOME/RESIDENCE PRIOR TO ADM Condition: STABLE Referrals: NIC BUTLER PAC (PCP) Justification of Admission: Justification of Admission: Justification of Admission Dx: N/A Dragon Disclaimer This chart was dictated in whole or in part using Voice Recognition software in a busy, high-work load, and often noisy Emergency Department environment. It may contain unintended and wholly unrecognized errors or omissions. DALIA DANIELS MD May 18, 2020 17:58
[2020-05-18 19:15] VITALS: BP 143/71
== END 2020-05-18 19:15 | disposition home or self-care (01) ==
LOC: ER 17:40
DX: K94.29 Other complications of gastrostomy (principal); I48.91 Unspecified atrial fibrillation; F41.9 Anxiety disorder, unspecified; F32.9 Major depressive disorder, single episode, unspecified; K21.9 Gastro-esophageal reflux disease without esophagitis; I10 Essential (primary) hypertension; F20.9 Schizophrenia, unspecified; G89.29 Other chronic pain; G40.909 Epilepsy, unspecified, not intractable, without status epilepticus; Z87.440 Personal history of urinary (tract) infections
CPT/HCPCS: 99283; 99284

== ENCOUNTER 2020-06-11 10:36 | Emergency (ER) | payer MEDICARE, OTHER ==
[~2020-06-11] VITALS: Ht 172.7 cm; Wt 54.1 kg
--- NOTE | 2020-06-11 10:59 | PHYS DOC ---
Past History Past Medical History: A-Fib, Anxiety, Depression, GERD, Hypertension, Pneumonia, Seizure, Schizophrenia, UTI, Other Additional Past Medical Histor: Hx of SBO, mental retardation/developmental delay, SVT, urinary retention Past Surgical History: Other Additional Past Surgical Histo: PEG tube Smoking: Non-smoker Alcohol Use: None Drug Use: None General Adult EDM: Chief Complaint: ABDOMINAL PAIN HPI: HPI: History is limited due to patient's ability to communicate effectively. Isac Lombardi is a 60-year-old male presents emergency department via EMS from his [facility] after some coffee ground fluid was removed from his gastric tube. Nurses report indicates that after approximately 100 mL of this fluid was aspirated yesterday, he was started on Protonix and told to not eat temporarily. When the gastric tube was flushed this morning it was met with resistance and aspirated an unknown quantity of similar fluid. Patient complains of abdominal pain that he is unable to characterize but wraps around his abdomen to his back. It is diffuse, but primarily originates in the epigastric region. He denies nausea vomiting. He is unable to answer when his last bowel movement was. He affirms a history of smoking but has not in quite some time. Patient denies alcohol use. Review of Systems: Review of Systems: Review of systems limited due to patient's inability to communicate effectively. Constitutional: Denies fever or chills HENT: Denies nasal congestion or sore throat GI: Denies nausea, or vomiting; affirms abdominal pain, G-tube dysfunction Integument: Denies rash or skin lesions Complete systems were reviewed and found to be within normal limits, except as documented in this note. Current Medications: Current Meds: Current Medications Medications (Trade) Dose Ordered Sig/Juanito Start Time Stop Time Status Last Admin Dose Admin Iohexol (Omnipaque 300 Mg/ml) 75 ml 1X ONCE 06/11/20 10:45 06/11/20 10:46 UNV Pantoprazole Sodium (Protonix Vial) 40 mg 1X ONCE 06/11/20 10:45 06/11/20 10:46 UNV Sodium Chloride 1,000 ml @ 1,000 mls/hr 1X ONCE 06/11/20 10:45 06/11/20 11:44 UNV Allergies: Allergies: Allergies Coded Allergies Type Severity Reaction Last Updated Verified No Known Drug Allergies 02/22/18 No Physical Exam: PE: Constitutional: Well developed, slightly malnourished, no acute distress, non- toxic appearance, able to converse well with patient but responses are not always appropriate to questioning HENT: Normocephalic, atraumatic Lungs & Thorax: No respiratory distress, equal chest rise and fall, clear to auscultation bilaterally Cardiac: Regular rate rhythm, no murmurs Abdomen: 3 well-healed incisional scars, gastric tube is in place in the epigastric region, soft, no tenderness to palpation, nondistended, no areas of erythema Skin: Warm, dry, no erythema, no rash Back: No tenderness, no CVA tenderness Extremities: No tenderness, no edema Neurologic: Alert and oriented X [address], normal sensory function, gait is slightly altered but baseline for cerebral palsy, thought content is normal but unorganized which is reported as baseline for this patient as he has been seen here before Psychologic: Affect normal Current Patient Data: Vital Signs: Vital Signs Date Time Temp Pulse Resp B/P (MAP) Pulse Ox O2 Delivery O2 Flow Rate FiO2 06/11/20 10:39 98.0 97 16 151/98 (115) 98 Room Air EKG: EKG: @ 1046 NSR at [address] elevation or depression Prominent T waves in V2-3 QRS 80 ms QT 314 ms QTc 393 ms Course & Med Decision Making: Course & Med Decision Making Pertinent Labs and Imaging studies reviewed. (See chart for details) [] Dragon Disclaimer: Dragon Disclaimer: This electronic medical record was generated, in whole or in part, using a voice recognition dictation system. Departure Departure: Impression: Primary Impression: Fecal impaction in rectum Disposition: 01 HOME/RESIDENCE PRIOR TO ADM Condition: STABLE Referrals: NIC BUTLER PAC (PCP) Patient Instructions: Fecal Impaction Justification of Admission: Justification of Admission: Justification of Admission Dx: N/A BIRGIT GARRISON DO Jun 11, 2020 10:59
[2020-06-11] MEDS: IV NORMAL SALINE 1,000ML 1,000 ML IV ONE (11:03)
[2020-06-11] MEDS: PANTOPRAZOLE IV 40 MG VIAL. IVP ONE (11:03)
[2020-06-11 11:09] LABS: BASO % 1 % (0-3); EOS # 0.1 x10^3/uL (0.0-0.7); EOS % 1 % (0-3); HEMATOCRIT 33.1 % (39.0-53.0); HEMOGLOBIN 10.5 g/dL (13.0-17.5); LYMPH % 13 % (24-48); MEAN CORPUSCULAR HEMOGLOBIN 26 pg (25-35); MEAN CORPUSCULAR HGB CONC 32 g/dL (31-37); MEAN CORPUSCULAR VOLUME 83 fL (79-100); MONO # 0.5 x10^3/uL (0.0-1.1); MONO % 6 % (0-9); NEUT # 6.3 x10^3uL (1.8-7.7); NEUT % 80 % (31-73); PLATELET COUNT 349 x10^3/uL (140-400); RED BLOOD COUNT 3.97 x10^6/uL (4.30-5.70); RED CELL DISTRIBUTION WIDTH 22.7 % (11.5-14.5); WHITE BLOOD COUNT 7.9 x10^3/uL (4.0-11.0)
[2020-06-11 11:17] LABS: ANION GAP 6 (6-14); BLOOD UREA NITROGEN 28 mg/dL (8-26); BUN/CREATININE RATIO 40 (6-20); CALCIUM 8.5 mg/dL (8.5-10.1); CARBON DIOXIDE 29 mmol/L (21-32); CHLORIDE 98 mmol/L (98-107); CREATININE 0.7 mg/dL (0.7-1.3); GFR 114.3; GLUCOSE 103 mg/dL (70-99); POTASSIUM 4.1 mmol/L (3.5-5.1); SODIUM 133 mmol/L (136-145)
[2020-06-11 11:22] LABS: CLARITY,URINE CLOUDY; COLOR,URINE YELLOW
[2020-06-11 11:23] LABS: AMORPHOUS SEDIMENT,UR PRESENT /HPF; BACTERIA,URINE 0 /HPF (0-FEW); BILIRUBIN,URINE NEG (NEG); GLUCOSE,URINE NEG (NEG); NITRITE,URINE NEG (NEG); RBC,URINE OCC /HPF (0-2); UROBILINOGEN,URINE 0.2 mg/dL (0.2 mg/dL)
[2020-06-11 11:33] LABS: ALBUMIN 2.9 g/dL (3.4-5.0); ALBUMIN/GLOBULIN RATIO 0.7 (1.0-1.7); ALK PHOS 88 U/L (46-116); ALT (SGPT) 29 U/L (16-63); AST (SGOT) 13 U/L (15-37); LIPASE 68 U/L (73-393); MAGNESIUM 2.6 mg/dL (1.8-2.4); TOTAL BILIRUBIN 0.2 mg/dL (0.2-1.0); TOTAL PROTEIN 7.1 g/dL (6.4-8.2)
[2020-06-11] MEDS: IOHEXOL 300 MG/ML 75 ML VIAL. IV ONE (11:49)
--- NOTE | 2020-06-11 12:44 | RAD ---
CT study of the abdomen and pelvis with contrast Clinical indications: Abdominal pain. TECHNIQUE: After IV infusion of 75 cc of Omnipaque 300, helical CT scanning of the abdomen and pelvis was performed. GI contrast was not administered. This may decrease the sensitivity to detect GI tract pathology. PQRS COMPLIANCE STATEMENT One or more of the following individualized dose reduction techniques were utilized for this study: 1. Automated exposure control 2. Adjustment of the mA and/or kV according to patient size 3. Use of iterative reconstruction technique COMPARISON: March 26, 2018. March 11, 2020. FINDINGS: Again seen is a hypodense area within the posterior segment right lobe liver which is smaller in size in comparison to prior study. This is consistent with a hemangioma with centripetal filling in. No new liver lesions are seen. The spleen is not enlarged. No focal pancreatic enlargement is seen. Gallbladder is normal and no extra hepatic biliary ductal dilatation is seen. No adrenal mass is evident. Small subcentimeter hypodense nodule of the inferior pole of the right kidney is again seen and is too small to accurately characterize but this is unchanged most likely representing a cyst. This has not changed significantly from study dated March 26, 2018. Therefore, no further follow-up is needed. No hydronephrosis is seen. No focal aneurysmal dilatation of the abdominal aorta is seen. No enlarged abdominal or pelvic lymphadenopathy is evident. Urinary bladder is significantly distended. Urinary bladder wall is smooth. Prostate gland measures 4.7 cm transversely. There is a large amount of fecal retention within the rectum. No rectal wall thickening or perirectal inflammation is seen. There is moderate fecal retention within the left side of the colon and mild fecal retention throughout the rest of the colon. No bowel wall thickening is seen. No obstructive bowel pattern is seen. Gastrostomy tube is apparent and the tip and balloon are seen within the lumen of the mid body of the stomach. There is wall thickening of the distal esophagus. No mesenteric edema or fluid or free air is seen. Bilateral interstitial and nodular lung infiltrates are seen within the lung bases. These were seen previously and have not changed significantly. Bone island of the posterior right iliac bone is again seen. No lytic process is seen. IMPRESSION: Significant urinary bladder distention. Significant fecal retention within the rectum. Chronic distal esophageal wall thickening could be due to reflux esophagitis. Chronic bibasilar nodular and interstitial lung infiltrates which may be due to distal airway infectious or inflammatory disease. Electronically signed by: Pascual Loja MD (06/11/2020 12:41 PM) [id number]
[2020-06-11 14:08] LABS: PLT ESTIMATE ADEQUATE (ADEQUATE)
[2020-06-11 14:09] LABS: BURR CELLS FEW; OVALOCYTES FEW
[2020-06-11 14:35] VITALS: BP 148/76
--- NOTE | 2020-06-12 07:32 | EKG ---
[address] [address] Test Date: 2020-06-11 Test Time: 10:46:24 Pat Name: CLAYTON HERNANDEZ Department: Room: Gender: M Wilton Weaver: ROSE : 1960 Requested By: BIRGIT GARRISON Order Number: [id number] Reading MD: Measurements Intervals [place] Rate: 92 P: 59 OR: 154 QRS: 29 QRSD: 80 T: 78 QT: 314 QTc: 393 Interpretive Statements SINUS RHYTHM T ABNORMALITY IN HIGH LATERAL LEADS ABNORMAL ECG RI6.02 No previous ECG available for comparison
== END 2020-06-11 15:38 | disposition home or self-care (01) ==
LOC: ER 10:36
DX: K56.41 Fecal impaction (principal); I48.91 Unspecified atrial fibrillation; F41.9 Anxiety disorder, unspecified; F32.9 Major depressive disorder, single episode, unspecified; K21.9 Gastro-esophageal reflux disease without esophagitis; I10 Essential (primary) hypertension; G80.9 Cerebral palsy, unspecified; Z87.440 Personal history of urinary (tract) infections; Z20.9 Contact with and (suspected) exposure to unspecified communicable disease
CPT/HCPCS: 36415; 51702; 74177; 80053; 81001; 82553; 83605; 83690; 83735; 84484; 85025; 85610; 85730; 93005; 96361; 96374; 99285; C9113; J7030; Q9967

== ENCOUNTER → 2020-08-25 | Emergency (ER) | payer MEDICARE, OTHER ==
[~2020-08-25] VITALS: Ht 172.7 cm; Wt 54.1 kg
[2020-08-25 05:31] VITALS: BP 148/76
--- NOTE | 2020-08-28 19:31 | PHYS DOC ---
Past History Past Medical History: A-Fib, Anxiety, Bronchitis, Depression, GERD, Hypertension, Pneumonia, Seizure, Schizophrenia, UTI, Other Additional Past Medical Histor: Hx of SBO, mental retardation/developmental delay, SVT, urinary retention Past Medical History Cerebral palsy, history aspiration, history of explosive aggressive behavior, Past Surgical History: Other Additional Past Surgical Histo: PEG tube Smoking: Non-smoker Alcohol Use: None Drug Use: None General Adult EDM: Chief Complaint: OTHER COMPLAINTS HPI: HPI: ".. They pulled it out..." Patient is a 60 year old male reportedly a resident of [facility] who lost his feeding tube. Patient has been a longtime resident of [facility] since 11/07/2018. Patient sent to the emergency room to re-place his feeding tube. Patient stated he has not had a feeding tube all day and all night. Patient has extensive past medical history of cerebral palsy, chronic A. fib, urinary retention, cognitive impairment, generalized muscle weakness, gait and mobility issues, cognitive communication defect, protein malnutrition, depression, intermittent explosive aggressive behavior disorder, epilepsy, chronic pain, history of esophageal reflux, history of aspiration, history of pneumonia, intestinal adhesions, chronic constipation, hyperplasia of prostate, attention deficit disorder, fusion of lumbar spine, and deconditioning. Patient is primary care is Dr. Jo. (Note pt initial logged under his father's chart.- This is a re-construction of this visit by Radha.) Review of Systems: Review of Systems: Patient has no complaints other than he did not receive his feedings today because of loss of G-tube Constitutional: Denies fever or chills Eyes: Denies change in visual acuity HENT: Denies nasal congestion or sore throat Respiratory: Denies cough or shortness of breath Cardiovascular: Denies chest pain or edema GI: Denies abdominal pain, nausea, vomiting, bloody stools or diarrhea .. Complaints of loss of G-tube. : Denies dysuria Musculoskeletal: Denies back pain or joint pain Integument: Denies rash Neurologic: Denies headache, focal weakness or sensory changes Endocrine: Denies polyuria or polydipsia Lymphatic: Denies swollen glands Psychiatric: Denies depression or anxiety Family History: Family History: Not currently available Current Medications: Current Meds: See nursing for fdc medications Allergies: Allergies: Allergies Coded Allergies Type Severity Reaction Last Updated Verified No Known Drug Allergies 02/22/18 No Physical Exam: PE: Constitutional: no acute distress, non-toxic appearance. [] HENT: Normocephalic, atraumatic, bilateral external ears normal, oropharynx dry, no oral exudates, nose normal. [] Eyes: PERRLA, EOMI, conjunctiva normal, no discharge. [] Neck: Normal range of motion, no tenderness, supple, no stridor. [] Cardiovascular: Irregular rate and rhythm heart rate regular rhythm, no murmur [. A. fib on monitor Lungs & Thorax: Bilateral breath sounds equal at apex on auscultation [] Abdomen: Bowel sounds normal, soft, no tenderness, no masses, no pulsatile masses. Gastric tube site is well scarred.. Was easily cannulated with a Mccartney catheter 14 f. Return of gastric contents. Was able to flushed easily. No pain. Skin: Warm, dry, no erythema, no rash. Poor turgor Back: No tenderness, no CVA tenderness. Lumbar scar. Extremities: No tenderness, no cyanosis, no clubbing, ROM intact, no edema. Contractions. Old scars. Neurologic: Alert and oriented X 3, mood all extremities on request. Has distal sensory., no new focal deficits noted from his baseline. Psychologic: Affect anxious ,judgement limited assessment, mood more depressed than usual. However was interactive Current Patient Data: Vital Signs: Vital Signs Date Time Temp Pulse Resp B/P (MAP) Pulse Ox O2 Delivery O2 Flow Rate FiO2 08/25/20 05:31 98.6 107 18 148/76 (100) 93 Room Air EKG: EKG: [] Radiology/Procedures: Radiology/Procedures: [] Heart Score: Risk Factors: Risk Factors: DM, Current or recent (<one month) smoker, HTN, HLP, family history of CAD, obesity. Risk Scores: Score 0 - 3: 2.5% MACE over next 6 weeks - Discharge Home Score 4 - 6: 20.3% MACE over next 6 weeks - Admit for Clinical Observation Score 7 - 10: 72.7% MACE over next 6 weeks - Early Invasive Strategies Course & Med Decision Making: Course & Med Decision Making Pertinent Labs and Imaging studies reviewed. (See chart for details) Note initial chart completed on his father Seferino Lombardi-there is a rec onstruction of procedure and note for visit . Plan replace loss of gastric tube with a Mccartney until follow-up with GI. Procedure note: Site cleaned. Placed 14 fr mccartney with return of gastric fluid and flushed with out problems. Pt.to follow up with GI for gastric tube placement. May use mccartney until replacement of Gastric tube. Patient follow-up primary care. Must replace gastric tube-plan scheduled follow-up with GI. shelter called-requested they send paperwork with patient and call before arrival to enhance patient's care and understand the presenting problem. Impression: 1. Loss of Gastric Tube.- Replaced with Mccartney 14 to allow feeding and hydration until Gastric tube can be replaced. [] Dragon Disclaimer: Dragon Disclaimer: This electronic medical record was generated, in whole or in part, using a voice recognition dictation system. Departure Departure: Referrals: BILLY JO (PCP) [place] Disclaimer This chart was dictated in whole or in part using Voice Recognition software in a busy, high-work load, and often noisy Emergency Department environment. It may contain unintended and wholly unrecognized errors or omissions. DALIA DANIELS MD Aug 28, 2020 19:31
== END ==
LOC: ER 05:31
DX: K94.23 Gastrostomy malfunction (principal); M62.81 Muscle weakness (generalized); I48.20 Chronic atrial fibrillation, unspecified; F41.9 Anxiety disorder, unspecified; K21.9 Gastro-esophageal reflux disease without esophagitis; F32.9 Major depressive disorder, single episode, unspecified; I10 Essential (primary) hypertension; G80.9 Cerebral palsy, unspecified; F20.9 Schizophrenia, unspecified; Z98.890 Other specified postprocedural states
CPT/HCPCS: 43762; 51702; 99284